=== PATIENT | female | born 1985 | race Caucasian/White ===

== ENCOUNTER 2016-12-11 09:39 | Emergency (ER) | payer OTHER ==
[2016-12-11 10:02] VITALS: RESP 18
--- NOTE | 2016-12-11 11:03 | ED ---
General Adult HPI - General Chief complaint: ENT Stated complaint: ENT Time Seen by Provider: 12/11/16 10:43 Source: patient, RN notes reviewed Mode of arrival: ambulatory Limitations: no limitations - History of Present Illness Initial comments: Patient is a pleasant 31-year-old female presenting to the emergency Department with upper respiratory symptoms. Symptoms have been present close to 2 weeks. Patient states she does have environmental ALLERGIES. Patient has had quite a bit of nasal drainage. Patient also has postnasal drip that has caused her to gag and vomit a couple of times. Patient does have sore throat. She does have earache. No fevers at home however she states a 99 temperature is somewhat high for her. Occasional cough. No dyspnea. - Related Data Home Medications Medication Instructions Recorded Confirmed ALPRAZolam [Xanax] 1 mg PO HS 12/31/15 03/21/16 Multivitamin [Multivitamins Adult 1 tab PO PC-SUPPER 03/19/16 03/21/16 Gummies] Previous Rx's Medication Instructions Recorded medroxyPROGESTERone [Provera] 10 mg PO DAILY #7 tab 03/25/16 Amoxicillin 500 mg PO Q8H #30 capsule 12/11/16 Allergies Allergy/AdvReac Type Severity Reaction Status Date / Time morphine Allergy Rash/Hives Verified 03/24/16 08:27 Review of Systems ROS Statement: Those systems with pertinent positive or pertinent negative responses have been documented in the HPI. ROS Other: All systems not noted in ROS Statement are negative. Constitutional: Denies: fever Eyes: Denies: eye pain ENT: Reports: ear pain, throat pain, congestion. Denies: dental pain, hearing loss, epistaxis Respiratory: Reports: cough. Denies: dyspnea Cardiovascular: Denies: chest pain Endocrine: Denies: fatigue Gastrointestinal: Denies: abdominal pain Genitourinary: Denies: dysuria Musculoskeletal: Denies: back pain Skin: Denies: rash Neurological: Denies: weakness Past Medical History Past Medical History: No Reported History Additional Past Medical History / Comment(s): brain anuerysm, ETOH abuse History of Any Multi-Drug Resistant Organisms: None Reported Past Surgical History: Adenoidectomy, Section, Orthopedic Surgery, Tonsillectomy Additional Past Surgical History / Comment(s): right knee surgery, brain surgery for removal aneurysm, ovarian cystectomy laparoscopically Past Anesthesia/Blood Transfusion Reactions: No Reported Reaction Past Psychological History: Anxiety, Depression, PTSD Additional Psychological History / Comment(s): MANIC/DEPRESSION, INSOMNIA, WAS ON SEROQUEL AND TRAZADONE IN PAST BUT DID NOT LIKE THE FEELING FROM IT AND QUIT THEM Smoking Status: Former smoker Past Alcohol Use History: Daily, Heavy Past Drug Use History: None Reported - Past Family History Father Additional Family Medical History / Comment(s): ETOH Mother Additional Family Medical History / Comment(s): ETOH, history of uterine fibroids General Exam Limitations: no limitations General appearance: alert, in no apparent distress Head exam: Present: atraumatic Eye exam: Present: normal appearance, PERRL ENT exam: Present: TM's normal bilaterally, other (Pharyngeal cobblestoning. Tenderness over the frontal maxillary and ethmoid sinuses.) Neck exam: Present: normal inspection Respiratory exam: Present: normal lung sounds bilaterally Cardiovascular Exam: Present: tachycardia (Patient attributes this to her anxiety) GI/Abdominal exam: Present: soft. Absent: tenderness Extremities exam: Present: normal inspection. Absent: calf tenderness Neurological exam: Present: alert Psychiatric exam: Present: anxious Skin exam: Absent: rash Course Vital Signs 12/11/16 09:59 Temperature 99.0 F Pulse Rate 120 H Respiratory 18 Rate Blood Pressure 126/84 O2 Sat by Pulse 97 Oximetry Disposition Clinical Impression: Sinusitis Disposition: HOME SELF-CARE Condition: Stable Instructions: Sinusitis (ED), Allergies (ED) Additional Instructions: [id number] Claritin. [id number]-[id number] saline nasal spray. Please follow- up with primary care physician in the next couple days for recheck. Return for difficulty in breathing, uncontrolled fevers, worsening symptoms or other concerns. If you are going to discontinue Xanax please slowly your self off of it. Please also follow-up with primary care physician regarding possible other medications for anxiety. Prescriptions: Amoxicillin 500 mg PO Q8H #30 capsule Referrals: None,Stated [Primary Care Provider] - 1-2 days Allan Aleman MD [STAFF PHYSICIAN] - 1-2 days Michelet Larry DO [STAFF PHYSICIAN] - 1-2 days
[2016-12-11 11:16] VITALS: BP 127/85; PULSE 107; TEMP 97.9
== END 2016-12-11 11:15 | disposition home or self-care (01) ==
LOC: EC 09:39
DX: J32.9 Chronic sinusitis, unspecified (principal); F41.9 Anxiety disorder, unspecified; Z87.891 Personal history of nicotine dependence; Z79.899 Other long term (current) drug therapy; Z88.5 Allergy status to narcotic agent
CPT/HCPCS: 99283

== ENCOUNTER 2016-12-25 19:17 | Inpatient (IN) | payer OTHER ==
[2016-12-25] MEDS ORDERED: SODIUM CHLORIDE 0.9% 1,000 ML IV ONE (20:30)
[2016-12-25 21:13] LABS: Basophils % (A) 1 %; CH 30.4; CHCM 32.5; Eosinophils % (A) 0 %; HCT 38.7 % (34.0-46.0); HDW 2.02; HGB 12.5 gm/dL (11.4-16.0); Luc # (Auto) 0.11; Luc % (Auto) 4; Lymphocytes # (A) 0.9 k/uL (1.0-4.8); Lymphocytes % (A) 27 %; MCH 30.4 pg (25.0-35.0); MCHC 32.4 g/dL (31.0-37.0); MCV 93.7 fL (80.0-100.0); Monocytes # (A) 0.2 k/uL (0-1.0); Monocytes % (A) 7 %; Neutrophils % (A) 62 %; RBC 4.13 m/uL (3.80-5.40); RDW 13.7 % (11.5-15.5); WBC 3.2 k/uL (3.8-10.6); WBC (Perox) 3.32
[2016-12-25 21:24] LABS: ALT 62 U/L (9-52); AST 189 U/L (14-36); Alkaline Phosphatase 115 U/L (38-126); Anion Gap 30 mmol/L; Blood Urea Nitrogen <2 mg/dL (7-17); Carbon Dioxide 17 mmol/L (22-30); Chloride 92 mmol/L (98-107); Glucose 82 mg/dL (74-99); Non-African American GFR(MDRD) >60 (>60 ml/min/1.73 sqM); Potassium 3.6 mmol/L (3.5-5.1); Sodium 139 mmol/L (137-145)
[2016-12-25] MEDS ORDERED: LORazepam 2 MG/ML SYRINGE IV PRN (21:43)
[2016-12-25] MEDS ORDERED: THIAMINE 100 MG/ML 2 ML VIAL IM STA (21:43)
[2016-12-25 22:44] LABS: Appearance,Urine Turbid (Clear); Bilirubin,Urine Negative (Negative); Glucose,Urine (UA) Negative (Negative); Ketones,Urine 2+ (Negative); Leukocyte Esterase,Urine Trace (Negative); Mucus,Urine Few /hpf; Nitrite,Urine Negative (Negative); PH, Urine 6.5 (5.0-8.0); Particle Count 59532; Protein,Urine 3+ (Negative); RBC,Urine >182 /hpf (0-5); Specific Gravity,Urine 1.016 (1.001-1.035); UA Billing (MACRO vs. MICRO) MICRO; Urobilinogen,Urine <2.0 mg/dL (<2.0); WBC,Urine 13 /hpf (0-5)
[2016-12-25] MEDS ORDERED: MORPHINE SULFATE 4 MG/ML SYRINGE IV PRN (23:42)
[2016-12-25] MEDS ORDERED: NALOXONE 0.4 MG/ML 1 ML VIAL IV PRN (23:42)
--- NOTE | 2016-12-25 23:42 | ED ---
General Adult HPI - General Chief complaint: Vaginal Bleeding Stated complaint: Vaginal Bleeding Source: patient Mode of arrival: wheelchair Limitations: no limitations - History of Present Illness Initial comments: 31-year-old female with past medical history of alcohol tendons and ovarian polyps presented for evaluation of alcohol withdrawal and vaginal bleeding. She states the vaginal bleeding has been persistent for the last 2 and half weeks she's been using 14-15 pads per day and states that each one is soaked all the way through. This is happened before in the past and required a D&C due to the polyps. She states that she hasn't seen her primary care physician or her [facility] as she hasn't had time and "just didn't bother". It has continued and she states there is associated nausea, lightheadedness, dizziness , and decreased appetite. She states her abdominal pain is crampy and in her lower abdomen. She also feels shaky and her last drink of alcohol was 18 hours ago and she believes she is going into withdrawal. She is monitored withdrawal in the past but denies any alcohol withdrawal induced seizures. - Related Data Home Medications Medication Instructions Recorded Confirmed ALPRAZolam [Xanax] 1 mg PO HS 12/31/15 12/25/16 Allergies Allergy/AdvReac Type Severity Reaction Status Date / Time morphine Allergy Rash/Hives Verified 12/25/16 19:35 Review of Systems ROS Statement: Those systems with pertinent positive or pertinent negative responses have been documented in the HPI. ROS Other: All systems not noted in ROS Statement are negative. Constitutional: Denies: fever, chills Eyes: Denies: eye pain, vision change ENT: Denies: ear pain, throat pain, dental pain Respiratory: Denies: cough, dyspnea, wheezes, hemoptysis Cardiovascular: Denies: chest pain, palpitations Endocrine: Denies: fatigue, polydipsia, polyuria Gastrointestinal: Reports: abdominal pain (cramping), nausea. Denies: vomiting , diarrhea, constipation, hematemesis, melena, hematochezia Genitourinary: Reports: other (vaginal bleeding x14 days; >14 pads/day). Denies : urgency, dysuria, frequency, hematuria Musculoskeletal: Denies: back pain, arthralgia, myalgia Skin: Denies: rash, lesions Neurological: Denies: headache, weakness Psychiatric: Denies: anxiety, depression Hematological/Lymphatic: Denies: easy bleeding, easy bruising Past Medical History Past Medical History: No Reported History Additional Past Medical History / Comment(s): brain anuerysm, ETOH abuse History of Any Multi-Drug Resistant Organisms: None Reported Past Surgical History: Adenoidectomy, Section, Orthopedic Surgery, Tonsillectomy Additional Past Surgical History / Comment(s): right knee surgery, brain surgery for removal aneurysm, ovarian cystectomy laparoscopically Past Anesthesia/Blood Transfusion Reactions: No Reported Reaction Past Psychological History: Anxiety, Depression, PTSD Additional Psychological History / Comment(s): MANIC/DEPRESSION, INSOMNIA, WAS ON SEROQUEL AND TRAZADONE IN PAST BUT DID NOT LIKE THE FEELING FROM IT AND QUIT THEM Smoking Status: Former smoker Past Alcohol Use History: Daily, Heavy Past Drug Use History: None Reported - Past Family History Father Additional Family Medical History / Comment(s): ETOH Mother Additional Family Medical History / Comment(s): ETOH, history of uterine fibroids General Exam Limitations: no limitations General appearance: alert, in no apparent distress Head exam: Present: atraumatic, normocephalic, normal inspection Eye exam: Present: normal appearance, PERRL, EOMI. Absent: scleral icterus, conjunctival injection, periorbital swelling ENT exam: Present: normal exam, mucous membranes moist Neck exam: Present: normal inspection. Absent: tenderness, meningismus, lymphadenopathy Respiratory exam: Present: normal lung sounds bilaterally. Absent: respiratory distress, wheezes, rales, rhonchi, stridor Cardiovascular Exam: Present: normal rhythm, tachycardia, normal heart sounds. Absent: systolic murmur, diastolic murmur, rubs, gallop, clicks GI/Abdominal exam: Present: soft, normal bowel sounds. Absent: distended, tenderness, guarding, rebound, rigid Rectal exam: Present: deferred External exam: Present: normal external exam Speculum exam: Present: vaginal bleeding, other (significant clots noted in the vaginal vault; persistent bloody ooze from cervical os) Extremities exam: Present: normal inspection, full ROM, normal capillary refill. Absent: tenderness, pedal edema, joint swelling, calf tenderness Back exam: Present: normal inspection Neurological exam: Present: alert, oriented X3, CN II-XII intact Psychiatric exam: Present: anxious. Absent: flat affect, homicidal ideation, suicidal ideation Skin exam: Present: warm, dry, intact, normal color. Absent: rash Course Vital Signs 12/25/16 12/25/16 19:32 21:39 Temperature 98.7 F Pulse Rate 118 H 113 H Respiratory 16 16 Rate Blood Pressure 124/82 131/82 O2 Sat by Pulse 98 100 Oximetry EKG Findings - EKG Comments: EKG Findings:: Normal sinus rhythm with a ventricular rate 98, HALIE 134, QRS 68, QT/QTC 372/474. Medical Decision Making - Medical Decision Making 31-year-old female with past medical history of uterine polyps and chronic alcoholism presenting for evaluation of abdominal discomfort/cramping and vaginal bleeding. Vaginal bleeding has been persistent for the last 2-1/2 weeks and she states she uses about 14-15 pads per day. She has had a previous D&C due to vaginal bleeding. The abdominal discomfort with nausea is likely due to her alcoholism and she states that she is currently going into alcohol withdrawals and her last week was 18 hours ago. On physical exam the patient is very anxious appearing and on physical exam she does have tenderness over the abdomen without peritoneal signs of guarding, rigidity, or rebound. The patient states that she would like to be placed into a program that will help her withdrawal and also quit drinking alcohol. We'll initiate CIWA protocol, obtain labs, and provide pain control IV fluids and Zofran. Labs revealed a mild leukopenia, transaminitis, and pancreatitis. Although there is some leukocyte esterase and a PVCs in her urine this is likely contamination as there is also large amounts of blood and RBCs. She is not complaining of any dysuria at this time and will therefore not treat with antibiotics. Patient made nothing by mouth, IV fluids continued, and pelvic exam performed which showed significant clotting in the vaginal vault with a slow persistent ooze of blood from the cervical os. Given the patient going into our call withdrawal, her pancreatitis, and the persistent vaginal bleeding will admit for further treatment and evaluation. Dr. Nichole accepted the admission with request for consult with [facility]. Admission order placed and bed request submitted. Dr. Ward was updated on the status of the pt and she requested a pelvic US be obtained for the morning. The US team was in the department shortly after however and US obtained this morning. Patient was reevaluated and had some improvement in her symptoms however she was starting to feel nauseous again will provide a dose of Zofran and continue IV fluids. - Lab Data Result diagrams: 12/25/16 21:00 12/25/16 21:00 Lab Results 12/25/16 12/25/16 12/25/16 Range/Units 21:00 21:00 22:25 WBC 3.2 L (3.8-10.6) k/uL RBC 4.13 (3.80-5.40) m/uL Hgb 12.5 (11.4-16.0) gm/dL Hct 38.7 (34.0-46.0) % MCV 93.7 (80.0-100.0) fL MCH 30.4 (25.0-35.0) pg MCHC 32.4 (31.0-37.0) g/dL RDW 13.7 (11.5-15.5) % Plt Count 89 L (150-450) k/uL Neutrophils % 62 % Lymphocytes % 27 % Monocytes % 7 % Eosinophils % 0 % Basophils % 1 % Neutrophils # 2.0 (1.3-7.7) k/uL Lymphocytes # 0.9 L (1.0-4.8) k/uL Monocytes # 0.2 (0-1.0) k/uL Eosinophils # 0.0 (0-0.7) k/uL Basophils # 0.0 (0-0.2) k/uL Sodium 139 (137-145) mmol/L Potassium 3.6 (3.5-5.1) mmol/L Chloride 92 L (98-107) mmol/L Carbon Dioxide 17 L (22-30) mmol/L Anion Gap 30 mmol/L BUN <2 L (7-17) mg/dL Creatinine 0.49 L (0.52-1.04) mg/dL Est GFR (MDRD) Af Amer >60 (>60 ml/min/1.73 sqM) Est GFR (MDRD) Non-Af >60 (>60 ml/min/1.73 sqM) Glucose 82 (74-99) mg/dL Calcium 10.0 (8.4-10.2) mg/dL Total Bilirubin 2.0 H (0.2-1.3) mg/dL AST 189 H (14-36) U/L ALT 62 H (9-52) U/L Alkaline Phosphatase 115 (38-126) U/L Total Protein 9.0 H (6.3-8.2) g/dL Albumin 5.3 H (3.5-5.0) g/dL Lipase 3836 H (23-300) U/L Urine Color Urine Appearance (Clear) Urine pH (5.0-8.0) Ur Specific [place] (1.001-1.035) Urine Protein (Negative) Urine Glucose (UA) (Negative) Urine Ketones (Negative) Urine Blood (Negative) Urine Nitrite (Negative) Urine Bilirubin (Negative) Urine Urobilinogen (<2.0) mg/dL Ur Leukocyte Esterase (Negative) Urine RBC (0-5) /hpf Urine WBC (0-5) /hpf Urine Mucus (None) /hpf Urine HCG, Qual Not Detected (Not Detectd) 12/25/16 Range/Units 22:25 WBC (3.8-10.6) k/uL RBC (3.80-5.40) m/uL Hgb (11.4-16.0) gm/dL Hct (34.0-46.0) % MCV (80.0-100.0) fL MCH (25.0-35.0) pg MCHC (31.0-37.0) g/dL RDW (11.5-15.5) % Plt Count (150-450) k/uL Neutrophils % % Lymphocytes % % Monocytes % % Eosinophils % % Basophils % % Neutrophils # (1.3-7.7) k/uL Lymphocytes # (1.0-4.8) k/uL Monocytes # (0-1.0) k/uL Eosinophils # (0-0.7) k/uL Basophils # (0-0.2) k/uL Sodium (137-145) mmol/L Potassium (3.5-5.1) mmol/L Chloride (98-107) mmol/L Carbon Dioxide (22-30) mmol/L Anion Gap mmol/L BUN (7-17) mg/dL Creatinine (0.52-1.04) mg/dL Est GFR (MDRD) Af Amer (>60 ml/min/1.73 sqM) Est GFR (MDRD) Non-Af (>60 ml/min/1.73 sqM) Glucose (74-99) mg/dL Calcium (8.4-10.2) mg/dL Total Bilirubin (0.2-1.3) mg/dL AST (14-36) U/L ALT (9-52) U/L Alkaline Phosphatase (38-126) U/L Total Protein (6.3-8.2) g/dL Albumin (3.5-5.0) g/dL Lipase (23-300) U/L Urine Color Dark Red Urine Appearance Turbid H (Clear) Urine pH 6.5 (5.0-8.0) Ur Specific [place] 1.016 (1.001-1.035) Urine Protein 3+ H (Negative) Urine Glucose (UA) Negative (Negative) Urine Ketones 2+ H (Negative) Urine Blood Large H (Negative) Urine Nitrite Negative (Negative) Urine Bilirubin Negative (Negative) Urine Urobilinogen <2.0 (<2.0) mg/dL Ur Leukocyte Esterase Trace H (Negative) Urine RBC >182 H (0-5) /hpf Urine WBC 13 H (0-5) /hpf Urine Mucus Few H (None) /hpf Urine HCG, Qual (Not Detectd) Disposition Clinical Impression: Pancreatitis, Vaginal bleeding, Transaminitis Disposition: ADMITTED IP TO THIS [facility] Referrals: None,Stated [Primary Care Provider] - 1-2 days Decision to Admit Reason: Admit from EC Decision Date: 12/25/16 Decision Time: 23:42
[2016-12-26] MEDS: ONDANSETRON 4 MG/2 ML VIAL IVP PRN ×3 (00:42→19:19)
[2016-12-26] MEDS: LORazepam 2 MG/ML SYRINGE IV PRN ×3 (00:42→19:20)
[2016-12-26] MEDS ORDERED: SODIUM CHLORIDE 0.9% 1,000 ML IV ONE (00:51)
[2016-12-26] MEDS ORDERED: ONDANSETRON 4 MG/2 ML VIAL IVP STA (00:51)
[2016-12-26] MEDS: SODIUM CHLORIDE 0.9% 1,000 ML IV SCH ×4 (02:20→20:52)
[2016-12-26] MEDS: HYDROmorphone 1 MG/ML 1 ML SYRINGE IVP PRN ×3 (03:13→20:49)
[2016-12-26 08:10] LABS: Aty Lym Flag Slight; CH 30.4; CHCM 31.5; HCT 32.9 % (34.0-46.0); HDW 2.03; HGB 10.6 gm/dL (11.4-16.0); MCH 31.1 pg (25.0-35.0); MCHC 32.1 g/dL (31.0-37.0); Mean Platelet Volume 8.3; WBC 5.8 k/uL (3.8-10.6); WBC (Perox) 6.17
[2016-12-26 08:22] LABS: Blood Urea Nitrogen <2 mg/dL (7-17); Calcium 9.5 mg/dL (8.4-10.2); Chloride 104 mmol/L (98-107); Glucose 128 mg/dL (74-99); Non-African American GFR(MDRD) >60 (>60 ml/min/1.73 sqM); Potassium 4.1 mmol/L (3.5-5.1); Sodium 139 mmol/L (137-145)
[2016-12-26 08:57] LABS: Anion Gap 25 mmol/L
[2016-12-26 08:58] LABS: Carbon Dioxide 10 mmol/L (22-30)
[2016-12-26 09:19] LABS: Add Differential Manual Differential
[2016-12-26 09:21] LABS: Manual Review Performed; Nucleated Red Blood Cells 0 /100 WBC (0-0); Total Cells Counted 100
[2016-12-26 09:22] LABS: RBC Morphology Normal
--- NOTE | 2016-12-26 10:02 | P.OBCN ---
History of Present Illness Consult date: 12/26/16 Reason for consult: menorrhagia Chief complaint: Vaginal bleeding History of present illness: This is a 31-year-old 2 para 2 woman who was admitted from the emergency room with alcohol withdrawal and pancreatitis. She reports a 2 week history of vaginal bleeding. She describes the bleeding as intermittently heavy with passage of large clots. She has had similar bleeding episodes in the past and underwent a D&C for this condition several months ago. She denies possibility of however is not using contraception. Her previous office worker did prescribe medication for her to take for her bleeding however she says she is unable to remember to take this as an outpatient. She is currently complaining of generalized abdominal pain, headache, nausea and feeling shaky. Her bleeding has decreased throughout the night. Ultrasound is currently pending however review of ultrasound documentation from 2016 comments on a bicornuate and retroflexed uterus. She underwent D&C for heavy vaginal bleeding in March 2016. She received transfusion at that time. She was discharged home on Provera. Patient's past medical history is significant for alcohol abuse. Review of Systems Constitutional: Reports anorexia, Reports chills, Reports chronic headaches, Reports weakness, Reports weight loss Cardiovascular: Denies chest pain, Denies lightheadedness Respiratory: Reports cough Gastrointestinal: Reports abdominal pain, Reports nausea, Denies BRBPR, Denies diarrhea Genitourinary: Reports abnormal vaginal bleeding Menstruation: Reports period heavy Integumentary: Denies rash Neurological: Reports headaches Psychiatric: Reports sleep disturbances Past Medical History Past Medical History: No Reported History Additional Past Medical History / Comment(s): brain anuerysm, ETOH abuse, bicornuate uterus, dysfunctional uterine bleeding History of Any Multi-Drug Resistant Organisms: None Reported Past Surgical History: Adenoidectomy, Section, Orthopedic Surgery, Tonsillectomy Additional Past Surgical History / Comment(s): right knee surgery, brain surgery for removal aneurysm, ovarian cystectomy laparoscopically, D&C Past Anesthesia/Blood Transfusion Reactions: No Reported Reaction Past Psychological History: Anxiety, Depression, PTSD Additional Psychological History / Comment(s): MANIC/DEPRESSION, INSOMNIA, WAS ON SEROQUEL AND TRAZADONE IN PAST BUT DID NOT LIKE THE FEELING FROM IT AND QUIT THEM Smoking Status: Former smoker Past Alcohol Use History: Daily, Heavy Past Drug Use History: None Reported - Past Family History Father Additional Family Medical History / Comment(s): ETOH Mother Additional Family Medical History / Comment(s): ETOH, history of uterine fibroids Medications and Allergies Home Medications Medication Instructions Recorded Confirmed Type ALPRAZolam [Xanax] 1 mg PO HS 12/31/15 12/26/16 History Allergies Allergy/AdvReac Type Severity Reaction Status Date / Time morphine Allergy Rash/Hives Verified 12/26/16 08:55 Exam - Vital Signs Vital signs: Vital Signs Temp Pulse Resp BP Pulse Ox 12/26/16 07:00 98.1 F 94 18 117/80 97 12/26/16 00:12 97.6 F 100 16 139/64 100 12/26/16 00:00 100 16 Intake and Output 12/25/16 12/26/16 12/26/16 22:59 06:59 14:59 Other: Voiding Method Toilet # Voids 3 This is a thin and yellow appearing female with multiple tattoos. HEENT exam is unremarkable. The breathing is on labored and heart is of regular rate. Abdomen is slim soft and tender in all 4 quadrants. There is no rebound, no guarding, no flank pain and no distention. She has a scant amount of vaginal bleeding on the melvin-pad. Full pelvic examination is not done in this venue. The extremities are free of any significant rash or lesions. Neurologically there are no focal deficits. She does have small tremor and difficulty with word finding. She has otherwise oriented 3. Results Result Diagrams: 12/26/16 07:50 12/26/16 07:50 Abnormal Lab Results - Last 24 Hours (Table) 12/26/16 12/26/16 Range/Units 07:50 07:50 RBC 3.40 L (3.80-5.40) m/uL Hgb 10.6 L (11.4-16.0) gm/dL Hct 32.9 L (34.0-46.0) % Plt Count 98 L (150-450) k/uL Carbon Dioxide 10 L* (22-30) mmol/L BUN <2 L (7-17) mg/dL Glucose 128 H (74-99) mg/dL Lipase 3102 H (23-300) U/L US - abdomen: pending Assessment and Plan (1) Pancreatitis Status: Acute (2) Vaginal bleeding Status: Acute (3) Alcoholism /alcohol abuse Status: Acute Plan: This is a 31-year-old 2 para 2 woman with history of dysfunctional uterine bleeding who is currently admitted for treatment of pancreatitis. Pelvic ultrasound is pending however review of previous imaging reveals history of bicornuate uterus. She can be started on progesterone 10 mg every day. With history of brain aneurysm she is not a candidate for estrogen therapy. Once she is seen and other medical concerns addressed by the medical team she may be candidate for D&C if her heavy bleeding continues.
--- NOTE | 2016-12-26 12:16 | US ---
EXAMINATION TYPE: US transvaginal DATE OF EXAM: 12/26/2016 10:52 AM COMPARISON: US CLINICAL HISTORY: Pain. DUB TECHNIQUE: Transvaginal (TV) Date of LMP: unknown, patient states she is bleeding now but does not consider it her period EXAM MEASUREMENTS: Uterus: 8.3 x 4.1 x 5.5 cm Endometrial Stripe: 0.6 cm Right Ovary: 2.0 x 1.1 x1.9 cm Left Ovary: 3.3 x 3.1 x 2.9 cm Patient states D & C last year. 1. Uterus: Retroverted wnl 2. Endometrium: measures 0.6 cm, patient does not have regular cycles 3. Right Ovary: wnl 4. Left Ovary: cyst measuring 3.1 x 1.7 x 2.3 cm. This cyst contains layering debris, likely hemorrh agic. 5. Bilateral Adnexa: 6. Posterior cul-de-sac: small amount of free fluid The uterus is retroflexed and retroverted, unchanged from the prior. IMPRESSION: 1. Normal endometrial thickness in a patient with dysfunctional uterine bleeding. 2. Left ovarian cysts, with layering debris relating to a hemorrhagic component. 3. Retroverted uterus, unchanged anatomically from the prior.
[2016-12-26] MEDS ORDERED: DEXTROSE 5% IN WATER 1,000 ML with SODIUM ACETATE 50 MEQ IV SCH (13:00)
[2016-12-26] MEDS ORDERED: SODIUM ACETATE 50 MEQ in WATER FOR INJECTION, STERILE 250 ML IV ONE (14:57)
[2016-12-26] MEDS: THIAMINE 100 MG TAB PO SCH ×2 (18:46→18:47)
--- NOTE | 2016-12-26 20:34 | HP ---
DATE OF ADMISSION: 12/25/2016 CHIEF COMPLAINT: Pancreatitis. HISTORY OF PRESENT ILLNESS: This is the first admission for this 31-year-old white female. Apparently, she has been a usp alcoholic. She came to the emergency room where her lipase was 3102 and she was admitted. She was vomiting. She is very cachectic and admits to anorexia, but not bulimia. REVIEW OF SYSTEMS: She has had no neurologic problems, change in vision or hearing, cough, hemoptysis, chest pain, abdominal pain, vomiting, hematemesis, melena, jaundice, renal disease, etc. Past medical history, family history, and personal and social history, social histories reveal apparently that she has been treated for borderline personality, bipolar depression, PTSD and anorexia nervosa. Medications that she is on include: Only Xanax. She has had 2 D&Cs, and the scope of the knee. She also had a brain aneurysm. She had and ovarian cyst. ALLERGIES: SHE IS ALLERGIC MORPHINE. She drinks 10 to 15 beers a day and does not smoke. She apparently has been in therapy before, but refuses to go now and will not take any medication. PHYSICAL EXAMINATION: VITAL SIGNS: Blood pressure 118/65 with a pulse of 71, respirations 15 and she is afebrile. GENERAL: She appears to be pale, asthenic and chronically ill. Skin was dry. HEENT: Head, ears, eyes, nose, mouth, and throat were normal. NECK: Neck veins not distended. Thyroid is not enlarged. Chest is clear. Cardiac exam is normal. ABDOMEN: Soft, nontender. EXTREMITIES: Normal. NEUROLOGICAL: She is intact. IMPRESSION: 1. Alcoholic pancreatitis. 2. Chronic alcoholism. 3. Bipolar depression. 4. Borderline personality. 5. PTSD. 6. Anorexia nervosa. PLAN: 1. Bed rest. 2. IV fluids. 3. Follow her pancreatic enzymes. 4. Psych consult.
--- NOTE | 2016-12-26 20:38 | PN ---
CHIEF COMPLAINT: Pancreatitis and alcoholism. HISTORY OF PRESENT ILLNESS: This lady is about the same. She is extremely depressed. It turns out she has history of borderline personality, bipolar depression and PTSD, as well as anorexia. PHYSICAL EXAMINATION: She remains pale. Chest is clear. Her abdomen is flat and slightly tender over the epigastrium. IMPRESSION: 1. Alcoholic pancreatitis. 2. Alcoholism. 3. Major depression. 4. Borderline personality. PLAN: 1. Continue with IV fluids. 2. Psych consult.
[2016-12-27] MEDS: ONDANSETRON 4 MG/2 ML VIAL IVP PRN (03:29)
[2016-12-27] MEDS: HYDROmorphone 1 MG/ML 1 ML SYRINGE IVP PRN ×3 (04:47→22:21)
[2016-12-27 07:36] LABS: ALT 39 U/L (9-52); AST 82 U/L (14-36); Alkaline Phosphatase 56 U/L (38-126); Amylase 97 U/L (30-110); Anion Gap 18 mmol/L; Blood Urea Nitrogen <2 mg/dL (7-17); Calcium 7.9 mg/dL (8.4-10.2); Carbon Dioxide 13 mmol/L (22-30); Chloride 113 mmol/L (98-107); Glucose 97 mg/dL (74-99); Non-African American GFR(MDRD) >60 (>60 ml/min/1.73 sqM); Potassium 3.4 mmol/L (3.5-5.1); Sodium 144 mmol/L (137-145); Total Protein 5.5 g/dL (6.3-8.2)
[2016-12-27 07:56] LABS: Basophils % (A) 1 %; CH 30.1; CHCM 31.1; Eosinophils % (A) 1 %; HCT 22.5 % (34.0-46.0); Hypochromasia Slight; Luc # (Auto) 0.11; Luc % (Auto) 4; Lymphocytes # (A) 0.6 k/uL (1.0-4.8); Lymphocytes % (A) 24 %; MCH 31.4 pg (25.0-35.0); MCHC 32.3 g/dL (31.0-37.0); MCV 97.2 fL (80.0-100.0); Mean Platelet Volume 8.5; Monocytes # (A) 0.2 k/uL (0-1.0); Monocytes % (A) 10 %; Neutrophils # (A) 1.5 k/uL (1.3-7.7); Neutrophils % (A) 61 %; RBC 2.32 m/uL (3.80-5.40); RDW 13.7 % (11.5-15.5); WBC 2.5 k/uL (3.8-10.6); WBC (Perox) 2.37
[2016-12-27 08:05] LABS: HGB 7.3 gm/dL (11.4-16.0)
[2016-12-27] MEDS: SODIUM CHLORIDE 0.9% 1,000 ML IV SCH ×5 (08:29→15:30)
--- NOTE | 2016-12-27 08:45 | P.PN ---
Subjective Principal diagnosis: Vaginal bleeding, pancreatitis Patient reports ongoing vaginal bleeding with passage of clots throughout the night. She is weak and dizzy when she is up to the bathroom. She denies abdominal pain. Objective - Vital Signs Vital signs: Vital Signs Temp 97.2 F L 12/26/16 23:00 Pulse 81 12/26/16 23:00 Resp 16 12/27/16 00:00 BP 94/65 12/26/16 23:00 Pulse Ox 98 12/26/16 23:00 Intake & Output 12/26/16 12/27/16 12/27/16 18:59 06:59 18:59 Intake Total 400 2400 Balance 400 2400 Intake: Intake, IV Titration 400 2400 Amount Sodium Chloride 0.9% 1, 400 2400 000 ml @ 200 mls/hr IV . Q5H [facility] Rx#:[id number] Other: Voiding Method Toilet Toilet # Voids 2 4 - Constitutional General appearance: Present: disheveled, mild distress, thin - Gastrointestinal General gastrointestinal: Present: soft. Absent: tenderness - Labs CBC & Chem 7: 12/27/16 06:56 12/27/16 06:56 Labs: Abnormal Lab Results - Last 24 Hours (Table) 12/26/16 12/26/16 12/27/16 Range/Units 07:50 07:50 06:56 WBC 2.5 L (3.8-10.6) k/uL RBC 3.40 L 2.32 L (3.80-5.40) m/uL Hgb 10.6 L 7.3 L D (11.4-16.0) gm/dL Hct 32.9 L 22.5 L (34.0-46.0) % Plt Count 98 L 72 L (150-450) k/uL Lymphocytes # 0.6 L (1.0-4.8) k/uL Potassium (3.5-5.1) mmol/L Chloride (98-107) mmol/L Carbon Dioxide 10 L* (22-30) mmol/L BUN <2 L (7-17) mg/dL Creatinine (0.52-1.04) mg/dL Glucose 128 H (74-99) mg/dL Calcium (8.4-10.2) mg/dL AST (14-36) U/L Total Protein (6.3-8.2) g/dL Albumin (3.5-5.0) g/dL Lipase 3102 H (23-300) U/L 12/27/16 Range/Units 06:56 WBC (3.8-10.6) k/uL RBC (3.80-5.40) m/uL Hgb (11.4-16.0) gm/dL Hct (34.0-46.0) % Plt Count (150-450) k/uL Lymphocytes # (1.0-4.8) k/uL Potassium 3.4 L (3.5-5.1) mmol/L Chloride 113 H (98-107) mmol/L Carbon Dioxide 13 L (22-30) mmol/L BUN <2 L (7-17) mg/dL Creatinine 0.39 L (0.52-1.04) mg/dL Glucose (74-99) mg/dL Calcium 7.9 L (8.4-10.2) mg/dL AST 82 H (14-36) U/L Total Protein 5.5 L (6.3-8.2) g/dL Albumin 3.1 L (3.5-5.0) g/dL Lipase 3506 H (23-300) U/L - Imaging and Cardiology US - abdomen: report reviewed Assessment and Plan (1) Pancreatitis Status: Acute (2) Vaginal bleeding Narrative/Plan: Ongoing vaginal bleeding. Pelvic ultrasound is reviewed and reveals a normal endometrial stripe of 0.6 cm. The uterus is retroverted and retroflexed however there is no mention of bicornuate shape as noted in the past. She has dropped her hemoglobin considerably since admission. I discussed the case with her primary care physician and she will be transfused 2 units. Coag studies have been ordered. She was thrombocytopenic which she has been before in the past. There is thought this may be likely to liver disease secondary to her alcoholism however hematology consult should be considered. I discussed the situation with the patient. We reviewed on her current blood counts and my recommendation for a D&C procedure. The procedure was reviewed with the patient including possible risk of further bleeding, infection, transfusion, uterine perforation with damage to leak or abdominal structures. Patient voices understanding of these risks and agrees to proceed with the D&C. I also discussed with her transfusion and possible risk of transfusion reaction. She is scheduled for diagnostic hysteroscopy and D&C later today. Coag studies are pending. I have recommended preoperative transfusion of 2 units packed red blood cells to her medical team preprocedure. Status: Acute (3) Alcoholism /alcohol abuse Status: Acute (4) Anemia Status: Acute (5) Thrombocytopenia Status: Acute
[2016-12-27 09:30] LABS: INR 1.3 (<1.1); Partial Thromboplastin Time 22.5 sec (22.0-30.0); Prothrombin Time 12.9 sec (9.0-12.0)
[2016-12-27 09:43] LABS: Glucose,Whole Blood 108 mg/dL (75-99)
[2016-12-27] MEDS: THIAMINE 100 MG TAB PO SCH ×2 (13:00→17:31)
[2016-12-27] MEDS: PANTOPRAZOLE 40 MG/10 ML VIAL IVP SCH (13:02)
[2016-12-27] MEDS ORDERED: LIDOCAINE 1%-EPI 1:100,000 20 ML VIAL SQ ONE ×2 (13:16)
[2016-12-27] MEDS ORDERED: IV FLUID CONTINUATION 1,000 ML IV ONE (13:26)
[2016-12-27] MEDS ORDERED: MIDAZOLAM 2 MG/2 ML VIAL ONE (13:26)
[2016-12-27] MEDS ORDERED: fentaNYL (PF) 50 MCG/ML 2 ML AMP ONE (13:26)
[2016-12-27] MEDS ORDERED: PROPOFOL 10 MG/ML 20 ML VIAL IV ONE (13:26)
[2016-12-27] MEDS ORDERED: SODIUM CHLORIDE 0.9% 1,000 ML IV ONE ×2 (13:50)
--- NOTE | 2016-12-27 14:01 | P.OP ---
Date of Procedure: 12/27/16 Preoperative Diagnosis: vaginal bleeding Anemia Thrombocytopenia Pancreatitis Postoperative Diagnosis: Same Anesthesia: MAC Surgeon: Roxie Ward Estimated Blood Loss (ml): 50 IV fluids (ml): 200 Urine output (ml): 300 Pathology: other (Teo curettings) Condition: stable Disposition: PACU Indications for Procedure: Vaginal bleeding, symptomatic anemia, thrombocytopenia Operative Findings: Retroverted uterus with clot in the vaginal canal and lower uterine segment. Fluffy appearing endometrium. No evidence of bicornuate-type uterus as previously described on imaging in 2016. Description of Procedure: The patient was transported from the intensive care unit down to the operating room. She was finishing up her second unit of packed red blood cells. She was stable. She was positioned, prepped and draped in the dorsal lithotomy position after anesthetic was administered without incident. Bimanual examination was undertaken the uterus is severely retroverted and firm, approximate 6 weeks' size. The bladder was drained for approximately 300 mL of clear urine. Speculum was placed in the vagina and the cervix was grasped anteriorly with a single-tooth tenaculum. No cervical lesions were noted. Paracervical block with lidocaine plus epinephrine was placed. The uterus was sounded to 9 cm and was retroverted. The cervix was then sequentially dilated using Hegar dilators. This allowed for passage of the diagnostic hysteroscope. There was a moderate amount of dark clot and debris and the cervical canal and lower uterine segment. This was flushed away and the endometrium was appreciated. It appeared to be fluffy however no gross intracavitary lesions were noted. Of note there was no evidence of uterine septum or second bicornuate cavity upon very careful inspection. The hysteroscope was removed and the cervix was further dilated to allow for passage of the small sharp banjo curet. The uterus was circumferentially curettaged with a moderate amount of dark clot and tissue obtained. Following complete curettage the cervix was observed and minimal active bleeding was noted. Instruments removed from the vagina and the patient was awoken from anesthetic without incident. All counts reported as correct. The patient was transported to the recovery area in stable condition.
[2016-12-27] MEDS ORDERED: IOHEXOL 350 MG/ML 25 ML BOTTLE (ORAL USE) PO PRN (14:41)
[2016-12-27] MEDS ORDERED: RX INFO: IV CONTRAST WAS GIVEN 1 EACH MISC MISCELLANE PRN (14:41)
[2016-12-27] MEDS ORDERED: Potassium Replacement Protocol 1 EACH MISC MISCELLANE PRN (14:44)
--- NOTE | 2016-12-27 14:53 | P.CNPUL ---
History of Present Illness Consult date: 12/27/16 Requesting physician: Kevin Nichole Reason for consult: other (ICU mangement) Chief complaint: Vaginal bleeding History of present illness: This is a 31-year-old female being evaluated and examined today in the intensive care unit. This patient was initially in emergency room for abdominal discomfort, cramping, nausea and vaginal bleeding. Her vaginal bleeding has been persistent over the last 2 and half weeks and she states that she uses about 15 pads per day. She has had a history of having a D&C due to vaginal bleeding. Patient has known history of alcoholism and her abdominal discomfort or nausea is likely due to her alcoholism and withdrawal's. Her last drink before going into the emergency room was about 18 hours prior. The patient was admitted with pancreatitis, vaginal bleeding, anemia, transaminitis and thrombocytopenia. Patient is on the CIWA protocol. Patient is very cachectic and admits to anorexia and denies bulimia. Since initial labs revealed a lipase of 3102. Has an extensive psychiatric history which includes borderline personality, bipolar, depression, PTSD and anorexia. On examination the patient appears anxious, the patient is on room air and denies any cough congestion and shortness of breath. He shouldn't is about to get 2 units of packed red blood cells for hemoglobin of 7.3 12/27/16, initially she was 12.5 on . Review of Systems 14 point review of systems was completed and is negative other than what is noted in the HPI. Past Medical History Past Medical History: No Reported History Additional Past Medical History / Comment(s): brain anuerysm, ETOH abuse, bicornuate uterus, dysfunctional uterine bleeding History of Any Multi-Drug Resistant Organisms: None Reported Past Surgical History: Adenoidectomy, Section, Orthopedic Surgery, Tonsillectomy Additional Past Surgical History / Comment(s): right knee surgery, brain surgery for removal aneurysm, ovarian cystectomy laparoscopically, D&C Past Anesthesia/Blood Transfusion Reactions: No Reported Reaction Past Psychological History: Anxiety, Depression, PTSD Additional Psychological History / Comment(s): MANIC/DEPRESSION, INSOMNIA, WAS ON SEROQUEL AND TRAZADONE IN PAST BUT DID NOT LIKE THE FEELING FROM IT AND QUIT THEM Smoking Status: Former smoker Past Alcohol Use History: Daily, Heavy Past Drug Use History: None Reported - Past Family History Father Additional Family Medical History / Comment(s): ETOH Mother Additional Family Medical History / Comment(s): ETOH, history of uterine fibroids Medications and Allergies Home Medications Medication Instructions Recorded Confirmed Type ALPRAZolam [Xanax] 1 mg PO HS 12/31/15 12/26/16 History Allergies Allergy/AdvReac Type Severity Reaction Status Date / Time morphine Allergy Rash/Hives Verified 12/26/16 08:55 Physical Exam Vitals: Vital Signs Temp Pulse Pulse Resp BP BP Pulse Ox 12/27/16 10:00 98.9 F 97 17 106/75 12/27/16 09:46 106/80 12/27/16 08:00 16 12/27/16 00:00 16 12/26/16 23:00 97.2 F L 81 16 94/65 98 12/26/16 16:00 18 12/26/16 15:00 96.7 F L 87 18 103/74 99 Intake and Output 12/26/16 12/27/16 12/27/16 22:59 06:59 14:59 Intake Total 800 1600 200 Balance 800 1600 200 Intake: Intake, IV Titration 800 1600 200 Amount Sodium Acetate 50 meq In 200 Water For Injection, Sterile 250 ml @ 900 mls/ hr IV ONCE ONE Rx#: [id number] Sodium Chloride 0.9% 1, 800 1600 000 ml @ 200 mls/hr IV . Q5H [facility] Rx#:[id number] Blood Product 0 Rc As-3 Unit 0 [id number] Other: Voiding Method Toilet Toilet Toilet # Voids 4 4 GENERAL EXAM: Alert, cachectic, comfortable in no apparent distress. HEAD: Normocephalic. EYES: Normal reaction of pupils, equal size. NOSE: Clear with pink turbinates. THROAT: No erythema or exudates. NECK: No masses, no JVD. CHEST: No chest wall deformity. LUNGS: Equal air entry with no crackles, wheeze, rhonchi or dullness. CVS: S1 and S2 normal with no audible mumurs, regular rhythm. ABDOMEN: No hepatosplenomegaly, normal bowel sounds, no guarding or rigidity. EXTREMITIES: No edema noted, pedal pulses palpable. SKIN: No rashes CENTRAL NERVOUS SYSTEM: No focal deficits, tone is normal in all 4 extremities. Results - Laboratory Findings CBC and BMP: 12/27/16 06:56 12/27/16 06:56 PT/INR, D-dimer PT 12.9 sec (9.0-12.0) H 12/27/16 08:57 INR 1.3 (<1.1) 12/27/16 08:57 Abnormal lab findings: Abnormal Labs 12/26/16 12/26/16 12/27/16 07:50 07:50 06:56 WBC 2.5 L RBC 3.40 L 2.32 L Hgb 10.6 L 7.3 L D Hct 32.9 L 22.5 L Plt Count 98 L 72 L Lymphocytes # 0.6 L PT Potassium Chloride Carbon Dioxide 10 L* BUN <2 L Creatinine Glucose 128 H POC Glucose (mg/dL) Calcium AST Total Protein Albumin Lipase 3102 H Crossmatch 12/27/16 12/27/16 12/27/16 06:56 08:57 08:57 WBC RBC Hgb Hct Plt Count Lymphocytes # PT 12.9 H Potassium 3.4 L Chloride 113 H Carbon Dioxide 13 L BUN <2 L Creatinine 0.39 L Glucose POC Glucose (mg/dL) Calcium 7.9 L AST 82 H Total Protein 5.5 L Albumin 3.1 L Lipase 3506 H Crossmatch See Detail 12/27/16 09:40 WBC RBC Hgb Hct Plt Count Lymphocytes # PT Potassium Chloride Carbon Dioxide BUN Creatinine Glucose POC Glucose (mg/dL) 108 H Calcium AST Total Protein Albumin Lipase Crossmatch Assessment and Plan Plan: Assessment Vaginal bleeding Anemia, acute blood loss secondary to above Acute Pancreatitis Alcoholism Thrombocytopenia Hypokalemia Plan Medications have been reviewed and will be continued as ordered. We will continue to monitor the vaginal bleeding and hemoglobin. The patient is currently hemodynamically stable, however warrants close watching. She is receiving 2 units of packed red blood cells. She is to undergo a procedure of D &C with CERTIFIED SURGICAL ASSISTANT. Continue with [facility] protocol for impending DTs. We will obtain a CT of the abdomen and pelvis this afternoon in regards to her acute pancreatitis. Lipase level was noted to increase today from yesterday. We will replace electrolytes per protocol. We will obtain blood cultures and urine cultures. Empiric antibiotics started in the form of Levaquin. Hematology also on consult. GI/DVT prophylaxis. We'll continue to monitor labs/ results and adjust treatment as necessary. I performed an examination of the patient and discussed their management with the nurse practitioner. I have reviewed the nurse practitioner's note and agree with the documented findings and plan of care.
[2016-12-27] MEDS: POTASSIUM CHLORIDE 10 MEQ, LIDOCAINE 2% INJ 10 MG in SODIUM CHLORIDE 0.9% 100 ML IV SCH ×2 (15:28→17:53)
[2016-12-27] MEDS: LEVOFLOXACIN 500MG-D5W PMX 500 MG in DEXTROSE/WATER 1 100ML.BAG IVPB SCH (16:29)
--- NOTE | 2016-12-27 17:21 | P.CONS ---
History of Present Illness - Reason for Consult Consult date: 12/27/16 thrombocytopenia, recommendatations prior to D&C Requesting physician: Yarelis Soto - Chief Complaint vaginal bleeding - History of Present Illness Ms. Simpson is a very pleasant female with a history of bleeding uterine fibroids requiring D&C in the past, last D&C was in Mar 2016. She also has a history of pancytopenia-from chart review dating as far back as 2014, she has never been evaluated by Hematology, she is aware that her platelets are low and have been low for a long time, she denies bleeding other then vaginal bleeding. We have been asked for recommendations re: procedure and platelet counts. Pt states some dizziness, easy fatigue, but denies any other physical c/o on a 10 point ROS. Review of Systems All systems: negative Constitutional: Reports as per HPI Past Medical History Past Medical History: No Reported History Additional Past Medical History / Comment(s): brain anuerysm, ETOH abuse, bicornuate uterus, dysfunctional uterine bleeding History of Any Multi-Drug Resistant Organisms: None Reported Past Surgical History: Adenoidectomy, Section, Orthopedic Surgery, Tonsillectomy Additional Past Surgical History / Comment(s): right knee surgery, brain surgery for removal aneurysm, ovarian cystectomy laparoscopically, D&C Past Anesthesia/Blood Transfusion Reactions: No Reported Reaction Past Psychological History: Anxiety, Depression, PTSD Additional Psychological History / Comment(s): MANIC/DEPRESSION, INSOMNIA, WAS ON SEROQUEL AND TRAZADONE IN PAST BUT DID NOT LIKE THE FEELING FROM IT AND QUIT THEM Smoking Status: Former smoker Past Alcohol Use History: Daily, Heavy Past Drug Use History: None Reported - Past Family History Father Additional Family Medical History / Comment(s): ETOH Mother Additional Family Medical History / Comment(s): ETOH, history of uterine fibroids Medications and Allergies Home Medications Medication Instructions Recorded Confirmed Type ALPRAZolam [Xanax] 1 mg PO HS 12/31/15 12/26/16 History Allergies Allergy/AdvReac Type Severity Reaction Status Date / Time morphine Allergy Rash/Hives Verified 12/26/16 08:55 Physical Exam Vitals: Vital Signs Temp Pulse Pulse Resp BP BP Pulse Ox 12/27/16 16:00 81 16 12/27/16 14:42 81 16 122/79 100 12/27/16 14:35 84 16 118/73 100 12/27/16 14:23 78 16 122/86 100 12/27/16 14:17 123/72 12/27/16 14:10 98 F 96 16 123/86 100 12/27/16 13:00 92 26 H 115/80 97 12/27/16 12:57 98.6 F 86 22 115/80 12/27/16 12:30 98.3 F 95 19 113/79 12/27/16 12:27 98.6 F 90 23 111/76 97 12/27/16 12:17 98.4 F 119 H 20 150/89 96 12/27/16 12:15 98.4 F 119 H 20 150/89 96 12/27/16 12:00 98.4 F 79 16 100/72 12/27/16 11:30 90 17 101/70 12/27/16 11:12 81 19 12/27/16 11:00 105 H 19 116/77 12/27/16 10:30 98.2 F 114 H 24 141/95 12/27/16 10:00 98.9 F 97 17 106/75 12/27/16 09:46 106/80 12/27/16 08:00 16 12/27/16 00:00 16 12/26/16 23:00 97.2 F L 81 16 94/65 98 Intake and Output 12/27/16 12/27/16 12/27/16 06:59 14:59 22:59 Intake Total 1600 1370 400 Output Total 900 Balance 1600 470 400 Intake: IV 350 Intake, IV Titration 1600 200 400 Amount Levofloxacin 500Mg-D5w 100 Pmx 500 mg In Dextrose/ Water 1 100ml.bag @ 100 mls/hr IVPB Q24H [facility] Rx#: [id number] Potassium Chloride 10 meq 100 Lidocaine 2% Inj 10 mg In Sodium Chloride 0.9% 100 ml @ 100 mls/hr IV Q1HR [facility] Rx#:[id number] Sodium Acetate 50 meq In 200 Water For Injection, Sterile 250 ml @ 900 mls/ hr IV ONCE ONE Rx#: [id number] Sodium Chloride 0.9% 1, 1600 0 200 000 ml @ 200 mls/hr IV . Q5H [facility] Rx#:[id number] Blood Product 820 Rc As-3 Unit 310 [id number] Rc As-3 Unit 310 [id number] Output: Urine 850 Estimated Blood Loss 50 Other: Voiding Method Toilet Toilet Toilet # Voids 4 1 Weight 48.8 kg 48.8 kg Patient Weight 12/28/16 06:59 Weight 48.8 kg - Constitutional General appearance: cooperative, no acute distress, thin - EENT Eyes: anicteric sclerae, EOMI, normal appearance ENT: hearing grossly normal, normal oropharynx - Neck Neck: no lymphadenopathy - Respiratory Respiratory: bilateral: CTA - Cardiovascular Rhythm: regular Heart sounds: normal: S1, S2 Abnormal Heart Sounds: no systolic murmur, no diastolic murmur, no rub, no S3 Gallop, no S4 Gallop, no click, no other leg Peripheral Edema: bilateral: None - Gastrointestinal General gastrointestinal: no absent bowel sounds, no decreased bowel sounds, no distended, no hepatomegaly, no hyperactive bowel sounds, normal bowel sounds, no organomegaly, no rigid, no scaphoid, soft, no splenomegaly, no tenderness, no umbilical hernia, no ventral hernia - Integumentary Integumentary: pale - Neurologic Neurologic: CNII-XII intact - Musculoskeletal Musculoskeletal: strength equal bilaterally - Psychiatric flat affect Psychiatric: A&O x's 3, intact judgment & insight Results CBC & Chem 7: 12/27/16 06:56 12/27/16 15:02 Labs: Abnormal Lab Results - Last 24 Hours (Table) 12/27/16 12/27/16 12/27/16 Range/Units 06:56 06:56 08:57 WBC 2.5 L (3.8-10.6) k/uL RBC 2.32 L (3.80-5.40) m/uL Hgb 7.3 L D (11.4-16.0) gm/dL Hct 22.5 L (34.0-46.0) % Plt Count 72 L (150-450) k/uL Lymphocytes # 0.6 L (1.0-4.8) k/uL PT 12.9 H (9.0-12.0) sec Potassium 3.4 L (3.5-5.1) mmol/L Chloride 113 H (98-107) mmol/L Carbon Dioxide 13 L (22-30) mmol/L BUN <2 L (7-17) mg/dL Creatinine 0.39 L (0.52-1.04) mg/dL POC Glucose (mg/dL) (75-99) mg/dL Calcium 7.9 L (8.4-10.2) mg/dL AST 82 H (14-36) U/L Total Protein 5.5 L (6.3-8.2) g/dL Albumin 3.1 L (3.5-5.0) g/dL Lipase 3506 H (23-300) U/L Crossmatch 12/27/16 12/27/16 12/27/16 Range/Units 08:57 09:40 15:02 WBC (3.8-10.6) k/uL RBC (3.80-5.40) m/uL Hgb (11.4-16.0) gm/dL Hct (34.0-46.0) % Plt Count (150-450) k/uL Lymphocytes # (1.0-4.8) k/uL PT (9.0-12.0) sec Potassium 3.1 L (3.5-5.1) mmol/L Chloride (98-107) mmol/L Carbon Dioxide (22-30) mmol/L BUN (7-17) mg/dL Creatinine (0.52-1.04) mg/dL POC Glucose (mg/dL) 108 H (75-99) mg/dL Calcium (8.4-10.2) mg/dL AST (14-36) U/L Total Protein (6.3-8.2) g/dL Albumin (3.5-5.0) g/dL Lipase (23-300) U/L Crossmatch See Detail Assessment and Plan (1) Pancytopenia Narrative/Plan: Pt has been pancytopenic since at least 2014. Likely to be r/t marrow damage from ETOH abuse. For this visit CBC is adequate for planned [employer] procedures. Coagulation labs have been ordered and if not adequate would recommend FFP administration prior to procedure (labs reviewed at time of dictation and are adequate). Recommend that pt have f/u CBC monitoring and be closely monitored by PCP with referral to Hematology as appropriate. Status: Chronic
[2016-12-27] MEDS: LORazepam 2 MG/ML SYRINGE IV PRN ×2 (17:27→21:49)
[2016-12-27] MEDS ORDERED: medroxyPROGESTERone 150 MG/ML 1ML VIAL IM ONE (17:47)
[2016-12-27] MEDS ORDERED: Magnesium Replacement Protocol 1 EACH MISC MISCELLANE PRN (17:49)
[2016-12-27] MEDS: MAGNESIUM SULFATE-D5W PMX 1 GM in DEXTROSE/WATER 1 100ML.BAG IVPB SCH ×2 (18:46→19:58)
[2016-12-27 18:53] LABS: CH 31.4; CHCM 34.1; HCT 30.4 % (34.0-46.0); HDW 3.78; HGB 10.1 gm/dL (11.4-16.0); MCH 30.9 pg (25.0-35.0); MCHC 33.3 g/dL (31.0-37.0); MCV 92.8 fL (80.0-100.0); Mean Platelet Volume 8.7; Poikilocytosis Slight; RBC 3.28 m/uL (3.80-5.40); RDW 14.8 % (11.5-15.5); WBC 3.3 k/uL (3.8-10.6)
[2016-12-27] MEDS: 1: MVI, ADULT NO.4 WITH VIT K 10 ML, THIAMINE 100 MG, FOLIC ACID 1 MG in SODIUM CHLORIDE IV SCH ×4 (19:40)
[2016-12-27] MEDS ORDERED: SODIUM CHLORIDE 0.9% 1,000 ML BAG ONE (19:40)
[2016-12-28] MEDS ORDERED: Potassium Replacement Protocol 1 EACH MISC MISCELLANE PRN ×3 (00:37→07:42)
[2016-12-28] MEDS ORDERED: POTASSIUM CHLORIDE 10 MEQ in WATER FOR INJECTION 1 100ML.BAG IVPB SCH (00:45)
[2016-12-28] MEDS: POTASSIUM CHLORIDE 10 MEQ, LIDOCAINE 2% INJ 10 MG in SODIUM CHLORIDE 0.9% 100 ML IV SCH ×3 (01:09→03:45)
[2016-12-28] MEDS: 1: MVI, ADULT NO.4 WITH VIT K 10 ML, THIAMINE 100 MG, FOLIC ACID 1 MG in SODIUM CHLORIDE IV SCH ×12 (01:10→16:42)
[2016-12-28] MEDS: LORazepam 2 MG/ML SYRINGE IV PRN ×5 (03:16→22:50)
[2016-12-28] MEDS: ONDANSETRON 4 MG/2 ML VIAL IVP PRN ×2 (03:31→13:33)
[2016-12-28 06:00] LABS: Aty Lym Flag Slight; CH 31.7; CHCM 35.1; HCT 30.1 % (34.0-46.0); HDW 3.92; HGB 10.1 gm/dL (11.4-16.0); MCH 30.5 pg (25.0-35.0); MCHC 33.5 g/dL (31.0-37.0); MCV 91.1 fL (80.0-100.0); Mean Platelet Volume 8.5; Poikilocytosis Slight; RBC 3.31 m/uL (3.80-5.40); RDW 14.8 % (11.5-15.5); WBC (Perox) 2.96
[2016-12-28 06:13] LABS: ALT 39 U/L (9-52); AST 79 U/L (14-36); Alkaline Phosphatase 55 U/L (38-126); Amylase 54 U/L (30-110); Anion Gap 13 mmol/L; Blood Urea Nitrogen <2 mg/dL (7-17); Calcium 7.7 mg/dL (8.4-10.2); Carbon Dioxide 19 mmol/L (22-30); Chloride 107 mmol/L (98-107); Glucose 93 mg/dL (74-99); Magnesium 1.9 mg/dL (1.6-2.3); Non-African American GFR(MDRD) >60 (>60 ml/min/1.73 sqM); Sodium 139 mmol/L (137-145); Total Bilirubin 1.6 mg/dL (0.2-1.3); Total Protein 5.3 g/dL (6.3-8.2)
[2016-12-28 06:20] LABS: Potassium 2.9 mmol/L (3.5-5.1)
[2016-12-28] MEDS ORDERED: Magnesium Replacement Protocol 1 EACH MISC MISCELLANE PRN (06:28)
[2016-12-28] MEDS: HYDROmorphone 1 MG/ML 1 ML SYRINGE IVP PRN ×2 (06:30→19:14)
[2016-12-28] MEDS: MAGNESIUM SULFATE-D5W PMX 1 GM in DEXTROSE/WATER 1 100ML.BAG IVPB SCH ×2 (07:02→09:09)
--- NOTE | 2016-12-28 08:00 | XR ---
EXAMINATION TYPE: XR chest 1V portable DATE OF EXAM: 12/28/2016 7:06 AM COMPARISON: March 22, 2016 HISTORY: Chest pain TECHNIQUE: Single frontal view of the chest is obtained. FINDINGS: There is no focal air space opacity, pleural effusion, or pneumothorax seen. The cardiac silhouette size is within normal limits. The osseous structures are intact. IMPRESSION: 1. No acute process.
[2016-12-28 09:07] LABS: Add Differential Manual Differential
[2016-12-28] MEDS: POTASSIUM CHLORIDE 20 MEQ, LIDOCAINE 2% INJ 20 MG in SODIUM CHLORIDE 0.9% 100 ML IV SCH ×2 (09:08→11:06)
[2016-12-28] MEDS: PANTOPRAZOLE 40 MG/10 ML VIAL IVP SCH (09:10)
[2016-12-28 09:11] LABS: Nucleated Red Blood Cells 0 /100 WBC (0-0); Total Cells Counted 100
--- NOTE | 2016-12-28 09:31 | P.PN ---
Subjective Principal diagnosis: Alcohol pancreatitis and vaginal bleeding Patient is currently in the ICU, nothing by mouth. She reports very minimal vaginal bleeding. She is complaining of generalized abdominal tenderness and anxiety. Objective - Vital Signs Vital signs: Vital Signs Temp 98.4 F 12/28/16 09:00 Pulse 91 12/28/16 09:00 Resp 21 12/28/16 09:00 BP 96/62 12/28/16 09:00 Pulse Ox 98 12/28/16 09:00 Intake & Output 12/27/16 12/28/16 12/28/16 18:59 06:59 18:59 Intake Total 1970 2220 400 Output Total 900 2150 Balance 1070 70 400 Weight 48.8 kg Intake: IV 350 2120 300 Magnesium Sulfate-D5w Pmx 200 1 gm In Dextrose/Water 1 100ml.bag @ 100 mls/hr IVPB Q1H [facility] Rx#: [id number] Mvi, Adult No.4 with Vit 1020 K 10 ml Thiamine 100 mg Folic Acid 1 mg In Sodium Chloride 0.9% 1,000 ml @ 200 mls/hr IV .BY DURATION [facility] Rx#: [id number] Potassium Chloride 10 meq 400 Lidocaine 2% Inj 10 mg In Sodium Chloride 0.9% 100 ml @ 100 mls/hr IV Q1HR [facility] Rx#:[id number] Sodium Chloride 0.9% 1, 500 300 000 ml @ 100 mls/hr IV . BY DURATION [facility] Rx#: [id number] Intake, IV Titration 800 100 100 Amount Levofloxacin 500Mg-D5w 100 Pmx 500 mg In Dextrose/ Water 1 100ml.bag @ 100 mls/hr IVPB Q24H [facility] Rx#: [id number] Magnesium Sulfate-D5w Pmx 100 1 gm In Dextrose/Water 1 100ml.bag @ 100 mls/hr IVPB Q1H [facility] Rx#: [id number] Potassium Chloride 10 meq 300 Lidocaine 2% Inj 10 mg In Sodium Chloride 0.9% 100 ml @ 100 mls/hr IV Q1HR [facility] Rx#:[id number] Potassium Chloride 20 meq 100 Lidocaine 2% Inj 20 mg In Sodium Chloride 0.9% 100 ml @ 55.5 mls/hr IV Q2H [facility] Rx#:[id number] Sodium Acetate 50 meq In 200 Water For Injection, Sterile 250 ml @ 900 mls/ hr IV ONCE ONE Rx#: [id number] Sodium Chloride 0.9% 1, 200 000 ml @ 200 mls/hr IV . Q5H [facility] Rx#:[id number] Blood Product 820 Rc As-3 Unit 310 [id number] Rc As-3 Unit 310 [id number] Output: Urine 850 2150 Estimated Blood Loss 50 Other: Voiding Method Toilet Toilet # Voids 1 - Constitutional General appearance: Present: disheveled, thin - Gastrointestinal General gastrointestinal: Present: soft. Absent: tenderness - Genitourinary Genitourinary Comment(s): No vaginal bleeding on pad. - Labs CBC & Chem 7: 12/28/16 05:48 12/28/16 05:48 Labs: Abnormal Lab Results - Last 24 Hours (Table) 12/27/16 12/27/16 12/27/16 Range/Units 08:57 08:57 09:40 WBC (3.8-10.6) k/uL RBC (3.80-5.40) m/uL Hgb (11.4-16.0) gm/dL Hct (34.0-46.0) % Plt Count (150-450) k/uL Lymphocytes # (Manual) (1.0-4.8) k/uL PT 12.9 H (9.0-12.0) sec Potassium (3.5-5.1) mmol/L Carbon Dioxide (22-30) mmol/L BUN (7-17) mg/dL Creatinine (0.52-1.04) mg/dL POC Glucose (mg/dL) 108 H (75-99) mg/dL Calcium (8.4-10.2) mg/dL Total Bilirubin (0.2-1.3) mg/dL AST (14-36) U/L Total Protein (6.3-8.2) g/dL Albumin (3.5-5.0) g/dL Lipase (23-300) U/L Crossmatch See Detail 12/27/16 12/27/16 12/27/16 Range/Units 15:02 17:53 23:24 WBC 3.3 L (3.8-10.6) k/uL RBC 3.28 L (3.80-5.40) m/uL Hgb 10.1 L (11.4-16.0) gm/dL Hct 30.4 L (34.0-46.0) % Plt Count 60 L (150-450) k/uL Lymphocytes # (Manual) (1.0-4.8) k/uL PT (9.0-12.0) sec Potassium 3.1 L 2.8 L* (3.5-5.1) mmol/L Carbon Dioxide (22-30) mmol/L BUN (7-17) mg/dL Creatinine (0.52-1.04) mg/dL POC Glucose (mg/dL) (75-99) mg/dL Calcium (8.4-10.2) mg/dL Total Bilirubin (0.2-1.3) mg/dL AST (14-36) U/L Total Protein (6.3-8.2) g/dL Albumin (3.5-5.0) g/dL Lipase (23-300) U/L Crossmatch 12/28/16 12/28/16 Range/Units 05:48 05:48 WBC 3.0 L (3.8-10.6) k/uL RBC 3.31 L (3.80-5.40) m/uL Hgb 10.1 L (11.4-16.0) gm/dL Hct 30.1 L (34.0-46.0) % Plt Count 61 L (150-450) k/uL Lymphocytes # (Manual) 0.9 L (1.0-4.8) k/uL PT (9.0-12.0) sec Potassium 2.9 L* (3.5-5.1) mmol/L Carbon Dioxide 19 L (22-30) mmol/L BUN <2 L (7-17) mg/dL Creatinine 0.40 L (0.52-1.04) mg/dL POC Glucose (mg/dL) (75-99) mg/dL Calcium 7.7 L (8.4-10.2) mg/dL Total Bilirubin 1.6 H (0.2-1.3) mg/dL AST 79 H (14-36) U/L Total Protein 5.3 L (6.3-8.2) g/dL Albumin 3.0 L (3.5-5.0) g/dL Lipase 2113 H (23-300) U/L Crossmatch Assessment and Plan (1) Pancreatitis Status: Acute (2) Vaginal bleeding Narrative/Plan: Resolved status post D&C yesterday. Source of bleeding is likely anovulatory secondary to very poor nutritional status, Exacerbated by thrombocytopenia. Her hemoglobin is stable status post 2 units of packed red blood cells. Clinically no active vaginal bleeding this morning. As she is unable to comply with daily oral hormone therapy as an outpatient, she was given Depo-Provera 150 mg. that should be continued every 12 weeks as an outpatient. I counseled her regarding the possibility of ongoing irregular bleeding on depo however with long-term use she will likely become amenorrheic. Status: Acute (3) Alcoholism /alcohol abuse Status: Acute (4) Anemia Status: Acute (5) Thrombocytopenia Status: Acute Time with Patient: Less than 30
--- NOTE | 2016-12-28 10:45 | P.PN ---
Subjective This is a 31-year-old female being evaluated and examined today in the intensive care unit. This patient was initially in emergency room for abdominal discomfort, cramping, nausea and vaginal bleeding. Her vaginal bleeding has been persistent over the last 2 and half weeks and she states that she uses about 15 pads per day. She has had a history of having a D&C due to vaginal bleeding. Patient has known history of alcoholism and her abdominal discomfort or nausea is likely due to her alcoholism and withdrawal's. Her last drink before going into the emergency room was about 18 hours prior. The patient was admitted with pancreatitis, vaginal bleeding, anemia, transaminitis and thrombocytopenia. Patient is on the CIWA protocol. Patient is very cachectic and admits to anorexia and denies bulimia. Since initial labs revealed a lipase of 3102. Has an extensive psychiatric history which includes borderline personality, bipolar, depression, PTSD and anorexia. On examination the patient appears anxious, the patient is on room air and denies any cough congestion and shortness of breath. She did get 2 units of packed red blood cells for hemoglobin of 7.3 on 12/27/16, initially she was 12.5 on 12/25/16. Today the patient is post D&C her hemoglobin is stable at 10.1. Patient has had scant to no vaginal bleeding since procedure with RECHECKER. Today the patient is hypokalemic again Orders were given for potassium supplementation. Patient states that she continues to be intermittently nauseous however she states she is going to try to drink contrast for her CT today. Objective - Vital Signs Vital signs: Vital Signs Temp 98.4 F 12/28/16 09:00 Pulse 91 12/28/16 09:00 Resp 21 12/28/16 09:00 BP 96/62 12/28/16 09:00 Pulse Ox 98 12/28/16 09:00 Intake & Output 12/27/16 12/28/16 12/28/16 18:59 06:59 18:59 Intake Total 1970 2220 400 Output Total 900 2150 Balance 1070 70 400 Weight 48.8 kg Intake: IV 350 2120 300 Magnesium Sulfate-D5w Pmx 200 1 gm In Dextrose/Water 1 100ml.bag @ 100 mls/hr IVPB Q1H [facility] Rx#: [id number] Mvi, Adult No.4 with Vit 1020 K 10 ml Thiamine 100 mg Folic Acid 1 mg In Sodium Chloride 0.9% 1,000 ml @ 200 mls/hr IV .BY DURATION [facility] Rx#: [id number] Potassium Chloride 10 meq 400 Lidocaine 2% Inj 10 mg In Sodium Chloride 0.9% 100 ml @ 100 mls/hr IV Q1HR [facility] Rx#:[id number] Sodium Chloride 0.9% 1, 500 300 000 ml @ 100 mls/hr IV . BY DURATION [facility] Rx#: [id number] Intake, IV Titration 800 100 100 Amount Levofloxacin 500Mg-D5w 100 Pmx 500 mg In Dextrose/ Water 1 100ml.bag @ 100 mls/hr IVPB Q24H [facility] Rx#: [id number] Magnesium Sulfate-D5w Pmx 100 1 gm In Dextrose/Water 1 100ml.bag @ 100 mls/hr IVPB Q1H [facility] Rx#: [id number] Potassium Chloride 10 meq 300 Lidocaine 2% Inj 10 mg In Sodium Chloride 0.9% 100 ml @ 100 mls/hr IV Q1HR [facility] Rx#:[id number] Potassium Chloride 20 meq 100 Lidocaine 2% Inj 20 mg In Sodium Chloride 0.9% 100 ml @ 55.5 mls/hr IV Q2H [facility] Rx#:[id number] Sodium Acetate 50 meq In 200 Water For Injection, Sterile 250 ml @ 900 mls/ hr IV ONCE ONE Rx#: [id number] Sodium Chloride 0.9% 1, 200 000 ml @ 200 mls/hr IV . Q5H [facility] Rx#:[id number] Blood Product 820 Rc As-3 Unit 310 [id number] Rc As-3 Unit 310 [id number] Output: Urine 850 2150 Estimated Blood Loss 50 Other: Voiding Method Toilet Toilet # Voids 1 - Exam GENERAL EXAM: Alert, cachectic, comfortable in no apparent distress. HEAD: Normocephalic. EYES: Normal reaction of pupils, equal size. NOSE: Clear with pink turbinates. THROAT: No erythema or exudates. NECK: No masses, no JVD. CHEST: No chest wall deformity. LUNGS: Equal air entry with no crackles, wheeze, rhonchi or dullness. CVS: S1 and S2 normal with no audible mumurs, regular rhythm. ABDOMEN: No hepatosplenomegaly, normal bowel sounds, no guarding or rigidity. EXTREMITIES: No edema noted, pedal pulses palpable. SKIN: No rashes CENTRAL NERVOUS SYSTEM: No focal deficits, tone is normal in all 4 extremities. - Labs CBC & Chem 7: 12/28/16 05:48 12/28/16 05:48 Labs: Abnormal Lab Results - Last 24 Hours (Table) 12/27/16 12/27/16 12/27/16 Range/Units 08:57 15:02 17:53 WBC 3.3 L (3.8-10.6) k/uL RBC 3.28 L (3.80-5.40) m/uL Hgb 10.1 L (11.4-16.0) gm/dL Hct 30.4 L (34.0-46.0) % Plt Count 60 L (150-450) k/uL Lymphocytes # (Manual) (1.0-4.8) k/uL Potassium 3.1 L (3.5-5.1) mmol/L Carbon Dioxide (22-30) mmol/L BUN (7-17) mg/dL Creatinine (0.52-1.04) mg/dL Calcium (8.4-10.2) mg/dL Total Bilirubin (0.2-1.3) mg/dL AST (14-36) U/L Total Protein (6.3-8.2) g/dL Albumin (3.5-5.0) g/dL Lipase (23-300) U/L Crossmatch See Detail 12/27/16 12/28/16 12/28/16 Range/Units 23:24 05:48 05:48 WBC 3.0 L (3.8-10.6) k/uL RBC 3.31 L (3.80-5.40) m/uL Hgb 10.1 L (11.4-16.0) gm/dL Hct 30.1 L (34.0-46.0) % Plt Count 61 L (150-450) k/uL Lymphocytes # (Manual) 0.9 L (1.0-4.8) k/uL Potassium 2.8 L* 2.9 L* (3.5-5.1) mmol/L Carbon Dioxide 19 L (22-30) mmol/L BUN <2 L (7-17) mg/dL Creatinine 0.40 L (0.52-1.04) mg/dL Calcium 7.7 L (8.4-10.2) mg/dL Total Bilirubin 1.6 H (0.2-1.3) mg/dL AST 79 H (14-36) U/L Total Protein 5.3 L (6.3-8.2) g/dL Albumin 3.0 L (3.5-5.0) g/dL Lipase 2113 H (23-300) U/L Crossmatch Assessment and Plan Plan: Assessment Vaginal bleeding Anemia, acute blood loss secondary to above Acute Pancreatitis Alcoholism Thrombocytopenia Hypokalemia Plan Patient should remain in the ICU today. Medications have been reviewed and will be continued as ordered. We will continue to monitor the vaginal bleeding and hemoglobin. The patient is currently hemodynamically stable, however still still warrants close watching. She did receive 2 units of packed red blood cells. She did undergo a procedure of D&C with RECHECKER, no complications. Continue with CIID protocol for impending DTs. We will obtain a CT of the abdomen and pelvis this afternoon in regards to her acute pancreatitis. Lipase level was noted to decrease today from yesterday. We will replace electrolytes per protocol, she continues with critical hypokalemia. Blood cultures and urine cultures are pending. Empiric antibiotics started in the form of Levaquin. Hematology also on consult. GI/DVT prophylaxis. We'll continue to monitor labs/results and adjust treatment as necessary. I performed an examination of the patient and discussed their management with the nurse practitioner. I have reviewed the nurse practitioner's note and agree with the documented findings and plan of care.
[2016-12-28] MEDS ORDERED: SODIUM CHLORIDE 0.9% 1,000 ML BAG ONE (11:05)
--- NOTE | 2016-12-28 16:12 | CT ---
EXAMINATION TYPE: CT abdomen pelvis w con DATE OF EXAM: 12/28/2016 3:59 PM COMPARISON: NONE HISTORY: Patient poor historian. Leatha has generalized abdominal pain and abnormal vaginal bleedin g post D&C. CT DLP: 757 mGycm CONTRAST: CT scan of the abdomen and pelvis is performed without Oral Contrast and with IV Contrast, patient in jected with 100 mL of Omnipaque 300. FINDINGS: LUNG BASES-: No visible nodule. No infiltrate. Left basilar atelectasis and to a lesser extent on th e right. LIVER/GB: Small gallstones are seen within the region of the gallbladder neck. No space occupying hepatic lesion. Biliary tree is of normal caliber. There is evidence of fatty hepatic infiltration. PANCREAS: No inflammation. No distinct mass. SPLEEN: No splenic enlargement. No lesion seen. ADRENALS: No nodule. No thickening. KIDNEYS/BLADDER: No hydronephrosis. No nephrolithiasis. No disctinct renal mass. Urinary bladder g rossly unremarkable. BOWEL: There is long segment wall thickening of the cecum and ascending colon likely on the basis of inflammatory or infectious colitis. Ischemic causes less likely. Correlate clinically. Nonvisualizati on of the appendix. Small bowel is of normal caliber. No evidence for pneumoperitoneum. GENITAL ORGANS: Cystic lesions left ovary measuring 3.7 cm. Cervical nabothian cysts. Possible bicor nuate uterus. LYMPH NODES: No greater than 1cm abdominal or pelvic lymph nodes are appreciated. AORTA: No significant abnormality. OSSEOUS STRUCTURES: No significant abnormality is seen. OTHER: Solid left breast lesion identified measuring 1.8 cm. Further evaluation with physical exam, m ammography and/or ultrasound is recommended. IMPRESSION: 1. Inflammatory versus infectious colitis. See above. 2. Cholelithiasis. 3. No CT evidence to suggest pancreatitis. 4. Fatty liver. 5 left breast lesion. See above. 6. Left ovarian cystic lesion.
[2016-12-28] MEDS: LEVOFLOXACIN 500MG-D5W PMX 500 MG in DEXTROSE/WATER 1 100ML.BAG IVPB SCH (16:37)
[2016-12-28] MEDS: POTASSIUM CHLORIDE 20 MEQ, LIDOCAINE 2% INJ 20 MG in SODIUM CHLORIDE 0.9% 100 ML IVPB SCH ×3 (16:57→22:08)
[2016-12-28] MEDS: 1: MVI, ADULT NO.4 WITH VIT K 10 ML, THIAMINE 100 MG, FOLIC ACID 1 MG, POTASSIUM CHLORID IV SCH ×6 (16:58)
--- NOTE | 2016-12-28 18:22 | PN ---
DATE OF SERVICE: 12/27/2016 CHIEF COMPLAINT: Vaginal bleeding, dropping hemoglobin, thrombocytopenia and depression. HISTORY OF PRESENT ILLNESS: This lady is bleeding quite rapidly and hemoglobin has dropped significantly. She is being seen by Gynecology, who is planning to take her to the operating room. PHYSICAL EXAMINATION: She remains pale. Chest is clear. Cardiac exam demonstrates sinus tachycardia. The abdomen is soft, nontender. IMPRESSION: 1. Dysfunctional uterine bleeding. 2. Blood loss anemia. 3. Alcoholism. 4. Pancreatitis. 5. Depression. 6. Anorexia. PLAN: Prepare for operating room with hematology consult, PT, PTT and transfusion.
--- NOTE | 2016-12-28 22:44 | PN ---
DATE OF SERVICE: 12/28/2016 CHIEF COMPLAINT: Vaginal bleeding, alcoholism, thrombocytopenia, depression and probable anorexia. HISTORY OF PRESENT ILLNESS: This lady has had her D&C and doing well. There is no further bleeding. Hemoglobin is stable and holding. PHYSICAL EXAMINATION: Chest is clear. Cardiac exam is normal. ABDOMEN: Soft, nontender. She remains pale. IMPRESSION: 1. Dysfunctional uterine bleeding. 2. Alcoholism. 3. Thrombocytopenia. 4. Depression. 5. Anorexia. PLAN: 1. Stabilize and then move to a regular floor. 2. Psychiatric consult.
[2016-12-29] MEDS: ONDANSETRON 4 MG/2 ML VIAL IVP PRN (00:20)
[2016-12-29] MEDS: POTASSIUM CHLORIDE 20 MEQ, LIDOCAINE 2% INJ 20 MG in SODIUM CHLORIDE 0.9% 100 ML IVPB SCH (00:21)
[2016-12-29] MEDS ORDERED: SODIUM CHLORIDE 0.9% 1,000 ML BAG ONE (04:08)
[2016-12-29] MEDS: 1: MVI, ADULT NO.4 WITH VIT K 10 ML, THIAMINE 100 MG, FOLIC ACID 1 MG, POTASSIUM CHLORID IV SCH ×12 (04:08→15:00)
[2016-12-29] MEDS: LORazepam 2 MG/ML SYRINGE IV PRN ×5 (04:11→22:16)
[2016-12-29 05:12] LABS: ALT 33 U/L (9-52); AST 65 U/L (14-36); Alkaline Phosphatase 61 U/L (38-126); Anion Gap 12 mmol/L; Aty Lym Flag Slight; Blood Urea Nitrogen <2 mg/dL (7-17); CH 31.8; CHCM 34.9; Calcium 8.3 mg/dL (8.4-10.2); Carbon Dioxide 20 mmol/L (22-30); Chloride 108 mmol/L (98-107); Glucose 100 mg/dL (74-99); HCT 33.1 % (34.0-46.0); HDW 3.72; MCH 30.5 pg (25.0-35.0); MCHC 33.2 g/dL (31.0-37.0); MCV 91.8 fL (80.0-100.0); Magnesium 1.8 mg/dL (1.6-2.3); Mean Platelet Volume 8.4; Non-African American GFR(MDRD) >60 (>60 ml/min/1.73 sqM); Poikilocytosis Slight; RBC 3.61 m/uL (3.80-5.40); RDW 14.5 % (11.5-15.5); Sodium 140 mmol/L (137-145); Total Bilirubin 1.7 mg/dL (0.2-1.3); Total Protein 5.8 g/dL (6.3-8.2); WBC 3.5 k/uL (3.8-10.6); WBC (Perox) 3.49
[2016-12-29 05:46] LABS: Add Differential Manual Differential
[2016-12-29 05:49] LABS: Nucleated Red Blood Cells 0 /100 WBC (0-0); Total Cells Counted 100
[2016-12-29 05:50] LABS: Manual Review Performed
[2016-12-29] MEDS ORDERED: Magnesium Replacement Protocol 1 EACH MISC MISCELLANE PRN (06:25)
[2016-12-29] MEDS: MAGNESIUM SULFATE-D5W PMX 1 GM in DEXTROSE/WATER 1 100ML.BAG IVPB SCH ×2 (07:55→09:25)
[2016-12-29] MEDS: HYDROmorphone 1 MG/ML 1 ML SYRINGE IVP PRN (07:59)
[2016-12-29] MEDS: PANTOPRAZOLE 40 MG/10 ML VIAL IVP SCH (08:00)
[2016-12-29 10:06] LABS: Amylase 75 U/L (30-110)
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
[2016-12-29] MEDS ORDERED: traMADol 50 MG TAB PO PRN (10:51)
--- NOTE | 2016-12-29 13:12 | USB ---
Reason for exam: clinical finding. US Breast LT Left breast ultrasound demonstrates a 1.8 x 1.9 x 1.1cm irregular, lobular, hypoechoic, vascular lesion at 7 o'clock subareolar position and a 0.7 x 0.8 x 0.5cm oval, hypoechoic lesion at 7 o'clock subarolar position. ASSESSMENT: Suspicious, BI-RAD 4 RECOMMENDATION: Surgical consultation and ultrasound core biopsy of the left breast. (Left breast lesion seen on CT. ICU patient and unable to speak of health history. Has left breast pain.) PRELIMINARY REPORT FAXED TO DR. KHAN ON 12/29/16 AT 300/TMP.
--- NOTE | 2016-12-29 15:32 | P.PN ---
Subjective This is a 31-year-old female being evaluated and examined today in the intensive care unit. This patient was initially in emergency room for abdominal discomfort, cramping, nausea and vaginal bleeding. Her vaginal bleeding has been persistent over the last 2 and half weeks and she states that she uses about 15 pads per day. She has had a history of having a D&C due to vaginal bleeding. Patient has known history of alcoholism and her abdominal discomfort or nausea is likely due to her alcoholism and withdrawal's. Her last drink before going into the emergency room was about 18 hours prior. The patient was admitted with pancreatitis, vaginal bleeding, anemia, transaminitis and thrombocytopenia. Patient is on the CIWA protocol. Patient is very cachectic and admits to anorexia and denies bulimia. Since initial labs revealed a lipase of 3102. Has an extensive psychiatric history which includes borderline personality, bipolar, depression, PTSD and anorexia. On examination the patient appears anxious, the patient is on room air and denies any cough congestion and shortness of breath. She did get 2 units of packed red blood cells for hemoglobin of 7.3 on 12/27/16, initially she was 12.5 on 12/25/16. The patient is post D&C her hemoglobin is stable at 11. Patient has had no vaginal bleeding since procedure with [employer]. The patient's potassium level has stabilized. Patient states she has no desire to eat or drink, which is patient's baseline due to her anorexia. We will encourage her to try to consume food and fluids. Abnormal CT results reviewed and appropriate consultations made for left breast mass, and for inflammatory vs infections colitis with cholelithiasis. Objective - Vital Signs Vital signs: Vital Signs Temp 97.8 F 12/29/16 08:00 Pulse 94 12/29/16 10:00 Resp 23 12/29/16 10:00 BP 87/60 12/29/16 10:00 Pulse Ox 97 12/29/16 10:00 Intake & Output 12/28/16 12/29/16 12/29/16 18:59 06:59 18:59 Intake Total 1999 1500 100 Balance 1999 1500 100 Weight 44.7 kg Intake: IV 1500 500 100 0.9% NaCl with KCl 40 Meq 500 100 /l 1,000 ml @ 100 mls/hr IV .BY DURATION [facility] Rx#: [id number] Mvi, Adult No.4 with Vit 1000 K 10 ml Thiamine 100 mg Folic Acid 1 mg In Sodium Chloride 0.9% 1,000 ml @ 200 mls/hr IV .BY DURATION [facility] Rx#: [id number] Sodium Chloride 0.9% 1, 500 000 ml @ 100 mls/hr IV . BY DURATION [facility] Rx#: [id number] Intake, IV Titration 500 1000 Amount 0.9% NaCl with KCl 40 Meq 200 700 /l 1,000 ml @ 100 mls/hr IV .BY DURATION [facility] Rx#: [id number] Potassium Chloride 20 meq 100 300 Lidocaine 2% Inj 20 mg In Sodium Chloride 0.9% 100 ml @ 100 mls/hr IVPB Q2HR [facility] Rx#:[id number] Potassium Chloride 20 meq 200 Lidocaine 2% Inj 20 mg In Sodium Chloride 0.9% 100 ml @ 55.5 mls/hr IV Q2H [facility] Rx#:[id number] Other: Voiding Method Toilet Toilet Toilet # Voids 1 1 # Bowel Movements 1 - Exam GENERAL EXAM: Alert, cachectic, comfortable in no apparent distress. HEAD: Normocephalic. EYES: Normal reaction of pupils, equal size. NOSE: Clear with pink turbinates. THROAT: No erythema or exudates. NECK: No masses, no JVD. CHEST: No chest wall deformity. LUNGS: Equal air entry with no crackles, wheeze, rhonchi or dullness. CVS: S1 and S2 normal with no audible mumurs, regular rhythm. ABDOMEN: No hepatosplenomegaly, normal bowel sounds, no guarding or rigidity. EXTREMITIES: No edema noted, pedal pulses palpable. SKIN: No rashes CENTRAL NERVOUS SYSTEM: No focal deficits, tone is normal in all 4 extremities. - Labs CBC & Chem 7: 12/29/16 04:40 12/29/16 04:40 Labs: Abnormal Lab Results - Last 24 Hours (Table) 12/28/16 12/29/16 12/29/16 Range/Units 15:16 04:40 04:40 WBC 3.5 L (3.8-10.6) k/uL RBC 3.61 L (3.80-5.40) m/uL Hgb 11.0 L (11.4-16.0) gm/dL Hct 33.1 L (34.0-46.0) % Plt Count 74 L (150-450) k/uL Potassium 2.9 L* (3.5-5.1) mmol/L Chloride 108 H (98-107) mmol/L Carbon Dioxide 20 L (22-30) mmol/L BUN <2 L (7-17) mg/dL Creatinine 0.35 L (0.52-1.04) mg/dL Glucose 100 H (74-99) mg/dL Calcium 8.3 L (8.4-10.2) mg/dL Total Bilirubin 1.7 H (0.2-1.3) mg/dL AST 65 H (14-36) U/L Total Protein 5.8 L (6.3-8.2) g/dL Albumin 3.3 L (3.5-5.0) g/dL Lipase (23-300) U/L 12/29/16 Range/Units 04:40 WBC (3.8-10.6) k/uL RBC (3.80-5.40) m/uL Hgb (11.4-16.0) gm/dL Hct (34.0-46.0) % Plt Count (150-450) k/uL Potassium (3.5-5.1) mmol/L Chloride (98-107) mmol/L Carbon Dioxide (22-30) mmol/L BUN (7-17) mg/dL Creatinine (0.52-1.04) mg/dL Glucose (74-99) mg/dL Calcium (8.4-10.2) mg/dL Total Bilirubin (0.2-1.3) mg/dL AST (14-36) U/L Total Protein (6.3-8.2) g/dL Albumin (3.5-5.0) g/dL Lipase 2322 H (23-300) U/L Microbiology - Last 24 Hours (Table) 12/27/16 15:02 Blood Culture - Preliminary Blood No Growth after 24 hours 12/27/16 19:55 Urine Culture - Preliminary Urine,Voided Assessment and Plan Plan: Assessment Vaginal bleeding Anemia, acute blood loss secondary to above Acute Pancreatitis Alcoholism Thrombocytopenia Hypokalemia Plan Patient is medically stable to go to a [facility] floor with telemetry. Medications have been reviewed and will be continued as ordered. We will continue to monitor the vaginal bleeding and hemoglobin. The patient is currently hemodynamically stable. She did receive 2 units of packed red blood cells. She did undergo a procedure of D&C with [employer], no complications. Continue with [facility] protocol for impending DTs. CT of the abdomen reviewed and has no evidence to suggest pancreatitis. Patient does have inflammatory versus infectious colitis, cholelithiasis, fatty liver, and a left breast lesion as well as a left ovarian cystic lesion. GI and surgical consulted. Blood cultures and urine cultures are pending. Empiric antibiotics started in the form of Levaquin. Hematology also on consult. GI/DVT prophylaxis. We'll continue to monitor labs/results and adjust treatment as necessary. I performed an examination of the patient and discussed their management with the nurse practitioner. I have reviewed the nurse practitioner's note and agree with the documented findings and plan of care.
[2016-12-29] MEDS: HYDROcodone/APAP 15 ML SOLUTION PO PRN ×2 (15:38→19:51)
[2016-12-29] MEDS: LEVOFLOXACIN 500MG-D5W PMX 500 MG in DEXTROSE/WATER 1 100ML.BAG IVPB SCH (15:42)
[2016-12-30] MEDS: LORazepam 2 MG/ML SYRINGE IV PRN ×4 (02:44→21:08)
[2016-12-30] MEDS ORDERED: SODIUM CHLORIDE 0.9% 1,000 ML BAG ONE (04:21)
[2016-12-30] MEDS: 1: MVI, ADULT NO.4 WITH VIT K 10 ML, THIAMINE 100 MG, FOLIC ACID 1 MG, POTASSIUM CHLORID IV SCH ×12 (04:21→14:35)
[2016-12-30 09:01] LABS: Aty Lym Flag Slight; CH 31.7; CHCM 35.1; HDW 3.39; HGB 10.8 gm/dL (11.4-16.0); MCH 31.5 pg (25.0-35.0); MCHC 34.7 g/dL (31.0-37.0); MCV 90.9 fL (80.0-100.0); Mean Platelet Volume 8.9; RBC 3.42 m/uL (3.80-5.40); RDW 14.7 % (11.5-15.5); WBC 2.9 k/uL (3.8-10.6); WBC (Perox) 2.83
[2016-12-30] MEDS: PANTOPRAZOLE 40 MG/10 ML VIAL IVP SCH (09:02)
[2016-12-30 09:06] LABS: ALT 32 U/L (9-52); AST 59 U/L (14-36); Alkaline Phosphatase 51 U/L (38-126); Amylase 73 U/L (30-110); Anion Gap 8 mmol/L; Blood Urea Nitrogen <2 mg/dL (7-17); Calcium 8.4 mg/dL (8.4-10.2); Carbon Dioxide 19 mmol/L (22-30); Chloride 109 mmol/L (98-107); Glucose 90 mg/dL (74-99); Magnesium 1.9 mg/dL (1.6-2.3); Non-African American GFR(MDRD) >60 (>60 ml/min/1.73 sqM); Potassium 4.3 mmol/L (3.5-5.1); Sodium 136 mmol/L (137-145); Total Bilirubin 1.4 mg/dL (0.2-1.3); Total Protein 5.7 g/dL (6.3-8.2)
--- NOTE | 2016-12-30 10:24 | P.CONS ---
History of Present Illness - Reason for Consult Consult date: 12/30/16 Colitis Requesting physician: Kevin Nichole - History of Present Illness 31-year-old female with a long-standing history of EtOH abuse and chronic pancytopenia, uterine fibroids, dysfunctional uterine bleeding and bicornate uterus. Admitted with vaginal bleeding underwent D&C on Tuesday with resolution of bleeding. Received 2 units of blood since admission. Admission hemoglobin 12.5 but decreased to 7.3. Consultation requested for possible colitis. Patient underwent CT abdomen and pelvis without oral contrast 2 days ago for generalized abdominal discomfort. Long segment wall thickening of the cecum and ascending colon likely on the basis of inflammatory infectious colitis. Nonvisualization of the appendix. No pneumoperitoneum. Solid left breast lesion measuring 1.8 cm. Cholelithiasis. Fatty liver. Left ovarian cystic lesion. Scheduled for breast biopsy with general surgery. Denies hematemesis hematochezia or melena. Few loose nonbloody bowel movements. Abdominal pain is very vague and generalized across the lower abdomen and midepigastrium. Incidentally she was admitted with elevated amylase lipase consistent with acute alcohol pancreatitis/alcohol hepatitis most likely from her history of long-standing EtOH abuse. Patient still actively drinks alcohol. Denies history of intravenous drug abuse. Endometrium biopsy reported cervix with squamous metaplasia focally with atypia cannot exclude low-grade squamous intraepithelial lesion HPV associated change. No history of inflammatory bowel disease such as Crohn's or ulcerative colitis. No history of colitis. No history of colonoscopy. White count 2.9. Hemoglobin 10.8. MCV 90. Platelet 85. Total bilirubin 1.4. AST 59. ALT 32. Alkaline phosphatase 51. Lipase 2239. Amylase 73. INR 1.3. Hepatitis screening March 2016 was negative. HCG not detected. Review of Systems Constitutional: Denies fever, chills, sweats, weight gain, or loss. HEENT: Negative for migraines, blurred vision or loss, earaches, drainage, tinnitus, oral mucosal lesions, dysphagia, or odynophagia. CARDIAC: Negative for chest pain, arrhythmias, or palpitation. RESPIRATORY: Negative for shortness of breath, hemoptysis, cough, or sputum production. GI: See HPI for pertinent findings. : Negative for hematuria, urgency, frequency, polyuria, or dysuria. GYNc: Denies possibility of . See HPI. Admitted with vaginal bleeding. MUSCULOSKELETAL: Negative for muscle aches, swelling, arthritis, and arthralgias. NEUROLOGIC: Negative for stroke or TIA. ENDOCRINE: Negative for thyroid problems. SKIN: Negative for rash or itching. PSYCHIATRIC: History of depression. Past Medical History Past Medical History: No Reported History Additional Past Medical History / Comment(s): brain anuerysm, ETOH abuse, bicornuate uterus, dysfunctional uterine bleeding History of Any Multi-Drug Resistant Organisms: None Reported Past Surgical History: Adenoidectomy, Section, Orthopedic Surgery, Tonsillectomy Additional Past Surgical History / Comment(s): right knee surgery, brain surgery for removal aneurysm, ovarian cystectomy laparoscopically, D&C Past Anesthesia/Blood Transfusion Reactions: No Reported Reaction Past Psychological History: Anxiety, Depression, PTSD Additional Psychological History / Comment(s): MANIC/DEPRESSION, INSOMNIA, WAS ON SEROQUEL AND TRAZADONE IN PAST BUT DID NOT LIKE THE FEELING FROM IT AND QUIT THEM Smoking Status: Former smoker Past Alcohol Use History: Daily, Heavy Past Drug Use History: None Reported - Past Family History Father Additional Family Medical History / Comment(s): ETOH Mother Additional Family Medical History / Comment(s): ETOH, history of uterine fibroids Medications and Allergies Home Medications Medication Instructions Recorded Confirmed Type ALPRAZolam [Xanax] 1 mg PO HS 12/31/15 12/26/16 History Allergies Allergy/AdvReac Type Severity Reaction Status Date / Time morphine Allergy Rash/Hives Verified 12/26/16 08:55 Physical Exam Vitals: Vital Signs Temp Pulse Pulse Pulse Resp BP BP 12/30/16 07:00 97.3 F L 86 16 95/69 12/29/16 21:56 97.2 F L 86 17 106/72 12/29/16 20:10 98.2 F 80 16 119/87 12/29/16 19:00 98.4 F 71 22 93/67 12/29/16 18:00 85 23 12/29/16 17:00 77 14 101/81 12/29/16 16:00 83 89 15 101/81 12/29/16 15:00 79 89 15 84/61 84/61 12/29/16 14:00 70 19 84/61 12/29/16 13:00 74 17 103/76 12/29/16 12:00 75 12 103/76 12/29/16 11:00 75 17 81/60 Pulse Ox 12/30/16 07:00 94 L 12/29/16 21:56 100 12/29/16 20:10 100 12/29/16 19:00 98 12/29/16 18:00 99 12/29/16 17:00 98 12/29/16 16:00 97 12/29/16 15:00 97 12/29/16 14:00 97 12/29/16 13:00 12/29/16 12:00 12/29/16 11:00 97 Intake and Output 12/29/16 12/30/16 12/30/16 22:59 06:59 14:59 Other: Voiding Method Toilet Toilet Toilet # Voids 0 1 # Bowel Movements 0 General appearance: The patient is alert, oriented, in no acute distress. HET: Head is normocephalic and atraumatic. Pupils are equal and reactive. Oropharynx is clear without lesions. Neck: Supple without lymphadenopathy. Trachea midline. Heart: S1 S2. Regular rate and rhythm. Lungs: No crackles or wheezes are heard. Abdomen: Soft, very mild tenderness midepigastrium as well as across the lower abdomen bilaterally, nondistended with bowel sounds. No peritoneal signs. No palpable organomegaly or masses. Extremities: Normal skin color and turgor. No cyanosis, rash, ulceration, clubbing, or edema. Radial and pedal pulses are 2/4 bilaterally. Neurological: No focal deficits. Strength and sensation are grossly intact. Results CBC & Chem 7: 12/30/16 08:29 12/30/16 08:29 Labs: Abnormal Lab Results - Last 24 Hours (Table) 12/29/16 12/30/16 12/30/16 Range/Units 04:40 08:29 08:29 WBC 2.9 L (3.8-10.6) k/uL RBC 3.42 L (3.80-5.40) m/uL Hgb 10.8 L (11.4-16.0) gm/dL Hct 31.0 L (34.0-46.0) % Plt Count 85 L (150-450) k/uL Sodium 136 L (137-145) mmol/L Chloride 109 H (98-107) mmol/L Carbon Dioxide 19 L (22-30) mmol/L BUN <2 L (7-17) mg/dL Creatinine 0.28 L (0.52-1.04) mg/dL Total Bilirubin 1.4 H (0.2-1.3) mg/dL AST 59 H (14-36) U/L Total Protein 5.7 L (6.3-8.2) g/dL Albumin 3.1 L (3.5-5.0) g/dL Lipase 2322 H 2239 H (23-300) U/L Microbiology - Last 24 Hours (Table) 12/27/16 15:02 Blood Culture - Preliminary Blood No Growth after 48 hours 12/27/16 19:55 Urine Culture - Final Urine,Voided CT scan - abdomen: report reviewed (Reviewed by Dr. Heredia) Assessment and Plan (1) Right sided colitis Narrative/Plan: Possible inflammatory possible infectious with few episodes of nonbloody diarrhea. Status: Acute (2) Alcoholic pancreatitis Status: Acute (3) Alcoholic hepatitis Status: Acute (4) Left breast mass Status: Acute (5) Pancytopenia Status: Acute (6) ETOH abuse Status: Acute (7) EtOH dependence Status: Acute (8) Vaginal bleeding Narrative/Plan: Status post D&C endometrium biopsy cannot exclude low-grade squamous intraepithelial lesion. WORK CHECKER following. Status: Acute (9) Cholelithiasis Status: Chronic (10) Fatty liver, alcoholic Status: Chronic Plan: 1. Stool studies. Continue antibiotics. 2. Nothing by mouth patient is scheduled for breast biopsy with general surgery. May have liquid diet as tolerated postoperatively. Monitor stool output and record. 3. Will obtain AFP CEA and repeat hepatitis screening. 4. Alcohol abstinence strongly advised. Patient has been evaluated by psychiatry. 5. Colonoscopy is contingent on clinical course will continue to follow closely with you. Thank you for this kind referral and the opportunity to participate in the care of your patient. This consultation was discussed with Dr. Heredia. The impression and plan of care have been directed as dictated.
[2016-12-30 10:49] LABS: Add Differential Manual Differential
[2016-12-30 10:52] LABS: Manual Review Performed; Nucleated Red Blood Cells 0 /100 WBC (0-0); Total Cells Counted 100
--- NOTE | 2016-12-30 11:18 | P.PN ---
Subjective This is a 31-year-old female being evaluated and examined today in the intensive care unit. This patient was initially in emergency room for abdominal discomfort, cramping, nausea and vaginal bleeding. Her vaginal bleeding has been persistent over the last 2 and half weeks and she states that she uses about 15 pads per day. She has had a history of having a D&C due to vaginal bleeding. Patient has known history of alcoholism and her abdominal discomfort or nausea is likely due to her alcoholism and withdrawal's. Her last drink before going into the emergency room was about 18 hours prior. The patient was admitted with pancreatitis, vaginal bleeding, anemia, transaminitis and thrombocytopenia. Patient is on the CIWA protocol. Patient is very cachectic and admits to anorexia and denies bulimia. Since initial labs revealed a lipase of 3102. Has an extensive psychiatric history which includes borderline personality, bipolar, depression, PTSD and anorexia. On examination the patient appears anxious, the patient is on room air and denies any cough congestion and shortness of breath. She did get 2 units of packed red blood cells for hemoglobin of 7.3 on 12/27/16, initially she was 12.5 on 12/25/16. The patient is post D&C her hemoglobin is stable at 11. Patient has had no vaginal bleeding since procedure with CHUCK[employer]. The patient's potassium level has stabilized. Abnormal CT results reviewed and appropriate consultations made for left breast mass, and for inflammatory vs infections colitis with cholelithiasis. Patient has GI and general surgery on consult. Patient is scheduled for a breast biopsy today. On examination today the patient is resting in bed appears tired and weak she is on room air and denies any cough or shortness of breath this time. Objective - Vital Signs Vital signs: Vital Signs Temp 97.3 F L 12/30/16 07:00 Pulse 86 12/30/16 07:00 Resp 16 12/30/16 07:00 BP 95/69 12/30/16 07:00 Pulse Ox 94 L 12/30/16 07:00 Intake & Output 12/29/16 12/30/16 12/30/16 18:59 06:59 18:59 Intake Total 1931.2 Balance 1931.2 Intake: IV 900 0.9% NaCl with KCl 40 Meq 900 /l 1,000 ml @ 100 mls/hr IV .BY DURATION [facility] Rx#: [id number] Intake, IV Titration 1031.2 Amount Mvi, Adult No.4 with Vit 1031.2 K 10 ml Thiamine 100 mg Folic Acid 1 mg Potassium Chloride 40 meq In Sodium Chloride 0.9% 1, 000 ml @ 100 mls/hr IV . BY DURATION [facility] Rx#: [id number] Other: Voiding Method Toilet Toilet Toilet # Voids 2 1 # Bowel Movements 0 - Exam GENERAL EXAM: Alert, cachectic, comfortable in no apparent distress. HEAD: Normocephalic. EYES: Normal reaction of pupils, equal size. NOSE: Clear with pink turbinates. THROAT: No erythema or exudates. NECK: No masses, no JVD. CHEST: No chest wall deformity. LUNGS: Equal air entry with no crackles, wheeze, rhonchi or dullness. CVS: S1 and S2 normal with no audible mumurs, regular rhythm. ABDOMEN: No hepatosplenomegaly, normal bowel sounds, no guarding or rigidity. EXTREMITIES: No edema noted, pedal pulses palpable. SKIN: No rashes CENTRAL NERVOUS SYSTEM: No focal deficits, tone is normal in all 4 extremities. - Labs CBC & Chem 7: 12/30/16 08:29 12/30/16 08:29 Labs: Abnormal Lab Results - Last 24 Hours (Table) 12/30/16 12/30/16 Range/Units 08:29 08:29 WBC 2.9 L (3.8-10.6) k/uL RBC 3.42 L (3.80-5.40) m/uL Hgb 10.8 L (11.4-16.0) gm/dL Hct 31.0 L (34.0-46.0) % Plt Count 85 L (150-450) k/uL Sodium 136 L (137-145) mmol/L Chloride 109 H (98-107) mmol/L Carbon Dioxide 19 L (22-30) mmol/L BUN <2 L (7-17) mg/dL Creatinine 0.28 L (0.52-1.04) mg/dL Total Bilirubin 1.4 H (0.2-1.3) mg/dL AST 59 H (14-36) U/L Total Protein 5.7 L (6.3-8.2) g/dL Albumin 3.1 L (3.5-5.0) g/dL Lipase 2239 H (23-300) U/L Microbiology - Last 24 Hours (Table) 12/27/16 15:02 Blood Culture - Preliminary Blood No Growth after 48 hours 12/27/16 19:55 Urine Culture - Final Urine,Voided Assessment and Plan Plan: Assessment Vaginal bleeding Anemia, acute blood loss secondary to above Acute Pancreatitis Alcoholism Thrombocytopenia Hypokalemia Colitis, inflammatory versus infectious Alcoholic hepatitis, fatty liver Left breast mass Pancytopenia Plan Continue with breast biopsy today as planned. Medications have been reviewed and will be continued as ordered. We will continue to monitor the vaginal bleeding and hemoglobin. The patient is currently hemodynamically stable. She did receive 2 units of packed red blood cells. She did undergo a procedure of D &C with CHUCKER, no complications. Continue with CIWA protocol for impending DTs. Alcohol cessation strongly advised. GI and surgical consulted. Blood cultures and urine cultures are pending. Stool cultures will be obtained. Antibiotics started in the form of Levaquin. Hematology also on consult. GI/ DVT prophylaxis. Psychiatry on consult. We'll continue to monitor labs/ results and adjust treatment as necessary. I performed an examination of the patient and discussed their management with the nurse practitioner. I have reviewed the nurse practitioner's note and agree with the documented findings and plan of care.
[2016-12-30] MEDS: HYDROcodone/APAP 15 ML SOLUTION PO PRN ×3 (12:23→21:08)
[2016-12-30 14:35] VITALS: BMI 18.0
--- NOTE | 2016-12-30 15:02 | PN ---
DATE OF SERVICE: 12/29/2016 CHIEF COMPLAINT: Blood loss anemia. HISTORY OF PRESENT ILLNESS: This lady is doing well. She is stabilizing. PHYSICAL EXAM: She remains pale, she remains very depressed. Chest is clear and cardiac exam is normal. The abdomen is soft and nontender. IMPRESSION: 1. Dysfunctional uterine bleeding. 2. Blood loss anemia. 3. Pancreatitis. 4. Depression. 5. Alcoholism. 6. Anorexia. PLAN: She will probably be moved to regular floor today and her activity and diet increased.
--- NOTE | 2016-12-30 15:15 | PN ---
DATE OF SERVICE: 12/30/2016 CHIEF COMPLAINT: 1. Status post vaginal hemorrhage, resolved. 2. Possible mass in the left breast. 3. Possible colitis. 4. Depression. HISTORY OF PRESENT ILLNESS: This lady is being further evaluated because one of her studies suggests that she may have colitis. There is also a mass in the left breast. PHYSICAL EXAMINATION: CHEST: Clear. CARDIAC: Normal. ABDOMEN: Soft, nontender. She remains pale and very depressed. IMPRESSION: 1. Vaginal bleeding. 2. Alcoholism. 3. Pancreatitis. 4. Depression. 5. Anemia. 6. Thrombocytopenia. 7. Left breast mass. 8. Possible colitis. PLAN: Work-up for colitis as well as to further addressing the left breast mass.
--- NOTE | 2016-12-30 15:38 | P.PN ---
Subjective 31-year-old female scheduled today for ultrasound core biopsy of a mass in the left breast by surgical services recommendations to be done by interventional radiology is been no new events. Patients being followed by multiple consulting physicians recommendations noted appreciated and reviewed Objective - Vital Signs Vital signs: Vital Signs Temp 97.6 F 12/30/16 15:01 Pulse 80 12/30/16 15:01 Resp 16 12/30/16 15:01 BP 93/67 12/30/16 15:01 Pulse Ox 99 12/30/16 15:01 Intake & Output 12/29/16 12/30/16 12/30/16 18:59 06:59 18:59 Intake Total 1931.2 1000 Balance 1931.2 1000 Weight 44.7 kg Intake: IV 900 0.9% NaCl with KCl 40 Meq 900 /l 1,000 ml @ 100 mls/hr IV .BY DURATION [facility] Rx#: [id number] Intake, IV Titration 1031.2 1000 Amount 0.9% NaCl with KCl 40 Meq 1000 /l 1,000 ml @ 100 mls/hr IV .BY DURATION [facility] Rx#: [id number] Mvi, Adult No.4 with Vit 1031.2 K 10 ml Thiamine 100 mg Folic Acid 1 mg Potassium Chloride 40 meq In Sodium Chloride 0.9% 1, 000 ml @ 100 mls/hr IV . BY DURATION [facility] Rx#: [id number] Other: Voiding Method Toilet Toilet Toilet # Voids 2 1 1 # Bowel Movements 0 - Exam Physical exam 31-year-old resting in bed aware of the plan of care today scheduled for biopsy left breast by interventional radiology Lungs essentially clear adequate air movement Heart S1-S2 audible regular Abdomen flat nontender no stooling no nausea no vomiting Extremities no edema noted - Labs CBC & Chem 7: 12/30/16 08:29 12/30/16 08:29 Labs: Abnormal Lab Results - Last 24 Hours (Table) 12/30/16 12/30/16 Range/Units 08:29 08:29 WBC 2.9 L (3.8-10.6) k/uL RBC 3.42 L (3.80-5.40) m/uL Hgb 10.8 L (11.4-16.0) gm/dL Hct 31.0 L (34.0-46.0) % Plt Count 85 L (150-450) k/uL Sodium 136 L (137-145) mmol/L Chloride 109 H (98-107) mmol/L Carbon Dioxide 19 L (22-30) mmol/L BUN <2 L (7-17) mg/dL Creatinine 0.28 L (0.52-1.04) mg/dL Total Bilirubin 1.4 H (0.2-1.3) mg/dL AST 59 H (14-36) U/L Total Protein 5.7 L (6.3-8.2) g/dL Albumin 3.1 L (3.5-5.0) g/dL Lipase 2239 H (23-300) U/L Microbiology - Last 24 Hours (Table) 12/27/16 15:02 Blood Culture - Preliminary Blood No Growth after 48 hours 12/27/16 19:55 Urine Culture - Final Urine,Voided Assessment and Plan Plan: Impression Incidental finding mass left breast 7 o'clock position confirmed with an ultrasound of the left breast done on the Status post ultrasound core biopsy of the left breast mass done on the 30 of December Chronic alcoholism daily consumption Present on admission impending DTs from alcohol consumption CIWA protocol initiated using Ativan Present on admission epigastric pain likely due to pancreatitis elevated lipase Present on admission hypokalemia resolved Present on admission thrombocytopenia suspect due to chronic alcoholism Symptomatic anemia sat back due to a vaginal bleed necessitating transfusion of 2 units of packed red blood cells mild protein calorie malnutrition underweight suspect due to chronic alcoholism poor caloric intake Abnormal CAT scan abdomen and pelvis showing left breast mass CAT scan abdomen and pelvis suggests colitis inflammatory or infectious Pancytopenia suspect alcohol-induced Alcoholic hepatitis fatty liver disease Alcohol induced pancreatitis Alcohol use disorder Status post D&C for vaginal bleeding symptomatic with a retroverted uterus with a clot in the vaginal canal Right-sided colitis acute Plan Will follow up on the path report from the needle biopsy done in the left breast Once the path report has been obtained from the needle biopsy in the left breast patient can be seen in the outpatient setting at the surgical services office to discuss the findings. This was discussed with the patient questions answered We'll continue to follow no surgical intervention at this time Continue medical configuration management administrator recommendations noted appreciated and reviewed Thank you for this opportunity to participate in the surgical care of your patient. We'll follow closely with further recommendations The above dictated assessment and findings were discussed with dr Dayanara Khan and the plan of care have been dictated as directed. Yarelis Soto nurse practitioner acting as a scribe for dr Nichole
--- NOTE | 2016-12-30 15:44 | USB ---
EXAMINATION TYPE: US breast needle core LT DATE OF EXAM: 12/30/2016 11:49 AM COMPARISON: NONE HISTORY: CT DLP: mGycm The procedure is discussed with the patient, the risks, complications, benefits and alternatives, were discussed and any questions were answered. Informed consent was obtained. The patient is placed supine on the ultrasound table, prepped and draped in the usual sterile fashion. Preliminary imaging demonstrated a single lobulated mass. Previous scan suggested 2 separate with one dominant lesion and a tiny satellite lesion which was not seen on imaging today. They appear to be contiguous. Utilizing a 14-gauge needle access into the mass was achieved with 4 passes performed. Pathology pending. All elements of maximal barrier technique were utilized. The patient remained stable throughout the procedure with no immediate postprocedural complication. Postprocedural clip was placed. IMPRESSION: 1. Successful ultrasound guided core biopsy of a left breast mass Pathology Results: Benign BREAST, LEFT, CORE BIOPSY: FIBROADENOMA AND BACKGROUND FIBROCYSTIC CHANGES. Recommendation Clinical management. MTDD
[2016-12-30 16:45] LABS: Hepatitis B Surface Ag Index 0.07
[2016-12-30] MEDS: LEVOFLOXACIN 500MG-D5W PMX 500 MG in DEXTROSE/WATER 1 100ML.BAG IVPB SCH (16:48)
[2016-12-30 16:51] LABS: Hepatitis B Core IgM Index 0.02
[2016-12-30 17:02] LABS: Hepatitis C Virus IgG Index 0.01
[2016-12-30 17:12] LABS: Hepatitis C Virus IgG Ab Negative (Negative)
[2016-12-31] MEDS ORDERED: SODIUM CHLORIDE 0.9% 1,000 ML BAG ONE (00:56)
[2016-12-31] MEDS: 1: MVI, ADULT NO.4 WITH VIT K 10 ML, THIAMINE 100 MG, FOLIC ACID 1 MG, POTASSIUM CHLORID IV SCH ×18 (00:56→17:21)
[2016-12-31] MEDS: LORazepam 2 MG/ML SYRINGE IV PRN ×5 (01:18→17:53)
[2016-12-31] MEDS: HYDROcodone/APAP 15 ML SOLUTION PO PRN (05:42)
[2016-12-31 10:06] LABS: ALT 34 U/L (9-52); AST 65 U/L (14-36); Alkaline Phosphatase 59 U/L (38-126); Amylase 81 U/L (30-110); Anion Gap 9 mmol/L; Blood Urea Nitrogen <2 mg/dL (7-17); Calcium 8.5 mg/dL (8.4-10.2); Carbon Dioxide 17 mmol/L (22-30); Chloride 109 mmol/L (98-107); Glucose 91 mg/dL (74-99); Non-African American GFR(MDRD) >60 (>60 ml/min/1.73 sqM); Potassium 4.2 mmol/L (3.5-5.1); Sodium 135 mmol/L (137-145); Total Bilirubin 1.4 mg/dL (0.2-1.3); Total Protein 5.9 g/dL (6.3-8.2)
[2016-12-31 10:36] LABS: Aty Lym Flag Marked; CH 31.1; CHCM 32.9; HCT 33.9 % (34.0-46.0); HDW 3.11; HGB 11.1 gm/dL (11.4-16.0); MCH 31.1 pg (25.0-35.0); MCHC 32.6 g/dL (31.0-37.0); MCV 95.3 fL (80.0-100.0); RBC 3.56 m/uL (3.80-5.40); RDW 14.9 % (11.5-15.5); WBC 2.9 k/uL (3.8-10.6); WBC (Perox) 2.68
[2016-12-31] MEDS: SODIUM CHLORIDE 0.9% 1,000 ML IV SCH ×3 (11:07→22:16)
[2016-12-31] MEDS: METOPROLOL TARTRATE 25 MG TAB PO SCH ×2 (11:07→20:30)
[2016-12-31] MEDS: PANTOPRAZOLE 40 MG/10 ML VIAL IVP SCH (11:07)
[2016-12-31 11:22] LABS: Add Differential Manual Differential
[2016-12-31 11:25] LABS: Manual Review Performed; Nucleated Red Blood Cells 0 /100 WBC (0-0); Total Cells Counted 100
--- NOTE | 2016-12-31 11:50 | P.PN ---
Subjective Principal diagnosis: Alcohol hepatitis pancreatitis left breast mass vaginal bleeding status post D&C 31-year-old female with a history of long-standing EtOH abuse and pancytopenia admitted with vaginal bleeding status post D&C. Additionally admitted with alcohol-induced hepatitis pancreatitis with CT reporting descending inflammatory changes/colitis. Patient is not having diarrhea. She passed a small soft bowel movement nonbloody C. diff negative. Mild lower abdominal discomfort nothing severe. No appetite. Breast biopsy yesterday. White count 2.9. Hemoglobin 11.1. Platelet 99. Lipase 1711. Hepatitis panel negative. AFP 6.2. CEA 2.8. Objective - Vital Signs Vital signs: Vital Signs Temp 97.8 F 12/31/16 07:13 Pulse 96 12/31/16 07:13 Resp 22 12/31/16 07:13 BP 121/74 12/31/16 07:13 Pulse Ox 98 12/31/16 07:13 Intake & Output 12/30/16 12/31/16 12/31/16 18:59 06:59 18:59 Intake Total 1031.2 Balance 1031.2 Weight 44.7 kg 44.7 kg Intake: Intake, IV Titration 1031.2 Amount Mvi, Adult No.4 with Vit 1031.2 K 10 ml Thiamine 100 mg Folic Acid 1 mg Potassium Chloride 40 meq In Sodium Chloride 0.9% 1, 000 ml @ 100 mls/hr IV . BY DURATION [facility] Rx#: [id number] Other: Voiding Method Toilet Toilet # Voids 1 1 - Exam General appearance: The patient is alert, oriented, in no acute distress. HET: Head is normocephalic and atraumatic. Pupils are equal and reactive. Oropharynx is clear without lesions. Neck: Supple without lymphadenopathy. Trachea midline. Heart: S1 S2. Regular rate and rhythm. Lungs: No crackles or wheezes are heard. Abdomen: Soft, nontender, nondistended with bowel sounds. No peritoneal signs. No palpable organomegaly or masses. Extremities: Normal skin color and turgor. No cyanosis, rash, ulceration, clubbing, or edema. Radial and pedal pulses are 2/4 bilaterally. Neurological: No focal deficits. Strength and sensation are grossly intact. - Labs CBC & Chem 7: 12/31/16 09:15 12/31/16 09:15 Labs: Abnormal Lab Results - Last 24 Hours (Table) 12/31/16 12/31/16 Range/Units 09:15 09:15 WBC 2.9 L (3.8-10.6) k/uL RBC 3.56 L (3.80-5.40) m/uL Hgb 11.1 L (11.4-16.0) gm/dL Hct 33.9 L (34.0-46.0) % Plt Count 99 L (150-450) k/uL Sodium 135 L (137-145) mmol/L Chloride 109 H (98-107) mmol/L Carbon Dioxide 17 L (22-30) mmol/L BUN <2 L (7-17) mg/dL Creatinine 0.31 L (0.52-1.04) mg/dL Total Bilirubin 1.4 H (0.2-1.3) mg/dL AST 65 H (14-36) U/L Total Protein 5.9 L (6.3-8.2) g/dL Albumin 3.2 L (3.5-5.0) g/dL Lipase 1711 H (23-300) U/L Microbiology - Last 24 Hours (Table) 12/30/16 20:25 Stool for WBCs - Final Stool 12/30/16 20:25 Stool Culture - Preliminary Stool 12/27/16 15:02 Blood Culture - Preliminary Blood No Growth after 72 hours Assessment and Plan (1) Right sided colitis Narrative/Plan: Possible inflammatory possible infectious with few episodes of nonbloody diarrhea. Status: Acute (2) Alcoholic pancreatitis Status: Acute (3) Alcoholic hepatitis Status: Acute (4) Left breast mass Narrative/Plan: Status post biopsy Status: Acute (5) Pancytopenia Status: Acute (6) ETOH abuse Status: Acute (7) EtOH dependence Status: Acute (8) Vaginal bleeding Narrative/Plan: Status post D&C endometrium biopsy cannot exclude low-grade squamous intraepithelial lesion. NAPPER TENDER following. Status: Acute (9) Cholelithiasis Status: Chronic (10) Fatty liver, alcoholic Status: Chronic Plan: 1. Patient is not having active diarrhea. Abdominal pain is minimal. Colonoscopy not planned at this time. Would advise patient to follow up in GI office after discharge if symptoms of abdominal pain and/or diarrhea occur. Alcohol abstinence strongly advised. Discharge per medicine. Follow up with NAPPER TENDER and surgery as indicated. Assessment and plan of care discussed with Dr. Heredia.
--- NOTE | 2016-12-31 12:07 | ECHOF ---
Referral Reason:Tachycardia MEASUREMENTS -------- HEIGHT: 157.5 cm WEIGHT: 44.5 kg BP: 121/79 IVSd: 1.1 cm (0.6 - 1.1) LVIDd: 4.2 cm (3.9 - 5.3) LVPWd: 1.1 cm (0.6 - 1.1) IVSs: 1.2 cm LVIDs: 3.1 cm LVPWs: 1.5 cm LAESV Index (A-L): 8.18 ml/m Ao Diam: 2.8 cm (2.0 - 3.7) AV Cusp: 1.4 cm (1.5 - 2.6) LA Diam: 2.0 cm (2.7 - 3.8) MV EXCURSION: 11.453 mm (> 18.000) MV EF SLOPE: 100 mm/s (70 - 150) EPSS: 0.8 cm MV E Jamal: 0.66 m/s MV DecT: 192 ms MV A Jamal: 0.56 m/s MV E/A Ratio: 1.18 RAP: 5.00 mmHg RVSP: 18.23 mmHg FINDINGS -------- Sinus rhythm. This was a technically adequate study. Pt. not able to turn due to pain. TDS due to recent left breast biopsy and bandages. Left ventricular wall thickness is normal. Overall left ventricular systolic function is low-normal with, an EF between 50 - 55 %. The right ventricle is normal in size and function. Normal LA size by volume 22+/-6 ml/m2. The right atrium is normal in size. The aortic valve is trileaflet and appears structurally normal. There is no evidence of aortic regurgitation. There is no evidence of aortic stenosis. The mitral valve is normal. There is trace mitral regurgitation. Trace tricuspid regurgitation present. There is no evidence of pulmonary hypertension. The right ventricular systolic pressure, as measured by Doppler, is 18.23mmHg. The pulmonic valve is normal. The aortic root size is normal. There is no pericardial effusion. CONCLUSIONS -------- 1. Sinus rhythm. 2. The aortic root size is normal. 3. There is no pericardial effusion. 4. Pt. not able to turn due to pain. 5. TDS due to recent left breast biopsy and bandages. 6. Normal LA size by volume 22+/-6 ml/m2. 7. The aortic valve is trileaflet and appears structurally normal. 8. There is trace mitral regurgitation. 9. Trace tricuspid regurgitation present. 10. There is no evidence of pulmonary hypertension. 11. The right ventricular systolic pressure, as measured by Doppler, is 18.23mmHg. LINUX SUPPORT ENGINEER: Jluis Cason RDCS
--- NOTE | 2016-12-31 13:08 | P.PN ---
Subjective This is a 31-year-old female being evaluated and examined today in the intensive care unit. This patient was initially in emergency room for abdominal discomfort, cramping, nausea and vaginal bleeding. Her vaginal bleeding has been persistent over the last 2 and half weeks and she states that she uses about 15 pads per day. She has had a history of having a D&C due to vaginal bleeding. Patient has known history of alcoholism and her abdominal discomfort or nausea is likely due to her alcoholism and withdrawal's. Her last drink before going into the emergency room was about 18 hours prior. The patient was admitted with pancreatitis, vaginal bleeding, anemia, transaminitis and thrombocytopenia. Patient is on the CIWA protocol. Patient is very cachectic and admits to anorexia and denies bulimia. initial labs revealed a lipase of 3102. Has an extensive psychiatric history which includes borderline personality, bipolar, depression, PTSD and anorexia. On examination the patient appears anxious, the patient is on room air and denies any cough congestion and shortness of breath. She did get 2 units of packed red blood cells for hemoglobin of 7.3 on 12/27/16, initially she was 12.5 on 12/25/16. The patient is post D&C her hemoglobin is stable at 11. Patient has had no vaginal bleeding since procedure with GRAPHICS COORDINATOR. The patient's potassium level has stabilized. Abnormal CT results reviewed and appropriate consultations made for left breast mass, and for inflammatory vs infections colitis with cholelithiasis. Patient has GI and general surgery on consult. Patient underwent a breast biopsy, results pending . Today's lipase is 1711. GI will decide when the patient can advance her diet. On examination today the patient is resting in bed appears tired and weak she is on room air and denies any cough or shortness of breath this time. Patient states she continues to have no appetite. Objective - Vital Signs Vital signs: Vital Signs Temp 97.8 F 12/31/16 07:13 Pulse 96 12/31/16 07:13 Resp 22 12/31/16 07:13 BP 121/74 12/31/16 07:13 Pulse Ox 98 12/31/16 07:13 Intake & Output 12/30/16 12/31/16 12/31/16 18:59 06:59 18:59 Intake Total 1031.2 Balance 1031.2 Weight 44.7 kg 44.7 kg Intake: Intake, IV Titration 1031.2 Amount Mvi, Adult No.4 with Vit 1031.2 K 10 ml Thiamine 100 mg Folic Acid 1 mg Potassium Chloride 40 meq In Sodium Chloride 0.9% 1, 000 ml @ 100 mls/hr IV . BY DURATION [facility] Rx#: [id number] Other: Voiding Method Toilet Toilet # Voids 1 1 - Exam GENERAL EXAM: Alert, cachectic, comfortable in no apparent distress. HEAD: Normocephalic. EYES: Normal reaction of pupils, equal size. NOSE: Clear with pink turbinates. THROAT: No erythema or exudates. NECK: No masses, no JVD. CHEST: No chest wall deformity. Left breast dressing dry and intact from biopsy. LUNGS: Equal air entry with no crackles, wheeze, rhonchi or dullness. CVS: S1 and S2 normal with no audible mumurs, regular rhythm. ABDOMEN: No hepatosplenomegaly, normal bowel sounds, no guarding or rigidity. EXTREMITIES: No edema noted, pedal pulses palpable. SKIN: No rashes CENTRAL NERVOUS SYSTEM: No focal deficits, tone is normal in all 4 extremities. - Labs CBC & Chem 7: 12/31/16 09:15 12/31/16 09:15 Labs: Abnormal Lab Results - Last 24 Hours (Table) 12/31/16 12/31/16 Range/Units 09:15 09:15 WBC 2.9 L (3.8-10.6) k/uL RBC 3.56 L (3.80-5.40) m/uL Hgb 11.1 L (11.4-16.0) gm/dL Hct 33.9 L (34.0-46.0) % Plt Count 99 L (150-450) k/uL Sodium 135 L (137-145) mmol/L Chloride 109 H (98-107) mmol/L Carbon Dioxide 17 L (22-30) mmol/L BUN <2 L (7-17) mg/dL Creatinine 0.31 L (0.52-1.04) mg/dL Total Bilirubin 1.4 H (0.2-1.3) mg/dL AST 65 H (14-36) U/L Total Protein 5.9 L (6.3-8.2) g/dL Albumin 3.2 L (3.5-5.0) g/dL Lipase 1711 H (23-300) U/L Microbiology - Last 24 Hours (Table) 12/30/16 20:25 Stool for WBCs - Final Stool 12/30/16 20:25 Stool Culture - Preliminary Stool 12/27/16 15:02 Blood Culture - Preliminary Blood No Growth after 72 hours Assessment and Plan Plan: Assessment Vaginal bleeding Anemia, acute blood loss secondary to above Acute Pancreatitis Alcoholism Thrombocytopenia Hypokalemia Colitis, inflammatory versus infectious Alcoholic hepatitis, fatty liver Left breast mass Pancytopenia Plan Medications have been reviewed and will be continued as ordered. We will continue to monitor the vaginal bleeding and hemoglobin. The patient is currently hemodynamically stable. She did receive 2 units of packed red blood cells. She did undergo a procedure of D&C with GRAPHICS COORDINATOR, no complications. Continue with CIWA protocol for impending DTs. Alcohol cessation strongly advised. GI and surgical consulted. GI to decide on when patient can advance her diet. Blood cultures and urine cultures are negative thus far. Stool cultures will be obtained. Antibiotics started in the form of Levaquin. Hematology also on consult. GI/DVT prophylaxis. Psychiatry on consult. We'll continue to monitor labs/results and adjust treatment as necessary. I performed an examination of the patient and discussed their management with the nurse practitioner. I have reviewed the nurse practitioner's note and agree with the documented findings and plan of care.
--- NOTE | 2016-12-31 13:32 | P.PN ---
Progress Note - Text 31-year-old female being seen at the request of the attending for a surgical eval after patient was noted to have a mass on the left breast. Patient did undergo a ultrasound core biopsy by interventional radiologist to the left breast mass on December 30 the pathology report is pending from a surgical perspective will follow patient in the outpatient setting to discuss the path report finding. No further surgical intervention warranted will sign off and reevaluate on an as-needed basis this was discussed with the patient at the bedside that the path report needed to be followed in the outpatient setting The above dictated assessment and findings were discussed with dr irene Khan and the plan of care have been dictated as directed. Yarelis Soto nurse practitioner acting as a scribe for dr kenney
--- NOTE | 2016-12-31 15:09 | CONS ---
DATE OF CONSULTATION: This is a 31-year-old lady with a history of alcoholism, anorexia, who came into the hospital mainly with complaints of having abdominal pain, was found to have a lipase of over 3000. She has been admitted to the hospital. She had a diagnosis of pancreatitis, and also while she was here there was a question of a breast mass, and she had a biopsy for that. While she was here ambulating in her room she was having tachycardia, and therefore I was asked to see her. Please refer to the detailed H&P by Dr. Nichole and other information. Her multiple medical problems include: 1. Post-traumatic stress syndrome. 2. Anorexia nervosa. 3. Borderline personality disorder. 4. Bipolar disorder. She does not have any chest pain, has no history of hypertension, diabetes, myocardial infarction or CVA. She is known to have tachycardia from time to time but has not had any known cardiac diagnosis. Medications at home include Xanax. ALLERGIES: MORPHINE. REVIEW OF SYSTEMS: Please refer to Dr. Nichole's note. On examination, blood pressure is 121/70. Pulse rate is about 78 per minute. HEENT: Unremarkable. Fundus was not examined by me. Neck is supple. No JVD. I do not hear a carotid bruit. Heart exam reveals S1, S2 heard normally. Lungs are clear. Abdomen is soft, nontender. Lower extremities reveal diminished pulses. Central nervous system is normal. Rhythm strip reviewed suggested runs of sinus tachycardia. EKG today revealed sinus mechanism without significant ST-T changes. Echocardiogram revealed preserved systolic function. IMPRESSION: 1. Sinus tachycardia, probably related to some dehydration and underlying pancreatitis and other inflammatory conditions. 2. Thyroid functions are normal. 3. History of alcohol withdrawal. 4. Acute pancreatitis, resolving. RECOMMENDATIONS: I am recommending that we hydrate the patient, use a small dose of beta bri. Her thyroid functions were already checked and appear to be normal. No other aggressive intervention is necessary from a cardiac standpoint. I will see the patient as needed. Thank you very much for the consult.
--- NOTE | 2016-12-31 15:24 | PN ---
CHIEF COMPLAINT: 1. Blood loss anemia secondary to vaginal bleeding, controlled. 2. Alcoholism. 3. Pancreatitis. 4. Thrombocytopenia. 5. Left breast mass (biopsied). 6. Tachycardia. PLAN: Continue to follow and reassess for tachycardia if this continues.
[2016-12-31] MEDS: ONDANSETRON 4 MG/2 ML VIAL IVP PRN (15:42)
[2016-12-31] MEDS: LEVOFLOXACIN 500MG-D5W PMX 500 MG in DEXTROSE/WATER 1 100ML.BAG IVPB SCH (17:29)
[2016-12-31] MEDS ORDERED: METOPROLOL TARTRATE 25 MG TAB PO SCH (21:00)
[2017-01-01] MEDS: METOPROLOL TARTRATE 25 MG TAB PO SCH (08:33)
[2017-01-01] MEDS: PANTOPRAZOLE 40 MG/10 ML VIAL IVP SCH (08:33)
[2017-01-01] MEDS: LORazepam 2 MG/ML SYRINGE IV PRN ×2 (08:40→17:31)
[2017-01-01 09:44] LABS: Aty Lym Flag Moderate; CH 31.1; CHCM 33.2; HCT 33.6 % (34.0-46.0); HDW 2.95; HGB 10.9 gm/dL (11.4-16.0); MCH 30.6 pg (25.0-35.0); MCHC 32.4 g/dL (31.0-37.0); MCV 94.4 fL (80.0-100.0); Mean Platelet Volume 8.1; RBC 3.56 m/uL (3.80-5.40); RDW 15.3 % (11.5-15.5); WBC 2.7 k/uL (3.8-10.6); WBC (Perox) 2.71
[2017-01-01 10:01] LABS: ALT 35 U/L (9-52); AST 50 U/L (14-36); Alkaline Phosphatase 61 U/L (38-126); Amylase 72 U/L (30-110); Anion Gap 11 mmol/L; Blood Urea Nitrogen <2 mg/dL (7-17); Calcium 8.5 mg/dL (8.4-10.2); Carbon Dioxide 18 mmol/L (22-30); Chloride 108 mmol/L (98-107); Glucose 83 mg/dL (74-99); Non-African American GFR(MDRD) >60 (>60 ml/min/1.73 sqM); Potassium 3.3 mmol/L (3.5-5.1); Sodium 137 mmol/L (137-145); Total Bilirubin 1.1 mg/dL (0.2-1.3); Total Protein 5.5 g/dL (6.3-8.2)
[2017-01-01 10:31] LABS: Add Differential Manual Differential
[2017-01-01 10:39] LABS: Manual Review Performed; Nucleated Red Blood Cells 0 /100 WBC (0-0); Total Cells Counted 100
[2017-01-01] MEDS: 1: MVI, ADULT NO.4 WITH VIT K 10 ML, THIAMINE 100 MG, FOLIC ACID 1 MG, POTASSIUM CHLORID IV SCH ×12 (14:14→14:56)
[2017-01-01] MEDS ORDERED: SODIUM CHLORIDE 0.9% 1,000 ML BAG ONE (14:56)
[2017-01-01] MEDS: SODIUM CHLORIDE 0.9% 1,000 ML IV SCH (14:57)
[2017-01-01] MEDS ORDERED: POTASSIUM CHLORIDE ER 20 MEQ TAB.ER PO SCH (15:00)
[2017-01-01] MEDS: LEVOFLOXACIN 500MG-D5W PMX 500 MG in DEXTROSE/WATER 1 100ML.BAG IVPB SCH (15:03)
--- NOTE | 2017-01-01 17:23 | PN ---
Patient is a 31-year-old white female admitted to the hospital a week ago for vaginal bleeding followed by D&C. While in the hospital she was complaining of abdominal pain and was diagnosed with acute pancreatitis with elevated amylase and lipase. Also, she was noted to have a mild elevation of serum transaminases consistent with acute alcoholic hepatitis. Patient has a history of heavy alcohol abuse for the last 15 years' duration and drinks about 10 to 12 beers on a daily basis. She recently had a breast biopsy for a mass in the breast and results are still pending and surgery is following the patient closely. This morning she states she still has some epigastric discomfort. She reports no nausea or vomiting. Reports no fever, chills or night sweats. On physical examination, she appears comfortable, in no apparent distress. Vital signs are stable. Blood pressure 105/73, pulse rate 80, temperature 99. HEENT: Unremarkable. Conjunctivae pink. Sclerae anicteric. Oral cavity, no lesions. NECK: No JVD or lymph node enlargement. Chest was clear to auscultation. HEART: Regular rate and rhythm. ABDOMEN: Soft. Mild tenderness in the epigastric area. Bowel sounds are positive. No organomegaly. EXTREMITIES: No pedal edema. SKIN: No rashes. NEURO: She is alert and oriented x3. No focal deficits. LABS: WBC 2.7, hemoglobin 10, platelets 134. BUN is 2, creatinine 2.3, AST is 50, ALT 35. T-bili 1.1, lipase is 1951. Hepatitis serologies for A, B, and C were negative. IMPRESSION: 1. Elevated amylase and lipase consistent with acute pancreatitis most likely related to alcohol abuse, doubt biliary pancreatitis. 2. Chronic alcoholic liver disease with portal hypertension. 3. Pancytopenia, probably related to chronic underlying liver disease. 4. Breast mass status post biopsy, pathology is still pending. RECOMMENDATIONS: 1. Start on a clear liquid diet. 2. Continue with pain medications and antiemetics as needed. 3. Repeat labs in the morning and will follow the patient hospital stay. Thank you for this consultation.
[2017-01-01] MEDS ORDERED: METOPROLOL TARTRATE 25 MG TAB ONE (23:00)
[2017-01-01] MEDS ORDERED: ONDANSETRON 4 MG/2 ML VIAL ONE (23:00)
[2017-01-02] MEDS: SODIUM CHLORIDE 0.9% 1,000 ML IV SCH ×2 (04:25→14:33)
[2017-01-02] MEDS: 1: MVI, ADULT NO.4 WITH VIT K 10 ML, THIAMINE 100 MG, FOLIC ACID 1 MG, POTASSIUM CHLORID IV SCH ×18 (08:00→19:54)
[2017-01-02] MEDS: METOPROLOL TARTRATE 25 MG TAB PO SCH ×3 (08:00→19:57)
--- NOTE | 2017-01-02 08:57 | PN ---
DATE OF SERVICE: 01/01/2017 Jess Penn is seen, evaluated, examined. She is a 31-year-old female, who has multiple complex problems and issues. She has been followed up for abdominal discomfort, cramping and nausea and vaginal bleeding. She is status post D&C. History of alcohol consumption as well. She has been found to have severe pancreatitis as well as left-sided breast mass. Patient has alcoholic hepatitis as well along with pancytopenia. General surgery has been following this patient. She is status post core biopsy and path report is pending. Today on examination, her blood pressure 100/70 with, respiratory rate 16, pulse 77, temperature 98, saturation 97%. HEENT: Unremarkable. NECK: Supple without any lymphadenopathy, jugular venous distention or carotid bruit. LUNGS: Bilateral good air entry without significant rales, rhonchi, or rub. HEART: Regular rate and rhythm. S1 and S2 audible. ABDOMEN: Soft. NEUROLOGICAL EXAMINATION: Otherwise, awake and alert. Labs reviewed. White cell count 7, hemoglobin 10, hematocrit 33, platelet count 134,000. Sodium 130, potassium 3.3. BUN and creatinine 2 and 0.3. The AST and ALT are 50 and 35, which are slowly improving. Total bilirubin is down to 1.1. Amylase and lipase are 72 and 1951. Stool for C. difficile is negative. IMPRESSION: 1. Pancytopenia. 2. Pancreatitis, alcoholism, alcoholic related liver disease and hepatitis. 3. Breast mass on the left side. 4. History of chronic colitis. Prognosis overall is poor. Continue supportive care. Continue to monitor hemoglobin. If hemoglobin less than 7 would recommend to transfuse ( ) protocol. Will follow.
[2017-01-02] MEDS: PANTOPRAZOLE 40 MG/10 ML VIAL IVP SCH (09:15)
[2017-01-02] MEDS ORDERED: SODIUM CHLORIDE 0.9% 1,000 ML BAG ONE (10:31)
[2017-01-02 11:55] LABS: Magnesium 1.6 mg/dL (1.6-2.3); Potassium 4.8 mmol/L (3.5-5.1)
--- NOTE | 2017-01-02 12:49 | PN ---
DATE OF SERVICE: 01/01/2017 CHIEF COMPLAINT: Blood loss anemia, pancreatitis, alcoholism, anorexia, left breast mass, tachycardia. HISTORY OF PRESENT ILLNESS: This lady is resting comfortably and doing fairly well. She has been seen by Cardiology and no further tests are planned. PHYSICAL EXAMINATION: CHEST: Clear. CARDIAC: Sinus rhythm with a rate of around 90. ABDOMEN: Soft, nontender. IMPRESSION: 1. Blood loss anemia. 2. Dysfunctional uterine bleeding. 3. Anorexia. 4. Alcoholism. 5. Pancreatitis. 6. Left breast mass. 7. Tachycardia. PLAN: No change in program and she continues to recover and we await the results of her breast biopsy.
[2017-01-02] MEDS: LEVOFLOXACIN 500 MG TAB PO SCH (17:39)
--- NOTE | 2017-01-02 21:48 | PN ---
DATE OF SERVICE: 01/02/2017 Patient is a 31-year-old white female admitted to the hospital with acute pancreatitis and acute hepatitis and elevated LFTs secondary to alcoholism. She also has uterine bleeding following a D&C which has since stopped. Since being in the hospital, she has been complaining of some epigastric pain, which is gradually improving. This morning she still says she has some discomfort, but no nausea or vomiting on a clear liquid diet, tolerating well. On physical examination, she appears comfortable in no apparent distress. Vitals as are stable. Blood pressure 118/75, pulse 90, temperature 99.1. HEENT EXAMINATION: Unremarkable. Conjunctivae pink. Sclerae anicteric. Oral cavity, no lesions. NECK: No JVD or lymph node enlargement. Chest was clear to auscultation. HEART: Regular rate and rhythm. ABDOMEN: Soft. Bowel sounds are positive. No organomegaly. Mild tenderness in the epigastric area. EXTREMITIES: No pedal edema. SKIN: No rashes. NEURO: Alert and oriented x3. No focal deficits. Labs from two days ago WBC 2.7, hemoglobin 10.9, platelets 134 and amylase is 72 and lipase is 1951. IMPRESSION: 1. Acute pancreatitis gradually improving. No labs available from today and requested tomorrow. 2. Mild elevation of serum transaminases most likely related to chronic alcoholic liver disease, which is gradually improving. 3. Breast mass status post biopsy results stills pending. 4. Uterine bleeding subsided. RECOMMENDATIONS: 1. Will repeat amylase and lipase in the morning. 2. Advanced to a full liquid diet today. 3. We will follow the patient closely during her hospital stay.
[2017-01-02] MEDS: LORazepam 2 MG/ML SYRINGE IV PRN (22:10)
[2017-01-03] MEDS: SODIUM CHLORIDE 0.9% 1,000 ML IV SCH ×2 (04:41→17:14)
[2017-01-03] MEDS ORDERED: SODIUM CHLORIDE 0.9% 1,000 ML BAG ONE (05:28)
[2017-01-03] MEDS: 1: MVI, ADULT NO.4 WITH VIT K 10 ML, THIAMINE 100 MG, FOLIC ACID 1 MG, POTASSIUM CHLORID IV SCH ×12 (05:28→17:13)
[2017-01-03] MEDS: PANTOPRAZOLE 40 MG TABLET PO SCH (08:28)
[2017-01-03] MEDS: METOPROLOL TARTRATE 25 MG TAB PO SCH (08:28)
[2017-01-03] MEDS: HYDROcodone/APAP 15 ML SOLUTION PO PRN (09:57)
[2017-01-03 10:00] LABS: ALT 34 U/L (9-52); AST 77 U/L (14-36); Alkaline Phosphatase 67 U/L (38-126); Amylase 102 U/L (30-110); Anion Gap 14 mmol/L; Blood Urea Nitrogen <2 mg/dL (7-17); Calcium 9.6 mg/dL (8.4-10.2); Carbon Dioxide 17 mmol/L (22-30); Chloride 106 mmol/L (98-107); Glucose 89 mg/dL (74-99); Non-African American GFR(MDRD) >60 (>60 ml/min/1.73 sqM); Potassium 4.3 mmol/L (3.5-5.1); Sodium 137 mmol/L (137-145); Total Bilirubin 1.3 mg/dL (0.2-1.3); Total Protein 6.7 g/dL (6.3-8.2)
[2017-01-03 10:16] LABS: Aty Lym Flag Moderate; CH 31.4; CHCM 32.7; HCT 38.7 % (34.0-46.0); HDW 2.84; HGB 12.6 gm/dL (11.4-16.0); MCH 31.5 pg (25.0-35.0); MCHC 32.6 g/dL (31.0-37.0); MCV 96.6 fL (80.0-100.0); Mean Platelet Volume 7.9; RDW 15.4 % (11.5-15.5); WBC 3.6 k/uL (3.8-10.6)
[2017-01-03] MEDS ORDERED: METOPROLOL TARTRATE 12.5 MG TAB PO SCH (10:30)
[2017-01-03 11:37] LABS: Add Differential Manual Differential
[2017-01-03 11:40] LABS: Nucleated Red Blood Cells 0 /100 WBC (0-0); Total Cells Counted 100
--- NOTE | 2017-01-03 13:26 | P.PN ---
Subjective This is a 31-year-old female being evaluated and examined today in the intensive care unit. This patient was initially in emergency room for abdominal discomfort, cramping, nausea and vaginal bleeding. Her vaginal bleeding has been persistent over the last 2 and half weeks and she states that she uses about 15 pads per day. She has had a history of having a D&C due to vaginal bleeding. Patient has known history of alcoholism and her abdominal discomfort or nausea is likely due to her alcoholism and withdrawal's. Her last drink before going into the emergency room was about 18 hours prior. The patient was admitted with pancreatitis, vaginal bleeding, anemia, transaminitis and thrombocytopenia. Patient is on the CIWA protocol. Patient is very cachectic and admits to anorexia and denies bulimia. initial labs revealed a lipase of 3102. Has an extensive psychiatric history which includes borderline personality, bipolar, depression, PTSD and anorexia. On examination the patient appears anxious, the patient is on room air and denies any cough congestion and shortness of breath. She did get 2 units of packed red blood cells for hemoglobin of 7.3 on 12/27/16, initially she was 12.5 on 12/25/16. The patient is post D&C her hemoglobin is stable at 11. Patient has had no vaginal bleeding since procedure with PHYSICIAN CHIEF OF PATHOLOGY. The patient's potassium level has stabilized. Abnormal CT results reviewed and appropriate consultations made for left breast mass, and for inflammatory vs infections colitis with cholelithiasis. Patient has GI and general surgery on consult. Patient underwent a breast biopsy, results pending. On examination today the patient is resting in bed appears tired and weak she is on room air and denies any cough or shortness of breath this time. Patient states she has been eating small amounts. Objective - Vital Signs Vital signs: Vital Signs Temp 97.3 F L 01/03/17 07:00 Pulse 78 01/03/17 07:00 Resp 16 01/03/17 07:00 BP 91/53 01/03/17 07:00 Pulse Ox 99 01/03/17 07:00 Intake & Output 01/02/17 01/03/17 01/03/17 18:59 06:59 18:59 Intake Total 100 1901.2 Balance 100 1901.2 Weight 44.7 kg Intake: Intake, IV Titration 1031.2 Amount Mvi, Adult No.4 with Vit 1031.2 K 10 ml Thiamine 100 mg Folic Acid 1 mg Potassium Chloride 40 meq In Sodium Chloride 0.9% 1, 000 ml @ 100 mls/hr IV . BY DURATION [facility] Rx#: [id number] Oral 100 870 Other: Voiding Method Toilet Toilet Toilet # Voids 2 2 - Exam GENERAL EXAM: Alert, cachectic, comfortable in no apparent distress. HEAD: Normocephalic. EYES: Normal reaction of pupils, equal size. NOSE: Clear with pink turbinates. THROAT: No erythema or exudates. NECK: No masses, no JVD. CHEST: No chest wall deformity. Left breast dressing dry and intact from biopsy. LUNGS: Equal air entry with no crackles, wheeze, rhonchi or dullness. CVS: S1 and S2 normal with no audible mumurs, regular rhythm. ABDOMEN: No hepatosplenomegaly, normal bowel sounds, no guarding or rigidity. EXTREMITIES: No edema noted, pedal pulses palpable. SKIN: No rashes CENTRAL NERVOUS SYSTEM: No focal deficits, tone is normal in all 4 extremities. - Labs CBC & Chem 7: 01/03/17 09:05 01/03/17 09:05 Labs: Abnormal Lab Results - Last 24 Hours (Table) 01/03/17 01/03/17 Range/Units 09:05 09:05 WBC 3.6 L (3.8-10.6) k/uL Carbon Dioxide 17 L (22-30) mmol/L BUN <2 L (7-17) mg/dL Creatinine 0.35 L (0.52-1.04) mg/dL AST 77 H (14-36) U/L Lipase 2687 H (23-300) U/L Microbiology - Last 24 Hours (Table) 12/30/16 20:25 Stool Culture - Final Stool 12/27/16 15:02 Blood Culture - Final Blood No Growth after 144 hours Assessment and Plan Plan: Assessment Vaginal bleeding Anemia, acute blood loss secondary to above Acute Pancreatitis Alcoholism Thrombocytopenia Hypokalemia Colitis, inflammatory versus infectious Alcoholic hepatitis, fatty liver Left breast mass Pancytopenia Plan Patient can be discharged from a pulmonary/critical care standpoint. Medications have been reviewed and will be continued as ordered. The patient is currently hemodynamically stable. She did receive 2 units of packed red blood cells this admission. She did undergo a procedure of D&C with PHYSICIAN CHIEF OF PATHOLOGY, no complications. She also underwent a breast biopsy. Alcohol cessation strongly advised. GI and surgical consulted. Blood cultures and urine cultures are negative thus far. Hematology also on consult. GI/DVT prophylaxis. Psychiatry on consult. She will follow up in the outpatient setting. We'll continue to monitor labs/results and adjust treatment as necessary. I performed an examination of the patient and discussed their management with the nurse practitioner. I have reviewed the nurse practitioner's note and agree with the documented findings and plan of care.
--- NOTE | 2017-01-03 15:09 | PN ---
Jess Simpson who is seen, evaluated, and examined today. The patient is being monitored and observed for multifactorial process including chronic pancreatitis and hepatitis and elevated liver enzymes felt to be related to alcoholism. The patient has severe vaginal bleed related to uterine bleed status post D&C, also has been found to have left breast mass. Patient continues to have intermittent pain. GI service, general surgery and FIELD SERVICE ANALYST following. Blood pressure is 120/70, respiratory rate 16 to 18, heart rate is 90, temperature 99, saturation 98% on room air. Physical examination otherwise, not much. HEENT: Unremarkable. NECK: Supple. LUNGS: Good air entry. Slight crackles at bases. HEART: Regular rate and rhythm. ABDOMEN: Soft. Hypoactive bowel sounds. No rebound or rigidity. Mild tenderness is present. NEUROLOGICAL EXAMINATION: Otherwise, awake and alert. Labs reviewed. Medications reviewed. IMPRESSION: 1. Acute on chronic pancreatitis slowly improving. 2. Include blood loss anemia related to a vaginal bleed and uterine bleed. 3. Protein calorie malnourishment. 4. Left-sided breast mass. PLAN: As above. Continue supportive care. Will follow. Increase activity as tolerated.
[2017-01-03] MEDS: LEVOFLOXACIN 500 MG TAB PO SCH (17:13)
[2017-01-03] MEDS ORDERED: LORazepam 2 MG/ML SYRINGE ONE (19:12)
[2017-01-03] MEDS ORDERED: LORazepam 2 MG/ML SYRINGE IV STA (19:29)
[2017-01-03 20:53] LABS: Aty Lym Flag Slight; CH 31.5; CHCM 33.1; HCT 36.5 % (34.0-46.0); HDW 2.86; HGB 11.9 gm/dL (11.4-16.0); MCH 31.3 pg (25.0-35.0); MCHC 32.6 g/dL (31.0-37.0); MCV 95.8 fL (80.0-100.0); Mean Platelet Volume 7.9; RBC 3.82 m/uL (3.80-5.40); RDW 15.4 % (11.5-15.5); WBC 3.5 k/uL (3.8-10.6)
[2017-01-03 21:00] LABS: ALT 29 U/L (9-52); AST 83 U/L (14-36); Alkaline Phosphatase 65 U/L (38-126); Anion Gap 14 mmol/L; Blood Urea Nitrogen 2 mg/dL (7-17); Calcium 9.8 mg/dL (8.4-10.2); Carbon Dioxide 20 mmol/L (22-30); Chloride 103 mmol/L (98-107); Glucose 131 mg/dL (74-99); Magnesium 1.5 mg/dL (1.6-2.3); Non-African American GFR(MDRD) >60 (>60 ml/min/1.73 sqM); Potassium 4.1 mmol/L (3.5-5.1); Sodium 137 mmol/L (137-145); Total Protein 6.7 g/dL (6.3-8.2)
[2017-01-03 21:08] LABS: Add Differential Manual Differential
[2017-01-03 21:10] LABS: Nucleated Red Blood Cells 0 /100 WBC (0-0); Polychromasia Present; Total Cells Counted 100
[2017-01-03] MEDS: VALPROATE SODIUM 1,000 MG in SODIUM CHLORIDE 0.9% 50 ML IVPB SCH (21:24)
[2017-01-03] MEDS ORDERED: RX INFO: IV CONTRAST WAS GIVEN 1 EACH MISC MISCELLANE PRN (21:33)
[2017-01-03] MEDS ORDERED: LORazepam 2 MG/ML SYRINGE IV PRN (21:45)
--- NOTE | 2017-01-03 22:36 | PN ---
DATE OF SERVICE: 01/02/2017 CHIEF COMPLAINT: Blood loss anemia, left breast mass, variceal hemorrhage, alcoholism, pancreatitis, anorexia, depression. HISTORY OF PRESENT ILLNESS: This lady is stable and ( ) is improving. She has had no further vaginal bleeding. Hemoglobin has been stable. PHYSICAL EXAMINATION: She remains pale. Cardiac exam is normal. CHEST: Clear. ABDOMEN: Soft, nontender. IMPRESSION: 1. Blood loss anemia. 2. Dysfunctional uterine bleeding. 3. Major depression. 4. Anorexia. 5. Left breast mass. 6. Alcoholism. 7. Pancreatitis. PLAN: Await results of breast biopsy and she can probably go home in the next day or 2.
--- NOTE | 2017-01-03 23:50 | CT ---
EXAM: CT Head Without and With Intravenous Contrast CLINICAL HISTORY: Reason: seizure TECHNIQUE: Axial computed tomography images of the head/brain without and with intravenous contrast. CTDI is 120.60 mGy and DLP is 1919.20 mGy-cm. This CT exam was performed using one or more of the following dose reduction techniques: automated exposure control, adjustment of the mA and/or kV according to patient size, and/or use of iterative reconstruction technique. COMPARISON: 03/21/16 FINDINGS: Noncontrast images demonstrate no intracranial hemorrhage, mass effect or other significant change compared to the previous study. Postoperative changes again noted with right craniotomy. No mass lesion/abnormal intracranial enhancement seen on postcontrast images. left RECLAMATION KETTLE TENDER is incidentally noted. IMPRESSION: No acute intracranial findings. No mass effect. MRI is more sensitive and could be obtained, as clinically indicated. Postoperative changes.
[2017-01-04] MEDS: SODIUM CHLORIDE 0.9% 1,000 ML IV SCH ×8 (05:53→22:25)
--- NOTE | 2017-01-04 08:17 | PN ---
DATE OF SERVICE: 01/03/2017 CHIEF COMPLAINT: Alcoholism, pancreatitis, blood loss anemia, dysfunctional uterine bleeding, left breast mass. HISTORY OF PRESENT ILLNESS: This lady is comfortable and doing well and could probably go home soon. She is anxious to hear about the breast biopsy report which is not back. PHYSICAL EXAMINATION: She remains pale. Chest is clear. The cardiac exam is normal. Abdomen is soft, nontender. IMPRESSION: 1. Alcoholism. 2. Pancreatitis. 3. Blood loss anemia. 4. Dysfunction uterine bleeding. 5. Left breast mass. 6. Depression. 7. Anorexia. PLAN: Probably home in the next day or 2.
[2017-01-04] MEDS: PANTOPRAZOLE 40 MG TABLET PO SCH (10:07)
[2017-01-04] MEDS: VALPROATE SODIUM 1,000 MG in SODIUM CHLORIDE 0.9% 50 ML IVPB SCH (10:07)
--- NOTE | 2017-01-04 11:32 | P.PN ---
Subjective 31-year-old female resting in bed. Patient's denying dizziness lightheadedness. Patient continues to have episodes of the heart rate going up to 09/11/1930 with exertion with a systolic blood pressure in the 80s to 90s patient states she distance did not feel well today denying abdominal pain or chest pain when questioning is been no new events. Objective - Vital Signs Vital signs: Vital Signs Temp 97.3 F L 01/03/17 07:00 Pulse 78 01/03/17 07:00 Resp 16 01/03/17 07:00 BP 91/53 01/03/17 07:00 Pulse Ox 99 01/03/17 07:00 Intake & Output 01/02/17 01/03/17 01/03/17 18:59 06:59 18:59 Intake Total 100 1901.2 Balance 100 1901.2 Weight 44.7 kg Intake: Intake, IV Titration 1031.2 Amount Mvi, Adult No.4 with Vit 1031.2 K 10 ml Thiamine 100 mg Folic Acid 1 mg Potassium Chloride 40 meq In Sodium Chloride 0.9% 1, 000 ml @ 100 mls/hr IV . BY DURATION [facility] Rx#: [id number] Oral 100 870 Other: Voiding Method Toilet Toilet Toilet # Voids 2 2 - Exam Physical exam 31-year-old resting in bed denying dizziness lightheadedness Lungs essentially clear adequate air movement Heart S1-S2 audible regular. Heart rate at rest in the 70s to ambulate to the bathroom heart rate goes up to 110 Abdomen flat nontender no stooling no nausea no vomiting Extremities no edema noted - Labs CBC & Chem 7: 01/03/17 20:25 01/03/17 20:25 Labs: Abnormal Lab Results - Last 24 Hours (Table) 01/03/17 01/03/17 Range/Units 09:05 09:05 WBC 3.6 L (3.8-10.6) k/uL Carbon Dioxide 17 L (22-30) mmol/L BUN <2 L (7-17) mg/dL Creatinine 0.35 L (0.52-1.04) mg/dL AST 77 H (14-36) U/L Lipase 2687 H (23-300) U/L Microbiology - Last 24 Hours (Table) 12/30/16 20:25 Stool Culture - Final Stool 12/27/16 15:02 Blood Culture - Final Blood No Growth after 144 hours Assessment and Plan Plan: Impression Incidental finding mass left breast 7 o'clock position confirmed with an ultrasound of the left breast done on the Status post ultrasound core biopsy of the left breast mass done on the 30 of December Chronic alcoholism daily consumption Present on admission impending DTs from alcohol consumption CIWA protocol initiated using Ativan Present on admission epigastric pain likely due to pancreatitis elevated lipase Present on admission hypokalemia resolved Present on admission thrombocytopenia suspect due to chronic alcoholism Symptomatic anemia sat back due to a vaginal bleed necessitating transfusion of 2 units of packed red blood cells mild protein calorie malnutrition underweight suspect due to chronic alcoholism poor caloric intake Abnormal CAT scan abdomen and pelvis showing left breast mass CAT scan abdomen and pelvis suggests colitis inflammatory or infectious Pancytopenia suspect alcohol-induced Alcoholic hepatitis fatty liver disease Alcohol induced pancreatitis Alcohol use disorder Status post D&C for vaginal bleeding symptomatic with a retroverted uterus with a clot in the vaginal canal Right-sided colitis acute Plan Will follow up on the path report from the needle biopsy done in the left breast Once the path report has been obtained from the needle biopsy in the left breast patient can be seen in the outpatient setting at the surgical services office to discuss the findings. This was discussed with the patient questions answered We'll continue to follow no surgical intervention at this time Continue medical entry level management recommendations noted appreciated and reviewed Thank you for this opportunity to participate in the surgical care of your patient. We'll follow closely with further recommendations The above dictated assessment and findings were discussed with dr Nichole Impression and the plan of care have been dictated as directed. Yarelis Soto nurse practitioner acting as a scribe for dr Nichole
[2017-01-04] MEDS: MAGNESIUM SULFATE-D5W PMX 1 GM in DEXTROSE/WATER 1 100ML.BAG IVPB SCH ×4 (11:39→17:49)
--- NOTE | 2017-01-04 11:39 | P.PN ---
Subjective 31-year-old female resting in bed. Events noted last evening around 7:00 patient had a grand mal seizure witnessed by the nursing staff. Questioning patient patient states in 2010 she did have a "a brain aneurysm had surgery on her brain cannot remember where was done who was a physician. Patient states that just don't remember any 11. When questioning patient if she's had prior seizures patient states she can't remember. Did note when the patient was admitted to the hospital only home meds she indicated she was taking was Xanax. Patient is a poor historian. Did note the patient did have a CAT scan of the brain last evening with and without contrast. It showed no acute intracranial finding no mass effect MRI is more sensitive and could be obtained. Patient is denying any dizziness lightheadedness the mag was 1.5 it was replaced. The lipase is 2687 Objective - Vital Signs Vital signs: Vital Signs Temp 98.3 F 01/04/17 07:00 Pulse 89 01/04/17 07:00 Resp 16 01/04/17 07:00 BP 85/56 01/04/17 07:00 Pulse Ox 97 01/04/17 07:00 Intake & Output 01/03/17 01/04/17 01/04/17 18:59 06:59 18:59 Intake Total 500 Balance 500 Weight 44.7 kg Intake: Oral 500 Other: Voiding Method Toilet Toilet # Voids 5 2 # Bowel Movements 2 - Exam Physical exam 31-year-old thin cachectic in appearance female resting in bed patient states does not remember the activity last night with a seizure Denying dizziness lightheadedness blurred vision Lungs essentially clear adequate air movement on room air no shortness of breath Heart S1-S2 audible and regular Abdomen soft flat nontender states no frequent stooling states is able to eat without any nausea sensation Extremities no pedal edema - Labs CBC & Chem 7: 01/03/17 20:25 01/03/17 20:25 Labs: Abnormal Lab Results - Last 24 Hours (Table) 01/03/17 01/03/17 01/03/17 Range/Units 09:05 20:25 20:25 WBC 3.6 L 3.5 L (3.8-10.6) k/uL Carbon Dioxide 20 L (22-30) mmol/L BUN 2 L (7-17) mg/dL Creatinine 0.37 L (0.52-1.04) mg/dL Glucose 131 H (74-99) mg/dL Magnesium 1.5 L (1.6-2.3) mg/dL AST 83 H (14-36) U/L Assessment and Plan Plan: Impression Incidental finding mass left breast 7 o'clock position confirmed with an ultrasound of the left breast done on the Status post ultrasound core biopsy of the left breast mass done on the 30 of December Chronic alcoholism daily consumption Present on admission impending DTs from alcohol consumption CIWA protocol initiated using Ativan Present on admission epigastric pain likely due to pancreatitis elevated lipase Present on admission hypokalemia resolved Present on admission thrombocytopenia suspect due to chronic alcoholism Symptomatic anemia sat back due to a vaginal bleed necessitating transfusion of 2 units of packed red blood cells mild protein calorie malnutrition underweight suspect due to chronic alcoholism poor caloric intake Abnormal CAT scan abdomen and pelvis showing left breast mass CAT scan abdomen and pelvis suggests colitis inflammatory or infectious Pancytopenia suspect alcohol-induced Alcoholic hepatitis fatty liver disease Alcohol induced pancreatitis Alcohol use disorder Status post D&C for vaginal bleeding symptomatic with a retroverted uterus with a clot in the vaginal canal Right-sided colitis acute New onset 03 of January witnessed grand mal seizure History of 2011 brain aneurysm per patient report 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 and background fibrocystic changes Plan magnesium to be replaced check labs in the morning Consult neurology for the new onset seizure disorder transit manager to pursue information regarding the brain aneurysm patient reported in 2010 Continue medical research management associate recommendations noted appreciated and reviewed The above dictated assessment and findings were discussed with dr Nichole Impression and the plan of care have been dictated as directed. Yarelis Soto nurse practitioner acting as a scribe for dr Nichole
--- NOTE | 2017-01-04 11:41 | P.PN ---
Subjective This is a 31-year-old female being evaluated and examined today in the intensive care unit. This patient was initially in emergency room for abdominal discomfort, cramping, nausea and vaginal bleeding. Her vaginal bleeding has been persistent over the last 2 and half weeks and she states that she uses about 15 pads per day. She has had a history of having a D&C due to vaginal bleeding. Patient has known history of alcoholism and her abdominal discomfort or nausea is likely due to her alcoholism and withdrawal's. Her last drink before going into the emergency room was about 18 hours prior. The patient was admitted with pancreatitis, vaginal bleeding, anemia, transaminitis and thrombocytopenia. Patient is on the CIWA protocol. Patient is very cachectic and admits to anorexia and denies bulimia. initial labs revealed a lipase of 3102. Has an extensive psychiatric history which includes borderline personality, bipolar, depression, PTSD and anorexia. On examination the patient appears anxious, the patient is on room air and denies any cough congestion and shortness of breath. She did get 2 units of packed red blood cells for hemoglobin of 7.3 on 12/27/16, initially she was 12.5 on 12/25/16. The patient is post D&C her hemoglobin is stable at 11. Patient has had no vaginal bleeding since procedure with BOY'S ADVISER. The patient's potassium level has stabilized. Abnormal CT results reviewed and appropriate consultations made for left breast mass, and for inflammatory vs infections colitis with cholelithiasis. Patient has GI and general surgery on consult. Patient underwent a breast biopsy, results pending. Apparently last night 01/03/2017 the patient had been acute seizure. Seizure started approximately 7:10 PM and lasted about 1 minute stat Ativan was given which resolved the seizure. Neurology was put on consult. Patient did have a CT which was negative for any acute processes. Patient just came back from an EEG those results are pending. On examination today the patient is resting in bed appears tired and weak she is on room air and denies any cough or shortness of breath this time. Patient states she has been eating small amounts. Patient states that she had a seizure before back in 2010 with a brain aneurysm although she is unsure where she had this done currently we are trying to obtain medical records from different facilities, however have not been successful at this point. Objective - Vital Signs Vital signs: Vital Signs Temp 98.3 F 01/04/17 07:00 Pulse 89 01/04/17 07:00 Resp 16 01/04/17 07:00 BP 85/56 01/04/17 07:00 Pulse Ox 97 01/04/17 07:00 Intake & Output 01/03/17 01/04/17 01/04/17 18:59 06:59 18:59 Intake Total 500 Balance 500 Weight 44.7 kg Intake: Oral 500 Other: Voiding Method Toilet Toilet Toilet # Voids 5 2 # Bowel Movements 2 - Exam GENERAL EXAM: Alert, cachectic, comfortable in no apparent distress. HEAD: Normocephalic. EYES: Normal reaction of pupils, equal size. NOSE: Clear with pink turbinates. THROAT: No erythema or exudates. NECK: No masses, no JVD. CHEST: No chest wall deformity. Left breast dressing dry and intact from biopsy. LUNGS: Equal air entry with no crackles, wheeze, rhonchi or dullness. CVS: S1 and S2 normal with no audible mumurs, regular rhythm. ABDOMEN: No hepatosplenomegaly, normal bowel sounds, no guarding or rigidity. EXTREMITIES: No edema noted, pedal pulses palpable. SKIN: No rashes CENTRAL NERVOUS SYSTEM: No focal deficits, tone is normal in all 4 extremities. - Labs CBC & Chem 7: 01/03/17 20:25 01/03/17 20:25 Labs: Abnormal Lab Results - Last 24 Hours (Table) 01/03/17 01/03/17 01/03/17 Range/Units 09:05 20:25 20:25 WBC 3.6 L 3.5 L (3.8-10.6) k/uL Carbon Dioxide 20 L (22-30) mmol/L BUN 2 L (7-17) mg/dL Creatinine 0.37 L (0.52-1.04) mg/dL Glucose 131 H (74-99) mg/dL Magnesium 1.5 L (1.6-2.3) mg/dL AST 83 H (14-36) U/L Assessment and Plan Plan: Assessment Vaginal bleeding Anemia, acute blood loss secondary to above Acute Pancreatitis Alcoholism Thrombocytopenia Hypokalemia Colitis, inflammatory versus infectious Alcoholic hepatitis, fatty liver Left breast mass Pancytopenia Acute seizure, neurology and consult. Plan Seizure or a precaution protocols have been initiated. Neurology has been put on consult. Medications have been reviewed and will be continued as ordered. The patient is currently hemodynamically stable. She did receive 2 units of packed red blood cells this admission. She did undergo a procedure of D&C with BOY'S ADVISER, no complications. She also underwent a breast biopsy. Alcohol cessation strongly advised. GI and surgical consulted. Blood cultures and urine cultures are negative thus far. Hematology also on consult. GI/DVT prophylaxis. Psychiatry on consult. She will follow up in the outpatient setting. We'll continue to monitor labs/results and adjust treatment as necessary. I performed an examination of the patient and discussed their management with the nurse practitioner. I have reviewed the nurse practitioner's note and agree with the documented findings and plan of care.
[2017-01-04] MEDS: HYDROcodone/APAP 15 ML SOLUTION PO PRN (15:09)
[2017-01-04] MEDS: LEVOFLOXACIN 500 MG TAB PO SCH (15:10)
[2017-01-04] MEDS: DIVALPROEX 500 MG TABLET.DR PO SCH (22:25)
--- NOTE | 2017-01-05 05:22 | PN ---
CHIEF COMPLAINT: Alcoholic pancreatitis. HISTORY OF PRESENT ILLNESS: This lady was progressing nicely and then last night she suddenly had a grand mal seizure. There is no prior history of seizures. She is being worked up today. PHYSICAL EXAM: Chest is clear. Cardiac exam is normal. ABDOMEN: Soft, nontender. IMPRESSION: Grand mal seizure disorder, possibly related to alcohol withdrawal. PLAN: 1. CT of the brain. 2. EEG. 3. Laboratory studies. 4. Start Depakote 1 gram IV piggyback q.12 hours.
[2017-01-05] MEDS: SODIUM CHLORIDE 0.9% 1,000 ML IV SCH (06:12)
[2017-01-05 08:14] VITALS: BP 99/64; PULSE 96; RESP 14; TEMP 97.7
--- NOTE | 2017-01-05 09:36 | CONS ---
DATE OF CONSULTATION: 01/04/2017 CHIEF COMPLAINT: Seizure. HISTORY OF PRESENT ILLNESS: The patient is a pleasant 31-year-old female who is being evaluated by the neurology service per the request of Dr. Nichole for a seizure. The patient was admitted to [facility] back on 12/25/2016. She had initially arrived to the emergency room with complaints of significant vaginal bleeding. Through further work-up, she was also found to have breast mass, which is being worked up. Yesterday evening, the patient was witnessed to have a generalized tonic-clonic seizure by the nursing staff. The seizure lasted less than one minute and was followed by postictal confusion. The patient reports having a seizure several years ago which occurred around the time she had an intracranial aneurysm operated on. The patient did have a craniotomy at that time. She states that she was treated with Keppra for one year after the surgery and it was discontinued after that. She has not had any seizures since then until now. The patient does admit that she has been sleep deprived while she is here in the hospital. She was started on Depakote 1000 mg IV every 12 hours. At the time of my evaluation, she is sitting up in her bed and appears to be in no acute distress. She did have a CT scan of the brain today, which showed no acute findings. Postoperative changes with right-sided craniotomy was seen. Her CBC today was normal except for mild leukopenia at 3.5. Her comprehensive metabolic profile was normal, but her serum magnesium level was low at 1.5. Her lipase was significantly elevated at 2687. The patient was diagnosed with acute pancreatitis. She does have an extensive history of alcohol abuse. She states that she drinks 40 beers per day and has done so for several years. I did review her EEG, which was normal today. PAST MEDICAL HISTORY: Alcohol abuse, history of brain aneurysm, status post surgical clipping. She also has history of depression, posttraumatic stress disorder, and anxiety disorder. She does have history of adenoidectomy, , tonsillectomy, orthopedic surgeries. SOCIAL HISTORY: Alcohol abuse as mentioned above. The patient is also a former smoker. She denies any IV drug use. FAMILY HISTORY: Positive for alcohol abuse. HOME MEDICATIONS: Reviewed in the chart. ALLERGIES: MORPHINE. REVIEW OF SYSTEMS: CONSTITUTIONAL: Negative. EYES: Negative. ENT: Negative. CARDIOVASCULAR: Negative. RESPIRATORY: Negative. NEUROLOGICAL: As mentioned above. GASTROINTESTINAL: Negative. GENITOURINARY: As mentioned above. PSYCHIATRIC: As mentioned above. DERMATOLOGICAL: Negative. MUSCULOSKELETAL: Positive for occasional joint pain. PHYSICAL EXAM: Vital signs show a temperature of 98.4, pulse 84, respirations 16, blood pressure 84/50. GENERAL APPEARANCE: The patient is a thin female who appears to be in no acute distress. HEENT: Normocephalic, atraumatic, no facial asymmetry is seen. Neck is supple with no masses felt. CARDIOVASCULAR: Regular rate and rhythm. ABDOMEN: Nontender, nondistended. EXTREMITIES: No edema or clubbing. NEUROLOGICAL EXAM: The patient is alert, aware, and oriented x3. Speech and language are normal. Strength is full in all 4 extremities. Sensory exam was normal to light touch in all 4 extremities. No tremors or seizure-like activity is seen. No facial asymmetry is noticed on cranial nerve testing. IMPRESSION: 1. Seizure, generalized tonic-clonic type. 2. History of brain aneurysm with surgical resection. 3. Acute pancreatitis. 4. Alcohol abuse. 5. Recent sleep deprivation. 6. Breast mass, newly diagnosed. 7. Fatigue. RECOMMENDATIONS: The patient did have a witnessed generalized tonic-clonic seizure and she does have history of craniotomy with aneurysm resection. Although I believe her seizure was due to the significant sleep deprivation, she does have a reduced seizure threshold given her craniotomy history. I do recommend continuing Depakote which should also play a role as a mood stabilization given her psychiatric history. I do recommend close monitoring of her liver enzymes given her history of alcohol abuse while on Depakote. The patient does state that she will quit drinking at this time. I will switch her Depakote to an oral dose of 500 mg every 8 hours. I will order a serum Depakote level in the morning. The patient was told that she is not to drive or operate any heavy machinery for a period of 6 months of being seizure-free. Continue the rest of your current work-up and management. Continue neuro checks and seizure precautions. I will continue to follow with you. Further recommendations to follow. Thank you for allowing me to participate in the care of your patient. If you have any questions, please feel free to contact me.
[2017-01-05 10:02] LABS: ALT 23 U/L (9-52); AST 51 U/L (14-36); Alkaline Phosphatase 55 U/L (38-126); Anion Gap 9 mmol/L; Blood Urea Nitrogen <2 mg/dL (7-17); Carbon Dioxide 22 mmol/L (22-30); Chloride 110 mmol/L (98-107); Glucose 94 mg/dL (74-99); Magnesium 2.1 mg/dL (1.6-2.3); Non-African American GFR(MDRD) >60 (>60 ml/min/1.73 sqM); Potassium 3.5 mmol/L (3.5-5.1); Sodium 141 mmol/L (137-145); Total Bilirubin 0.9 mg/dL (0.2-1.3); Total Protein 5.7 g/dL (6.3-8.2)
[2017-01-05] MEDS: DIVALPROEX 500 MG TABLET.DR PO SCH (10:53)
[2017-01-05] MEDS: PANTOPRAZOLE 40 MG TABLET PO SCH (10:54)
--- NOTE | 2017-01-05 11:30 | EEG ---
DATE OF SERVICE: 01/04/2017 REASON FOR TESTING: Seizure. AGE: 31Y CURRENT ANTIEPILEPTIC MEDICATIONS: Depakote. DESCRIPTION OF THE PROCEDURE: This EEG was performed using a 21-channel digital electroencephalograph, following the international 10 to 20 system. DESCRIPTION OF THE RECORDING: From the beginning of the tracing, and with the patient's eyes closed, the background rhythm was mostly consisting of 9 to 10 Hz alpha frequency in the posterior occipital leads. No obvious asymmetry is seen. Photic stimulation was performed with a minimal driving response seen. No pathological waves were elicited. Frequent muscle artifacts and occasional movement artifacts are seen. Hyperventilation was not performed. The patient remains awake throughout the tracing. No epileptiform discharges were seen. Her EKG lead showed a regular rate and rhythm. INTERPRETATION: This awake EEG can be considered within normal limits. There was no asymmetry seen. No epileptiform discharges were noticed. The absence of epileptiform discharges does not rule out the diagnosis of epilepsy; therefore, clinical correlation is recommended.
--- NOTE | 2017-01-05 11:51 | P.PN ---
Subjective This is a 31-year-old female being evaluated and examined today in the intensive care unit. This patient was initially in emergency room for abdominal discomfort, cramping, nausea and vaginal bleeding. Her vaginal bleeding has been persistent over the last 2 and half weeks and she states that she uses about 15 pads per day. She has had a history of having a D&C due to vaginal bleeding. Patient has known history of alcoholism and her abdominal discomfort or nausea is likely due to her alcoholism and withdrawal's. Her last drink before going into the emergency room was about 18 hours prior. The patient was admitted with pancreatitis, vaginal bleeding, anemia, transaminitis and thrombocytopenia. Patient is on the CIWA protocol. Patient is very cachectic and admits to anorexia and denies bulimia. initial labs revealed a lipase of 3102. Has an extensive psychiatric history which includes borderline personality, bipolar, depression, PTSD and anorexia. On examination the patient appears anxious, the patient is on room air and denies any cough congestion and shortness of breath. She did get 2 units of packed red blood cells for hemoglobin of 7.3 on 12/27/16, initially she was 12.5 on 12/25/16. The patient is post D&C her hemoglobin is stable at 11. Patient has had no vaginal bleeding since procedure with [employer]. The patient's potassium level has stabilized. Abnormal CT results reviewed and appropriate consultations made for left breast mass, and for inflammatory vs infections colitis with cholelithiasis. Patient has GI and general surgery on consult. Patient underwent a breast biopsy, results pending. Apparently, 01/03/2017 the patient had been acute seizure. Seizure started approximately 7:10 PM and lasted about 1 minute stat Ativan was given which resolved the seizure. Neurology was put on consult. Patient did have a CT which was negative for any acute processes. Patient just came back from an EEG was negative. On examination today the patient is resting in bed on room air and denies any cough or shortness of breath this time. Patient states she has been eating well , however feels slightly constipated. Objective - Vital Signs Vital signs: Vital Signs Temp 97.7 F 01/05/17 07:00 Pulse 96 01/05/17 07:00 Resp 14 01/05/17 07:00 BP 99/64 01/05/17 07:00 Pulse Ox 100 01/05/17 07:00 Intake & Output 01/04/17 01/05/17 01/05/17 18:59 06:59 18:59 Intake Total 1100 Balance 1100 Intake: Oral 1100 Other: Voiding Method Toilet # Voids 3 4 - Exam GENERAL EXAM: Alert, cachectic, comfortable in no apparent distress. HEAD: Normocephalic. EYES: Normal reaction of pupils, equal size. NOSE: Clear with pink turbinates. THROAT: No erythema or exudates. NECK: No masses, no JVD. CHEST: No chest wall deformity. Left breast dressing dry and intact from biopsy. LUNGS: Equal air entry with no crackles, wheeze, rhonchi or dullness. CVS: S1 and S2 normal with no audible mumurs, regular rhythm. ABDOMEN: No hepatosplenomegaly, normal bowel sounds, no guarding or rigidity. EXTREMITIES: No edema noted, pedal pulses palpable. SKIN: No rashes CENTRAL NERVOUS SYSTEM: No focal deficits, tone is normal in all 4 extremities. - Labs CBC & Chem 7: 01/03/17 20:25 01/05/17 09:10 Labs: Abnormal Lab Results - Last 24 Hours (Table) 01/04/17 01/05/17 01/05/17 Range/Units 14:36 09:10 09:10 Chloride 110 H (98-107) mmol/L BUN <2 L (7-17) mg/dL Creatinine 0.38 L (0.52-1.04) mg/dL Magnesium 2.7 H (1.6-2.3) mg/dL AST 51 H (14-36) U/L Total Protein 5.7 L (6.3-8.2) g/dL Albumin 3.1 L (3.5-5.0) g/dL Lipase 2693 H (23-300) U/L Assessment and Plan Plan: Assessment Vaginal bleeding Anemia, acute blood loss secondary to above Acute Pancreatitis Alcoholism Thrombocytopenia Hypokalemia Colitis, inflammatory versus infectious Alcoholic hepatitis, fatty liver Left breast mass Pancytopenia Acute seizure, neurology and consult. Plan Seizure precaution protocols have been initiated. Neurology has been put on consult. Medications have been reviewed and will be continued as ordered. We will add Senokot for her constipation. The patient is currently hemodynamically stable. She did receive 2 units of packed red blood cells this admission. She did undergo a procedure of D&C with [employer] [facility], no complications. She also underwent a breast biopsy. Alcohol cessation strongly advised. GI and surgical consulted. Blood cultures and urine cultures are negative thus far. Hematology also on consult. GI/DVT prophylaxis. Psychiatry on consult. She will follow up in the outpatient setting, we will sign off and see her as needed. I performed an examination of the patient and discussed their management with the nurse practitioner. I have reviewed the nurse practitioner's note and agree with the documented findings and plan of care.
[2017-01-05] MEDS ORDERED: SENNOSIDES-DOCUSATE SODIUM 1 EACH TAB PO SCH (12:00)
--- NOTE | 2017-01-05 12:30 | P.DS ---
Providers Date of admission: 12/25/16 23:42 Expected date of discharge: 01/05/17 Attending physician: Kevin Nichole Consults: 12/25/16 23:45 Consult Physician Routine Consulting Provider: Roxie Ward Consult Reason/Comments: Vaginal bleed Do you want consulting provider notified?: Yes 12/27/16 08:36 Consult Physician Stat Consulting Provider: Cedric Hernandez Consult Reason/Comments: vaginal bleed Do you want consulting provider notified?: Yes 12/27/16 08:57 Consult Physician Stat Consulting Provider: Daniel Salazar Consult Reason/Comments: transfer to ICU Do you want consulting provider notified?: Yes 12/28/16 09:41 Consult Physician Routine Consulting Provider: Duncan Yuen Consult Reason/Comments: psych history Do you want consulting provider notified?: Already Contacted 12/29/16 15:22 Consult Physician Urgent Consulting Provider: Gely Mariscal Consult Reason/Comments: left breast mass Do you want consulting provider notified?: Already Contacted 12/31/16 09:00 Consult Physician Stat Consulting Provider: Troy Sumner Consult Reason/Comments: tachycardia Do you want consulting provider notified?: Yes 01/04/17 10:06 Consult Physician Stat Consulting Provider: Lionel Baca Consult Reason/Comments: seizure Do you want consulting provider notified?: Yes Primary care physician: Kevin Nichole [facility] Course: Patient's initial presentation to the emergency room on December 25 with a chief complaint of vaginal bleeding which had been ongoing for the last 2-1/2 weeks. At that time the patient stated that she been using between 14 and 15 pads a day. Patient reportedly stated that this is happened in the past and it did require D&C due to polyps. Patient states she has not seen a primary care provider or [facility] and some time. Patient does have a history of alcoholism. Patient in the emergency room admitted feeling shaky stated her last drink of alcohol was 18 hours prior to coming into the emergency room. Patient in the emergency room was verbalizing concerns of going through withdrawals. Patient stated that she been monitored in the past for alcohol withdrawal which caused seizures. Subsequently the patient was admitted to the services of the attending. The patient was seen by [facility] for the vaginal bleeding and on December 27 patient did undergo a D&C by [facility] for vaginal bleeding and symptomatic anemia and thrombocytopenia patient is being followed by multiple consulting physicians. Did note that the patient has been seen by hematology oncology Dr. Hernandez. recommended monitoring the CBC closely Patient additionally on admission was started on CIWA protocol for impending DTs using Ativan. She has an extensive alcohol abuse issue patient states she drinks 40 beers a day. Is cachectic underweight and thin suspect due to chronic alcoholism On December 27 the hemoglobin had dropped to 7.3 necessitating 2 units of packed red blood cells to be infused and the patient was transferred to the intensive care unit for closer monitoring. Patient was stabilized and was able to transfer out of the intensive care unit on December 29. Additionally the patient was seen by gastroenterology service. The request for consultation was for possible colitis. Workup is in progress. Patient did undergo left breast core needle biopsy by interventional radiology involving the left breast mass today on December 30 Patient did have a seizure disorder admission on January 03. Neurology consultation was requested. Patient did have a CAT scan of the brain and it showed no acute process. It did show right side craniotomy. patient does report that several years ago she had a seizure occurred around the time she had her intercranial aneurysm operated on. Patient states she had craniotomy at that time was treated with Keppra for 1 year and stopped taking it. Neurology recommended the patient start back on Keppra 500 every 8 and follow-up in the office. Throughout the hospitalization patient's been advised to stop drinking alcohol. 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 and background fibrocystic changes Patient was stabilized and felt to be appropriate to be discharged home Impression discharge diagnose Incidental finding mass left breast 7 o'clock position confirmed with an ultrasound of the left breast done on the Status post ultrasound core biopsy of the left breast mass done on the 30 of December Chronic alcoholism daily consumption Present on admission impending DTs from alcohol consumption CIWA protocol initiated using Ativan Present on admission epigastric pain likely due to pancreatitis elevated lipase Present on admission hypokalemia resolved Present on admission thrombocytopenia suspect due to chronic alcoholism Symptomatic anemia sat back due to a vaginal bleed necessitating transfusion of 2 units of packed red blood cells Moderate protein calorie malnutrition underweight suspect due to chronic alcoholism poor caloric intake cachectic thin Abnormal CAT scan abdomen and pelvis showing left breast mass CAT scan abdomen and pelvis suggests colitis inflammatory or infectious Pancytopenia suspect alcohol-induced Alcoholic hepatitis fatty liver disease Alcohol induced pancreatitis Alcohol use disorder Status post D&C for vaginal bleeding symptomatic with a retroverted uterus with a clot in the vaginal canal Right-sided colitis acute New onset 03 of January witnessed grand mal seizure History of 2010 brain aneurysm per patient report 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 and background fibrocystic The above dictated assessment and findings were discussed with dr ozzy Khan and the plan of care have been dictated as directed. Yarelis Soto nurse practitioner acting as a scribe for dr nichole Plan - Discharge Summary New Discharge Prescriptions: Divalproex [Depakote] 500 mg PO TID #90 tab Discharge Medication List ALPRAZolam [Xanax] 1 mg PO HS 12/31/15 [History] Divalproex [Depakote] 500 mg PO TID #90 tab 01/05/17 [Rx] Follow up Appointment(s)/Referral(s): [facility] [Outside] - 1 Week Kevin Nichole MD [Primary Care Provider] - 1 Week Donya Heredia MD [STAFF PHYSICIAN] - 2 Weeks Lionel Baca MD [STAFF PHYSICIAN] - 1 Week Daniel Salazar MD [STAFF PHYSICIAN] - 1 Week Patient Instructions/Handouts: Pancreatitis (DC), Dilation and Curettage (DC) Activity/Diet/Wound Care/Special Instructions: Personal belongings in security NO alcohol use Regular diet. NO DRIVING FOR 6 MONTHS Discharge Disposition: HOME SELF-CARE
--- NOTE | 2017-01-05 16:35 | PN ---
CHIEF COMPLAINT: Blood loss anemia and pancreatitis. HISTORY OF PRESENT ILLNESS: This lady is doing well and she is eating and she has no pain. She is concerned about the results of the breast biopsy. PHYSICAL EXAMINATION: CHEST: Clear. CARDIAC: Normal. ABDOMEN: Soft, nontender. IMPRESSION: 1. Blood loss anemia. 2. Dysfunctional uterine bleeding. 3. Alcoholism. 4. Pancreatitis. 5. Bipolar depression. 6. Anorexia. 7. Lesion in the left breast. PLAN: 1. Obtain results of breast biopsy. 2. She can probably go home later today and this will be arranged by the nurse practitioner.
== END 2017-01-05 13:57 | disposition home or self-care (01) | DRG 988 ==
LOC: EC 19:17 → 5MS5E 23:42 → 6ICU 12-27 09:32 → 4MS4W 12-29 21:53
PROVIDERS: ADMIT Family Medicine; ATTEND Family Medicine
PROC: 30233N1 Transfusion of Nonautologous Red Blood Cells into Peripheral Vein, Percutaneous Approach (ICD-10-PCS; 2016-12-27)
PROC: 0UDB7ZX Extraction of Endometrium, Via Natural or Artificial Opening, Diagnostic (ICD-10-PCS; principal; 2016-12-27 11:15)
PROC: 0HBU3ZX Excision of Left Breast, Percutaneous Approach, Diagnostic (ICD-10-PCS; 2016-12-30)
DX: K85.90 Acute pancreatitis without necrosis or infection, unspecified (principal); A09 Infectious gastroenteritis and colitis, unspecified; D61.818 Other pancytopenia; F10.231 Alcohol dependence with withdrawal delirium; E44.0 Moderate protein-calorie malnutrition; F50.00 Anorexia nervosa, unspecified; D62 Acute posthemorrhagic anemia; K76.6 Portal hypertension; K70.0 Alcoholic fatty liver; G40.409 Other generalized epilepsy and epileptic syndromes, not intractable, without status epilepticus; K70.10 Alcoholic hepatitis without ascites; E86.0 Dehydration; K52.89 Other specified noninfective gastroenteritis and colitis; E87.6 Hypokalemia; F31.9 Bipolar disorder, unspecified; F43.10 Post-traumatic stress disorder, unspecified; F60.3 Borderline personality disorder; N83.202 Unspecified ovarian cyst, left side; K59.00 Constipation, unspecified; K80.20 Calculus of gallbladder without cholecystitis without obstruction; K86.0 Alcohol-induced chronic pancreatitis; N85.4 Malposition of uterus; N92.0 Excessive and frequent menstruation with regular cycle; D25.9 Leiomyoma of uterus, unspecified; Q51.3 Bicornate uterus; R00.0 Tachycardia, unspecified; D69.6 Thrombocytopenia, unspecified; D24.2 Benign neoplasm of left breast; G47.00 Insomnia, unspecified; Z87.891 Personal history of nicotine dependence; Z88.5 Allergy status to narcotic agent
CPT/HCPCS: 36415; 70470; 71010; 74177; 76830; 80048; 80053; 80074; 80164; 81001; 81025; 82105; 82140; 82150; 82378; 83690; 83735; 84132; 84443; 85025; 85027; 85610; 85730; 86850; 86900; 86901; 86920; 87040; 87045; 87046; 87086; 87324; 88305; 89055; 93005; 93306; 95816

== ENCOUNTER 2017-04-05 10:08 | Emergency (ER) | payer OTHER ==
[2017-04-05] MEDS ORDERED: SODIUM CHLORIDE 0.9% 500 ML IV STA (10:37)
[2017-04-05] MEDS ORDERED: SODIUM CHLORIDE 0.9% 1,000 ML IV STA ×3 (10:37→12:03)
[2017-04-05] MEDS ORDERED: ONDANSETRON 4 MG/2 ML VIAL IVP STA (10:37)
[2017-04-05] MEDS ORDERED: PANTOPRAZOLE 40 MG/10 ML VIAL IVP STA (10:37)
[2017-04-05] MEDS ORDERED: HYDROmorphone 1 MG/ML 1 ML SYRINGE IVP STA (10:38)
[2017-04-05 11:51] LABS: Basophils % (A) 1 %; CH 29.4; CHCM 31.2; Eosinophils % (A) 1 %; HCT 35.4 % (34.0-46.0); HDW 3.14; HGB 10.8 gm/dL (11.4-16.0); Hypochromasia Moderate; Luc % (Auto) 4; Lymphocytes # (A) 0.7 k/uL (1.0-4.8); Lymphocytes % (A) 13 %; MCH 28.7 pg (25.0-35.0); MCHC 30.4 g/dL (31.0-37.0); MCV 94.5 fL (80.0-100.0); Mean Platelet Volume 7.3; Monocytes # (A) 0.4 k/uL (0-1.0); Monocytes % (A) 7 %; Neutrophils # (A) 4.2 k/uL (1.3-7.7); Neutrophils % (A) 75 %; RBC 3.75 m/uL (3.80-5.40); RDW 13.9 % (11.5-15.5); WBC 5.6 k/uL (3.8-10.6); WBC (Perox) 6.31
--- NOTE | 2017-04-05 11:55 | ED ---
General Adult HPI - General Chief complaint: Abdominal Pain Stated complaint: abdominal pain Time Seen by Provider: 04/05/17 10:33 Source: patient, RN notes reviewed, old records reviewed Mode of arrival: ambulatory Limitations: no limitations - History of Present Illness Initial comments: This is a 32-year-old female here for evaluation. Patient presents today for evaluation regarding dull pain, severe epigastric right upper quadrant abdominal pain. History of similar. History of panotitis. Denies: She denies . Positive nausea and positive vomiting no fevers. No travel history no sick contacts - Related Data Home Medications Medication Instructions Recorded Confirmed ALPRAZolam [Xanax] 1 mg PO HS 12/31/15 04/05/17 Multivitamins, Thera [Multivitamin 1 tab PO HS 04/05/17 04/05/17 (formulary)] Allergies Allergy/AdvReac Type Severity Reaction Status Date / Time morphine Allergy Rash/Hives Verified 04/05/17 11:05 Review of Systems ROS Statement: Those systems with pertinent positive or pertinent negative responses have been documented in the HPI. ROS Other: All systems not noted in ROS Statement are negative. Past Medical History Past Medical History: No Reported History Additional Past Medical History / Comment(s): brain anuerysm, ETOH abuse, bicornuate uterus, dysfunctional uterine bleeding History of Any Multi-Drug Resistant Organisms: None Reported Past Surgical History: Adenoidectomy, Section, Orthopedic Surgery, Tonsillectomy Additional Past Surgical History / Comment(s): right knee surgery, brain surgery for removal aneurysm, ovarian cystectomy laparoscopically, D&C Past Anesthesia/Blood Transfusion Reactions: No Reported Reaction Past Psychological History: Anxiety, Depression, PTSD Smoking Status: Former smoker Past Alcohol Use History: Daily, Heavy Past Drug Use History: None Reported - Past Family History Father Additional Family Medical History / Comment(s): ETOH Mother Additional Family Medical History / Comment(s): ETOH, history of uterine fibroids General Exam Limitations: no limitations General appearance: alert, in no apparent distress Head exam: Present: atraumatic, normocephalic, normal inspection Eye exam: Present: normal appearance, PERRL, EOMI. Absent: scleral icterus, conjunctival injection, periorbital swelling ENT exam: Present: normal exam, mucous membranes moist Neck exam: Present: normal inspection. Absent: tenderness, meningismus, lymphadenopathy Respiratory exam: Present: normal lung sounds bilaterally. Absent: respiratory distress, wheezes, rales, rhonchi, stridor Cardiovascular Exam: Present: regular rate, normal rhythm, normal heart sounds. Absent: systolic murmur, diastolic murmur, rubs, gallop, clicks GI/Abdominal exam: Present: soft, normal bowel sounds. Absent: distended, tenderness, guarding, rebound, rigid Extremities exam: Present: normal inspection, full ROM, normal capillary refill. Absent: tenderness, pedal edema, joint swelling, calf tenderness Back exam: Present: normal inspection Neurological exam: Present: alert, oriented X3, CN II-XII intact Psychiatric exam: Present: normal affect, normal mood Skin exam: Present: warm, dry, intact, normal color. Absent: rash Course Vital Signs 04/05/17 04/05/17 10:31 13:30 Temperature 98.0 F 97.8 F Pulse Rate 100 85 Respiratory 18 16 Rate Blood Pressure 126/76 116/78 O2 Sat by Pulse 99 100 Oximetry - Reevaluation(s) Reevaluation #1: Patient has adequate pain control at this time Medical Decision Making - Medical Decision Making 32 female RAND patient without pain, think she has pancreatitis versus recurrent gallbladder pain. Lab work is normal. Patient's pain is controlled. Patient will follow up with family medicine for further evaluation and treatment - Lab Data Result diagrams: 04/05/17 11:20 04/05/17 11:20 Lab Results 04/05/17 04/05/17 04/05/17 Range/Units 11:10 11:10 11:20 WBC 5.6 (3.8-10.6) k/uL RBC 3.75 L (3.80-5.40) m/uL Hgb 10.8 L (11.4-16.0) gm/dL Hct 35.4 (34.0-46.0) % MCV 94.5 (80.0-100.0) fL MCH 28.7 (25.0-35.0) pg MCHC 30.4 L (31.0-37.0) g/dL RDW 13.9 (11.5-15.5) % Plt Count 192 (150-450) k/uL Neutrophils % 75 % Lymphocytes % 13 % Monocytes % 7 % Eosinophils % 1 % Basophils % 1 % Neutrophils # 4.2 (1.3-7.7) k/uL Lymphocytes # 0.7 L (1.0-4.8) k/uL Monocytes # 0.4 (0-1.0) k/uL Eosinophils # 0.0 (0-0.7) k/uL Basophils # 0.0 (0-0.2) k/uL Hypochromasia Moderate Sodium (137-145) mmol/L Potassium (3.5-5.1) mmol/L Chloride (98-107) mmol/L Carbon Dioxide (22-30) mmol/L Anion Gap mmol/L BUN (7-17) mg/dL Creatinine (0.52-1.04) mg/dL Est GFR (MDRD) Af Amer (>60 ml/min/1.73 sqM) Est GFR (MDRD) Non-Af (>60 ml/min/1.73 sqM) Glucose (74-99) mg/dL Lactic Ac Sepsis Rflx Plasma Lactic Acid [place] (0.7-2.0) mmol/L Calcium (8.4-10.2) mg/dL Total Bilirubin (0.2-1.3) mg/dL AST (14-36) U/L ALT (9-52) U/L Alkaline Phosphatase (38-126) U/L Total Protein (6.3-8.2) g/dL Albumin (3.5-5.0) g/dL Amylase (30-110) U/L Lipase (23-300) U/L Urine Color Yellow Urine Appearance Clear (Clear) Urine pH 6.0 (5.0-8.0) Ur Specific [place] 1.006 (1.001-1.035) Urine Protein Trace H (Negative) Urine Glucose (UA) Negative (Negative) Urine Ketones Negative (Negative) Urine Blood Large H (Negative) Urine Nitrite Negative (Negative) Urine Bilirubin Negative (Negative) Urine Urobilinogen <2.0 (<2.0) mg/dL Ur Leukocyte Esterase Trace H (Negative) Urine RBC 164 H (0-5) /hpf Urine WBC 44 H (0-5) /hpf Ur Squamous Epith Cells 1 (0-4) /hpf Urine Bacteria Rare H (None) /hpf Urine Mucus Rare H (None) /hpf Urine HCG, Qual Not Detected (Not Detectd) 08/04/05/17 04/05/17 Range/Units 11:20 11:20 12:03 WBC (3.8-10.6) k/uL RBC (3.80-5.40) m/uL Hgb (11.4-16.0) gm/dL Hct (34.0-46.0) % MCV (80.0-100.0) fL MCH (25.0-35.0) pg MCHC (31.0-37.0) g/dL RDW (11.5-15.5) % Plt Count (150-450) k/uL Neutrophils % % Lymphocytes % % Monocytes % % Eosinophils % % Basophils % % Neutrophils # (1.3-7.7) k/uL Lymphocytes # (1.0-4.8) k/uL Monocytes # (0-1.0) k/uL Eosinophils # (0-0.7) k/uL Basophils # (0-0.2) k/uL Hypochromasia Sodium 144 (137-145) mmol/L Potassium 3.7 (3.5-5.1) mmol/L Chloride 108 H (98-107) mmol/L Carbon Dioxide 22 (22-30) mmol/L Anion Gap 14 mmol/L BUN 3 L (7-17) mg/dL Creatinine 0.50 L (0.52-1.04) mg/dL Est GFR (MDRD) Af Amer >60 (>60 ml/min/1.73 sqM) Est GFR (MDRD) Non-Af >60 (>60 ml/min/1.73 sqM) Glucose 99 (74-99) mg/dL Lactic Ac Sepsis Rflx Y Plasma Lactic Acid [place] 2.2 H* (0.7-2.0) mmol/L Calcium 9.5 (8.4-10.2) mg/dL Total Bilirubin 1.2 (0.2-1.3) mg/dL AST 53 H (14-36) U/L ALT 35 (9-52) U/L Alkaline Phosphatase 63 (38-126) U/L Total Protein 6.5 (6.3-8.2) g/dL Albumin 4.0 (3.5-5.0) g/dL Amylase <30 L (30-110) U/L Lipase 142 (23-300) U/L Urine Color Urine Appearance (Clear) Urine pH (5.0-8.0) Ur Specific [place] (1.001-1.035) Urine Protein (Negative) Urine Glucose (UA) (Negative) Urine Ketones (Negative) Urine Blood (Negative) Urine Nitrite (Negative) Urine Bilirubin (Negative) Urine Urobilinogen (<2.0) mg/dL Ur Leukocyte Esterase (Negative) Urine RBC (0-5) /hpf Urine WBC (0-5) /hpf Ur Squamous Epith Cells (0-4) /hpf Urine Bacteria (None) /hpf Urine Mucus (None) /hpf Urine HCG, Qual (Not Detectd) - Radiology Data Radiology results: report reviewed (Ultrasound gallbladder is negative), image reviewed Disposition Clinical Impression: Biliary colic, Abdominal pain Disposition: HOME SELF-CARE Condition: Good Instructions: Biliary Colic (ED), Gallstones (ED) Referrals: Kevin Nichole MD [Primary Care Provider] - 1-2 days
[2017-04-05 12:00] LABS: Appearance,Urine Clear (Clear); Bacteria,Urine Rare /hpf; Bilirubin,Urine Negative (Negative); Glucose,Urine (UA) Negative (Negative); Ketones,Urine Negative (Negative); Leukocyte Esterase,Urine Trace (Negative); Mucus,Urine Rare /hpf; Nitrite,Urine Negative (Negative); Particle Count 2803; Protein,Urine Trace (Negative); RBC,Urine 164 /hpf (0-5); Specific Gravity,Urine 1.006 (1.001-1.035); Squamous Epithelial Cell,Urine 1 /hpf (0-4); UA Billing (MACRO vs. MICRO) MICRO; Urobilinogen,Urine <2.0 mg/dL (<2.0); WBC,Urine 44 /hpf (0-5)
[2017-04-05 12:12] LABS: ALT 35 U/L (9-52); AST 53 U/L (14-36); Alkaline Phosphatase 63 U/L (38-126); Amylase <30 U/L (30-110); Anion Gap 14 mmol/L; Blood Urea Nitrogen 3 mg/dL (7-17); Calcium 9.5 mg/dL (8.4-10.2); Carbon Dioxide 22 mmol/L (22-30); Chloride 108 mmol/L (98-107); Glucose 99 mg/dL (74-99); Non-African American GFR(MDRD) >60 (>60 ml/min/1.73 sqM); Potassium 3.7 mmol/L (3.5-5.1); Sodium 144 mmol/L (137-145); Total Bilirubin 1.2 mg/dL (0.2-1.3); Total Protein 6.5 g/dL (6.3-8.2)
--- NOTE | 2017-04-05 12:40 | US ---
EXAMINATION TYPE: US gallbladder DATE OF EXAM: 04/05/2017 COMPARISON: None CLINICAL HISTORY: 32-year-old female with pain. RUQ since this morning. Patient is not NPO. TECHNIQUE: Multiple sonographic images of the right upper quadrant are obtained. FINDINGS: Liver Length: 13.2 cm Gallbladder Wall: 3.4 mm CHD: 0.5 cm Right Kidney: 10.8 x 4.5 x 5.4 cm Pancreas: Head and tail not well seen due to overlying bowel gas. The main pancreatic duct is slight ly prominent at 1.6 mm but still normal. Liver: Normal size with homogeneous echotexture. No focal lesion seen. Gallbladder: Multiple mobile echogenic foci seen with shadowing. There is borderline gallbladder wal l thickening. Evidence for sonographic Jones's sign: neg CHD: wnl Right Kidney: No hydronephrosis. IMPRESSION: 1. Borderline gallbladder wall thickening and cholelithiasis. Sonographic Jones sign is reported abs ent. Correlate for possible chronic cholecystitis. 2. As the gallbladder is not contracted and the warehouse helper reports that the patient has eaten, if th ere is clinical concern for early acute cholecystitis, follow-up ultrasound or HIDA scan. 3. No biliary ductal dilatation.
[2017-04-05] MEDS ORDERED: DIAZEPAM 5 MG/ML 2 ML SYRINGE IVP STA (13:05)
[2017-04-05 13:31] VITALS: BP 116/78; PULSE 85; RESP 16; TEMP 97.8
== END 2017-04-05 13:40 | disposition home or self-care (01) ==
LOC: EC 10:08
DX: K80.50 Calculus of bile duct without cholangitis or cholecystitis without obstruction (principal); F41.9 Anxiety disorder, unspecified; Z98.890 Other specified postprocedural states; Z88.5 Allergy status to narcotic agent; Z87.891 Personal history of nicotine dependence; Z79.899 Other long term (current) drug therapy
CPT/HCPCS: 36415; 80053; 82150; 83605; 83690; 85025; 81001; 81025; 87086; 76705; 99284; 96374; 96375 ×3; 96361 ×3; J3360; J2405; J1170; C9113

== ENCOUNTER 2017-07-06 09:09 | Emergency (ER) | payer OTHER ==
[2017-07-06] MEDS ORDERED: SODIUM CHLORIDE 0.9% 1,000 ML IV STA (09:27)
--- NOTE | 2017-07-06 09:29 | ED ---
General Adult HPI - General Chief complaint: Vaginal Bleeding Stated complaint: abdominal pain Time Seen by Provider: 07/06/17 09:22 Source: patient, RN notes reviewed Mode of arrival: ambulatory Limitations: no limitations - History of Present Illness Initial comments: 32-year-old female presents to the emergency department with a chief complaint of vaginal bleeding. Patient has been having vaginal bleeding on and off since March. She saw her CEO [employer] last week and the fact that she get a Depakote shot which she has not gotten. Patient states that she will pass large clots. There is some associated cramping with this. Patient states is going on for many months. She was concerned that she may be losing too much blood so she thought that she should be seen. Patient denies any concern for . Patient states that she hasn't had a nausea vomiting with this. Patient does admit to history of heavy periods states she has had D&Cs in the past.Patient denies any recent fever, chills, shortness of breath, chest pain, back pain, nausea vomiting, numbness or tingling, dysuria or hematuria, constipation or diarrhea, headaches or visual changes, or any other current symptoms. - Related Data Home Medications Medication Instructions Recorded Confirmed ALPRAZolam [Xanax] 1 mg PO HS 12/31/15 07/06/17 Melatonin 9 mg PO HS 07/05/17 07/06/17 Ondansetron HCl [Zofran] 4 mg PO Q6H PRN 07/06/17 07/06/17 Allergies Allergy/AdvReac Type Severity Reaction Status Date / Time morphine Allergy Rash/Hives Verified 07/06/17 09:41 Review of Systems ROS Statement: Those systems with pertinent positive or pertinent negative responses have been documented in the HPI. ROS Other: All systems not noted in ROS Statement are negative. Past Medical History Past Medical History: Cancer Additional Past Medical History / Comment(s): brain anuerysm 2010-(had seizure related to), bicornuate uterus, dysfunctional uterine bleeding, hx migraines. recent bronchitis, IBS, gallstones, "pre cervical cancer age 15", insomnia History of Any Multi-Drug Resistant Organisms: None Reported Past Surgical History: Adenoidectomy, Breast Surgery, Section, Orthopedic Surgery, Tonsillectomy Additional Past Surgical History / Comment(s): right knee surgery, brain surgery for aneurysm, ovarian cystectomy laparoscopically, D&C x 2, breast biopsy-left breast Past Anesthesia/Blood Transfusion Reactions: No Reported Reaction Past Psychological History: Anxiety, Depression, PTSD Smoking Status: Current every day smoker Past Alcohol Use History: Abuse, Daily, Heavy Past Drug Use History: None Reported - Past Family History Father Additional Family Medical History / Comment(s): ETOH Mother Family Medical History: No Reported History Additional Family Medical History / Comment(s): ETOH, history of uterine fibroids General Exam - General Exam Comments Initial Comments: General: The patient is awake and alert, in no distress, and does not appear acutely ill. Eye: Pupils are equal, round and reactive to light, extra-ocular movements are intact; there is normal conjunctiva bilaterally. No signs of icterus. Ears, nose, mouth and throat: There are moist mucous membranes and no oral lesions. Neck: The neck is supple, there is no tenderness. Cardiovascular: There is a regular rate and rhythm. No murmur, rub or gallop is appreciated. Respiratory: Lungs are clear to auscultation, respirations are non-labored, breath sounds are equal. No wheezes, stridor, rales, or rhonchi. Gastrointestinal: Soft, non-distended, non-tender abdomen without masses or organomegaly noted. There is no rebound or guarding present. No CVA tenderness. Bowel sounds are unremarkable. Back: There is no tenderness to palpation in the midline. There is no obvious deformity. No rashes noted. Musculoskeletal: Normal ROM, no tenderness, There is no pedal edema. There is no calf tenderness or swelling. Sensation intact. Pulses equal bilaterally 2+. Neurological: CN II-XII intact, There are no obvious motor or sensory deficits. Coordination appears grossly intact. Speech is normal. Skin: Skin is warm and dry and no rashes or lesions are noted. Psychiatric: Cooperative, appropriate mood & affect, normal judgment. Limitations: no limitations External exam: Present: normal external exam Speculum exam: Present: normal speculum exam, vaginal bleeding (Minimal) Course Vital Signs 07/06/17 09:16 Temperature 97.7 F Pulse Rate 113 H Respiratory 18 Rate Blood Pressure 136/61 O2 Sat by Pulse 98 Oximetry Medical Decision Making - Medical Decision Making 32-year-old female presents for vaginal bleeding. This time patient's lab work is been reviewed. At this time patient's liver function is appear to be stable from previous labs. She does have a procedure scheduled for a few days from now. At this time pelvic exam is not showing an increased amount of bleeding. At this time we discussed the need to follow-up with the CEO [employer]. We did discuss return parameters all questions. Patient stated that she understood and she is given plan. All questions have been answered. She will be discharged. - Lab Data Result diagrams: 07/06/17 09:31 07/06/17 09:31 Lab Results 07/06/17 07/06/17 07/06/17 Range/Units 09:31 09:31 09:31 WBC 3.1 L (3.8-10.6) k/uL RBC 4.27 (3.80-5.40) m/uL Hgb 12.9 (11.4-16.0) gm/dL Hct 40.2 (34.0-46.0) % MCV 94.1 (80.0-100.0) fL MCH 30.1 (25.0-35.0) pg MCHC 32.0 (31.0-37.0) g/dL RDW 16.7 H (11.5-15.5) % Plt Count 173 (150-450) k/uL Neutrophils % (Manual) 22 % Lymphocytes % (Manual) 60 % Monocytes % (Manual) 15 % Eosinophils % (Manual) 3 % Neutrophils # (Manual) 0.68 L (1.3-7.7) k/uL Lymphocytes # (Manual) 1.86 (1.0-4.8) k/uL Monocytes # (Manual) 0.47 (0-1.0) k/uL Eosinophils # (Manual) 0.09 (0-0.7) k/uL Nucleated RBCs 0 (0-0) /100 WBC Manual Slide Review Performed Anisocytosis Slight PT (9.0-12.0) sec INR (<1.2) APTT (22.0-30.0) sec Sodium 139 (137-145) mmol/L Potassium 4.2 (3.5-5.1) mmol/L Chloride 98 (98-107) mmol/L Carbon Dioxide 26 (22-30) mmol/L Anion Gap 15 mmol/L BUN <2 L (7-17) mg/dL Creatinine 0.58 (0.52-1.04) mg/dL Est GFR (MDRD) Af Amer >60 (>60 ml/min/1.73 sqM) Est GFR (MDRD) Non-Af >60 (>60 ml/min/1.73 sqM) Glucose 157 H (74-99) mg/dL Calcium 10.7 H (8.4-10.2) mg/dL Total Bilirubin 1.9 H (0.2-1.3) mg/dL AST 124 H (14-36) U/L ALT 54 H (9-52) U/L Alkaline Phosphatase 57 (38-126) U/L Total Protein 8.1 (6.3-8.2) g/dL Albumin 5.0 (3.5-5.0) g/dL Urine Color Urine Appearance (Clear) Urine pH (5.0-8.0) Ur Specific [place] (1.001-1.035) Urine Protein (Negative) Urine Glucose (UA) (Negative) Urine Ketones (Negative) Urine Blood (Negative) Urine Nitrite (Negative) Urine Bilirubin (Negative) Urine Urobilinogen (<2.0) mg/dL Ur Leukocyte Esterase (Negative) Urine RBC (0-5) /hpf Urine WBC (0-5) /hpf Ur Squamous Epith Cells (0-4) /hpf Urine Mucus (None) /hpf Urine HCG, Qual Not Detected (Not Detectd) 07/06/17 07/06/17 Range/Units 09:31 09:31 WBC (3.8-10.6) k/uL RBC (3.80-5.40) m/uL Hgb (11.4-16.0) gm/dL Hct (34.0-46.0) % MCV (80.0-100.0) fL MCH (25.0-35.0) pg MCHC (31.0-37.0) g/dL RDW (11.5-15.5) % Plt Count (150-450) k/uL Neutrophils % (Manual) % Lymphocytes % (Manual) % Monocytes % (Manual) % Eosinophils % (Manual) % Neutrophils # (Manual) (1.3-7.7) k/uL Lymphocytes # (Manual) (1.0-4.8) k/uL Monocytes # (Manual) (0-1.0) k/uL Eosinophils # (Manual) (0-0.7) k/uL Nucleated RBCs (0-0) /100 WBC Manual Slide Review Anisocytosis PT 11.8 (9.0-12.0) sec INR 1.2 H (<1.2) APTT 24.3 (22.0-30.0) sec Sodium (137-145) mmol/L Potassium (3.5-5.1) mmol/L Chloride (98-107) mmol/L Carbon Dioxide (22-30) mmol/L Anion Gap mmol/L BUN (7-17) mg/dL Creatinine (0.52-1.04) mg/dL Est GFR (MDRD) Af Amer (>60 ml/min/1.73 sqM) Est GFR (MDRD) Non-Af (>60 ml/min/1.73 sqM) Glucose (74-99) mg/dL Calcium (8.4-10.2) mg/dL Total Bilirubin (0.2-1.3) mg/dL AST (14-36) U/L ALT (9-52) U/L Alkaline Phosphatase (38-126) U/L Total Protein (6.3-8.2) g/dL Albumin (3.5-5.0) g/dL Urine Color Dark Red Urine Appearance Cloudy H (Clear) Urine pH 6.5 (5.0-8.0) Ur Specific [place] 1.006 (1.001-1.035) Urine Protein 2+ H (Negative) Urine Glucose (UA) Negative (Negative) Urine Ketones Negative (Negative) Urine Blood Large H (Negative) Urine Nitrite Negative (Negative) Urine Bilirubin Negative (Negative) Urine Urobilinogen <2.0 (<2.0) mg/dL Ur Leukocyte Esterase Trace H (Negative) Urine RBC >182 H (0-5) /hpf Urine WBC 32 H (0-5) /hpf Ur Squamous Epith Cells 6 H (0-4) /hpf Urine Mucus Rare H (None) /hpf Urine HCG, Qual (Not Detectd) Disposition Clinical Impression: Elevated LFTs, Vaginal bleeding, DUB (dysfunctional uterine bleeding) Disposition: HOME SELF-CARE Condition: Stable Instructions: Menstruation (ED) Additional Instructions: Please use medication as discussed. Please follow up with family doctor if symptoms have not improved over the next two days. Please return to the emergency room if your symptoms increase or worsen or for any other concerns. Referrals: Alicia Millan DO [Doctor of Osteopathic Medicine] - 1-2 days Time of Disposition: 11:04
[2017-07-06 10:00] LABS: ALT 54 U/L (9-52); AST 124 U/L (14-36); Alkaline Phosphatase 57 U/L (38-126); Anion Gap 15 mmol/L; Blood Urea Nitrogen <2 mg/dL (7-17); Calcium 10.7 mg/dL (8.4-10.2); Carbon Dioxide 26 mmol/L (22-30); Chloride 98 mmol/L (98-107); Glucose 157 mg/dL (74-99); Non-African American GFR(MDRD) >60 (>60 ml/min/1.73 sqM); Potassium 4.2 mmol/L (3.5-5.1); Sodium 139 mmol/L (137-145); Total Bilirubin 1.9 mg/dL (0.2-1.3); Total Protein 8.1 g/dL (6.3-8.2)
[2017-07-06 10:01] LABS: INR 1.2 (<1.2); Partial Thromboplastin Time 24.3 sec (22.0-30.0); Prothrombin Time 11.8 sec (9.0-12.0)
[2017-07-06 10:04] LABS: Appearance,Urine Cloudy (Clear); Bilirubin,Urine Negative (Negative); Glucose,Urine (UA) Negative (Negative); Ketones,Urine Negative (Negative); Leukocyte Esterase,Urine Trace (Negative); Mucus,Urine Rare /hpf; Nitrite,Urine Negative (Negative); PH, Urine 6.5 (5.0-8.0); Particle Count 37567; Protein,Urine 2+ (Negative); RBC,Urine >182 /hpf (0-5); Specific Gravity,Urine 1.006 (1.001-1.035); Squamous Epithelial Cell,Urine 6 /hpf (0-4); UA Billing (MACRO vs. MICRO) MICRO; Urobilinogen,Urine <2.0 mg/dL (<2.0); WBC,Urine 32 /hpf (0-5)
[2017-07-06 10:19] LABS: Anisocytosis Slight; Aty Lym Flag Slight; CH 30.8; CHCM 32.7; HCT 40.2 % (34.0-46.0); HDW 2.24; HGB 12.9 gm/dL (11.4-16.0); MCH 30.1 pg (25.0-35.0); MCV 94.1 fL (80.0-100.0); Mean Platelet Volume 7.4; RBC 4.27 m/uL (3.80-5.40); RDW 16.7 % (11.5-15.5); WBC 3.1 k/uL (3.8-10.6); WBC (Perox) 3.08
[2017-07-06 10:45] LABS: Add Differential Manual Differential
[2017-07-06 10:58] LABS: Manual Review Performed; Nucleated Red Blood Cells 0 /100 WBC (0-0); Total Cells Counted 100
[2017-07-06 11:23] VITALS: BP 119/75; PULSE 88; RESP 24; TEMP 97.8
== END 2017-07-06 11:24 | disposition home or self-care (01) ==
LOC: EC 09:09
DX: N93.8 Other specified abnormal uterine and vaginal bleeding (principal); R79.89 Other specified abnormal findings of blood chemistry; F32.9 Major depressive disorder, single episode, unspecified; F41.9 Anxiety disorder, unspecified; F17.200 Nicotine dependence, unspecified, uncomplicated; Z85.41 Personal history of malignant neoplasm of cervix uteri; Z79.899 Other long term (current) drug therapy; Z88.5 Allergy status to narcotic agent
CPT/HCPCS: 36415; 80053; 81001; 81025; 85025; 85610; 85730; 96360; 99284

== ENCOUNTER 2017-07-08 09:37 | Day surgery (SDC) | payer OTHER ==
[2017-07-05 10:51] VITALS: BMI 20.2
[~2017-07-08 09:37] MED LIST: DEXAMETHASONE SOD PHOSPHATE 10 MG/ML 1 ML VIAL IV ONE; HEPARIN SODIUM,PORCINE 5,000 UNIT/ML 1 ML VIAL SQ ONE; LACTATED RINGERS 1,000 ML IV SCH; LIDOCAINE 1% 20 ML VIAL (10MG/ML) FOR IV START INTRADERMA PRN; ONDANSETRON 4 MG/2 ML VIAL IVP ONE; SCOPOLAMINE 1.5MG/72HR PATCH TRANSDERM ONE; ceFAZolin IN SWFI 2 GM/20 ML SYRINGE IVP ONE; fentaNYL (PF) 50 MCG/ML 2 ML AMP IV PRN
--- NOTE | 2017-07-08 11:08 | P.GSHP ---
History of Present Illness H&P Date: 07/08/17 Chief Complaint: Right upper quadrant pain This is a 32-year-old female who's had complete the right quadrant pain. Her recent ultrasounds was evidence of cholelithiasis. She had a recent hospital visit for right quadrant pain that time she passed a gallstone. Patient presents today for laparoscopic cholecystectomy. Past Medical History Past Medical History: Cancer Additional Past Medical History / Comment(s): brain anuerysm 2010-(had seizure related to), bicornuate uterus, dysfunctional uterine bleeding, hx migraines. recent bronchitis, IBS, gallstones, "pre cervical cancer age 15", insomnia History of Any Multi-Drug Resistant Organisms: None Reported Past Surgical History: Adenoidectomy, Breast Surgery, Section, Orthopedic Surgery, Tonsillectomy Additional Past Surgical History / Comment(s): right knee surgery, brain surgery for aneurysm, ovarian cystectomy laparoscopically, D&C x 2, breast biopsy-left breast Past Anesthesia/Blood Transfusion Reactions: No Reported Reaction Past Psychological History: Anxiety, Depression, PTSD Smoking Status: Current every day smoker Past Alcohol Use History: Abuse, Daily, Heavy Past Drug Use History: None Reported - Past Family History Father Additional Family Medical History / Comment(s): ETOH Mother Family Medical History: No Reported History Additional Family Medical History / Comment(s): ETOH, history of uterine fibroids Medications and Allergies Home Medications Medication Instructions Recorded Confirmed Type ALPRAZolam [Xanax] 1 mg PO HS 12/31/15 07/08/17 History Melatonin 9 mg PO HS 07/05/17 07/08/17 History Ondansetron HCl [Zofran] 4 mg PO Q6H PRN 07/06/17 07/08/17 History Allergies Allergy/AdvReac Type Severity Reaction Status Date / Time morphine Allergy Rash/Hives Verified 07/08/17 10:55 Surgical - Exam - General well developed, well nourished, no distress - Eyes PERRL - ENT normal pinna - Neck no masses - Respiratory normal expansion - Cardiovascular Rhythm: regular - Abdomen Abdomen: soft, non tender Assessment and Plan Assessment: Right quadrant pain Cholelithiasis We will perform laparoscopic cholecystectomy. The patient is aware the risk of retained common bile duct stone.
[2017-07-08 11:23] VITALS: TEMP 97.8
[2017-07-08] MEDS ORDERED: MIDAZOLAM 2 MG/2 ML VIAL IV ONE (11:34)
[2017-07-08] MEDS ORDERED: fentaNYL (PF) 50 MCG/ML 2 ML AMP ONE (12:18)
[2017-07-08] MEDS ORDERED: NEOSTIGMINE 1 MG/ML 10 ML VIAL ONE (12:18)
[2017-07-08] MEDS ORDERED: LIDOCAINE 1% INJ 10MG/ML (20 ML MDV) ONE (12:18)
[2017-07-08] MEDS ORDERED: SUCCINYLCHOLINE CHLORIDE 100 MG/5 ML SYR IV ONE (12:18)
[2017-07-08] MEDS ORDERED: PROPOFOL 10 MG/ML 20 ML VIAL IV ONE (12:18)
[2017-07-08] MEDS ORDERED: MIDAZOLAM 2 MG/2 ML VIAL ONE (12:18)
[2017-07-08] MEDS ORDERED: ROCURONIUM BROMIDE 10 MG/ML 10 ML VIAL IV ONE (12:18)
[2017-07-08] MEDS ORDERED: GLYCOPYRROLATE 0.2 MG/ML 2 ML VIAL ONE (12:18)
[2017-07-08] MEDS ORDERED: BUPIVACAINE (PF) 0.25% 30 ML VIAL SQ ONE ×2 (12:25→12:36)
--- NOTE | 2017-07-08 12:55 | P.OP ---
Date of Procedure: 07/08/17 Preoperative Diagnosis: Cholelithiasis Postoperative Diagnosis: Cholelithiasis Chronic cholecystitis Procedure(s) Performed: Laparoscopic cholecystectomy Anesthesia: TYRELL Surgeon: Temo Johnson Estimated Blood Loss (ml): 5 Pathology: other (Gallbladder) Condition: stable Disposition: PACU Description of Procedure: The patient was placed on the operating table. The patient received a general endotracheal tube anesthesia. The patients abdomen was prepped and draped in the usual sterile fashion. Through an infraumbilical stab incision, the fascia of the anterior abdominal wall was grasped with a pair of Kochers and then the Veress needle was placed in the peritoneal cavity. Position of the Veress needle was confirmed with positive drop test. The abdomen was then insufflated. After adequate insufflation, the 10 mm trocar was placed in the peritoneal cavity. Following this the laparoscope was placed in the peritoneal cavity. The patient was placed in the head-up, right side up position and then a 5 mm trocar was placed in the right lateral and right subcostal position under direct visualization. A 8 mm trocar was placed in the epigastric position. The gallbladder was grasped in the fundus and infundibulum. Traction on the gallbladder was placed in the lateral and the cephalad positions. The triangle of Calot was visualized.. The cystic duct was bluntly dissected until the union of the cystic duct and common bile duct was seen. The cystic duct was then divided and sealed with the Harmonic scissors. A PDS Endoloop was then placed throughout the cystic duct stump. The cystic artery divided and sealed with the Harmonic scissors. The gallbladder was then removed from the liver bed using Harmonic scissors. The gallbladder was then extracted through the epigastric port site. Operative field was checked for any bleeding spots and Harmonic scissors was used to coagulate the liver bed. The abdomen was irrigated. The trocars were removed. The skin was closed using interrupted 3-0 Vicryl suture. Dermabond dressing were applied. The patient tolerated the procedure well.
[2017-07-08] MEDS ORDERED: LACTATED RINGERS 1,000 ML IV ONE ×2 (12:57→14:13)
[2017-07-08] MEDS ORDERED: ONDANSETRON 4 MG/2 ML VIAL IVP ONE (13:38)
[2017-07-08] MEDS ORDERED: HYDROmorphone 1 MG/ML 1 ML SYRINGE IVP ONE ×2 (13:46→14:28)
[2017-07-08 15:44] VITALS: BP 110/72; PULSE 88; RESP 18
== END 2017-07-08 16:02 | disposition home or self-care (01) ==
LOC: OR 09:37
PROVIDERS: ATTEND Surgery
DX: K80.10 Calculus of gallbladder with chronic cholecystitis without obstruction (principal); K58.9 Irritable bowel syndrome, unspecified; G47.00 Insomnia, unspecified; F41.9 Anxiety disorder, unspecified; F32.9 Major depressive disorder, single episode, unspecified; F43.10 Post-traumatic stress disorder, unspecified; F17.200 Nicotine dependence, unspecified, uncomplicated; Z88.5 Allergy status to narcotic agent; Z79.899 Other long term (current) drug therapy; Z85.41 Personal history of malignant neoplasm of cervix uteri
CPT/HCPCS: 47562; 81025; 88304; J2250; J1644; J1100; J2710; J0690; J2405; J2001; J3010; J1170; J0330; J2704

== ENCOUNTER 2017-11-07 11:53 | Emergency (ER) | payer OTHER ==
--- NOTE | 2017-11-07 12:27 | ED ---
General Adult HPI - General Chief complaint: Recheck/Abnormal Lab/Rx Stated complaint: Sore throat Time Seen by Provider: 11/07/17 12:10 Source: patient, RN notes reviewed Mode of arrival: ambulatory Limitations: no limitations - History of Present Illness Initial comments: This is a 32-year-old female who presents to the emergency department with multiple complaints. Patient states that on and off for the past 3 months she has had nasal congestion, ear pain, sore throat and nausea. She states that she has been having a lot of mucus drainage down the back of her throat. She states that over the weekend the symptoms seemed to become worse. She states that she has been drinking a lot of beer but has been unable to drink any water as she has been "gagging." She requests to have an IV. Patient also complains that she may have a urinary tract infection. She states that she has been experiencing dysuria. Patient also complains of depression. She states that she has been down lately because her father is dying and she is an alcoholic. Denies fevers or chills, shortness of breath or chest pain, abdominal pain, diarrhea or constipation, headache or vision changes. - Related Data Home Medications Medication Instructions Recorded Confirmed ALPRAZolam [Xanax] 1 mg PO HS 12/31/15 11/07/17 Melatonin 9 mg PO HS 07/05/17 11/07/17 Previous Rx's Medication Instructions Recorded Amoxicillin/Potassium Clav 1 tab PO Q12HR #14 tab 11/07/17 [Augmentin 875-125 Tablet] Allergies Allergy/AdvReac Type Severity Reaction Status Date / Time morphine Allergy Rash/Hives Verified 11/07/17 12:30 Review of Systems ROS Statement: Those systems with pertinent positive or pertinent negative responses have been documented in the HPI. ROS Other: All systems not noted in ROS Statement are negative. Past Medical History Past Medical History: Cancer Additional Past Medical History / Comment(s): brain anuerysm 2010-(had seizure related to), bicornuate uterus, dysfunctional uterine bleeding, hx migraines. recent bronchitis, IBS, gallstones, "pre cervical cancer age 15", insomnia History of Any Multi-Drug Resistant Organisms: None Reported Past Surgical History: Adenoidectomy, Breast Surgery, Section, Orthopedic Surgery, Tonsillectomy Additional Past Surgical History / Comment(s): right knee surgery, brain surgery for aneurysm, ovarian cystectomy laparoscopically, D&C x 2, breast biopsy-left breast Past Anesthesia/Blood Transfusion Reactions: No Reported Reaction Past Psychological History: Anxiety, Depression, PTSD Smoking Status: Current every day smoker Past Alcohol Use History: Abuse, Daily, Heavy Past Drug Use History: None Reported - Past Family History Father Additional Family Medical History / Comment(s): ETOH Mother Family Medical History: No Reported History Additional Family Medical History / Comment(s): ETOH, history of uterine fibroids General Exam - General Exam Comments Initial Comments: General: Awake and alert, well-developed; in no apparent distress. HEENT: Head atraumatic, normocephalic. Pupils are equal, round and reactive to light. Extraocular movements intact. Oropharynx moist without erythema or exudate. Bilateral TMs are pearly without effusion. Tenderness on palpation of maxillary and frontal sinuses. Neck: Supple. Normal ROM. Cardiovascular: Regular rate and rhythm. No murmurs, rubs or gallops. Chest symmetrical. Respiratory: Lungs clear to auscultation bilaterally. No wheezes, rales or rhonchi. Normal respiratory effort with no use of accessory muscles. Abdomen: Soft, non-tender, non-distended. No rigidity, rebound or guarding. Normal bowel sounds in all 4 quadrants. Musculoskeletal: Normal ROM, no tenderness bilateral upper and lower extremities. Ambulating normally. Skin: [place], warm and dry without rashes or lesions. Neurological: Alert and oriented x3. CN II-XII grossly intact. Speech is fluent and answers are appropriate. No focal neuro deficits. Psychiatric: Melancholic mood. Normal insight and judgment. Limitations: no limitations Course Vital Signs 11/07/17 11/07/17 11/07/17 12:08 14:12 15:43 Temperature 98.0 F 99.6 F Pulse Rate 116 H 93 Respiratory 18 18 16 Rate Blood Pressure 131/95 116/78 O2 Sat by Pulse 97 96 Oximetry Medical Decision Making - Medical Decision Making This is a 32-year-old female who presented to the emergency department for evaluation of multiple complaints. Patient initially complained of a sore throat, bilateral ear pain, congestion and nausea. She will be treated for a sinus infection with Augmentin. Patient then complained of depression and alchoholism. BAT obtained was 0.108. Urine drug screen was positive for benzodiazepines, however patient does take Xanax. Patient was evaluated by EPS who is recommending outpatient treatment. EPS provided patient with many outpatient resources for depression and alcohol abuse. Vital signs have been stable and she is in no acute distress. She will be discharged home. She is in agreement and voices understanding. All questions answered. - Lab Data Lab Results 11/07/17 11/07/17 11/07/17 Range/Units 12:01 12:01 12:01 Urine Color Yellow Urine Appearance Cloudy H (Clear) Urine pH 5.5 (5.0-8.0) Ur Specific [place] 1.006 (1.001-1.035) Urine Protein Negative (Negative) Urine Glucose (UA) Negative (Negative) Urine Ketones 2+ H (Negative) Urine Blood Small H (Negative) Urine Nitrite Negative (Negative) Urine Bilirubin Negative (Negative) Urine Urobilinogen <2.0 (<2.0) mg/dL Ur Leukocyte Esterase Negative (Negative) Urine RBC 1 (0-5) /hpf Urine WBC 1 (0-5) /hpf Ur Squamous Epith Cells 19 H (0-4) /hpf Urine Bacteria Rare H (None) /hpf Urine Mucus Rare H (None) /hpf Urine HCG, Qual Not Detected (Not Detectd) Urine Opiates Screen Not Detected (NotDetected) Ur Oxycodone Screen Not Detected (NotDetected) Urine Methadone Screen Not Detected (NotDetected) Ur Propoxyphene Screen Not Detected (NotDetected) Ur Barbiturates Screen Not Detected (NotDetected) U Tricyclic Antidepress Not Detected (NotDetected) Ur Phencyclidine Scrn Not Detected (NotDetected) Ur Amphetamines Screen Not Detected (NotDetected) U Methamphetamines Scrn Not Detected (NotDetected) U Benzodiazepines Scrn Detected H (NotDetected) Urine Cocaine Screen Not Detected (NotDetected) U Marijuana (THC) Screen Not Detected (NotDetected) Disposition Clinical Impression: Alcoholism /alcohol abuse, Sinusitis, Depression Disposition: HOME SELF-CARE Condition: Good Instructions: Sinusitis (ED), Depression (ED), Alcohol Use Disorder (ED) Additional Instructions: Please take medications as prescribed. Please increase fluid intake. Please contact outpatient resources that were given to you by the mental health nurse. Please follow up with primary care provider within 1-2 days. Return to emergency department if symptoms should worsen or any concerns arise. Prescriptions: Amoxicillin/Potassium Clav [Augmentin 875-125 Tablet] 1 tab PO Q12HR #14 tab Referrals: None,Stated [Primary Care Provider] - 1-2 days Johann Ham MD [REFERRING] - 1-2 days Kevin Briggs MD [REFERRING] - 1-2 days Time of Disposition: 18:12
[2017-11-07 12:39] LABS: Appearance,Urine Cloudy (Clear); Bacteria,Urine Rare /hpf; Bilirubin,Urine Negative (Negative); Blood,Urine Small (Negative); Color,Urine Yellow; Glucose,Urine (UA) Negative (Negative); Ketones,Urine 2+ (Negative); Leukocyte Esterase,Urine Negative (Negative); Mucus,Urine Rare /hpf; Nitrite,Urine Negative (Negative); PH, Urine 5.5 (5.0-8.0); Protein,Urine Negative (Negative); RBC,Urine 1 /hpf (0-5); Specific Gravity,Urine 1.006 (1.001-1.035); Squamous Epithelial Cell,Urine 19 /hpf (0-4); Urobilinogen,Urine <2.0 mg/dL (<2.0); WBC,Urine 1 /hpf (0-5)
[2017-11-07] MEDS ORDERED: ONDANSETRON ODT 4 MG TAB PO STA (13:09)
[2017-11-07 13:20] LABS: Amphetamine Screen,Urine Not Detected (NotDetected); Barbiturate Screen,Urine Not Detected (NotDetected); Benzodiazepines Screen,Urine Detected (NotDetected); Cocaine Screen,Urine Not Detected (NotDetected); Methadone Screen, Urine Not Detected (NotDetected); Opiate Screen,Urine Not Detected (NotDetected); Oxycodone Screen, Urine Not Detected (NotDetected); Phencyclidine Screen,Urine Not Detected (NotDetected); Tricyclic Antidepressant,Urine Not Detected (NotDetected); Urn Cannabinoid Scrn Not Detected (NotDetected)
[2017-11-07] MEDS ORDERED: ALPRAZolam 0.5 MG TAB PO STA (14:22)
[2017-11-07] MEDS ORDERED: IBUPROFEN 600 MG TAB PO STA (17:09)
[2017-11-07] MEDS ORDERED: ONDANSETRON 4 MG ODT STARTER PACK 2 TAB BTL PO STA (18:07)
[2017-11-07 18:19] VITALS: BP 127/70; PULSE 97; RESP 18; TEMP 98.9
== END 2017-11-07 18:15 | disposition home or self-care (01) ==
LOC: EC 11:53
DX: J32.9 Chronic sinusitis, unspecified (principal); F32.9 Major depressive disorder, single episode, unspecified; F10.10 Alcohol abuse, uncomplicated; F41.9 Anxiety disorder, unspecified; F17.200 Nicotine dependence, unspecified, uncomplicated; Z85.41 Personal history of malignant neoplasm of cervix uteri; Z79.899 Other long term (current) drug therapy
CPT/HCPCS: 82075; 81001; 81025; 80306; 99283; S0119

== ENCOUNTER 2017-12-17 02:17 | Emergency (ER) | payer OTHER ==
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
--- NOTE | 2017-12-17 03:12 | XR ---
History pain. Injury. Comparison none. Technique 3 views. FINDINGS: I see no fracture nor dislocation. Joint spaces are normal. There are no erosions. Metacarpals appear intact. CONCLUSION: Normal left hand exam.
[2017-12-17 03:23] LABS: Amphetamine Screen,Urine Not Detected (NotDetected); Barbiturate Screen,Urine Not Detected (NotDetected); Benzodiazepines Screen,Urine Detected (NotDetected); Cocaine Screen,Urine Not Detected (NotDetected); Methadone Screen, Urine Not Detected (NotDetected); Opiate Screen,Urine Not Detected (NotDetected); Oxycodone Screen, Urine Not Detected (NotDetected); Phencyclidine Screen,Urine Not Detected (NotDetected); Tricyclic Antidepressant,Urine Not Detected (NotDetected); Urn Cannabinoid Scrn Not Detected (NotDetected)
[2017-12-17 12:29] VITALS: BP 110/73; PULSE 94; RESP 16; TEMP 97.6
== END 2017-12-17 12:31 | disposition home or self-care (01) ==
LOC: EC 02:17
DX: F10.129 Alcohol abuse with intoxication, unspecified (principal); F43.20 Adjustment disorder, unspecified; S60.222A Contusion of left hand, initial encounter; F17.200 Nicotine dependence, unspecified, uncomplicated; Z88.5 Allergy status to narcotic agent; Z98.890 Other specified postprocedural states; W22.03XA Walked into furniture, initial encounter
CPT/HCPCS: 80306; 82075; 99285

== ENCOUNTER 2018-01-01 23:01 | Emergency (ER) | payer OTHER ==
[2018-01-01 23:10] VITALS: RESP 20
[2018-01-01 23:48] LABS: Appearance,Urine Clear (Clear); Bilirubin,Urine Negative (Negative); Blood,Urine Negative (Negative); Color,Urine Colorless; Glucose,Urine (UA) Negative (Negative); Ketones,Urine Negative (Negative); Leukocyte Esterase,Urine Negative (Negative); Nitrite,Urine Negative (Negative); Protein,Urine Negative (Negative); Specific Gravity,Urine 1.001 (1.001-1.035); Urobilinogen,Urine <2.0 mg/dL (<2.0)
[2018-01-01 23:59] LABS: Amphetamine Screen,Urine Not Detected (NotDetected); Barbiturate Screen,Urine Not Detected (NotDetected); Benzodiazepines Screen,Urine Detected (NotDetected); Cocaine Screen,Urine Not Detected (NotDetected); Methadone Screen, Urine Not Detected (NotDetected); Opiate Screen,Urine Not Detected (NotDetected); Oxycodone Screen, Urine Not Detected (NotDetected); Phencyclidine Screen,Urine Not Detected (NotDetected); Tricyclic Antidepressant,Urine Not Detected (NotDetected); Urn Cannabinoid Scrn Not Detected (NotDetected)
[2018-01-02] MEDS ORDERED: IBUPROFEN 600 MG TAB PO STA (00:34)
[2018-01-02] MEDS ORDERED: levETIRAcetam 500 MG TAB PO STA (00:39)
--- NOTE | 2018-01-02 00:39 | ED ---
General Adult HPI - General Chief complaint: Psychiatric Symptoms Stated complaint: mental health Time Seen by Provider: 01/01/18 23:23 Source: patient Mode of arrival: ambulatory Limitations: no limitations - History of Present Illness Initial comments: 32-year-old female patient presents to the emergency department today for complaints of upper respiratory symptoms. Patient states that she has had sore throat, cough, nasal congestion for the last 5 days. Patient states that she has had a lot of nasal pressure and sinus headaches. Patient states she is coughing up green to yellow sputum. States that occasionally she is short of breath and feels chest tightness with this. States that today she developed a fever. She states she has also been having some emotional issues and going through attempt breakup however denies any suicidal or homicidal ideation. She does not feel like she needs to be evaluated by mental health services. She does admit to drinking alcohol today. Patient denies any recent rash, abdominal pain, nausea, vomiting, diarrhea, constipation, back pain, numbness, tingling, dizziness, weakness, hematuria, dysuria, urinary urgency, urinary frequency, visual changes, or any other complaints. - Related Data Home Medications Medication Instructions Recorded Confirmed ALPRAZolam [Xanax] 1 mg PO DAILY PRN 12/31/15 01/01/18 levETIRAcetam [Keppra] 500 mg PO Q12HR 01/01/18 01/01/18 Previous Rx's Medication Instructions Recorded Albuterol Inhaler [Ventolin Hfa 1 - 2 puff INHALATION Q4HR PRN #1 12/02/17 Inhaler] inhaler Allergies Allergy/AdvReac Type Severity Reaction Status Date / Time morphine Allergy Rash/Hives Verified 01/01/18 23:10 Review of Systems ROS Statement: Those systems with pertinent positive or pertinent negative responses have been documented in the HPI. ROS Other: All systems not noted in ROS Statement are negative. Past Medical History Past Medical History: Cancer Additional Past Medical History / Comment(s): brain anuerysm 2010-(had seizure related to), bicornuate uterus, dysfunctional uterine bleeding, hx migraines. recent bronchitis, IBS, gallstones, "pre cervical cancer age 15", insomnia History of Any Multi-Drug Resistant Organisms: None Reported Past Surgical History: Adenoidectomy, Breast Surgery, Section, Orthopedic Surgery, Tonsillectomy Additional Past Surgical History / Comment(s): right knee surgery, brain surgery for aneurysm, ovarian cystectomy laparoscopically, D&C x 2, breast biopsy-left breast Past Anesthesia/Blood Transfusion Reactions: No Reported Reaction Past Psychological History: Anxiety, Depression, PTSD Smoking Status: Current every day smoker Past Alcohol Use History: Abuse, Daily, Heavy Past Drug Use History: None Reported - Past Family History Father Additional Family Medical History / Comment(s): ETOH Mother Family Medical History: No Reported History Additional Family Medical History / Comment(s): ETOH, history of uterine fibroids General Exam Limitations: no limitations General appearance: alert, in no apparent distress, other (This is a well- developed, well-nourished adult female patient in no acute distress. Vital signs upon presentation are 100.0F, pulse 109, respirations 20, blood pressure 128/83, pulse ox 97% on room air.) Eye exam: Present: normal appearance, PERRL, EOMI. Absent: scleral icterus, conjunctival injection, periorbital swelling ENT exam: Present: normal exam, normal oropharynx, mucous membranes moist Respiratory exam: Present: normal lung sounds bilaterally. Absent: respiratory distress, wheezes, rales, rhonchi, stridor Cardiovascular Exam: Present: normal rhythm, tachycardia, normal heart sounds. Absent: systolic murmur, diastolic murmur, rubs, gallop, clicks GI/Abdominal exam: Present: soft, normal bowel sounds. Absent: distended, tenderness, guarding, rebound, rigid Neurological exam: Present: alert, oriented X3, CN II-XII intact Psychiatric exam: Present: normal affect, normal mood Skin exam: Present: warm, dry, intact, normal color. Absent: rash Course Vital Signs 01/01/18 23:04 Temperature 100 F H Pulse Rate 109 H Respiratory 20 Rate Blood Pressure 128/83 O2 Sat by Pulse 97 Oximetry Medical Decision Making - Medical Decision Making 32-year-old female patient presents to the emergency department today for evaluation of upper respiratory symptoms and increased stress. Physical examination is unremarkable. Lungs are clear to auscultation with good air movement. Chest x-ray was reviewed and shows no acute cardiopulmonary process. Influenza testing was negative. Patient is feeling better after receiving ibuprofen here in the emergency department. Patient is intoxicated, reports increased stress, but denies any suicidal or homicidal ideation. We did discuss follow-up with her counselor as soon as possible. She is instructed to follow-up with her primary care physician for recheck in 1-2 days. Return parameters were discussed in detail. She verbalizes understanding and agrees with this plan. - Lab Data Lab Results 01/01/18 01/01/18 01/02/18 Range/Units 23:30 23:30 00:45 Urine Color Colorless Urine Appearance Clear (Clear) Urine pH 6.0 (5.0-8.0) Ur Specific [place] 1.001 (1.001-1.035) Urine Protein Negative (Negative) Urine Glucose (UA) Negative (Negative) Urine Ketones Negative (Negative) Urine Blood Negative (Negative) Urine Nitrite Negative (Negative) Urine Bilirubin Negative (Negative) Urine Urobilinogen <2.0 (<2.0) mg/dL Ur Leukocyte Esterase Negative (Negative) Urine HCG, Qual Not Detected (Not Detectd) Urine Opiates Screen Not Detected (NotDetected) Ur Oxycodone Screen Not Detected (NotDetected) Urine Methadone Screen Not Detected (NotDetected) Ur Propoxyphene Screen Not Detected (NotDetected) Ur Barbiturates Screen Not Detected (NotDetected) U Tricyclic Antidepress Not Detected (NotDetected) Ur Phencyclidine Scrn Not Detected (NotDetected) Ur Amphetamines Screen Not Detected (NotDetected) U Methamphetamines Scrn Not Detected (NotDetected) U Benzodiazepines Scrn Detected H (NotDetected) Urine Cocaine Screen Not Detected (NotDetected) U Marijuana (THC) Screen Not Detected (NotDetected) Influenza Type A RNA Not Detected (Not Detectd) Influenza Type B (PCR) Not Detected (Not Detectd) - Radiology Data Radiology results: report reviewed, image reviewed Two-view x-ray of the chest was reviewed. Heart and mediastinum are normal. Lungs are clear. Diaphragm is normal. Bony thorax appears normal. Impression by Dr. Alvarado shows normal chest with no change. Disposition Clinical Impression: Viral upper respiratory infection, Stress Disposition: HOME SELF-CARE Condition: Good Instructions: Stress (ED), Upper Respiratory Infection (ED) Additional Instructions: Make appointment with your counselor in the morning. Take [id number] nasal decongestants to help her symptoms. Take your home medications as directed. Return here immediately for any new, worsening, or concerning symptoms. Is patient prescribed a controlled substance at d/c from ED?: No Referrals: None,Stated [Primary Care Provider] - 1-2 days Time of Disposition: 01:27
--- NOTE | 2018-01-02 01:06 | XR ---
EXAMINATION TYPE: XR chest 2V DATE OF EXAM: 01/02/2018 COMPARISON: 12/02/2017 HISTORY: Congestion TECHNIQUE: Frontal and lateral views of the chest are obtained. FINDINGS: Heart and mediastinum are normal. Lungs are clear. Diaphragm is normal. Bony thorax appear s normal. IMPRESSION: Normal chest. No change.
[2018-01-02 01:41] VITALS: BP 122/86; PULSE 100; TEMP 97.2
== END 2018-01-02 01:40 | disposition home or self-care (01) ==
LOC: EC 23:01
DX: J06.9 Acute upper respiratory infection, unspecified (principal); F43.9 Reaction to severe stress, unspecified; F17.200 Nicotine dependence, unspecified, uncomplicated; Z85.41 Personal history of malignant neoplasm of cervix uteri; Z79.899 Other long term (current) drug therapy; Z90.89 Acquired absence of other organs
CPT/HCPCS: 71046; 80306; 81003; 81025; 82075; 87502; 99283

== ENCOUNTER 2018-01-03 00:35 | Emergency (ER) | payer OTHER ==
[2018-01-03 00:41] VITALS: RESP 18
[2018-01-03] MEDS ORDERED: SODIUM CHLORIDE 0.9% 1,000 ML IV STA (00:54)
[2018-01-03 01:04] LABS: Basophils % (A) 1 %; Eosinophils % (A) 0 %; HCT 36.6 % (34.0-46.0); HGB 12.1 gm/dL (11.4-16.0); Lymphocytes # (A) 1.2 k/uL (1.0-4.8); Lymphocytes % (A) 35 %; Mean Platelet Volume 6.6; Monocytes # (A) 0.2 k/uL (0-1.0); Monocytes % (A) 7 %; Neutrophils # (A) 1.8 k/uL (1.3-7.7); Neutrophils % (A) 53 %; Platelet Count 182 k/uL (150-450); RDW 14.2 % (11.5-15.5); WBC 3.4 k/uL (3.8-10.6)
[2018-01-03 01:12] LABS: ALT 32 U/L (9-52); AST 58 U/L (14-36); Albumin 4.5 g/dL (3.5-5.0); Alkaline Phosphatase 60 U/L (38-126); Anion Gap 17 mmol/L; Blood Urea Nitrogen 3 mg/dL (7-17); Calcium 9.7 mg/dL (8.4-10.2); Carbon Dioxide 22 mmol/L (22-30); Chloride 100 mmol/L (98-107); Glucose 97 mg/dL (74-99); Potassium 4.1 mmol/L (3.5-5.1); Sodium 139 mmol/L (137-145); Total Bilirubin 1.1 mg/dL (0.2-1.3); Total Protein 7.2 g/dL (6.3-8.2)
[2018-01-03 01:15] LABS: Alcohol 255 mg/dL
[2018-01-03] MEDS ORDERED: levETIRAcetam 500 MG TAB PO STA (01:36)
--- NOTE | 2018-01-03 01:38 | ED ---
General Adult HPI - General Chief complaint: Seizure Stated complaint: SEIZURE Time Seen by Provider: 01/03/18 00:54 Source: patient, EMS, RN notes reviewed Mode of arrival: EMS Limitations: no limitations - History of Present Illness Initial comments: This a 32-year-old female presents emergency Department with multiple complaints. Patient states she had she had 3 seizures today though they are unwitnessed. She states that she knows she had them. Patient states that she' s been drinking alcohol today which has a recurrent thing for her. She also states that she has not been taking her Keppra as directed because she was convinced by her ex-boyfriend that she should not take the medication. She states she was tapering herself off it. Patient denies any homicidal or suicidal ideation. She has no headache no dizziness no chest pain or shortness of breath. She has no physical complaints at this time. - Related Data Home Medications Medication Instructions Recorded Confirmed ALPRAZolam [Xanax] 1 mg PO DAILY PRN 12/31/15 01/01/18 levETIRAcetam [Keppra] 500 mg PO Q12HR 01/01/18 01/01/18 Previous Rx's Medication Instructions Recorded Albuterol Inhaler [Ventolin Hfa 1 - 2 puff INHALATION Q4HR PRN #1 12/02/17 Inhaler] inhaler Allergies Allergy/AdvReac Type Severity Reaction Status Date / Time morphine Allergy Rash/Hives Verified 01/03/18 00:42 Review of Systems ROS Statement: Those systems with pertinent positive or pertinent negative responses have been documented in the HPI. ROS Other: All systems not noted in ROS Statement are negative. Past Medical History Past Medical History: Cancer Additional Past Medical History / Comment(s): brain anuerysm 2010-(had seizure related to), bicornuate uterus, dysfunctional uterine bleeding, hx migraines. recent bronchitis, IBS, gallstones, "pre cervical cancer age 15", insomnia History of Any Multi-Drug Resistant Organisms: None Reported Past Surgical History: Adenoidectomy, Breast Surgery, Section, Orthopedic Surgery, Tonsillectomy Additional Past Surgical History / Comment(s): right knee surgery, brain surgery for aneurysm, ovarian cystectomy laparoscopically, D&C x 2, breast biopsy-left breast Past Anesthesia/Blood Transfusion Reactions: No Reported Reaction Past Psychological History: Anxiety, Depression, PTSD Smoking Status: Current every day smoker Past Alcohol Use History: Abuse, Daily, Heavy Past Drug Use History: None Reported - Past Family History Father Additional Family Medical History / Comment(s): ETOH Mother Family Medical History: No Reported History Additional Family Medical History / Comment(s): ETOH, history of uterine fibroids General Exam Limitations: no limitations General appearance: alert, in no apparent distress, appears intoxicated Head exam: Present: atraumatic, normocephalic, normal inspection Eye exam: Present: normal appearance, PERRL, EOMI. Absent: scleral icterus, conjunctival injection, periorbital swelling ENT exam: Present: normal exam, normal oropharynx, mucous membranes moist Neck exam: Present: normal inspection. Absent: tenderness, meningismus, lymphadenopathy Respiratory exam: Present: normal lung sounds bilaterally. Absent: respiratory distress, wheezes, rales, rhonchi, stridor Cardiovascular Exam: Present: normal rhythm, tachycardia, normal heart sounds. Absent: systolic murmur, diastolic murmur, rubs, gallop, clicks GI/Abdominal exam: Present: soft, normal bowel sounds. Absent: distended, tenderness, guarding, rebound, rigid Neurological exam: Present: alert, oriented X3, CN II-XII intact, reflexes normal. Absent: motor sensory deficit Skin exam: Present: warm, dry, intact, normal color. Absent: rash Course Vital Signs 01/03/18 01/03/18 00:40 02:43 Temperature 98.2 F Pulse Rate 113 H 89 Respiratory 18 18 Rate Blood Pressure 114/77 103/65 O2 Sat by Pulse 99 99 Oximetry - Reevaluation(s) Reevaluation #1: 01/03/18 03:27 Patient was endorsed to Dr. Lowery. EKG Findings - EKG Comments: EKG Findings:: EKG performed at 0:49 normal sinus rhythm with rate 91. 122 QRS 76 QT/QTC 342/420 Medical Decision Making - Lab Data Result diagrams: 01/03/18 00:47 01/03/18 00:47 Lab Results 01/03/18 01/03/18 01/03/18 Range/Units 00:47 00:47 01:01 WBC 3.4 L (3.8-10.6) k/uL RBC 3.90 (3.80-5.40) m/uL Hgb 12.1 (11.4-16.0) gm/dL Hct 36.6 (34.0-46.0) % MCV 94.0 (80.0-100.0) fL MCH 31.0 (25.0-35.0) pg MCHC 33.0 (31.0-37.0) g/dL RDW 14.2 (11.5-15.5) % Plt Count 182 (150-450) k/uL Neutrophils % 53 % Lymphocytes % 35 % Monocytes % 7 % Eosinophils % 0 % Basophils % 1 % Neutrophils # 1.8 (1.3-7.7) k/uL Lymphocytes # 1.2 (1.0-4.8) k/uL Monocytes # 0.2 (0-1.0) k/uL Eosinophils # 0.0 (0-0.7) k/uL Basophils # 0.0 (0-0.2) k/uL Sodium 139 (137-145) mmol/L Potassium 4.1 (3.5-5.1) mmol/L Chloride 100 (98-107) mmol/L Carbon Dioxide 22 (22-30) mmol/L Anion Gap 17 mmol/L BUN 3 L (7-17) mg/dL Creatinine 0.50 L (0.52-1.04) mg/dL Est GFR (CKD-EPI)AfAm >90 (>60 ml/min/1.73 sqM) Est GFR (CKD-EPI)NonAf >90 (>60 ml/min/1.73 sqM) Glucose 97 (74-99) mg/dL Calcium 9.7 (8.4-10.2) mg/dL Total Bilirubin 1.1 (0.2-1.3) mg/dL AST 58 H (14-36) U/L ALT 32 (9-52) U/L Alkaline Phosphatase 60 (38-126) U/L Total Protein 7.2 (6.3-8.2) g/dL Albumin 4.5 (3.5-5.0) g/dL Urine Opiates Screen Not Detected (NotDetected) Ur Oxycodone Screen Not Detected (NotDetected) Urine Methadone Screen Not Detected (NotDetected) Ur Propoxyphene Screen Not Detected (NotDetected) Ur Barbiturates Screen Not Detected (NotDetected) U Tricyclic Antidepress Not Detected (NotDetected) Ur Phencyclidine Scrn Not Detected (NotDetected) Ur Amphetamines Screen Not Detected (NotDetected) U Methamphetamines Scrn Not Detected (NotDetected) U Benzodiazepines Scrn Not Detected (NotDetected) Urine Cocaine Screen Not Detected (NotDetected) U Marijuana (THC) Screen Not Detected (NotDetected) Serum Alcohol 255 mg/dL Disposition Clinical Impression: Acute alcohol intoxication Referrals: None,Stated [Primary Care Provider] - 1-2 days
[2018-01-03 02:30] LABS: Amphetamine Screen,Urine Not Detected (NotDetected); Barbiturate Screen,Urine Not Detected (NotDetected); Benzodiazepines Screen,Urine Not Detected (NotDetected); Cocaine Screen,Urine Not Detected (NotDetected); Methadone Screen, Urine Not Detected (NotDetected); Opiate Screen,Urine Not Detected (NotDetected); Oxycodone Screen, Urine Not Detected (NotDetected); Phencyclidine Screen,Urine Not Detected (NotDetected); Tricyclic Antidepressant,Urine Not Detected (NotDetected); Urn Cannabinoid Scrn Not Detected (NotDetected)
[2018-01-03 04:34] VITALS: BP 114/68; PULSE 105
[2018-01-03 04:36] VITALS: TEMP 98
== END 2018-01-03 04:36 | disposition home or self-care (01) ==
LOC: EC 00:35
DX: F10.120 Alcohol abuse with intoxication, uncomplicated (principal); R56.9 Unspecified convulsions; F17.200 Nicotine dependence, unspecified, uncomplicated; Z85.41 Personal history of malignant neoplasm of cervix uteri; Z79.899 Other long term (current) drug therapy; Z88.5 Allergy status to narcotic agent; Z86.79 Personal history of other diseases of the circulatory system; Z98.890 Other specified postprocedural states
CPT/HCPCS: 36415; 80053; 80306; 80320; 85025; 93005; 96360; 99284

== ENCOUNTER 2018-01-04 23:20 | Emergency (ER) | payer OTHER ==
[2018-01-05 00:05] VITALS: RESP 18
--- NOTE | 2018-01-05 00:47 | ED ---
Lower Extremity Injury HPI - General Chief Complaint: Extremity Injury, Lower Stated Complaint: Knee Injury Time Seen by Provider: 01/05/18 00:29 Source: patient, RN notes reviewed Mode of arrival: ambulatory Limitations: no limitations - History of Present Illness Initial Comments: This is a 32-year-old female who presents to the emergency department with chief complaint of right knee injury. Patient states that yesterday she dislocated her knee. She states that she popped it back into place but it now feels "not normal." She feels like it is out of place. She states she has been wearing a knee brace. She states that she has been bearing weight and ambulating. Denies any falls or specific injuries or trauma. She states that she has a history of surgery on her right knee. Denies fever, chills, chest pain , shortness of breath, abdominal pain, nausea or vomiting, constipation or diarrhea, dysuria or hematuria, numbness or tingling, headache or vision changes. - Related Data Home Medications Medication Instructions Recorded Confirmed ALPRAZolam [Xanax] 1 mg PO DAILY PRN 12/31/15 01/01/18 levETIRAcetam [Keppra] 500 mg PO Q12HR 01/01/18 01/01/18 Previous Rx's Medication Instructions Recorded Albuterol Inhaler [Ventolin Hfa 1 - 2 puff INHALATION Q4HR PRN #1 12/02/17 Inhaler] inhaler Allergies Allergy/AdvReac Type Severity Reaction Status Date / Time morphine Allergy Rash/Hives Verified 01/05/18 00:00 Review of Systems ROS Statement: Those systems with pertinent positive or pertinent negative responses have been documented in the HPI. ROS Other: All systems not noted in ROS Statement are negative. Past Medical History Past Medical History: Cancer, Seizure Disorder Additional Past Medical History / Comment(s): brain anuerysm 2010-(had seizure related to), bicornuate uterus, dysfunctional uterine bleeding, hx migraines. recent bronchitis, IBS, gallstones, "pre cervical cancer age 15", insomnia History of Any Multi-Drug Resistant Organisms: None Reported Past Surgical History: Adenoidectomy, Breast Surgery, Section, Orthopedic Surgery, Tonsillectomy Additional Past Surgical History / Comment(s): right knee surgery, brain surgery for aneurysm, ovarian cystectomy laparoscopically, D&C x 2, breast biopsy-left breast Past Anesthesia/Blood Transfusion Reactions: No Reported Reaction Past Psychological History: Anxiety, Depression, PTSD Smoking Status: Current every day smoker Past Alcohol Use History: Abuse, Daily, Heavy Past Drug Use History: None Reported - Past Family History Father Additional Family Medical History / Comment(s): ETOH Mother Family Medical History: No Reported History Additional Family Medical History / Comment(s): ETOH, history of uterine fibroids General Exam - General Exam Comments Initial Comments: General: Awake and alert, well-developed; in no apparent distress. HEENT: Head atraumatic, normocephalic. Pupils are equal, round and reactive to light. Extraocular movements intact. Oropharynx moist without erythema or exudate. Neck: Supple. Normal ROM. Cardiovascular: Regular rate and rhythm. No murmurs, rubs or gallops. Chest symmetrical. Respiratory: Lungs clear to auscultation bilaterally. No wheezes, rales or rhonchi. Normal respiratory effort with no use of accessory muscles. Musculoskeletal: Normal range of motion of the right knee. There is generalized soft tissue swelling. Tenderness along the lateral joint line. Sensations intact. Pedal pulses are 2+ equal and palpable bilaterally. No obvious gross deformities. Skin: Rafael Capo, warm and dry without rashes or lesions. Neurological: Alert and oriented x3. CN II-XII grossly intact. Speech is fluent and answers are appropriate. No focal neuro deficits. Psychiatric: Normal mood and affect. No overt signs of depression or anxiety noted. Limitations: no limitations Course Vital Signs 01/05/18 00:00 Temperature 99.4 F Pulse Rate 106 H Respiratory 18 Rate Blood Pressure 127/88 O2 Sat by Pulse 100 Oximetry Medical Decision Making - Medical Decision Making This is a 32-year-old female who presents to the emergency department with chief complaint of right knee injury. Patient states she believes that she dislocated her kneecap yesterday and now it "does not feel normal" and feels "out of place." She is bearing weight and ambulating normally. X-ray of the right knee revealed a small joint effusion, however no acute fractures or dislocations. Recommended a knee immobilizer, however patient declines stating she just wants an Levon bandage. Recommended rest, ice, elevation and ibuprofen as needed. Patient does state that she has ibuprofen at home that she can take. Patient currently does not have a primary care provider so will be provided with contact information for one. She will also be provided with orthopedic follow-up if no improvement in symptoms. Patient's vital signs are stable and she is no acute distress. She'll be discharged home at this time. She is in agreement with plan and voices understanding. All questions answered. - Radiology Data Radiology results: report reviewed, image reviewed X-ray right knee impression: Small joint effusion. No fracture seen. Disposition Clinical Impression: Right knee pain Disposition: HOME SELF-CARE Condition: Good Instructions: Knee Pain (ED) Additional Instructions: Please rest, ice, elevate and take ibuprofen 600 mg every 6 hours for the next couple of days as needed for pain. Please only wear Levon bandage while ambulating. Please follow-up with orthopedics if no improvement in symptoms. Please follow up with primary care provider within 1-2 days. Return to emergency department if symptoms should worsen or any concerns arise. Is patient prescribed a controlled substance at d/c from ED?: No Referrals: None,Stated [Primary Care Provider] - 1-2 days Dany Casanova MD [STAFF PHYSICIAN] - 1-2 days Duncan Bojorquez MD [STAFF PHYSICIAN] - 1-2 days Charbel Cuevas DO [STAFF PHYSICIAN] - 1-2 days Rick Torres MD [STAFF PHYSICIAN] - 1-2 days Time of Disposition: 01:59
--- NOTE | 2018-01-05 01:47 | XR ---
EXAMINATION TYPE: XR knee complete RT DATE OF EXAM: 01/05/2018 COMPARISON: NONE HISTORY: Dislocated knee TECHNIQUE: 3 views FINDINGS: There is a single screw in the tibial tubercle. I see no fracture nor dislocation. There i s probably a tiny joint effusion. Joint spaces are fairly normal. IMPRESSION: Small joint effusion. No fracture seen.
[2018-01-05 02:16] VITALS: BP 116/85; PULSE 98; TEMP 98.8
== END 2018-01-05 02:15 | disposition home or self-care (01) ==
LOC: EC 23:20
DX: M25.461 Effusion, right knee (principal); M25.561 Pain in right knee; G40.909 Epilepsy, unspecified, not intractable, without status epilepticus; F17.200 Nicotine dependence, unspecified, uncomplicated; Z85.41 Personal history of malignant neoplasm of cervix uteri; Z98.890 Other specified postprocedural states; Z79.899 Other long term (current) drug therapy; Z88.5 Allergy status to narcotic agent
CPT/HCPCS: 99283

== ENCOUNTER 2018-01-20 21:31 | Emergency (ER) | payer OTHER ==
[2018-01-20] MEDS ORDERED: SODIUM CHLORIDE 0.9% 1,000 ML IV STA (22:10)
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
[2018-01-20 22:44] LABS: Basophils % (A) 1 %; Eosinophils % (A) 0 %; HCT 36.3 % (34.0-46.0); Lymphocytes # (A) 1.2 k/uL (1.0-4.8); Lymphocytes % (A) 41 %; MCH 31.5 pg (25.0-35.0); MCHC 33.1 g/dL (31.0-37.0); MCV 95.3 fL (80.0-100.0); Mean Platelet Volume 7.1; Monocytes # (A) 0.2 k/uL (0-1.0); Monocytes % (A) 6 %; Neutrophils # (A) 1.3 k/uL (1.3-7.7); Neutrophils % (A) 48 %; Platelet Count 148 k/uL (150-450); RBC 3.81 m/uL (3.80-5.40); RDW 14.6 % (11.5-15.5); WBC 2.8 k/uL (3.8-10.6)
[2018-01-20 22:51] LABS: Acetaminophen <10.0 ug/mL; Anion Gap 22 mmol/L; Blood Urea Nitrogen 2 mg/dL (7-17); Calcium 9.8 mg/dL (8.4-10.2); Carbon Dioxide 19 mmol/L (22-30); Chloride 97 mmol/L (98-107); Glucose 85 mg/dL (74-99); Salicylate <1.0 mg/dL; Sodium 138 mmol/L (137-145)
[2018-01-20 23:08] LABS: Potassium 4.3 mmol/L (3.5-5.1)
[2018-01-20 23:18] LABS: Appearance,Urine Clear (Clear); Bacteria,Urine Rare /hpf; Bilirubin,Urine Negative (Negative); Blood,Urine Small (Negative); Color,Urine Colorless; Glucose,Urine (UA) Negative (Negative); Ketones,Urine 1+ (Negative); Leukocyte Esterase,Urine Negative (Negative); Nitrite,Urine Negative (Negative); Protein,Urine Negative (Negative); Specific Gravity,Urine 1.001 (1.001-1.035); Squamous Epithelial Cell,Urine <1 /hpf (0-4); Urobilinogen,Urine <2.0 mg/dL (<2.0); WBC,Urine <1 /hpf (0-5)
[2018-01-20 23:35] LABS: Amphetamine Screen,Urine Not Detected (NotDetected); Barbiturate Screen,Urine Not Detected (NotDetected); Benzodiazepines Screen,Urine Detected (NotDetected); Cocaine Screen,Urine Not Detected (NotDetected); Methadone Screen, Urine Not Detected (NotDetected); Opiate Screen,Urine Not Detected (NotDetected); Oxycodone Screen, Urine Not Detected (NotDetected); Phencyclidine Screen,Urine Not Detected (NotDetected); Tricyclic Antidepressant,Urine Not Detected (NotDetected); Urn Cannabinoid Scrn Not Detected (NotDetected)
[2018-01-20] MEDS ORDERED: ONDANSETRON 4 MG/2 ML VIAL IVP STA (23:47)
[2018-01-21] MEDS ORDERED: levETIRAcetam 500 MG TAB PO STA (04:49)
[2018-01-21 05:15] VITALS: RESP 16
[2018-01-21 10:27] VITALS: BP 107/56; PULSE 82; TEMP 98.3
== END 2018-01-21 11:07 | disposition home or self-care (01) ==
LOC: EC 21:31
DX: S50.811A Abrasion of right forearm, initial encounter (principal); F32.9 Major depressive disorder, single episode, unspecified; F10.129 Alcohol abuse with intoxication, unspecified; R11.0 Nausea; G40.909 Epilepsy, unspecified, not intractable, without status epilepticus; F17.200 Nicotine dependence, unspecified, uncomplicated; Z79.899 Other long term (current) drug therapy; Z88.5 Allergy status to narcotic agent; Z85.41 Personal history of malignant neoplasm of cervix uteri; X78.8XXA Intentional self-harm by other sharp object, initial encounter; Y92.59 Other trade areas as the place of occurrence of the external cause
CPT/HCPCS: 82075; 36415; 80048; 85025; 81001; 81025; 80306; 83520 ×2; 99284; 96374; 96361; J2405

== ENCOUNTER 2018-02-05 05:01 | Emergency (ER) | payer OTHER ==
[2018-02-05 05:08] VITALS: BP 147/99; RESP 20; TEMP 98.5
--- NOTE | 2018-02-05 05:16 | ED ---
General Adult HPI - General Chief complaint: ENT Stated complaint: Sore Throat Time Seen by Provider: 02/05/18 05:05 Source: patient, RN notes reviewed Mode of arrival: ambulatory Limitations: no limitations - History of Present Illness Initial comments: This is a [age] female presents emergency Department stating she's had postnasal drip for a week and a half and sinus pressure for a week and a half. Patient states she thinks she had a fever but didn't take her temperature. Patient states in the morning when she swallows sore throat is much worse. She drinks of throughout the day it gets better. Patient denies any cough patient denies any difficulty breathing shortness of breath per patient denies any chest pain. Patient denies any exposure to strep throat. - Related Data Home Medications Medication Instructions Recorded Confirmed levETIRAcetam [Keppra] 250 mg PO Q12HR 01/01/18 01/20/18 Ibuprofen [Motrin Ib] 200 mg PO Q4HR PRN 01/20/18 01/20/18 Previous Rx's Medication Instructions Recorded Amoxicillin/Potassium Clav 1 each PO Q12HR #28 tab 02/05/18 [Augmentin 875-125 Tablet] Allergies Allergy/AdvReac Type Severity Reaction Status Date / Time morphine Allergy Rash/Hives Verified 02/05/18 05:08 Review of Systems ROS Statement: Those systems with pertinent positive or pertinent negative responses have been documented in the HPI. ROS Other: All systems not noted in ROS Statement are negative. Past Medical History Past Medical History: Cancer, Seizure Disorder Additional Past Medical History / Comment(s): brain anuerysm 2010-(had seizure related to), bicornuate uterus, dysfunctional uterine bleeding, hx migraines. recent bronchitis, IBS, gallstones, "pre cervical cancer age 15", insomnia History of Any Multi-Drug Resistant Organisms: None Reported Past Surgical History: Adenoidectomy, Breast Surgery, Section, Cholecystectomy, Orthopedic Surgery, Tonsillectomy Additional Past Surgical History / Comment(s): right knee surgery, brain surgery for aneurysm, ovarian cystectomy laparoscopically, D&C x 2, breast biopsy-left breast, Past Anesthesia/Blood Transfusion Reactions: No Reported Reaction Past Psychological History: Anxiety, Depression, PTSD Smoking Status: Current every day smoker Past Alcohol Use History: Abuse, Daily, Heavy Past Drug Use History: Prescription Drug Abuse - Past Family History Father Additional Family Medical History / Comment(s): ETOH Mother Family Medical History: No Reported History Additional Family Medical History / Comment(s): ETOH, history of uterine fibroids General Exam - General Exam Comments Initial Comments: GENERAL: Patient is well-developed and well-nourished. Patient is nontoxic and well- hydrated and is in mild distress. ENT: Neck is soft and supple. No significant lymphadenopathy is noted. Oropharynx is clear. Moist mucous membranes. Neck has full range of motion without eliciting any pain. Patient has some facial tenderness over the maxillary sinuses EYES: The sclera were anicteric and conjunctiva were pink and moist. Extraocular movements were intact and pupils were equal round and reactive to light. Eyelids were unremarkable. PULMONARY: Unlabored respirations. Good breath sounds bilaterally. No audible rales rhonchi or wheezing was noted. CARDIOVASCULAR: There is a regular rate and rhythm without any murmurs gallops or rubs. SKIN: Skin is clear with no lesions or rashes and otherwise unremarkable. NEUROLOGIC: Patient is alert and oriented x3. Cranial nerves II through XII are grossly intact. Motor and sensory are also intact. Normal speech, volume and content. Symmetrical smile. MUSCULOSKELETAL: Normal extremities with adequate strength and full range of motion. No lower extremity swelling or edema. No calf tenderness. LYMPHATICS: No significant lymphadenopathy is noted PSYCHIATRIC: Normal psychiatric evaluation. Limitations: no limitations Course Vital Signs 02/05/18 05:04 Temperature 98.5 F Pulse Rate 130 H Respiratory 20 Rate Blood Pressure 147/99 O2 Sat by Pulse 98 Oximetry Disposition Clinical Impression: Sinusitis Disposition: HOME SELF-CARE Condition: Good Instructions: Sinusitis (ED) Additional Instructions: Patient should take an [id number] decongestant. Patient should take Augmentin as prescribed. Prescriptions: Amoxicillin/Potassium Clav [Augmentin 875-125 Tablet] 1 each PO Q12HR #28 tab Is patient prescribed a controlled substance at d/c from ED?: No Referrals: None,Stated [Primary Care Provider] - 1-2 days Time of Disposition: 05:16
[2018-02-05 05:23] VITALS: PULSE 101
== END 2018-02-05 05:23 | disposition home or self-care (01) ==
LOC: EC 05:01
DX: J32.0 Chronic maxillary sinusitis (principal); G40.909 Epilepsy, unspecified, not intractable, without status epilepticus; F17.200 Nicotine dependence, unspecified, uncomplicated; Z88.5 Allergy status to narcotic agent; Z79.899 Other long term (current) drug therapy
CPT/HCPCS: 99282

== ENCOUNTER 2018-02-08 10:25 | Emergency (ER) | payer OTHER ==
[2018-02-08 10:55] VITALS: TEMP 98.4
[2018-02-08] MEDS ORDERED: SODIUM CHLORIDE 0.9% 1,000 ML IV STA (11:26)
[2018-02-08] MEDS ORDERED: ONDANSETRON 4 MG/2 ML VIAL IVP STA ×2 (11:26→14:07)
--- NOTE | 2018-02-08 11:28 | ED ---
General Adult HPI - General Chief complaint: Nausea/Vomiting/Diarrhea Stated complaint: EPILEPTIC, NAUSEA, VOMITING Time Seen by Provider: 02/08/18 11:00 Source: patient, RN notes reviewed Mode of arrival: ambulatory Limitations: no limitations - History of Present Illness Initial comments: This is a 32-year-old female who presents emergency Department complaining that she has been having some nausea and vomiting for the last 3 days. Patient states she has a little bit of abdominal cramping but no significant abdominal pain. Patient denies any fever she states she does feel little chilled however. Patient denies any diarrhea. Patient denies any chest pain difficulty breathing shortness of breath. Patient denies any recent cough or upper respiratory symptoms. Patient denies lightheadedness dizziness or near syncopal episode. Patient denies any vaginal bleeding or discharge. Patient denies any dysuria hematuria urinary frequency. - Related Data Home Medications Medication Instructions Recorded Confirmed levETIRAcetam [Keppra] 250 mg PO Q12HR 01/01/18 02/08/18 Previous Rx's Medication Instructions Recorded Ondansetron Odt [Zofran Odt] 4 mg PO Q8HR PRN #10 tab 02/08/18 levETIRAcetam [Keppra] 500 mg PO Q12HR #10 tab 02/08/18 Allergies Allergy/AdvReac Type Severity Reaction Status Date / Time morphine Allergy Rash/Hives Verified 02/08/18 12:18 Review of Systems ROS Statement: Those systems with pertinent positive or pertinent negative responses have been documented in the HPI. ROS Other: All systems not noted in ROS Statement are negative. Past Medical History Past Medical History: Cancer, Seizure Disorder Additional Past Medical History / Comment(s): brain anuerysm 2010-(had seizure related to), bicornuate uterus, dysfunctional uterine bleeding, hx migraines. recent bronchitis, IBS, gallstones, "pre cervical cancer age 15", insomnia History of Any Multi-Drug Resistant Organisms: None Reported Past Surgical History: Adenoidectomy, Breast Surgery, Section, Cholecystectomy, Orthopedic Surgery, Tonsillectomy Additional Past Surgical History / Comment(s): right knee surgery, brain surgery for aneurysm, ovarian cystectomy laparoscopically, D&C x 2, breast biopsy-left breast, Past Anesthesia/Blood Transfusion Reactions: No Reported Reaction Past Psychological History: Anxiety, Depression, PTSD Smoking Status: Current every day smoker Past Alcohol Use History: Abuse, Daily, Heavy Past Drug Use History: Prescription Drug Abuse - Past Family History Father Additional Family Medical History / Comment(s): ETOH Mother Family Medical History: No Reported History Additional Family Medical History / Comment(s): ETOH, history of uterine fibroids General Exam - General Exam Comments Initial Comments: GENERAL: Patient is well-developed and well-nourished. Patient is nontoxic and well- hydrated and is in mild distress. ENT: Neck is soft and supple. No significant lymphadenopathy is noted. Oropharynx is clear. Moist mucous membranes. Neck has full range of motion without eliciting any pain. EYES: The sclera were anicteric and conjunctiva were pink and moist. Extraocular movements were intact and pupils were equal round and reactive to light. Eyelids were unremarkable. PULMONARY: Unlabored respirations. Good breath sounds bilaterally. No audible rales rhonchi or wheezing was noted. CARDIOVASCULAR: There is a regular rate and rhythm without any murmurs gallops or rubs. ABDOMEN: Soft and nontender with normal bowel sounds. No palpable organomegaly was noted. There is no palpable pulsatile mass. SKIN: Skin is clear with no lesions or rashes and otherwise unremarkable. NEUROLOGIC: Patient is alert and oriented x3. Cranial nerves II through XII are grossly intact. Motor and sensory are also intact. Normal speech, volume and content. Symmetrical smile. MUSCULOSKELETAL: Normal extremities with adequate strength and full range of motion. No lower extremity swelling or edema. No calf tenderness. LYMPHATICS: No significant lymphadenopathy is noted PSYCHIATRIC: Normal psychiatric evaluation. Limitations: no limitations Course Vital Signs 02/08/18 10:53 Temperature 98.4 F Pulse Rate 97 Respiratory 18 Rate Blood Pressure 132/88 O2 Sat by Pulse 100 Oximetry Medical Decision Making - Medical Decision Making X-ray shows no acute abnormality. Just this patient was about to be discharged patient started having a seizure gave her Ativan in the thousand of Keppra. Patient admits that patient has not taken her Keppra for 5 days because she left at her boyfriends. - Lab Data Result diagrams: 02/08/18 11:30 02/08/18 11:30 Lab Results 02/08/18 02/08/18 02/08/18 Range/Units 11:30 11:30 11:30 WBC 3.1 L (3.8-10.6) k/uL RBC 4.11 (3.80-5.40) m/uL Hgb 13.2 (11.4-16.0) gm/dL Hct 38.7 (34.0-46.0) % MCV 94.2 (80.0-100.0) fL MCH 32.1 (25.0-35.0) pg MCHC 34.0 (31.0-37.0) g/dL RDW 14.0 (11.5-15.5) % Plt Count 108 L (150-450) k/uL Neutrophils % 46 % Lymphocytes % 35 % Monocytes % 13 % Eosinophils % 0 % Basophils % 2 % Neutrophils # 1.4 (1.3-7.7) k/uL Lymphocytes # 1.1 (1.0-4.8) k/uL Monocytes # 0.4 (0-1.0) k/uL Eosinophils # 0.0 (0-0.7) k/uL Basophils # 0.1 (0-0.2) k/uL Sodium 137 (137-145) mmol/L Potassium 4.4 (3.5-5.1) mmol/L Chloride 95 L (98-107) mmol/L Carbon Dioxide 17 L (22-30) mmol/L Anion Gap 25 mmol/L BUN 3 L (7-17) mg/dL Creatinine 0.50 L (0.52-1.04) mg/dL Est GFR (CKD-EPI)AfAm >90 (>60 ml/min/1.73 sqM) Est GFR (CKD-EPI)NonAf >90 (>60 ml/min/1.73 sqM) Glucose 85 (74-99) mg/dL Calcium 10.1 (8.4-10.2) mg/dL Total Bilirubin 3.0 H (0.2-1.3) mg/dL AST 160 H (14-36) U/L ALT 66 H (9-52) U/L Alkaline Phosphatase 54 (38-126) U/L Total Protein 8.1 (6.3-8.2) g/dL Albumin 5.5 H (3.5-5.0) g/dL Amylase 40 (30-110) U/L Lipase 127 (23-300) U/L Urine Color Yellow Urine Appearance Cloudy H (Clear) Urine pH 6.0 (5.0-8.0) Ur Specific [place] 1.008 (1.001-1.035) Urine Protein Trace H (Negative) Urine Glucose (UA) Negative (Negative) Urine Ketones 3+ H (Negative) Urine Blood Large H (Negative) Urine Nitrite Negative (Negative) Urine Bilirubin Negative (Negative) Urine Urobilinogen 2.0 (<2.0) mg/dL Ur Leukocyte Esterase Negative (Negative) Urine RBC 3 (0-5) /hpf Urine WBC 2 (0-5) /hpf Ur Squamous Epith Cells 7 H (0-4) /hpf Urine Bacteria Rare H (None) /hpf Urine Mucus Few H (None) /hpf Disposition Clinical Impression: Acute vomiting, Elevated liver enzymes, Seizure, History of medication noncompliance Disposition: HOME SELF-CARE Condition: Good Instructions: Acute Nausea and Vomiting (ED) Additional Instructions: Patient is to follow-up with the primary to reevaluate the liver enzymes. Patient will be sent home with Zo[facility]. Urgent she returns as increased abdominal pain or persistent vomiting. Prescriptions: levETIRAcetam [Keppra] 500 mg PO Q12HR #10 tab Ondansetron Odt [Zofran Odt] 4 mg PO Q8HR PRN #10 tab PRN Reason: Nausea Is patient prescribed a controlled substance at d/c from ED?: No Referrals: None,Stated [Primary Care Provider] - 1-2 days Time of Disposition: 13:38
[2018-02-08 12:05] LABS: ALT 66 U/L (9-52); AST 160 U/L (14-36); Albumin 5.5 g/dL (3.5-5.0); Alkaline Phosphatase 54 U/L (38-126); Amylase 40 U/L (30-110); Anion Gap 25 mmol/L; Blood Urea Nitrogen 3 mg/dL (7-17); Calcium 10.1 mg/dL (8.4-10.2); Carbon Dioxide 17 mmol/L (22-30); Chloride 95 mmol/L (98-107); Glucose 85 mg/dL (74-99); Lipase 127 U/L (23-300); Potassium 4.4 mmol/L (3.5-5.1); Sodium 137 mmol/L (137-145); Total Protein 8.1 g/dL (6.3-8.2)
[2018-02-08 12:08] LABS: Appearance,Urine Cloudy (Clear); Bacteria,Urine Rare /hpf; Basophils # (A) 0.1 k/uL (0-0.2); Basophils % (A) 2 %; Bilirubin,Urine Negative (Negative); Blood,Urine Large (Negative); Color,Urine Yellow; Eosinophils % (A) 0 %; Glucose,Urine (UA) Negative (Negative); HCT 38.7 % (34.0-46.0); HGB 13.2 gm/dL (11.4-16.0); Ketones,Urine 3+ (Negative); Leukocyte Esterase,Urine Negative (Negative); Lymphocytes # (A) 1.1 k/uL (1.0-4.8); Lymphocytes % (A) 35 %; MCH 32.1 pg (25.0-35.0); MCV 94.2 fL (80.0-100.0); Mean Platelet Volume 7.6; Monocytes # (A) 0.4 k/uL (0-1.0); Monocytes % (A) 13 %; Mucus,Urine Few /hpf; Neutrophils # (A) 1.4 k/uL (1.3-7.7); Neutrophils % (A) 46 %; Nitrite,Urine Negative (Negative); Platelet Count 108 k/uL (150-450); Protein,Urine Trace (Negative); RBC 4.11 m/uL (3.80-5.40); RBC,Urine 3 /hpf (0-5); Specific Gravity,Urine 1.008 (1.001-1.035); Squamous Epithelial Cell,Urine 7 /hpf (0-4); WBC 3.1 k/uL (3.8-10.6); WBC,Urine 2 /hpf (0-5)
[2018-02-08] MEDS ORDERED: KETOROLAC 30 MG/ML 1 ML VIAL IVP STA (12:47)
--- NOTE | 2018-02-08 12:56 | XR ---
EXAMINATION TYPE: XR KUB DATE OF EXAM: 02/08/2018 CLINICAL DATA: 32-year-old female with abdominal pain, PHH COMPARISON: None FINDINGS: Lung bases are clear with bilateral nipple shadows noted. No evidence for free intraperitoneal air. No dilated small bowel or air-fluid levels. Scattered air is seen within the colon. No significant st ool burden. No suspicious calcifications identified. Multiple pelvic phleboliths. IMPRESSION: No evidence of bowel obstruction or free intraperitoneal air.
[2018-02-08] MEDS ORDERED: LORazepam 2 MG/ML INJ IV STA ×2 (14:08→14:13)
[2018-02-08] MEDS ORDERED: levETIRAcetam 500 MG TAB PO STA (14:18)
[2018-02-08 14:40] VITALS: BP 129/78; PULSE 96; RESP 16
[2018-02-08 17:16] LABS: Hepatitis B Core IgM Non-Reactive (Non-Reactive)
== END 2018-02-08 15:00 | disposition home or self-care (01) ==
LOC: EC 10:25
DX: G40.909 Epilepsy, unspecified, not intractable, without status epilepticus (principal); R11.2 Nausea with vomiting, unspecified; R94.5 Abnormal results of liver function studies; F17.200 Nicotine dependence, unspecified, uncomplicated; Z90.49 Acquired absence of other specified parts of digestive tract; Z91.19 Patient's noncompliance with other medical treatment and regimen; Z88.5 Allergy status to narcotic agent; Z79.899 Other long term (current) drug therapy
CPT/HCPCS: 99284; 96374; 96375 ×2; 96376; 96361; 36415; 86709; 80053; 80074; 82150; 83690; 85025; 81001; 74018; J2060; J2405; J1885

== ENCOUNTER 2018-02-21 20:11 | Emergency (ER) | payer OTHER ==
[2018-02-21] MEDS ORDERED: SODIUM CHLORIDE 0.9% 1,000 ML IV STA (20:34)
--- NOTE | 2018-02-21 20:50 | ED ---
General Adult HPI - General Chief complaint: Seizure Stated complaint: seizure Time Seen by Provider: 02/21/18 20:13 Source: patient, family, RN notes reviewed Mode of arrival: EMS Limitations: no limitations - History of Present Illness Initial comments: 32-year-old female presents to the emergency department for a chief complaint of seizure occurring about 30 minutes ago and lasting for about 2 minutes. Patient's friend called EMS. Patient has a history of seizures for which she takes Keppra. Patient has been taking her Keppra but states she took it about 3 hours late. Patient denies any recent head injuries or falls. Patient states she does not remember the seizure. Patient states she feels better at this point but is still a little shaky. Patient is unsure if she is . Patient states her last seizure was a couple months ago. Patient has no other complaints at this time including shortness of breath, chest pain, abdominal pain, nausea or vomiting, headache, or visual changes. - Related Data Home Medications Medication Instructions Recorded Confirmed levETIRAcetam [Keppra] 500 mg PO BID@,15 02/21/18 02/21/18 Allergies Allergy/AdvReac Type Severity Reaction Status Date / Time morphine Allergy Rash/Hives Verified 02/21/18 20:26 Review of Systems ROS Statement: Those systems with pertinent positive or pertinent negative responses have been documented in the HPI. ROS Other: All systems not noted in ROS Statement are negative. Past Medical History Past Medical History: Cancer, Seizure Disorder Additional Past Medical History / Comment(s): brain anuerysm 2010-(had seizure related to), bicornuate uterus, dysfunctional uterine bleeding, hx migraines. recent bronchitis, IBS, gallstones, "pre cervical cancer age 15", insomnia History of Any Multi-Drug Resistant Organisms: None Reported Past Surgical History: Adenoidectomy, Breast Surgery, Section, Cholecystectomy, Orthopedic Surgery, Tonsillectomy Additional Past Surgical History / Comment(s): right knee surgery, brain surgery for aneurysm, ovarian cystectomy laparoscopically, D&C x 2, breast biopsy-left breast, Past Anesthesia/Blood Transfusion Reactions: No Reported Reaction Past Psychological History: Anxiety, Depression, PTSD Smoking Status: Current every day smoker Past Alcohol Use History: Abuse, Daily, Heavy Past Drug Use History: Prescription Drug Abuse - Past Family History Father Additional Family Medical History / Comment(s): ETOH Mother Family Medical History: No Reported History Additional Family Medical History / Comment(s): ETOH, history of uterine fibroids General Exam Limitations: no limitations General appearance: alert, in no apparent distress Head exam: Present: atraumatic, normocephalic, normal inspection Eye exam: Present: normal appearance, PERRL, EOMI. Absent: scleral icterus, conjunctival injection, nystagmus, periorbital swelling Pupils: Present: normal accommodation ENT exam: Present: normal exam, normal oropharynx, mucous membranes moist, TM's normal bilaterally, normal external ear exam Neck exam: Present: normal inspection, full ROM. Absent: tenderness, meningismus, lymphadenopathy Respiratory exam: Present: normal lung sounds bilaterally. Absent: respiratory distress, wheezes, rales, rhonchi, stridor Cardiovascular Exam: Present: regular rate, normal rhythm, normal heart sounds. Absent: systolic murmur, diastolic murmur, rubs, gallop, clicks Neurological exam: Present: alert, oriented X3, CN II-XII intact, other (GCS 15 , neg arm drift, strength 5/5 in upper and lower ext bilat) Psychiatric exam: Present: normal affect, normal mood Course Vital Signs 02/21/18 20:13 Temperature 98.0 F Pulse Rate 101 H Respiratory 20 Rate Blood Pressure 120/78 O2 Sat by Pulse 100 Oximetry EKG Findings - EKG Comments: EKG Findings:: Normal sinus rhythm, ventricular rate 100, OH interval 1:30, QRS duration 72 Medical Decision Making - Medical Decision Making 32-year-old female presents to the emergency department for a chief complaint of seizure occurring about 30 minutes ago. Patient states the seizure lasted for about 2 minutes. It was witnessed by a friend. Patient has been taking Keppra. Patient admits to drinking alcohol today. On exam, no focal neuro deficits. Patient is alert and awake. She is responsive to questions and cooperative. CBC shows a neutropenia consistent with previous lab work. CMP unremarkable. Keppra levels were sent out. Urinalysis clear and hCG negative. Urine toxicology screen negative. Patient did admit to moderate alcohol consumption earlier in the day. Patient is ataxic and operating within normal limits mentally. She is taking a cab home. On reexamination, patient is alert and oriented. Patient states she feels much better. She is at baseline mentally. Patient is ready to go home. She will follow up with neurology as soon as possible and continue to take Keppra. She will return to the emergency Department if she has any worsening symptoms. - Lab Data Result diagrams: 02/21/18 20:47 02/21/18 20:47 Lab Results 02/21/18 02/21/18 02/21/18 Range/Units 20:47 20:47 22:20 WBC 3.0 L (3.8-10.6) k/uL RBC 3.76 L (3.80-5.40) m/uL Hgb 11.8 (11.4-16.0) gm/dL Hct 35.0 (34.0-46.0) % MCV 92.9 (80.0-100.0) fL MCH 31.4 (25.0-35.0) pg MCHC 33.8 (31.0-37.0) g/dL RDW 14.1 (11.5-15.5) % Plt Count 137 L (150-450) k/uL Neutrophils % (Manual) 15 % Lymphocytes % (Manual) 76 % Monocytes % (Manual) 8 % Eosinophils % (Manual) 1 % Neutrophils # (Manual) 0.45 L (1.3-7.7) k/uL Lymphocytes # (Manual) 2.28 (1.0-4.8) k/uL Monocytes # (Manual) 0.24 (0-1.0) k/uL Eosinophils # (Manual) 0.03 (0-0.7) k/uL Nucleated RBCs 0 (0-0) /100 WBC Manual Slide Review Performed Sodium 135 L (137-145) mmol/L Potassium 3.8 (3.5-5.1) mmol/L Chloride 95 L (98-107) mmol/L Carbon Dioxide 23 (22-30) mmol/L Anion Gap 17 mmol/L BUN <2 L (7-17) mg/dL Creatinine 0.50 L (0.52-1.04) mg/dL Est GFR (CKD-EPI)AfAm >90 (>60 ml/min/1.73 sqM) Est GFR (CKD-EPI)NonAf >90 (>60 ml/min/1.73 sqM) Glucose 97 (74-99) mg/dL Calcium 9.5 (8.4-10.2) mg/dL Total Bilirubin 1.4 H (0.2-1.3) mg/dL AST 146 H (14-36) U/L ALT 66 H (9-52) U/L Alkaline Phosphatase 50 (38-126) U/L Total Protein 6.8 (6.3-8.2) g/dL Albumin 4.5 (3.5-5.0) g/dL Urine Color Urine Appearance (Clear) Urine pH (5.0-8.0) Ur Specific [place] (1.001-1.035) Urine Protein (Negative) Urine Glucose (UA) (Negative) Urine Ketones (Negative) Urine Blood (Negative) Urine Nitrite (Negative) Urine Bilirubin (Negative) Urine Urobilinogen (<2.0) mg/dL Ur Leukocyte Esterase (Negative) Urine HCG, Qual (Not Detectd) Urine Opiates Screen Not Detected (NotDetected) Ur Oxycodone Screen Not Detected (NotDetected) Urine Methadone Screen Not Detected (NotDetected) Ur Propoxyphene Screen Not Detected (NotDetected) Ur Barbiturates Screen Not Detected (NotDetected) U Tricyclic Antidepress Not Detected (NotDetected) Ur Phencyclidine Scrn Not Detected (NotDetected) Ur Amphetamines Screen Not Detected (NotDetected) U Methamphetamines Scrn Not Detected (NotDetected) U Benzodiazepines Scrn Not Detected (NotDetected) Urine Cocaine Screen Not Detected (NotDetected) U Marijuana (THC) Screen Not Detected (NotDetected) 02/21/18 02/21/18 Range/Units 22:22 22:22 WBC (3.8-10.6) k/uL RBC (3.80-5.40) m/uL Hgb (11.4-16.0) gm/dL Hct (34.0-46.0) % MCV (80.0-100.0) fL MCH (25.0-35.0) pg MCHC (31.0-37.0) g/dL RDW (11.5-15.5) % Plt Count (150-450) k/uL Neutrophils % (Manual) % Lymphocytes % (Manual) % Monocytes % (Manual) % Eosinophils % (Manual) % Neutrophils # (Manual) (1.3-7.7) k/uL Lymphocytes # (Manual) (1.0-4.8) k/uL Monocytes # (Manual) (0-1.0) k/uL Eosinophils # (Manual) (0-0.7) k/uL Nucleated RBCs (0-0) /100 WBC Manual Slide Review Sodium (137-145) mmol/L Potassium (3.5-5.1) mmol/L Chloride (98-107) mmol/L Carbon Dioxide (22-30) mmol/L Anion Gap mmol/L BUN (7-17) mg/dL Creatinine (0.52-1.04) mg/dL Est GFR (CKD-EPI)AfAm (>60 ml/min/1.73 sqM) Est GFR (CKD-EPI)NonAf (>60 ml/min/1.73 sqM) Glucose (74-99) mg/dL Calcium (8.4-10.2) mg/dL Total Bilirubin (0.2-1.3) mg/dL AST (14-36) U/L ALT (9-52) U/L Alkaline Phosphatase (38-126) U/L Total Protein (6.3-8.2) g/dL Albumin (3.5-5.0) g/dL Urine Color Colorless Urine Appearance Clear (Clear) Urine pH 5.5 (5.0-8.0) Ur Specific [place] 1.001 (1.001-1.035) Urine Protein Negative (Negative) Urine Glucose (UA) Negative (Negative) Urine Ketones Negative (Negative) Urine Blood Negative (Negative) Urine Nitrite Negative (Negative) Urine Bilirubin Negative (Negative) Urine Urobilinogen <2.0 (<2.0) mg/dL Ur Leukocyte Esterase Negative (Negative) Urine HCG, Qual Not Detected (Not Detectd) Urine Opiates Screen (NotDetected) Ur Oxycodone Screen (NotDetected) Urine Methadone Screen (NotDetected) Ur Propoxyphene Screen (NotDetected) Ur Barbiturates Screen (NotDetected) U Tricyclic Antidepress (NotDetected) Ur Phencyclidine Scrn (NotDetected) Ur Amphetamines Screen (NotDetected) U Methamphetamines Scrn (NotDetected) U Benzodiazepines Scrn (NotDetected) Urine Cocaine Screen (NotDetected) U Marijuana (THC) Screen (NotDetected) Disposition Clinical Impression: Seizure Disposition: HOME SELF-CARE Condition: Good Instructions: Recurrent Seizures in Adults (ED) Additional Instructions: Please follow up with neurologist as soon as possible. Please follow-up with primary care as well. Continue to take medication as directed. Return to the emergency department if you have any worsening symptoms or additional concerns. Is patient prescribed a controlled substance at d/c from ED?: No Referrals: Lake Leong MD [STAFF PHYSICIAN] - 1-2 days Time of Disposition: 23:11
[2018-02-21] MEDS ORDERED: ONDANSETRON 4 MG/2 ML VIAL IVP STA (20:51)
[2018-02-21 21:05] LABS: ALT 66 U/L (9-52); AST 146 U/L (14-36); Albumin 4.5 g/dL (3.5-5.0); Alkaline Phosphatase 50 U/L (38-126); Anion Gap 17 mmol/L; Blood Urea Nitrogen <2 mg/dL (7-17); Calcium 9.5 mg/dL (8.4-10.2); Carbon Dioxide 23 mmol/L (22-30); Chloride 95 mmol/L (98-107); Glucose 97 mg/dL (74-99); Potassium 3.8 mmol/L (3.5-5.1); Sodium 135 mmol/L (137-145); Total Bilirubin 1.4 mg/dL (0.2-1.3); Total Protein 6.8 g/dL (6.3-8.2)
[2018-02-21 21:07] LABS: HGB 11.8 gm/dL (11.4-16.0); MCH 31.4 pg (25.0-35.0); MCHC 33.8 g/dL (31.0-37.0); MCV 92.9 fL (80.0-100.0); Mean Platelet Volume 7.1; Platelet Count 137 k/uL (150-450); RBC 3.76 m/uL (3.80-5.40); RDW 14.1 % (11.5-15.5)
[2018-02-21 21:34] LABS: Eosinophils # (M) 0.03 k/uL (0-0.7); Lymphocytes # (M) 2.28 k/uL (1.0-4.8); Monocytes # (M) 0.24 k/uL (0-1.0); Neutrophils # (M) 0.45 k/uL (1.3-7.7); Neutrophils % (M) 15 %; Nucleated Red Blood Cells 0 /100 WBC (0-0); Total Cells Counted 100
[2018-02-21 22:30] LABS: Appearance,Urine Clear (Clear); Bilirubin,Urine Negative (Negative); Blood,Urine Negative (Negative); Color,Urine Colorless; Glucose,Urine (UA) Negative (Negative); Ketones,Urine Negative (Negative); Leukocyte Esterase,Urine Negative (Negative); Nitrite,Urine Negative (Negative); PH, Urine 5.5 (5.0-8.0); Protein,Urine Negative (Negative); Specific Gravity,Urine 1.001 (1.001-1.035); Urobilinogen,Urine <2.0 mg/dL (<2.0)
[2018-02-21 22:43] LABS: Amphetamine Screen,Urine Not Detected (NotDetected); Barbiturate Screen,Urine Not Detected (NotDetected); Benzodiazepines Screen,Urine Not Detected (NotDetected); Cocaine Screen,Urine Not Detected (NotDetected); Methadone Screen, Urine Not Detected (NotDetected); Opiate Screen,Urine Not Detected (NotDetected); Oxycodone Screen, Urine Not Detected (NotDetected); Phencyclidine Screen,Urine Not Detected (NotDetected); Tricyclic Antidepressant,Urine Not Detected (NotDetected); Urn Cannabinoid Scrn Not Detected (NotDetected)
[2018-02-21 23:28] VITALS: BP 92/53; PULSE 86; RESP 16; TEMP 98
== END 2018-02-21 23:37 | disposition home or self-care (01) ==
LOC: EC 20:11
DX: G40.909 Epilepsy, unspecified, not intractable, without status epilepticus (principal); D70.9 Neutropenia, unspecified; F17.200 Nicotine dependence, unspecified, uncomplicated; Z88.5 Allergy status to narcotic agent; Z79.899 Other long term (current) drug therapy
CPT/HCPCS: 99284; 96374; 96361 ×2; 36415; 93005; 80053; 80177; 85025; 81003; 81025; 80306; J2405

== ENCOUNTER 2018-02-28 10:59 | Emergency (ER) | payer OTHER ==
[2018-02-28] MEDS ORDERED: DIPH,PERTUS(ACELL)TETVAC-LF 0.5 ML VIAL IM ONE (11:14)
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
--- NOTE | 2018-02-28 11:59 | CT ---
EXAMINATION TYPE: CT brain reece mantilla DATE OF EXAM: 02/28/2018 COMPARISON: 03/21/2016 HISTORY: trauma, fall today, hx of brain aneurysm CT DLP: 1274.[address] Brain: Unenhanced CT of the brain was performed. The ventricles, basal cisterns and sulci overlying the cerebral convexities demonstrate mild prominen ce of the patient's age group. There is no evidence for intracranial hemorrhage or sulcal effacement. No mass effects are seen. If symptoms persist consider MRI. Osseous calvarium is intact. Right temporal parietal craniotomy changes again noted. IMPRESSION: No acute intracranial process CT Cervical Spine: Unenhanced CT of the cervical spine was performed with bone and soft tissue window settings submitted . Coronal and sagittal reconstruction is obtained. There is normal alignment and prevertebral soft tissues. I do not see evidence for fracture or sublu xation. No significant degenerative changes are present. The lung apices are clear. IMPRESSION: No evidence for acute fracture or subluxation of the cervical spine.
--- NOTE | 2018-02-28 12:00 | XR ---
EXAMINATION TYPE: XR knee complete LT DATE OF EXAM: 02/28/2018 CLINICAL HISTORY: pain TECHNIQUE: Three views of the left knee are obtained. COMPARISON: None. FINDINGS: There is no acute fracture/dislocation. The tri-compartment joint spaces appear within no rmal limits. The overlying soft tissue appears unremarkable. IMPRESSION: There is no acute fracture or dislocation ICD 10 NO FRACTURE, INITIAL EVALUATION
[2018-02-28 12:45] VITALS: BP 113/69; PULSE 89; RESP 14; TEMP 97.5
== END 2018-02-28 12:46 | disposition home or self-care (01) ==
LOC: EC 10:59
DX: S09.90XA Unspecified injury of head, initial encounter (principal); S80.212A Abrasion, left knee, initial encounter; S60.511A Abrasion of right hand, initial encounter; R40.2142 Coma scale, eyes open, spontaneous, at arrival to emergency department; R40.2252 Coma scale, best verbal response, oriented, at arrival to emergency department; R40.2362 Coma scale, best motor response, obeys commands, at arrival to emergency department; G40.909 Epilepsy, unspecified, not intractable, without status epilepticus; F17.200 Nicotine dependence, unspecified, uncomplicated; Z23 Encounter for immunization; Z85.41 Personal history of malignant neoplasm of cervix uteri; Z79.899 Other long term (current) drug therapy; Z88.5 Allergy status to narcotic agent; W01.198A Fall on same level from slipping, tripping and stumbling with subsequent striking against other object, initial encounter; Y92.89 Other specified places as the place of occurrence of the external cause
CPT/HCPCS: 36415; 70450; 72125; 80053; 82075; 85025; 90471; 90715; 93005; 99284

== ENCOUNTER 2018-02-28 21:09 | Emergency (ER) | payer OTHER ==
[2018-02-28 21:14] VITALS: BP 146/91; PULSE 111; RESP 18; TEMP 98.3
[2018-02-28] MEDS ORDERED: levETIRAcetam 500 MG TAB PO STA (21:45)
[2018-02-28] MEDS ORDERED: SODIUM CHLORIDE 0.9% 1,000 ML IV STA (21:45)
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
--- NOTE | 2018-02-28 22:23 | CT ---
EXAMINATION TYPE: CT brain reece mantilla DATE OF EXAM: 02/28/2018 COMPARISON: Today HISTORY: Multiple seizures today. CT DLP: 1061.8 mGycm Automated exposure control for dose reduction was used. TECHNIQUE: CT scan of the head and cervical spine are performed without contrast. FINDINGS: Ventricles are not enlarged. There is no mass effect nor midline shift. There is no sign of intracranial hemorrhage. The calvarium is intact. There is mild straightening of the cervical vertebra. Disc spaces are normal. Posterior elements are intact. Skull base is intact. There is no evidence of cervical spine fracture. There is right tempora l craniotomy defect. IMPRESSION: Minimal cerebral atrophy. No acute intracranial abnormality. No change. Mild straightening of the cervical spine. No fracture. No change.
[2018-02-28 22:39] LABS: Basophils % (A) 1 %; Eosinophils % (A) 1 %; HCT 35.4 % (34.0-46.0); HGB 11.5 gm/dL (11.4-16.0); Lymphocytes # (A) 1.4 k/uL (1.0-4.8); Lymphocytes % (A) 48 %; MCH 31.2 pg (25.0-35.0); MCHC 32.6 g/dL (31.0-37.0); MCV 95.7 fL (80.0-100.0); Mean Platelet Volume 7.5; Monocytes # (A) 0.2 k/uL (0-1.0); Monocytes % (A) 8 %; Neutrophils # (A) 1.1 k/uL (1.3-7.7); Neutrophils % (A) 39 %; RBC 3.69 m/uL (3.80-5.40); RDW 14.4 % (11.5-15.5); WBC 2.9 k/uL (3.8-10.6)
[2018-02-28 22:49] LABS: ALT 63 U/L (9-52); AST 201 U/L (14-36); Albumin 4.2 g/dL (3.5-5.0); Alkaline Phosphatase 59 U/L (38-126); Anion Gap 15 mmol/L; Blood Urea Nitrogen <2 mg/dL (7-17); Calcium 9.7 mg/dL (8.4-10.2); Carbon Dioxide 24 mmol/L (22-30); Chloride 98 mmol/L (98-107); Glucose 100 mg/dL (74-99); Potassium 3.7 mmol/L (3.5-5.1); Sodium 137 mmol/L (137-145); Total Bilirubin 1.2 mg/dL (0.2-1.3); Total Protein 6.8 g/dL (6.3-8.2)
[2018-02-28 22:50] LABS: Platelet Count 78 k/uL (150-450)
== END 2018-02-28 23:34 | disposition home or self-care (01) ==
LOC: EC 21:09
DX: S09.90XA Unspecified injury of head, initial encounter (principal); G31.9 Degenerative disease of nervous system, unspecified; D72.819 Decreased white blood cell count, unspecified; R40.2412 Glasgow coma scale score 13-15, at arrival to emergency department; M53.82 Other specified dorsopathies, cervical region; Q51.3 Bicornate uterus; G40.909 Epilepsy, unspecified, not intractable, without status epilepticus; F17.200 Nicotine dependence, unspecified, uncomplicated; Z79.899 Other long term (current) drug therapy; Z88.5 Allergy status to narcotic agent; Y04.2XXA Assault by strike against or bumped into by another person, initial encounter; Y93.89 Activity, other specified; Y92.009 Unspecified place in unspecified non-institutional (private) residence as the place of occurrence of the external cause
CPT/HCPCS: 36415; 70450; 72125; 80053; 82075; 85025; 93005; 99284

== ENCOUNTER 2018-03-12 01:53 | Emergency (ER) | payer OTHER ==
[2018-03-12 03:44] LABS: Basophils % (A) 1 %; Eosinophils % (A) 1 %; HCT 33.4 % (34.0-46.0); HGB 10.7 gm/dL (11.4-16.0); Lymphocytes # (A) 2.1 k/uL (1.0-4.8); Lymphocytes % (A) 60 %; MCH 30.8 pg (25.0-35.0); MCHC 32.2 g/dL (31.0-37.0); MCV 95.8 fL (80.0-100.0); Mean Platelet Volume 7.3; Monocytes # (A) 0.2 k/uL (0-1.0); Monocytes % (A) 7 %; Neutrophils % (A) 28 %; RBC 3.48 m/uL (3.80-5.40); RDW 14.4 % (11.5-15.5); WBC 3.5 k/uL (3.8-10.6)
[2018-03-12 03:53] LABS: Platelet Count 122 k/uL (150-450)
[2018-03-12 03:54] LABS: ALT 37 U/L (9-52); AST 87 U/L (14-36); Albumin 3.7 g/dL (3.5-5.0); Alkaline Phosphatase 49 U/L (38-126); Anion Gap 9 mmol/L; Blood Urea Nitrogen 2 mg/dL (7-17); Calcium 9.2 mg/dL (8.4-10.2); Carbon Dioxide 25 mmol/L (22-30); Chloride 107 mmol/L (98-107); Glucose 90 mg/dL (74-99); Potassium 3.8 mmol/L (3.5-5.1); Sodium 141 mmol/L (137-145); Total Bilirubin 0.9 mg/dL (0.2-1.3)
[2018-03-12 03:58] LABS: Amphetamine Screen,Urine Not Detected (NotDetected); Barbiturate Screen,Urine Not Detected (NotDetected); Benzodiazepines Screen,Urine Not Detected (NotDetected); Cocaine Screen,Urine Not Detected (NotDetected); Methadone Screen, Urine Not Detected (NotDetected); Opiate Screen,Urine Not Detected (NotDetected); Oxycodone Screen, Urine Not Detected (NotDetected); Phencyclidine Screen,Urine Not Detected (NotDetected); Tricyclic Antidepressant,Urine Not Detected (NotDetected); Urn Cannabinoid Scrn Not Detected (NotDetected)
--- NOTE | 2018-03-12 04:03 | CT ---
EXAMINATION TYPE: CT brain wo con DATE OF EXAM: 03/12/2018 COMPARISON: 02/28/2018 HISTORY: Seizures CT DLP: 1066.90 mGycm. Automated Exposure Control for Dose Reduction was Utilized. TECHNIQUE: CT scan of the head is performed without contrast. FINDINGS: Ventricles and sulci are within normal limits. There is no mass effect nor midline shift. There is no sign of intracranial hemorrhage. There is right temporal craniotomy defect. IMPRESSION: No acute intracranial abnormality. No change.
--- NOTE | 2018-03-12 05:34 | ED ---
Seizure HPI - General Chief Complaint: Seizure Stated Complaint: Seizure Time Seen by Provider: 03/12/18 01:57 Source: patient, EMS Mode of arrival: EMS Limitations: no limitations - History of Present Illness Initial Comments: 32 years old female history of seizure disorder she said she had 5 seizures today, she said she was shaking was she was awake and now she noticed some coming she remember all the details of the seizures she denies any loss of consciousness she denies any postictal state she said she was out there are walking she walked about 10 miles an hour and Tuesday rather she denies any injury from the seizures no fall no trauma to the head or neck said she has been taking her Keppra. Regularly devious system denies any headaches no neck stiffness no chest pain or shortness of breath no abdominal pain no frequency urgency dysuria she denies any street drugs use she said she has been using her she been drinking, no falls and no trauma no injury from the seizure - Related Data Home Medications Medication Instructions Recorded Confirmed levETIRAcetam [Keppra] 500 mg PO BID@0030,1230 02/21/18 02/28/18 Hemp Oil 1 vial PO TID PRN 02/28/18 02/28/18 Melatonin 5 mg PO HS 02/28/18 02/28/18 Allergies Allergy/AdvReac Type Severity Reaction Status Date / Time morphine Allergy Rash/Hives Verified 02/28/18 21:30 Review of Systems ROS Statement: Those systems with pertinent positive or pertinent negative responses have been documented in the HPI. ROS Other: All systems not noted in ROS Statement are negative. Past Medical History Past Medical History: Cancer, Seizure Disorder Additional Past Medical History / Comment(s): brain anuerysm 2010-(had seizure related to), bicornuate uterus, dysfunctional uterine bleeding, hx migraines. recent bronchitis, IBS, gallstones, "pre cervical cancer age 15", insomnia History of Any Multi-Drug Resistant Organisms: None Reported Past Surgical History: Adenoidectomy, Breast Surgery, Section, Cholecystectomy, Orthopedic Surgery, Tonsillectomy Additional Past Surgical History / Comment(s): right knee surgery, brain surgery for aneurysm, ovarian cystectomy laparoscopically, D&C x 2, breast biopsy-left breast, Past Anesthesia/Blood Transfusion Reactions: No Reported Reaction Past Psychological History: Anxiety, Depression, PTSD Smoking Status: Current every day smoker Past Alcohol Use History: Abuse, Daily, Heavy Past Drug Use History: Prescription Drug Abuse - Past Family History Father Additional Family Medical History / Comment(s): ETOH Mother Family Medical History: No Reported History Additional Family Medical History / Comment(s): ETOH, history of uterine fibroids General Exam - General Exam Comments Initial Comments: General: The patient is awake and alert, in no distress, and does not appear acutely ill. Skin: Skin is warm and dry and no rashes or lesions are noted. Eye: Pupils are equal, round and reactive to light, extra-ocular movements are intact; there is normal conjunctiva bilaterally. Ears, nose, mouth and throat: There are moist mucous membranes and no oral lesions. Neck: The neck is supple, there is no tenderness or JVD. Cardiovascular: There is a regular rate and rhythm. No murmur, rub or gallop is appreciated. Respiratory: To auscultation bilateral, no wheezing no rhonchi no distress respiratory pulliam noticed Gastrointestinal: Soft, non-distended, non-tender abdomen without masses or organomegaly noted. There is no rebound or guarding present. Bowel sounds are unremarkable. Back: There is no tenderness to palpation in the midline. There is no obvious deformity. Musculoskeletal: Normal ROM, no tenderness, There is no pedal edema. There is no calf tenderness or swelling. No cords were appreciated. Neurological: CN II-XII intact, Cranial nerves III through XII are intact. There are no obvious motor or sensory deficits. Coordination appears grossly intact. Speech is normal. Psychiatric: Cooperative, appropriate mood & affect, normal judgment. Limitations: no limitations Course Vital Signs 03/12/18 01:59 Temperature 98.0 F Pulse Rate 97 Respiratory 16 Rate Blood Pressure 110/69 O2 Sat by Pulse 97 Oximetry KG was normal sinus ventricular rate was 71 FL interval is 142 QRS duration is 70 QT/QTc is 410/445 review of this EKG does not reveal any ST elevation or ST depression Reassessment noticed CBC, CMP, urine drug screen, head CT are normal she had no seizure during her stay here she be discharged home to follow-up family doctor and neurologist, she has no family doctor she was advised to follow with the Dr. Duncan Soni's one of the few doctors we were advised patient could follow- up if they don't have a family doctor Medical Decision Making - Lab Data Result diagrams: 03/12/18 02:09 03/12/18 02:09 Lab Results 03/12/18 03/12/18 03/12/18 Range/Units 02:09 02:09 02:09 WBC 3.5 L (3.8-10.6) k/uL RBC 3.48 L (3.80-5.40) m/uL Hgb 10.7 L (11.4-16.0) gm/dL Hct 33.4 L (34.0-46.0) % MCV 95.8 (80.0-100.0) fL MCH 30.8 (25.0-35.0) pg MCHC 32.2 (31.0-37.0) g/dL RDW 14.4 (11.5-15.5) % Plt Count 122 L D (150-450) k/uL Neutrophils % 28 % Lymphocytes % 60 % Monocytes % 7 % Eosinophils % 1 % Basophils % 1 % Neutrophils # 1.0 L (1.3-7.7) k/uL Lymphocytes # 2.1 (1.0-4.8) k/uL Monocytes # 0.2 (0-1.0) k/uL Eosinophils # 0.0 (0-0.7) k/uL Basophils # 0.0 (0-0.2) k/uL Sodium 141 (137-145) mmol/L Potassium 3.8 (3.5-5.1) mmol/L Chloride 107 (98-107) mmol/L Carbon Dioxide 25 (22-30) mmol/L Anion Gap 9 mmol/L BUN 2 L (7-17) mg/dL Creatinine 0.46 L (0.52-1.04) mg/dL Est GFR (CKD-EPI)AfAm >90 (>60 ml/min/1.73 sqM) Est GFR (CKD-EPI)NonAf >90 (>60 ml/min/1.73 sqM) Glucose 90 (74-99) mg/dL Calcium 9.2 (8.4-10.2) mg/dL Total Bilirubin 0.9 (0.2-1.3) mg/dL AST 87 H (14-36) U/L ALT 37 (9-52) U/L Alkaline Phosphatase 49 (38-126) U/L Total Protein 6.0 L (6.3-8.2) g/dL Albumin 3.7 (3.5-5.0) g/dL Urine Opiates Screen Not Detected (NotDetected) Ur Oxycodone Screen Not Detected (NotDetected) Urine Methadone Screen Not Detected (NotDetected) Ur Propoxyphene Screen Not Detected (NotDetected) Ur Barbiturates Screen Not Detected (NotDetected) U Tricyclic Antidepress Not Detected (NotDetected) Ur Phencyclidine Scrn Not Detected (NotDetected) Ur Amphetamines Screen Not Detected (NotDetected) U Methamphetamines Scrn Not Detected (NotDetected) U Benzodiazepines Scrn Not Detected (NotDetected) Urine Cocaine Screen Not Detected (NotDetected) U Marijuana (THC) Screen Not Detected (NotDetected) Disposition Clinical Impression: Seizure disorder Disposition: HOME SELF-CARE Condition: Good Additional Instructions: She will continue the Keppra she has a supply of Her with her Is patient prescribed a controlled substance at d/c from ED?: No Referrals: None,Stated [Primary Care Provider] - 1-2 days Duncan Soni MD [STAFF PHYSICIAN] - 1-2 days Lucero Tabor MD [STAFF PHYSICIAN] - 1-2 days
[2018-03-12 05:44] VITALS: BP 137/68; PULSE 71; RESP 17; TEMP 98.7
== END 2018-03-12 05:44 | disposition home or self-care (01) ==
LOC: EC 01:53
DX: G40.909 Epilepsy, unspecified, not intractable, without status epilepticus (principal); F17.200 Nicotine dependence, unspecified, uncomplicated; Z85.41 Personal history of malignant neoplasm of cervix uteri; Z86.69 Personal history of other diseases of the nervous system and sense organs; Z98.890 Other specified postprocedural states; Z79.899 Other long term (current) drug therapy
CPT/HCPCS: 36415; 70450; 80053; 80306; 85025; 93005; 99285

== ENCOUNTER 2018-03-16 22:04 | Emergency (ER) | payer OTHER ==
[2018-03-16] MEDS ORDERED: levETIRAcetam IV 1,000 MG in SALINE 1 100ML.BAG IVPB STA (23:23)
[2018-03-16] MEDS ORDERED: SODIUM CHLORIDE 0.9% 1,000 ML IV STA (23:23)
[2018-03-16] MEDS ORDERED: METOCLOPRAMIDE 5 MG/ML 2 ML VIAL IVP STA (23:44)
[2018-03-17] LABS: Anion Gap 13 mmol/L; Blood Urea Nitrogen 3 mg/dL (7-17); Calcium 9.6 mg/dL (8.4-10.2); Carbon Dioxide 23 mmol/L (22-30); Chloride 101 mmol/L (98-107); Glucose 92 mg/dL (74-99); Magnesium 1.7 mg/dL (1.6-2.3); Potassium 4.4 mmol/L (3.5-5.1); Sodium 137 mmol/L (137-145)
[2018-03-17 00:09] LABS: HCT 37.8 % (34.0-46.0); HGB 12.2 gm/dL (11.4-16.0); MCH 31.1 pg (25.0-35.0); MCHC 32.2 g/dL (31.0-37.0); MCV 96.5 fL (80.0-100.0); Mean Platelet Volume 6.9; Platelet Count 130 k/uL (150-450); RBC 3.92 m/uL (3.80-5.40); RDW 14.4 % (11.5-15.5); WBC 2.8 k/uL (3.8-10.6)
--- NOTE | 2018-03-17 00:49 | ED ---
General Adult HPI - General Chief complaint: Nausea/Vomiting/Diarrhea Stated complaint: POSS SEIZURE Source: patient, EMS Mode of arrival: EMS Limitations: no limitations - History of Present Illness Initial comments: Dictation was produced using [employer] dictation software. please excuse any grammatical, word or spelling errors. Chief Complaint: 32-year-old -[place] female past medical history of seizure disorder, brain aneurysm presents with episode of tremors. History of Present Illness: There is 2-year-old female past medical history of seizures. She takes Keppra daily. She states that she has not been consistent with her Keppra medication. She states she was in an argument with her significant other when she became upset and had episode of tremors. Patient course that she has not been compliant with her medications over the past several days. She did report drinking alcohol today. Denies any constitutional symptoms. The ROS documented in this emergency department record has been reviewed and confirmed by me. Those systems with pertinent positive or negative responses have been documented in the HPI. All other systems are other negative and/or noncontributory. - Related Data Home Medications Medication Instructions Recorded Confirmed levETIRAcetam [Keppra] 500 mg PO Q12H 02/21/18 03/16/18 Allergies Allergy/AdvReac Type Severity Reaction Status Date / Time morphine Allergy Rash/Hives Verified 03/16/18 22:11 Review of Systems ROS Statement: Those systems with pertinent positive or pertinent negative responses have been documented in the HPI. ROS Other: All systems not noted in ROS Statement are negative. Past Medical History Past Medical History: Cancer, Seizure Disorder Additional Past Medical History / Comment(s): brain anuerysm 2010-(had seizure related to), bicornuate uterus, dysfunctional uterine bleeding, hx migraines. recent bronchitis, IBS, gallstones, "pre cervical cancer age 15", insomnia History of Any Multi-Drug Resistant Organisms: None Reported Past Surgical History: Adenoidectomy, Breast Surgery, Section, Cholecystectomy, Orthopedic Surgery, Tonsillectomy Additional Past Surgical History / Comment(s): right knee surgery, brain surgery for aneurysm, ovarian cystectomy laparoscopically, D&C x 2, breast biopsy-left breast, Past Anesthesia/Blood Transfusion Reactions: No Reported Reaction Past Psychological History: Anxiety, Depression, PTSD Smoking Status: Current every day smoker Past Alcohol Use History: Abuse, Daily, Heavy Past Drug Use History: Prescription Drug Abuse - Past Family History Father Additional Family Medical History / Comment(s): ETOH Mother Family Medical History: No Reported History Additional Family Medical History / Comment(s): ETOH, history of uterine fibroids General Exam - General Exam Comments Initial Comments: PHYSICAL EXAM: General Impression: Alert and oriented x3, not in acute distress HEENT: Normocephalic atraumatic, extra-ocular movements intact, pupils equal and reactive to light bilaterally, mucous membranes moist. Cardiovascular: Heart regular rate and rhythm, S1&S2 audible, no murmurs, rubs or gallops Chest: Lungs clear to auscultation bilaterally, no rhonchi, no wheeze, no rales Abdomen: Bowel sounds present, abdomen soft, non-tender, non-distended, no organomegaly Musculoskeletal: Pulses present and equal in all extremities, no peripheral edema Motor: Power 5/5 bilaterally, no focal deficits noted Neurological: CN II-XII grossly intact, no focal motor or sensory deficits noted Skin: Intact with no visualized rashes Psych: Normal affect and mood Limitations: no limitations Course Vital Signs 03/16/18 22:16 Temperature 98.9 F Pulse Rate 90 Respiratory 18 Rate Blood Pressure 120/85 O2 Sat by Pulse 97 Oximetry Medical Decision Making - Medical Decision Making ED course: 32-year-old female presents after episode of tremors. Patient has history of seizures. Doubt that she had seizures. No physical examination or details in the history of present illness to suggest that patient had a seizure. Vital signs upon arrival are within acceptable limits. Physical examination is benign. EKG shows no acute processes. Labs obtained actually derangement. Rest of labs are unremarkable. Patient does have mild peripheral cytopenia and leukopenia. Patient given intravenous fluids, 1 g of Keppra. Patient medically stable for discharge. She is told to follow-up with her neurologist. Patient is counseled on the significance of taking Her medication on a regular basis. She is understandable and agreeable. - Lab Data Result diagrams: 03/16/18 23:41 03/16/18 23:41 Lab Results 03/16/18 03/16/18 Range/Units 23:41 23:41 WBC 2.8 L (3.8-10.6) k/uL RBC 3.92 (3.80-5.40) m/uL Hgb 12.2 (11.4-16.0) gm/dL Hct 37.8 (34.0-46.0) % MCV 96.5 (80.0-100.0) fL MCH 31.1 (25.0-35.0) pg MCHC 32.2 (31.0-37.0) g/dL RDW 14.4 (11.5-15.5) % Plt Count 130 L (150-450) k/uL Sodium 137 (137-145) mmol/L Potassium 4.4 (3.5-5.1) mmol/L Chloride 101 (98-107) mmol/L Carbon Dioxide 23 (22-30) mmol/L Anion Gap 13 mmol/L BUN 3 L (7-17) mg/dL Creatinine 0.50 L (0.52-1.04) mg/dL Est GFR (CKD-EPI)AfAm >90 (>60 ml/min/1.73 sqM) Est GFR (CKD-EPI)NonAf >90 (>60 ml/min/1.73 sqM) Glucose 92 (74-99) mg/dL Calcium 9.6 (8.4-10.2) mg/dL Magnesium 1.7 (1.6-2.3) mg/dL Disposition Clinical Impression: Anxiety reaction Disposition: HOME SELF-CARE Condition: Fair Instructions: Tremors (ED) Is patient prescribed a controlled substance at d/c from ED?: No Referrals: None,Stated [Primary Care Provider] - 1-2 days Decision Time: 00:49
[2018-03-17 00:52] LABS: Band Neutrophils % 2 %; Lymphocytes # (M) 1.29 k/uL (1.0-4.8); Monocytes # (M) 0.28 k/uL (0-1.0); Neutrophils % (M) 42 %; Nucleated Red Blood Cells 0 /100 WBC (0-0); Total Cells Counted 100
[2018-03-17 00:53] LABS: Target Cells Present
[2018-03-17 00:55] LABS: Large Platelets Present
[2018-03-17 00:56] VITALS: BP 109/78; PULSE 83; RESP 17; TEMP 97.9
== END 2018-03-17 00:56 | disposition home or self-care (01) ==
LOC: EC 22:04
DX: F41.1 Generalized anxiety disorder (principal); D75.9 Disease of blood and blood-forming organs, unspecified; D72.819 Decreased white blood cell count, unspecified; G40.909 Epilepsy, unspecified, not intractable, without status epilepticus; F17.200 Nicotine dependence, unspecified, uncomplicated; Z85.41 Personal history of malignant neoplasm of cervix uteri; Z98.890 Other specified postprocedural states; Z79.899 Other long term (current) drug therapy; Z88.5 Allergy status to narcotic agent
CPT/HCPCS: 99284; 96365; 96375; 96361; 36415; 93005; 80048; 83735; 85025; J2765; J1953

== ENCOUNTER 2018-03-23 13:55 | Emergency (ER) | payer OTHER ==
[2018-03-23] MEDS ORDERED: SODIUM CHLORIDE 0.9% 1,000 ML IV STA (14:26)
[2018-03-23] MEDS ORDERED: levETIRAcetam 500 MG TAB PO STA (14:26)
--- NOTE | 2018-03-23 14:41 | ED ---
General Adult HPI - General Chief complaint: Seizure Stated complaint: SEIZURE Time Seen by Provider: 03/23/18 14:06 Source: patient, RN notes reviewed Mode of arrival: EMS Limitations: no limitations - History of Present Illness Initial comments: 32-year-old female presents to the emergency department for a chief complaint of possible seizure activity yesterday. Patient states she has been "dazed and confused" since then and [facility] wanted her to be evaluated. Patient states seizure was consistent with past seizures. Patient states she feels shaky. Patient states earlier today she took 500 mg of Keppra but it did not help. Patient has no other complaints at this time including shortness of breath , chest pain, abdominal pain, nausea or vomiting, headache, or visual changes. - Related Data Home Medications Medication Instructions Recorded Confirmed levETIRAcetam [Keppra] 250 mg PO Q12HR 03/23/18 03/23/18 Previous Rx's Medication Instructions Recorded levETIRAcetam [Keppra] 500 mg PO Q12HR #20 tab 03/23/18 Allergies Allergy/AdvReac Type Severity Reaction Status Date / Time morphine Allergy Rash/Hives Verified 03/23/18 14:09 Review of Systems ROS Statement: Those systems with pertinent positive or pertinent negative responses have been documented in the HPI. ROS Other: All systems not noted in ROS Statement are negative. Past Medical History Past Medical History: Cancer, Seizure Disorder Additional Past Medical History / Comment(s): brain anuerysm 2010-(had seizure related to), bicornuate uterus, dysfunctional uterine bleeding, hx migraines. recent bronchitis, IBS, gallstones, "pre cervical cancer age 15", insomnia History of Any Multi-Drug Resistant Organisms: None Reported Past Surgical History: Adenoidectomy, Breast Surgery, Section, Cholecystectomy, Orthopedic Surgery, Tonsillectomy Additional Past Surgical History / Comment(s): right knee surgery, brain surgery for aneurysm, ovarian cystectomy laparoscopically, D&C x 2, breast biopsy-left breast, Past Anesthesia/Blood Transfusion Reactions: No Reported Reaction Past Psychological History: Anxiety, Depression, PTSD Smoking Status: Current every day smoker Past Alcohol Use History: Abuse, Daily, Heavy Past Drug Use History: Prescription Drug Abuse - Past Family History Father Additional Family Medical History / Comment(s): ETOH Mother Family Medical History: No Reported History Additional Family Medical History / Comment(s): ETOH, history of uterine fibroids General Exam Limitations: no limitations General appearance: alert, in no apparent distress Head exam: Present: atraumatic, normocephalic, normal inspection Eye exam: Present: normal appearance, PERRL, EOMI. Absent: scleral icterus, conjunctival injection, nystagmus, periorbital swelling, periorbital tenderness ENT exam: Present: normal exam, normal oropharynx, mucous membranes moist, TM's normal bilaterally, normal external ear exam Neck exam: Present: normal inspection, full ROM. Absent: tenderness, meningismus, lymphadenopathy Respiratory exam: Present: normal lung sounds bilaterally. Absent: respiratory distress, wheezes, rales, rhonchi, stridor Cardiovascular Exam: Present: regular rate, normal rhythm, normal heart sounds. Absent: systolic murmur, diastolic murmur, rubs, gallop, clicks GI/Abdominal exam: Present: soft, normal bowel sounds. Absent: distended, tenderness, guarding, rebound, rigid Extremities exam: Present: normal inspection, full ROM, normal capillary refill. Absent: tenderness, pedal edema, joint swelling, calf tenderness Neurological exam: Present: alert, oriented X3, CN II-XII intact, other (GCS 15 , negative arm drift, strength 5 out of 5 in upper and lower extremities bilaterally). Absent: motor sensory deficit Psychiatric exam: Present: normal affect, normal mood Course Vital Signs 03/23/18 14:10 Temperature 98.3 F Pulse Rate 82 Respiratory 20 Rate Blood Pressure 130/75 O2 Sat by Pulse 97 Oximetry EKG Findings - EKG Comments: EKG Findings:: Normal sinus rhythm, ventricular rate 78, MA interval 148, QRS duration 76 Medical Decision Making - Medical Decision Making 32-year-old female to the emergency department with a history of seizures yesterday. Patient has been seen multiple times in the emergency department for possible seizures. No tongue lacerations, no loss of bladder or bowel function. Exam unremarkable no focal neuro deficits. Patient does have a white count of 2.0. Patient does have chronic leukopenia. Blood cultures will be drawn. EKG showed normal sinus rhythm without evidence of ST elevation or depression. Patient is currently on a dose of 250 mg Keppra every 12 hours. This will be increased to 500 every 12 hours until patient can follow up with neurology as discussed with Dr Islas. Patient states she feels much better and is no longer dazed. Patient feels ready to go back home. - Lab Data Result diagrams: 03/23/18 14:55 03/23/18 14:55 Lab Results 03/23/18 03/23/18 Range/Units 14:55 14:55 WBC 2.0 L* (3.8-10.6) k/uL RBC 3.25 L (3.80-5.40) m/uL Hgb 10.4 L (11.4-16.0) gm/dL Hct 30.8 L (34.0-46.0) % MCV 94.9 (80.0-100.0) fL MCH 32.1 (25.0-35.0) pg MCHC 33.8 (31.0-37.0) g/dL RDW 14.3 (11.5-15.5) % Plt Count 81 L (150-450) k/uL Neutrophils % (Manual) 48 % Lymphocytes % (Manual) 47 % Monocytes % (Manual) 5 % Neutrophils # (Manual) 0.96 L (1.3-7.7) k/uL Lymphocytes # (Manual) 0.94 L (1.0-4.8) k/uL Monocytes # (Manual) 0.10 (0-1.0) k/uL Nucleated RBCs 0 (0-0) /100 WBC Manual Slide Review Performed Poikilocytosis (manual Present Anisocytosis (manual) Present Sodium 135 L (137-145) mmol/L Potassium 3.9 (3.5-5.1) mmol/L Chloride 101 (98-107) mmol/L Carbon Dioxide 21 L (22-30) mmol/L Anion Gap 13 mmol/L BUN 2 L (7-17) mg/dL Creatinine 0.44 L (0.52-1.04) mg/dL Est GFR (CKD-EPI)AfAm >90 (>60 ml/min/1.73 sqM) Est GFR (CKD-EPI)NonAf >90 (>60 ml/min/1.73 sqM) Glucose 88 (74-99) mg/dL Calcium 8.5 (8.4-10.2) mg/dL Total Bilirubin 0.9 (0.2-1.3) mg/dL AST 98 H (14-36) U/L ALT 39 (9-52) U/L Alkaline Phosphatase 52 (38-126) U/L Total Protein 6.3 (6.3-8.2) g/dL Albumin 4.0 (3.5-5.0) g/dL Disposition Clinical Impression: Seizure disorder Disposition: HOME SELF-CARE Condition: Good Instructions: Recurrent Seizures in Adults (ED) Additional Instructions: Please take new prescription of Breath. Please follow-up with neurology in 1-2 days. Return to the emergency department if you have any worsening symptoms or additional seizures. Prescriptions: levETIRAcetam [Keppra] 500 mg PO Q12HR #20 tab Is patient prescribed a controlled substance at d/c from ED?: No Referrals: Lionel Baca MD [STAFF PHYSICIAN] - 1-2 days Time of Disposition: 16:08
[2018-03-23 15:20] LABS: ALT 39 U/L (9-52); AST 98 U/L (14-36); Alkaline Phosphatase 52 U/L (38-126); Anion Gap 13 mmol/L; Blood Urea Nitrogen 2 mg/dL (7-17); Calcium 8.5 mg/dL (8.4-10.2); Carbon Dioxide 21 mmol/L (22-30); Chloride 101 mmol/L (98-107); Glucose 88 mg/dL (74-99); Potassium 3.9 mmol/L (3.5-5.1); Sodium 135 mmol/L (137-145); Total Bilirubin 0.9 mg/dL (0.2-1.3); Total Protein 6.3 g/dL (6.3-8.2)
[2018-03-23 15:26] LABS: HCT 30.8 % (34.0-46.0); HGB 10.4 gm/dL (11.4-16.0); MCH 32.1 pg (25.0-35.0); MCHC 33.8 g/dL (31.0-37.0); MCV 94.9 fL (80.0-100.0); Mean Platelet Volume 7.2; RBC 3.25 m/uL (3.80-5.40); RDW 14.3 % (11.5-15.5)
[2018-03-23 15:55] LABS: Anisocytosis (M) Present; Lymphocytes # (M) 0.94 k/uL (1.0-4.8); Neutrophils # (M) 0.96 k/uL (1.3-7.7); Neutrophils % (M) 48 %; Nucleated Red Blood Cells 0 /100 WBC (0-0); Platelet Count 81 k/uL (150-450); Poikilocytosis (M) Present; Total Cells Counted 100
[2018-03-23 16:53] VITALS: BP 103/74; PULSE 91; RESP 17; TEMP 98.1
== END 2018-03-23 16:45 | disposition home or self-care (01) ==
LOC: EC 13:55
DX: G40.909 Epilepsy, unspecified, not intractable, without status epilepticus (principal); D72.819 Decreased white blood cell count, unspecified; R40.2412 Glasgow coma scale score 13-15, at arrival to emergency department; F17.200 Nicotine dependence, unspecified, uncomplicated; Z98.890 Other specified postprocedural states; Z79.899 Other long term (current) drug therapy; Z88.5 Allergy status to narcotic agent
CPT/HCPCS: 36415; 80053; 85025; 87040; 93005; 96360; 99284

== ENCOUNTER 2018-03-27 19:36 | Emergency (ER) | payer OTHER ==
[2018-03-27] MEDS ORDERED: SODIUM CHLORIDE 0.9% 1,000 ML IV STA (20:00)
--- NOTE | 2018-03-27 20:08 | ED ---
Seizure HPI - General Chief Complaint: Seizure Stated Complaint: seizures Time Seen by Provider: 03/27/18 19:49 Source: patient, RN notes reviewed Mode of arrival: ambulatory Limitations: no limitations - History of Present Illness Initial Comments: This is a 33-year-old female with history of seizure disorder who presents to the emergency department with chief complaint of seizures. Patient is well- known to this emergency department. Patient states that she has had at least 12 -13 seizures today. She states that seizures began at 1 PM and then patient began drinking alcohol. Patient states that she has had 6 beers today. Patient states that she was seen here recently and her Keppra was increased to 500 mg twice per day. Patient states that she does not see a neurologist. Patient has no other complaints. She denies injuries or trauma. She denies fevers or chills, chest pain or shortness of breath, abdominal pain, dizziness or headache. She does admit to some nausea. - Related Data Previous Rx's Medication Instructions Recorded levETIRAcetam [Keppra] 500 mg PO Q12HR #20 tab 03/23/18 Allergies Allergy/AdvReac Type Severity Reaction Status Date / Time morphine Allergy Rash/Hives Verified 03/27/18 20:07 Review of Systems ROS Statement: Those systems with pertinent positive or pertinent negative responses have been documented in the HPI. ROS Other: All systems not noted in ROS Statement are negative. Past Medical History Past Medical History: Cancer, Seizure Disorder Additional Past Medical History / Comment(s): brain anuerysm 2010-(had seizure related to), bicornuate uterus, dysfunctional uterine bleeding, hx migraines. recent bronchitis, IBS, gallstones, "pre cervical cancer age 15", insomnia History of Any Multi-Drug Resistant Organisms: None Reported Past Surgical History: Adenoidectomy, Breast Surgery, Section, Cholecystectomy, Orthopedic Surgery, Tonsillectomy Additional Past Surgical History / Comment(s): right knee surgery, brain surgery for aneurysm, ovarian cystectomy laparoscopically, D&C x 2, breast biopsy-left breast, Past Anesthesia/Blood Transfusion Reactions: No Reported Reaction Past Psychological History: Anxiety, Depression, PTSD Smoking Status: Current every day smoker Past Alcohol Use History: Abuse, Daily, Heavy Past Drug Use History: Prescription Drug Abuse - Past Family History Father Additional Family Medical History / Comment(s): ETOH Mother Family Medical History: No Reported History Additional Family Medical History / Comment(s): ETOH, history of uterine fibroids General Exam - General Exam Comments Initial Comments: General: Awake and alert, well-developed; in no apparent distress. Patient patient does appear intoxicated. HEENT: Head atraumatic, normocephalic. Pupils are equal, round and reactive to light. Extraocular movements intact. Oropharynx moist without erythema or exudate. Neck: Supple. Normal ROM. Cardiovascular: Regular rate and rhythm. No murmurs, rubs or gallops. Chest symmetrical. Respiratory: Lungs clear to auscultation bilaterally. No wheezes, rales or rhonchi. Normal respiratory effort with no use of accessory muscles. Abdomen: Soft, non-tender, non-distended. No rigidity, rebound or guarding. Normal bowel sounds in all 4 quadrants. Musculoskeletal: Normal ROM, no tenderness bilateral upper and lower extremities. Skin: [place], warm and dry without rashes or lesions. Neurological: Alert and oriented x3. CN II-XII grossly intact. Speech is fluent and answers are appropriate. No focal neuro deficits. Limitations: no limitations Course Vital Signs 03/27/18 19:59 Temperature 98.7 F Pulse Rate 84 Respiratory 16 Rate Blood Pressure 123/80 O2 Sat by Pulse 95 Oximetry Medical Decision Making - Medical Decision Making This is a 33-year-old female with history of seizure disorder and alcoholism who presents to the emergency department with chief complaint of seizures. Patient states that she has been drinking today and has had 13 seizures. Patient takes Keppra 500 mg twice a day. She states that she does not have a primary care physician or neurologist. She states that she gets her medications prescribed here in the emergency department. I explained the patient that we do not manage these types of medications and that she needs to follow-up. Patient denies any recent falls or head injuries. Laboratory studies were obtained and a CBC, CMP were consistent with previous labs. UA was unremarkable. Patient had an alcohol concentration of 365. No other illicit drugs were identified. Patient states that she does have transportation home. Vital signs have been stable and she is in no acute distress. She will be discharged home at this time. Patient will be provided with contact information for a primary care provider and a neurologist for follow-up. She is in agreement and voices understanding. All questions answered. - Lab Data Result diagrams: 03/27/18 20:20 03/27/18 20:20 Lab Results 03/27/18 03/27/18 03/27/18 Range/Units 20:20 20:20 20:20 WBC 2.8 L (3.8-10.6) k/uL RBC 3.64 L (3.80-5.40) m/uL Hgb 11.5 (11.4-16.0) gm/dL Hct 34.0 (34.0-46.0) % MCV 93.6 (80.0-100.0) fL MCH 31.5 (25.0-35.0) pg MCHC 33.7 (31.0-37.0) g/dL RDW 14.4 (11.5-15.5) % Sodium 130 L (137-145) mmol/L Potassium 3.9 (3.5-5.1) mmol/L Chloride 93 L (98-107) mmol/L Carbon Dioxide 21 L (22-30) mmol/L Anion Gap 16 mmol/L BUN 2 L (7-17) mg/dL Creatinine 0.40 L (0.52-1.04) mg/dL Est GFR (CKD-EPI)AfAm >90 (>60 ml/min/1.73 sqM) Est GFR (CKD-EPI)NonAf >90 (>60 ml/min/1.73 sqM) Glucose 84 (74-99) mg/dL Calcium 9.3 (8.4-10.2) mg/dL Total Bilirubin 1.6 H (0.2-1.3) mg/dL AST 136 H (14-36) U/L ALT 50 (9-52) U/L Alkaline Phosphatase 62 (38-126) U/L Total Protein 6.9 (6.3-8.2) g/dL Albumin 4.3 (3.5-5.0) g/dL Urine Color Light Yellow Urine Appearance Clear (Clear) Urine pH 6.0 (5.0-8.0) Ur Specific [place] 1.003 (1.001-1.035) Urine Protein Negative (Negative) Urine Glucose (UA) Negative (Negative) Urine Ketones 1+ H (Negative) Urine Blood Negative (Negative) Urine Nitrite Negative (Negative) Urine Bilirubin Negative (Negative) Urine Urobilinogen <2.0 (<2.0) mg/dL Ur Leukocyte Esterase Negative (Negative) Urine Opiates Screen Not Detected (NotDetected) Ur Oxycodone Screen Not Detected (NotDetected) Urine Methadone Screen Not Detected (NotDetected) Ur Propoxyphene Screen Not Detected (NotDetected) Ur Barbiturates Screen Not Detected (NotDetected) U Tricyclic Antidepress Not Detected (NotDetected) Ur Phencyclidine Scrn Not Detected (NotDetected) Ur Amphetamines Screen Not Detected (NotDetected) U Methamphetamines Scrn Not Detected (NotDetected) U Benzodiazepines Scrn Not Detected (NotDetected) Urine Cocaine Screen Not Detected (NotDetected) U Marijuana (THC) Screen Not Detected (NotDetected) Serum Alcohol 365 mg/dL - EKG Data EKG Comments: 20:04:00. Normal sinus rhythm. Ventricular rate 82 bpm, [place] interval 148, QRS duration 72, QT/QTC 362/422 Disposition Clinical Impression: Acute alcohol intoxication, Seizure disorder Disposition: HOME SELF-CARE Condition: Good Instructions: Recurrent Seizures in Adults (ED), Abuse of Alcohol (ED) Additional Instructions: Please follow-up with a neurologist for management of your seizure medications. Please follow up with primary care provider within 1-2 days. Return to emergency department if symptoms should worsen or any concerns arise. Is patient prescribed a controlled substance at d/c from ED?: No Referrals: None,Stated [Primary Care Provider] - 1-2 days Misty Quintero MD [STAFF PHYSICIAN] - 1-2 days Mehreen Tabor MD [STAFF PHYSICIAN] - 1-2 days Time of Disposition: 21:33
[2018-03-27 20:24] LABS: Appearance,Urine Clear (Clear); Bilirubin,Urine Negative (Negative); Blood,Urine Negative (Negative); Color,Urine Light Yellow; Glucose,Urine (UA) Negative (Negative); Ketones,Urine 1+ (Negative); Leukocyte Esterase,Urine Negative (Negative); Nitrite,Urine Negative (Negative); Protein,Urine Negative (Negative); Specific Gravity,Urine 1.003 (1.001-1.035); Urobilinogen,Urine <2.0 mg/dL (<2.0)
[2018-03-27 20:37] LABS: Amphetamine Screen,Urine Not Detected (NotDetected); Barbiturate Screen,Urine Not Detected (NotDetected); Benzodiazepines Screen,Urine Not Detected (NotDetected); Cocaine Screen,Urine Not Detected (NotDetected); Methadone Screen, Urine Not Detected (NotDetected); Opiate Screen,Urine Not Detected (NotDetected); Oxycodone Screen, Urine Not Detected (NotDetected); Phencyclidine Screen,Urine Not Detected (NotDetected); Tricyclic Antidepressant,Urine Not Detected (NotDetected); Urn Cannabinoid Scrn Not Detected (NotDetected)
[2018-03-27 20:39] LABS: ALT 50 U/L (9-52); AST 136 U/L (14-36); Albumin 4.3 g/dL (3.5-5.0); Alkaline Phosphatase 62 U/L (38-126); Anion Gap 16 mmol/L; Blood Urea Nitrogen 2 mg/dL (7-17); Calcium 9.3 mg/dL (8.4-10.2); Carbon Dioxide 21 mmol/L (22-30); Chloride 93 mmol/L (98-107); Glucose 84 mg/dL (74-99); Potassium 3.9 mmol/L (3.5-5.1); Sodium 130 mmol/L (137-145); Total Bilirubin 1.6 mg/dL (0.2-1.3); Total Protein 6.9 g/dL (6.3-8.2)
[2018-03-27 20:42] LABS: HGB 11.5 gm/dL (11.4-16.0); MCH 31.5 pg (25.0-35.0); MCHC 33.7 g/dL (31.0-37.0); MCV 93.6 fL (80.0-100.0); Mean Platelet Volume 6.8; Platelet Count 99 k/uL (150-450); RBC 3.64 m/uL (3.80-5.40); RDW 14.4 % (11.5-15.5); WBC 2.8 k/uL (3.8-10.6)
[2018-03-27 21:10] LABS: Alcohol 365 mg/dL
[2018-03-27 21:43] LABS: Basophils # (M) 0.06 k/uL (0-0.2); Eosinophils # (M) 0.03 k/uL (0-0.7); Lymphocytes # (M) 1.71 k/uL (1.0-4.8); Neutrophils # (M) 0.81 k/uL (1.3-7.7); Neutrophils % (M) 29 %; Nucleated Red Blood Cells 0 /100 WBC (0-0); Total Cells Counted 100
[2018-03-27 21:44] LABS: Target Cells Present
[2018-03-27 22:01] VITALS: TEMP 98.6
[2018-03-27 22:30] VITALS: BP 110/78; PULSE 84; RESP 16
== END 2018-03-27 22:15 | disposition home or self-care (01) ==
LOC: EC 19:36
DX: G40.909 Epilepsy, unspecified, not intractable, without status epilepticus (principal); F10.129 Alcohol abuse with intoxication, unspecified; Y90.8 Blood alcohol level of 240 mg/100 ml or more; Z85.41 Personal history of malignant neoplasm of cervix uteri; F17.200 Nicotine dependence, unspecified, uncomplicated; Z88.5 Allergy status to narcotic agent
CPT/HCPCS: 36415; 80053; 80306; 80320; 81003; 85025; 93005; 96360; 99284

== ENCOUNTER 2018-04-01 09:13 | Emergency (ER) | payer OTHER ==
[2018-04-01] MEDS ORDERED: ONDANSETRON 4 MG/2 ML VIAL IVP STA (09:26)
[2018-04-01] MEDS ORDERED: SODIUM CHLORIDE 0.9% 1,000 ML IV STA (09:26)
[2018-04-01] MEDS ORDERED: LORazepam 2 MG/ML INJ IV STA (09:29)
--- NOTE | 2018-04-01 09:32 | ED ---
General Adult HPI - General Chief complaint: Seizure Stated complaint: seizure Time Seen by Provider: 04/01/18 09:20 Source: patient, RN notes reviewed Mode of arrival: wheelchair Limitations: no limitations - History of Present Illness Initial comments: Patient 33-year-old female presented to the emergency room today with chief complaint petite mall seizures. She does admit to history of epilepsy. She states that she is only been taking half doses of Keppra. She states that her ex-boyfriend told her it was a good idea to try to wean off of it. Patient states that last night when she was at a constitution party she began having these petite mall seizures. She's had a few this morning. Patient does note some cough congestion. She denies any other complaints. Patient denies any recent fever, chills, shortness of breath, chest pain, back pain, abdominal pain, nausea or vomiting, numbness or tingling, headaches or visual changes, or any other complaints. - Related Data Previous Rx's Medication Instructions Recorded levETIRAcetam [Keppra] 500 mg PO Q12HR #20 tab 03/23/18 Nitrofurantoin Monohyd/M-Cryst 100 mg PO Q12HR #14 cap 04/01/18 [Macrobid] levETIRAcetam [Keppra] 500 mg PO Q12HR #30 tab 04/01/18 Allergies Allergy/AdvReac Type Severity Reaction Status Date / Time morphine Allergy Rash/Hives Verified 04/01/18 09:15 Review of Systems ROS Statement: Those systems with pertinent positive or pertinent negative responses have been documented in the HPI. ROS Other: All systems not noted in ROS Statement are negative. Past Medical History Past Medical History: Cancer, Seizure Disorder Additional Past Medical History / Comment(s): brain anuerysm 2010-(had seizure related to), bicornuate uterus, dysfunctional uterine bleeding, hx migraines. recent bronchitis, IBS, gallstones, "pre cervical cancer age 15", insomnia History of Any Multi-Drug Resistant Organisms: None Reported Past Surgical History: Adenoidectomy, Breast Surgery, Section, Cholecystectomy, Orthopedic Surgery, Tonsillectomy Additional Past Surgical History / Comment(s): right knee surgery, brain surgery for aneurysm, ovarian cystectomy laparoscopically, D&C x 2, breast biopsy-left breast, Past Anesthesia/Blood Transfusion Reactions: No Reported Reaction Past Psychological History: Anxiety, Depression, PTSD Smoking Status: Current every day smoker Past Alcohol Use History: Abuse, Daily, Heavy Past Drug Use History: Prescription Drug Abuse - Past Family History Father Additional Family Medical History / Comment(s): ETOH Mother Family Medical History: No Reported History Additional Family Medical History / Comment(s): ETOH, history of uterine fibroids General Exam - General Exam Comments Initial Comments: General: The patient is awake and alert, in no distress, and does not appear acutely ill. Eye: Pupils are equal, round and reactive to light, extra-ocular movements are intact. No nystagmus. There is normal conjunctiva bilaterally. No signs of icterus. Ears, nose, mouth and throat: There are moist mucous membranes and no oral lesions. Neck: The neck is supple, there is no tenderness or JVD. Cardiovascular: There is a regular rate and rhythm. No murmur, rub or gallop is appreciated. Respiratory: Lungs are clear to auscultation, respirations are non-labored, breath sounds are equal. No wheezes, stridor, rales, or rhonchi. Musculoskeletal: Normal ROM, no tenderness. Strength 5/5. Sensation intact. Pulses equal bilaterally 2+. Neurological: A&O x 3. CN II-XII intact, There are no obvious motor or sensory deficits. Coordination appears grossly intact. Speech is normal. Skin: Skin is warm and dry and no rashes or lesions are noted. Psychiatric: Cooperative, appropriate mood & affect, normal judgment. Limitations: no limitations Course Vital Signs 04/01/18 09:14 Temperature 98.7 F Pulse Rate 99 Respiratory 20 Rate Blood Pressure 130/86 O2 Sat by Pulse 99 Oximetry Medical Decision Making - Medical Decision Making Patient reexamined at this time shows no signs of distress. Patient's urinalysis review does show positive nitrite will be started on antibiotics cover for infection. Chest x-ray negative. Remaining labs been reviewed. Patient is advised to follow-up family doctor. She states she is currently in between doctors at this time. She states she was not taking the Keppra as it was prescribed and part of the reason is that she was running low. Patient given a prescription to continue. Given a loading dose here in emergency room. Advised following up over the next 2 days return if any symptoms increase or worsen. - Lab Data Result diagrams: 04/01/18 10:09 04/01/18 10:09 Lab Results 04/01/18 04/01/18 04/01/18 Range/Units 10:09 10:09 10:09 WBC 2.6 L (3.8-10.6) k/uL RBC 3.81 (3.80-5.40) m/uL Hgb 12.0 (11.4-16.0) gm/dL Hct 36.1 (34.0-46.0) % MCV 94.7 (80.0-100.0) fL MCH 31.5 (25.0-35.0) pg MCHC 33.3 (31.0-37.0) g/dL RDW 14.0 (11.5-15.5) % Plt Count 85 L (150-450) k/uL Neutrophils % 50 % Lymphocytes % 34 % Monocytes % 10 % Eosinophils % 1 % Basophils % 1 % Neutrophils # 1.3 (1.3-7.7) k/uL Lymphocytes # 0.9 L (1.0-4.8) k/uL Monocytes # 0.3 (0-1.0) k/uL Eosinophils # 0.0 (0-0.7) k/uL Basophils # 0.0 (0-0.2) k/uL Manual Slide Review Performed RBC Morphology Normal Sodium 137 (137-145) mmol/L Potassium 3.9 (3.5-5.1) mmol/L Chloride 102 (98-107) mmol/L Carbon Dioxide 24 (22-30) mmol/L Anion Gap 11 mmol/L BUN <2 L (7-17) mg/dL Creatinine 0.40 L (0.52-1.04) mg/dL Est GFR (CKD-EPI)AfAm >90 (>60 ml/min/1.73 sqM) Est GFR (CKD-EPI)NonAf >90 (>60 ml/min/1.73 sqM) Glucose 93 (74-99) mg/dL Calcium 9.7 (8.4-10.2) mg/dL Total Bilirubin 1.6 H (0.2-1.3) mg/dL AST 140 H (14-36) U/L ALT 48 (9-52) U/L Alkaline Phosphatase 57 (38-126) U/L Total Protein 6.8 (6.3-8.2) g/dL Albumin 4.3 (3.5-5.0) g/dL Urine Color Urine Appearance (Clear) Urine pH (5.0-8.0) Ur Specific [place] (1.001-1.035) Urine Protein (Negative) Urine Glucose (UA) (Negative) Urine Ketones (Negative) Urine Blood (Negative) Urine Nitrite (Negative) Urine Bilirubin (Negative) Urine Urobilinogen (<2.0) mg/dL Ur Leukocyte Esterase (Negative) Urine WBC (0-5) /hpf Ur Squamous Epith Cells (0-4) /hpf Urine Bacteria (None) /hpf Urine HCG, Qual Not Detected (Not Detectd) 04/01/18 Range/Units 10:09 WBC (3.8-10.6) k/uL RBC (3.80-5.40) m/uL Hgb (11.4-16.0) gm/dL Hct (34.0-46.0) % MCV (80.0-100.0) fL MCH (25.0-35.0) pg MCHC (31.0-37.0) g/dL RDW (11.5-15.5) % Plt Count (150-450) k/uL Neutrophils % % Lymphocytes % % Monocytes % % Eosinophils % % Basophils % % Neutrophils # (1.3-7.7) k/uL Lymphocytes # (1.0-4.8) k/uL Monocytes # (0-1.0) k/uL Eosinophils # (0-0.7) k/uL Basophils # (0-0.2) k/uL Manual Slide Review RBC Morphology Sodium (137-145) mmol/L Potassium (3.5-5.1) mmol/L Chloride (98-107) mmol/L Carbon Dioxide (22-30) mmol/L Anion Gap mmol/L BUN (7-17) mg/dL Creatinine (0.52-1.04) mg/dL Est GFR (CKD-EPI)AfAm (>60 ml/min/1.73 sqM) Est GFR (CKD-EPI)NonAf (>60 ml/min/1.73 sqM) Glucose (74-99) mg/dL Calcium (8.4-10.2) mg/dL Total Bilirubin (0.2-1.3) mg/dL AST (14-36) U/L ALT (9-52) U/L Alkaline Phosphatase (38-126) U/L Total Protein (6.3-8.2) g/dL Albumin (3.5-5.0) g/dL Urine Color Light Yellow Urine Appearance Cloudy H (Clear) Urine pH 6.0 (5.0-8.0) Ur Specific [place] 1.003 (1.001-1.035) Urine Protein Negative (Negative) Urine Glucose (UA) Negative (Negative) Urine Ketones Negative (Negative) Urine Blood Negative (Negative) Urine Nitrite Positive H (Negative) Urine Bilirubin Negative (Negative) Urine Urobilinogen <2.0 (<2.0) mg/dL Ur Leukocyte Esterase Negative (Negative) Urine WBC 3 (0-5) /hpf Ur Squamous Epith Cells 1 (0-4) /hpf Urine Bacteria Many H (None) /hpf Urine HCG, Qual (Not Detectd) Disposition Clinical Impression: Seizure, UTI (urinary tract infection), Medication refill Disposition: HOME SELF-CARE Condition: Good Instructions: Recurrent Seizures in Adults (ED) Additional Instructions: Please use medication as discussed. Please follow-up with neurologist/family doctor in the next 2 days. Please return to emergency room if the symptoms increase or worsen or for any other concerns. Prescriptions: levETIRAcetam [Keppra] 500 mg PO Q12HR #30 tab Nitrofurantoin Monohyd/M-Cryst [Macrobid] 100 mg PO Q12HR #14 cap Is patient prescribed a controlled substance at d/c from ED?: No Referrals: None,Stated [Primary Care Provider] - 1-2 days Misty Quintero MD [STAFF PHYSICIAN] - 1-2 days Mehreen Tabor MD [STAFF PHYSICIAN] - 1-2 days Time of Disposition: 12:00
[2018-04-01 10:33] LABS: Basophils % (A) 1 %; Eosinophils % (A) 1 %; HCT 36.1 % (34.0-46.0); Lymphocytes # (A) 0.9 k/uL (1.0-4.8); Lymphocytes % (A) 34 %; MCH 31.5 pg (25.0-35.0); MCHC 33.3 g/dL (31.0-37.0); MCV 94.7 fL (80.0-100.0); Mean Platelet Volume 7.9; Monocytes # (A) 0.3 k/uL (0-1.0); Monocytes % (A) 10 %; Neutrophils # (A) 1.3 k/uL (1.3-7.7); Neutrophils % (A) 50 %; RBC 3.81 m/uL (3.80-5.40); WBC 2.6 k/uL (3.8-10.6)
[2018-04-01 10:41] LABS: ALT 48 U/L (9-52); AST 140 U/L (14-36); Albumin 4.3 g/dL (3.5-5.0); Alkaline Phosphatase 57 U/L (38-126); Anion Gap 11 mmol/L; Appearance,Urine Cloudy (Clear); Bacteria,Urine Many /hpf; Bilirubin,Urine Negative (Negative); Blood Urea Nitrogen <2 mg/dL (7-17); Blood,Urine Negative (Negative); Calcium 9.7 mg/dL (8.4-10.2); Carbon Dioxide 24 mmol/L (22-30); Chloride 102 mmol/L (98-107); Color,Urine Light Yellow; Glucose 93 mg/dL (74-99); Glucose,Urine (UA) Negative (Negative); Ketones,Urine Negative (Negative); Leukocyte Esterase,Urine Negative (Negative); Nitrite,Urine Positive (Negative); Potassium 3.9 mmol/L (3.5-5.1); Protein,Urine Negative (Negative); Sodium 137 mmol/L (137-145); Specific Gravity,Urine 1.003 (1.001-1.035); Squamous Epithelial Cell,Urine 1 /hpf (0-4); Total Bilirubin 1.6 mg/dL (0.2-1.3); Total Protein 6.8 g/dL (6.3-8.2); Urobilinogen,Urine <2.0 mg/dL (<2.0); WBC,Urine 3 /hpf (0-5)
[2018-04-01 10:50] LABS: Platelet Count 85 k/uL (150-450)
--- NOTE | 2018-04-01 11:27 | XR ---
EXAMINATION TYPE: XR chest 2V DATE OF EXAM: 04/01/2018 HISTORY: cough. REFERENCE: Previous study dated 01/02/2018. FINDINGS: There is a left right discrepancy on this study. The lungs are clear. Pleural spaces are clear. The heart is not enlarged. IMPRESSION: NO ACTIVE CARDIOTHORACIC ABNORMALITY.
[2018-04-01] MEDS ORDERED: levETIRAcetam 500 MG TAB PO STA (11:58)
[2018-04-01 12:46] VITALS: BP 115/67; PULSE 102; RESP 18; TEMP 98
== END 2018-04-01 12:46 | disposition home or self-care (01) ==
LOC: EC 09:13
DX: G40.909 Epilepsy, unspecified, not intractable, without status epilepticus (principal); N39.0 Urinary tract infection, site not specified; Z76.0 Encounter for issue of repeat prescription; F17.200 Nicotine dependence, unspecified, uncomplicated; Z85.41 Personal history of malignant neoplasm of cervix uteri; Z88.5 Allergy status to narcotic agent
CPT/HCPCS: 36415; 80053; 80177; 85025; 81001; 81025; 71046; 99284; 96374; 96375; 96361; J2060; J2405

== ENCOUNTER 2018-04-07 20:44 | Emergency (ER) | payer OTHER ==
[2018-04-07] MEDS ORDERED: SODIUM CHLORIDE 0.9% 1,000 ML IV STA (21:31)
--- NOTE | 2018-04-07 21:34 | ED ---
Seizure HPI - General Chief Complaint: Seizure Stated Complaint: Poss Seizure Time Seen by Provider: 04/07/18 21:19 Source: patient, family, RN notes reviewed Mode of arrival: wheelchair Limitations: no limitations - History of Present Illness Initial Comments: This is a 33-year-old female with history of seizures who presents to the emergency department with chief complaint of possible seizure. Patient is well- known to this emergency department. She has been taking Keppra that was prescribed to her here in the emergency department. She states that she does have an appointment scheduled with a neurologist on Tuesday. Patient states that today she had a small seizure in the morning. Approximately 30 minutes prior to arrival, her boyfriend states that he witnessed her convulsing for 15- 20 minutes. States that she did not lose consciousness. Patient reports nausea and shortness of breath. Denies fevers or chills, chest pain, abdominal pain, vomiting or diarrhea, dizziness or headache. Patient states that she has been taking her Keppra as prescribed. - Related Data Previous Rx's Medication Instructions Recorded levETIRAcetam [Keppra] 500 mg PO Q12HR #20 tab 03/23/18 Nitrofurantoin Monohyd/M-Cryst 100 mg PO Q12HR #14 cap 04/01/18 [Macrobid] levETIRAcetam [Keppra] 500 mg PO Q12HR #30 tab 04/01/18 Allergies Allergy/AdvReac Type Severity Reaction Status Date / Time morphine Allergy Rash/Hives Verified 04/07/18 21:08 Review of Systems ROS Statement: Those systems with pertinent positive or pertinent negative responses have been documented in the HPI. ROS Other: All systems not noted in ROS Statement are negative. Past Medical History Past Medical History: Cancer, Seizure Disorder Additional Past Medical History / Comment(s): brain anuerysm 2010-(had seizure related to), bicornuate uterus, dysfunctional uterine bleeding, hx migraines. recent bronchitis, IBS, gallstones, "pre cervical cancer age 15", insomnia History of Any Multi-Drug Resistant Organisms: None Reported Past Surgical History: Adenoidectomy, Breast Surgery, Section, Cholecystectomy, Orthopedic Surgery, Tonsillectomy Additional Past Surgical History / Comment(s): right knee surgery, brain surgery for aneurysm, ovarian cystectomy laparoscopically, D&C x 2, breast biopsy-left breast, Past Anesthesia/Blood Transfusion Reactions: No Reported Reaction Past Psychological History: Anxiety, Depression, PTSD Smoking Status: Current every day smoker Past Alcohol Use History: Abuse, Daily, Heavy Past Drug Use History: Prescription Drug Abuse - Past Family History Father Additional Family Medical History / Comment(s): ETOH Mother Family Medical History: No Reported History Additional Family Medical History / Comment(s): ETOH, history of uterine fibroids General Exam - General Exam Comments Initial Comments: General: Awake and alert, well-developed; in no apparent distress. HEENT: Head atraumatic, normocephalic. Pupils are equal, round and reactive to light. Extraocular movements intact. Ecchymosis inferior left eyelid. Oropharynx moist without erythema or exudate. Neck: Supple. Normal ROM. Cardiovascular: Regular rate and rhythm. No murmurs, rubs or gallops. Chest symmetrical. Respiratory: Lungs clear to auscultation bilaterally. No wheezes, rales or rhonchi. Normal respiratory effort with no use of accessory muscles. Abdomen: Soft, non-tender, non-distended. No rigidity, rebound or guarding. Normal bowel sounds in all 4 quadrants. Musculoskeletal: Normal ROM, no tenderness bilateral upper and lower extremities. Ambulating normally. Skin: [place], warm and dry without rashes or lesions. Neurological: Alert and oriented x3. CN II-XII grossly intact. Speech is fluent and answers are appropriate. No focal neuro deficits. Psychiatric: Normal mood and affect. No overt signs of depression or anxiety noted. Limitations: no limitations Course Vital Signs 04/07/18 21:02 Temperature 98 F Pulse Rate 81 Respiratory 20 Rate Blood Pressure 135/86 O2 Sat by Pulse 99 Oximetry Medical Decision Making - Medical Decision Making This is a 33-year-old female with history of seizures who presents to the emergency department with chief complaint possible seizure. Patient is well- known to the emergency department. She is on Keppra but has not yet followed up with a neurologist but states she has an appointment on Tuesday. She states that she had a 15-20 minute episode of convulsions prior to arrival. In the emergency department, patient complains of shortness of breath and vomiting. She was given Zofran. Vital signs are stable and she has been 99% on room air. Chest x-ray revealed no acute abnormalities. EKG showed normal sinus rhythm. She is at baseline with CBC and CMP. Keppra level ordered but is a send-out lab. She was provided with a dose of Keppra here in the emergency department. She is in no acute distress and will be discharged home at this time. She is in agreement and voices understanding. All questions were answered. - Lab Data Result diagrams: 04/07/18 21:55 04/07/18 21:55 Lab Results 04/07/18 04/07/18 04/07/18 Range/Units 21:55 21:55 21:55 WBC 3.1 L (3.8-10.6) k/uL RBC 3.99 (3.80-5.40) m/uL Hgb 12.8 (11.4-16.0) gm/dL Hct 37.6 (34.0-46.0) % MCV 94.3 (80.0-100.0) fL MCH 32.2 (25.0-35.0) pg MCHC 34.1 (31.0-37.0) g/dL RDW 13.7 (11.5-15.5) % Plt Count 152 D (150-450) k/uL Neutrophils % 43 % Lymphocytes % 41 % Monocytes % 9 % Eosinophils % 1 % Basophils % 1 % Neutrophils # 1.3 (1.3-7.7) k/uL Lymphocytes # 1.3 (1.0-4.8) k/uL Monocytes # 0.3 (0-1.0) k/uL Eosinophils # 0.0 (0-0.7) k/uL Basophils # 0.0 (0-0.2) k/uL Sodium 134 L (137-145) mmol/L Potassium 4.3 (3.5-5.1) mmol/L Chloride 95 L (98-107) mmol/L Carbon Dioxide 22 (22-30) mmol/L Anion Gap 17 mmol/L BUN <2 L (7-17) mg/dL Creatinine 0.40 L (0.52-1.04) mg/dL Est GFR (CKD-EPI)AfAm >90 (>60 ml/min/1.73 sqM) Est GFR (CKD-EPI)NonAf >90 (>60 ml/min/1.73 sqM) Glucose 100 H (74-99) mg/dL Calcium 9.9 (8.4-10.2) mg/dL Total Bilirubin 1.0 (0.2-1.3) mg/dL AST 133 H (14-36) U/L ALT 50 (9-52) U/L Alkaline Phosphatase 82 (38-126) U/L Total Protein 8.5 H (6.3-8.2) g/dL Albumin 5.2 H (3.5-5.0) g/dL Urine Color Urine Appearance (Clear) Urine pH (5.0-8.0) Ur Specific [place] (1.001-1.035) Urine Protein (Negative) Urine Glucose (UA) (Negative) Urine Ketones (Negative) Urine Blood (Negative) Urine Nitrite (Negative) Urine Bilirubin (Negative) Urine Urobilinogen (<2.0) mg/dL Ur Leukocyte Esterase (Negative) Urine RBC (0-5) /hpf Urine WBC (0-5) /hpf Ur Squamous Epith Cells (0-4) /hpf Urine Bacteria (None) /hpf Urine HCG, Qual Not Detected (Not Detectd) 04/07/18 Range/Units 21:55 WBC (3.8-10.6) k/uL RBC (3.80-5.40) m/uL Hgb (11.4-16.0) gm/dL Hct (34.0-46.0) % MCV (80.0-100.0) fL MCH (25.0-35.0) pg MCHC (31.0-37.0) g/dL RDW (11.5-15.5) % Plt Count (150-450) k/uL Neutrophils % % Lymphocytes % % Monocytes % % Eosinophils % % Basophils % % Neutrophils # (1.3-7.7) k/uL Lymphocytes # (1.0-4.8) k/uL Monocytes # (0-1.0) k/uL Eosinophils # (0-0.7) k/uL Basophils # (0-0.2) k/uL Sodium (137-145) mmol/L Potassium (3.5-5.1) mmol/L Chloride (98-107) mmol/L Carbon Dioxide (22-30) mmol/L Anion Gap mmol/L BUN (7-17) mg/dL Creatinine (0.52-1.04) mg/dL Est GFR (CKD-EPI)AfAm (>60 ml/min/1.73 sqM) Est GFR (CKD-EPI)NonAf (>60 ml/min/1.73 sqM) Glucose (74-99) mg/dL Calcium (8.4-10.2) mg/dL Total Bilirubin (0.2-1.3) mg/dL AST (14-36) U/L ALT (9-52) U/L Alkaline Phosphatase (38-126) U/L Total Protein (6.3-8.2) g/dL Albumin (3.5-5.0) g/dL Urine Color Light Yellow Urine Appearance Cloudy H (Clear) Urine pH 5.5 (5.0-8.0) Ur Specific [place] 1.002 (1.001-1.035) Urine Protein Negative (Negative) Urine Glucose (UA) Negative (Negative) Urine Ketones Negative (Negative) Urine Blood Large H (Negative) Urine Nitrite Negative (Negative) Urine Bilirubin Negative (Negative) Urine Urobilinogen <2.0 (<2.0) mg/dL Ur Leukocyte Esterase Negative (Negative) Urine RBC 1 (0-5) /hpf Urine WBC 3 (0-5) /hpf Ur Squamous Epith Cells 3 (0-4) /hpf Urine Bacteria Many H (None) /hpf Urine HCG, Qual (Not Detectd) - Radiology Data Radiology results: report reviewed Chest x-ray impression: Normal chest. No change. Disposition Clinical Impression: Seizure Disposition: HOME SELF-CARE Condition: Good Instructions: Recurrent Seizures in Adults (ED) Additional Instructions: Please follow-up with neurologist on Tuesday as scheduled. Please follow up with primary care provider within 1-2 days. Return to emergency department if symptoms should worsen or any concerns arise. Is patient prescribed a controlled substance at d/c from ED?: No Referrals: None,Stated [Primary Care Provider] - 1-2 days Time of Disposition: 22:59
[2018-04-07 22:15] LABS: Appearance,Urine Cloudy (Clear); Bacteria,Urine Many /hpf; Bilirubin,Urine Negative (Negative); Blood,Urine Large (Negative); Color,Urine Light Yellow; Glucose,Urine (UA) Negative (Negative); Ketones,Urine Negative (Negative); Leukocyte Esterase,Urine Negative (Negative); Nitrite,Urine Negative (Negative); PH, Urine 5.5 (5.0-8.0); Protein,Urine Negative (Negative); RBC,Urine 1 /hpf (0-5); Specific Gravity,Urine 1.002 (1.001-1.035); Squamous Epithelial Cell,Urine 3 /hpf (0-4); Urobilinogen,Urine <2.0 mg/dL (<2.0); WBC,Urine 3 /hpf (0-5)
[2018-04-07 22:18] LABS: Basophils % (A) 1 %; Eosinophils % (A) 1 %; HCT 37.6 % (34.0-46.0); HGB 12.8 gm/dL (11.4-16.0); Lymphocytes # (A) 1.3 k/uL (1.0-4.8); Lymphocytes % (A) 41 %; MCH 32.2 pg (25.0-35.0); MCHC 34.1 g/dL (31.0-37.0); MCV 94.3 fL (80.0-100.0); Mean Platelet Volume 7.5; Monocytes # (A) 0.3 k/uL (0-1.0); Monocytes % (A) 9 %; Neutrophils # (A) 1.3 k/uL (1.3-7.7); Neutrophils % (A) 43 %; RBC 3.99 m/uL (3.80-5.40); RDW 13.7 % (11.5-15.5); WBC 3.1 k/uL (3.8-10.6)
[2018-04-07 22:20] LABS: Platelet Count 152 k/uL (150-450)
[2018-04-07 22:21] LABS: ALT 50 U/L (9-52); AST 133 U/L (14-36); Albumin 5.2 g/dL (3.5-5.0); Alkaline Phosphatase 82 U/L (38-126); Anion Gap 17 mmol/L; Blood Urea Nitrogen <2 mg/dL (7-17); Calcium 9.9 mg/dL (8.4-10.2); Carbon Dioxide 22 mmol/L (22-30); Chloride 95 mmol/L (98-107); Glucose 100 mg/dL (74-99); Potassium 4.3 mmol/L (3.5-5.1); Sodium 134 mmol/L (137-145); Total Protein 8.5 g/dL (6.3-8.2)
[2018-04-07] MEDS ORDERED: ONDANSETRON 4 MG/2 ML VIAL IVP STA (22:25)
--- NOTE | 2018-04-07 22:35 | XR ---
EXAMINATION TYPE: XR chest 2V DATE OF EXAM: 04/07/2018 COMPARISON: 04/01/2018 HISTORY: Seizure disorder. Short of breath TECHNIQUE: Frontal and lateral views of the chest are obtained. FINDINGS: The heart and mediastinum are normal. Lungs are clear. Diaphragm is normal. Pulmonary vasc ularity is normal. IMPRESSION: Normal chest. No change.
[2018-04-07] MEDS ORDERED: levETIRAcetam 500 MG TAB PO STA (22:55)
[2018-04-07 23:26] VITALS: BP 128/69; PULSE 74; RESP 16; TEMP 98.1
== END 2018-04-07 23:33 | disposition home or self-care (01) ==
LOC: EC 20:44
DX: G40.909 Epilepsy, unspecified, not intractable, without status epilepticus (principal); R06.02 Shortness of breath; R11.0 Nausea; F17.200 Nicotine dependence, unspecified, uncomplicated; Z85.41 Personal history of malignant neoplasm of cervix uteri; Z88.5 Allergy status to narcotic agent
CPT/HCPCS: 36415; 93005; 80053; 80177; 85025; 81001; 81025; 71046; 99284; 96374; 96361; J2405

== ENCOUNTER 2018-05-13 09:27 | Emergency (ER) | payer OTHER ==
[2018-05-13 09:30] VITALS: PULSE 73
--- NOTE | 2018-05-13 09:55 | ED ---
General Adult HPI - General Chief complaint: Recheck/Abnormal Lab/Rx Stated complaint: seizure, alcohol detox Time Seen by Provider: 05/13/18 09:33 Source: patient, RN notes reviewed Mode of arrival: ambulatory Limitations: no limitations - History of Present Illness Initial comments: Patient 33-year-old female with a past medical history for alcoholism, seizures , presented to the emergency room today with a chief complaint of wanting detox from alcohol. Patient states she would like to stop drinking. She states she usually drinks 0.4 pack a day states last drink yesterday. He is here with a friend and friend. Patient admits to seizure history states she has been taking her Keppra. Does have an appointment with her family doctor in 2 days for a new prescription of her Keppra. Patient denies any other complaints or symptoms currently at this time. Patient denies any recent fever, chills, shortness of breath, chest pain, back pain, abdominal pain, nausea or vomiting, headaches or visual changes, or any other complaints. - Related Data Previous Rx's Medication Instructions Recorded levETIRAcetam [Keppra] 500 mg PO Q12HR #20 tab 03/23/18 Nitrofurantoin Monohyd/M-Cryst 100 mg PO Q12HR #14 cap 04/01/18 [Macrobid] levETIRAcetam [Keppra] 500 mg PO Q12HR #30 tab 04/01/18 Fluticasone Propionate [Flonase 1 - 2 spray EA NOSTRIL DAILY 5 05/13/18 Allergy Relief] Days ml Ondansetron Odt [Zofran ODT] 4 mg PO Q8HR PRN #20 tab 05/13/18 chlordiazePOXIDE HCl [Librium] 25 mg PO DIRECTED #22 capsule 05/13/18 cloNIDine HCL [Catapres] 0.1 mg PO BID #6 tab 05/13/18 Allergies Allergy/AdvReac Type Severity Reaction Status Date / Time morphine Allergy Rash/Hives Verified 05/13/18 09:30 Review of Systems ROS Statement: Those systems with pertinent positive or pertinent negative responses have been documented in the HPI. ROS Other: All systems not noted in ROS Statement are negative. Past Medical History Past Medical History: Cancer, Seizure Disorder Additional Past Medical History / Comment(s): brain anuerysm 2010-(had seizure related to), bicornuate uterus, dysfunctional uterine bleeding, hx migraines. recent bronchitis, IBS, gallstones, "pre cervical cancer age 15", insomnia History of Any Multi-Drug Resistant Organisms: None Reported Past Surgical History: Adenoidectomy, Breast Surgery, Section, Cholecystectomy, Orthopedic Surgery, Tonsillectomy Additional Past Surgical History / Comment(s): right knee surgery, brain surgery for aneurysm, ovarian cystectomy laparoscopically, D&C x 2, breast biopsy-left breast, Past Anesthesia/Blood Transfusion Reactions: No Reported Reaction Past Psychological History: Anxiety, Depression, PTSD Smoking Status: Current every day smoker Past Alcohol Use History: Abuse, Daily, Heavy Past Drug Use History: Prescription Drug Abuse - Past Family History Father Additional Family Medical History / Comment(s): ETOH Mother Family Medical History: No Reported History Additional Family Medical History / Comment(s): ETOH, history of uterine fibroids General Exam - General Exam Comments Initial Comments: General: The patient is awake and alert, in no distress, and does not appear acutely ill. Eye: Pupils are equal, round and reactive to light. Extra-ocular movements are intact. No nystagmus. There is normal conjunctiva bilaterally. No signs of icterus. Ears, nose, mouth and throat: There are moist mucous membranes and no oral lesions. Tender over the frontal sinuses. Neck: The neck is supple, there is no tenderness or JVD. Cardiovascular: There is a regular rate and rhythm. No murmur, rub or gallop is appreciated. Respiratory: Lungs are clear to auscultation, respirations are non-labored, breath sounds are equal. No wheezes, stridor, rales, or rhonchi. Musculoskeletal: Normal ROM, no tenderness. Sensation intact. Strength 5/5. Pulses equal bilaterally 2+. Neurological: A&O x 3. CN II-XII intact, There are no obvious motor or sensory deficits. Coordination appears grossly intact. Speech is normal. Skin: Skin is warm and dry and no rashes or lesions are noted. Psychiatric: Cooperative, appropriate mood & affect, normal judgment. Limitations: no limitations Course Vital Signs 05/13/18 09:29 Temperature 98 F Pulse Rate 73 Respiratory 20 Rate Blood Pressure 130/88 O2 Sat by Pulse 99 Oximetry Medical Decision Making - Medical Decision Making Patient has history of seizures. She does take Keppra. Does have a follow-up appointment with her family doctor in 2 days. Patient wanting detox from alcohol. Patient doing well at this time vital stable. No sign of distress. Will be given nausea medication Zofran, clonidine, and Librium. Disposition Clinical Impression: Alcoholism Disposition: HOME SELF-CARE Condition: Good Instructions: Alcohol Withdrawal (ED) Additional Instructions: Please use medication as discussed. Please follow-up with family doctor in the next 2 days of symptoms have not improved. Please return to emergency room if the symptoms increase or worsen or for any other concerns. Prescriptions: chlordiazePOXIDE HCl [Librium] 25 mg PO DIRECTED #22 capsule cloNIDine HCL [Catapres] 0.1 mg PO BID #6 tab Fluticasone Propionate [Flonase Allergy Relief] 1 - 2 spray EA NOSTRIL DAILY 5 Days ml Ondansetron Odt [Zofran ODT] 4 mg PO Q8HR PRN #20 tab PRN Reason: Nausea Is patient prescribed a controlled substance at d/c from ED?: No Referrals: None,Stated [Primary Care Provider] - 1-2 days Time of Disposition: 09:54
--- NOTE | 2018-05-13 10:29 | CT ---
EXAMINATION TYPE: CT brain wo con DATE OF EXAM: 05/13/2018 COMPARISON: Previous study dated 03/12/2018. HISTORY: Right sided head pain, prior surgical spot in 2010 CT DLP: 1011 mGycm Automated exposure control for dose reduction was used. FINDINGS: There is been a right frontoparietal craniotomy. Central structures are midline. There is no evidence of hydrocephalus. No acute focal lesion, mass ef fect or midline shift is seen. I do not see evidence of intracranial blood. Visualized portions of the paranasal sinuses and mastoids are clear. IMPRESSION: 1. NO ACUTE INTRACRANIAL ABNORMALITY. 2. POSTSURGICAL CHANGE.
[2018-05-13] MEDS ORDERED: ONDANSETRON 4 MG ODT STARTER PACK 2 TAB BTL PO STA (10:45)
[2018-05-13] MEDS ORDERED: LORazepam 1 MG TAB PO STA (10:45)
--- NOTE | 2018-05-13 10:47 | ED ---
Medical Decision Making - Medical Decision Making Prior to being discharged patient complained about a headache. She does admit that she had a fall 3 days ago hitting her head against the fridge. States has been suffering headaches last 3 days in the right side. Does have a history of brain aneurysm that was surgically removed. CT of the head was performed showing postsurgical changes with no acute abnormality. Results were discussed with the patient. Patient will continue her plan of detox program started on medications here in emergency room and advised follow-up with her family physician and neurologist. Disposition Clinical Impression: Alcoholism Disposition: HOME SELF-CARE Condition: Good Instructions: Alcohol Withdrawal (ED) Additional Instructions: Please use medication as discussed. Please follow-up with family doctor in the next 2 days of symptoms have not improved. Please return to emergency room if the symptoms increase or worsen or for any other concerns. Prescriptions: chlordiazePOXIDE HCl [Librium] 25 mg PO DIRECTED #22 capsule cloNIDine HCL [Catapres] 0.1 mg PO BID #6 tab Fluticasone Propionate [Flonase Allergy Relief] 1 - 2 spray EA NOSTRIL DAILY 5 Days ml Ondansetron Odt [Zofran ODT] 4 mg PO Q8HR PRN #20 tab PRN Reason: Nausea Is patient prescribed a controlled substance at d/c from ED?: No Referrals: None,Stated [Primary Care Provider] - 1-2 days Time of Disposition: 10:47
[2018-05-13 11:04] VITALS: RESP 18
[2018-05-13 11:06] VITALS: BP 98/62; TEMP 97.6
== END 2018-05-13 11:06 | disposition home or self-care (01) ==
LOC: EC 09:27
DX: F10.20 Alcohol dependence, uncomplicated (principal); G40.909 Epilepsy, unspecified, not intractable, without status epilepticus; F17.200 Nicotine dependence, unspecified, uncomplicated; Z88.5 Allergy status to narcotic agent; Z79.899 Other long term (current) drug therapy; Z81.1 Family history of alcohol abuse and dependence
CPT/HCPCS: 70450; 99284; S0119

== ENCOUNTER 2018-06-08 04:51 | Emergency (ER) | payer OTHER ==
[2018-06-08 05:09] VITALS: TEMP 98.2
[2018-06-08 06:19] LABS: Basophils # (A) 0.1 k/uL (0-0.2); Basophils % (A) 1 %; Eosinophils % (A) 0 %; HCT 35.9 % (34.0-46.0); HGB 11.6 gm/dL (11.4-16.0); Lymphocytes # (A) 1.5 k/uL (1.0-4.8); Lymphocytes % (A) 17 %; MCH 31.2 pg (25.0-35.0); MCHC 32.2 g/dL (31.0-37.0); MCV 96.8 fL (80.0-100.0); Mean Platelet Volume 6.7; Monocytes # (A) 0.7 k/uL (0-1.0); Monocytes % (A) 8 %; Neutrophils # (A) 6.2 k/uL (1.3-7.7); Neutrophils % (A) 72 %; Platelet Count 226 k/uL (150-450); RBC 3.71 m/uL (3.80-5.40); RDW 13.5 % (11.5-15.5); WBC 8.6 k/uL (3.8-10.6)
[2018-06-08 06:31] LABS: Appearance,Urine Clear (Clear); Bacteria,Urine Few /hpf; Bilirubin,Urine Negative (Negative); Blood,Urine Small (Negative); Color,Urine Light Yellow; Glucose,Urine (UA) Negative (Negative); Ketones,Urine Negative (Negative); Leukocyte Esterase,Urine Negative (Negative); Mucus,Urine Rare /hpf; Nitrite,Urine Negative (Negative); PH, Urine 5.5 (5.0-8.0); Protein,Urine Negative (Negative); Specific Gravity,Urine 1.004 (1.001-1.035); Squamous Epithelial Cell,Urine 4 /hpf (0-4); Urobilinogen,Urine <2.0 mg/dL (<2.0); WBC,Urine 1 /hpf (0-5)
--- NOTE | 2018-06-08 06:31 | ED ---
General Adult HPI - General Chief complaint: Dizziness Stated complaint: neck pain,dizziness Time Seen by Provider: 06/08/18 05:54 Source: patient Mode of arrival: ambulatory Limitations: no limitations - History of Present Illness Initial comments: This patient is a 33-year-old woman who presents to be evaluated for sore throat , mild headache, dizziness, and enlarged lymph nodes along the right side of her neck. The patient states that the symptoms have been coming on over the past few days to maybe a week. She has not noted fever or chills. She does not have any dyspnea. The pain is mildly worse with swallowing. No dysphonia -: days(s) Quality: burning Consistency: constant Improves with: none Worsens with: other (Swallowing) - Related Data Previous Rx's Medication Instructions Recorded levETIRAcetam [Keppra] 500 mg PO Q12HR #20 tab 03/23/18 Nitrofurantoin Monohyd/M-Cryst 100 mg PO Q12HR #14 cap 04/01/18 [Macrobid] levETIRAcetam [Keppra] 500 mg PO Q12HR #30 tab 04/01/18 Fluticasone Propionate [Flonase 1 - 2 spray EA NOSTRIL DAILY 5 05/13/18 Allergy Relief] Days ml Ondansetron Odt [Zofran ODT] 4 mg PO Q8HR PRN #20 tab 05/13/18 chlordiazePOXIDE HCl [Librium] 25 mg PO DIRECTED #22 capsule 05/13/18 cloNIDine HCL [Catapres] 0.1 mg PO BID #6 tab 05/13/18 Allergies Allergy/AdvReac Type Severity Reaction Status Date / Time morphine Allergy Rash/Hives Verified 05/13/18 09:30 Review of Systems ROS Statement: Those systems with pertinent positive or pertinent negative responses have been documented in the HPI. ROS Other: All systems not noted in ROS Statement are negative. Constitutional: Denies: fever, chills, weakness Eyes: Denies: vision change ENT: Reports: throat pain. Denies: ear pain, congestion Respiratory: Denies: cough, dyspnea Cardiovascular: Denies: chest pain, palpitations, edema, syncope Gastrointestinal: Denies: abdominal pain, nausea, vomiting Genitourinary: Denies: dysuria Musculoskeletal: Denies: back pain Skin: Denies: rash Neurological: Reports: headache. Denies: weakness, numbness, paresthesias, confusion Past Medical History Past Medical History: Cancer, Seizure Disorder Additional Past Medical History / Comment(s): brain anuerysm 2011-(had seizure related to), bicornuate uterus, dysfunctional uterine bleeding, hx migraines. recent bronchitis, IBS, gallstones, "pre cervical cancer age 15", insomnia History of Any Multi-Drug Resistant Organisms: None Reported Past Surgical History: Adenoidectomy, Breast Surgery, Section, Cholecystectomy, Orthopedic Surgery, Tonsillectomy Additional Past Surgical History / Comment(s): right knee surgery, brain surgery for aneurysm, ovarian cystectomy laparoscopically, D&C x 2, breast biopsy-left breast, Past Anesthesia/Blood Transfusion Reactions: No Reported Reaction Past Psychological History: Anxiety, Depression, PTSD Smoking Status: Current every day smoker Past Alcohol Use History: None Reported Past Drug Use History: None Reported - Past Family History Father Additional Family Medical History / Comment(s): ETOH Mother Family Medical History: No Reported History Additional Family Medical History / Comment(s): ETOH, history of uterine fibroids General Exam Limitations: no limitations General appearance: alert, in no apparent distress Head exam: Present: atraumatic, normocephalic Eye exam: Present: normal appearance. Absent: scleral icterus, conjunctival injection ENT exam: Present: TM's normal bilaterally, normal external ear exam, other ( There is mild injection and cobblestoning of the pharynx. Uvula is midline with no edema.) Neck exam: Present: normal inspection, full ROM, lymphadenopathy (There are right-sided posterior cervical nodes.). Absent: tenderness, meningismus Respiratory exam: Present: normal lung sounds bilaterally. Absent: respiratory distress, wheezes, rales, rhonchi, stridor Cardiovascular Exam: Present: regular rate, normal rhythm, normal heart sounds. Absent: systolic murmur, diastolic murmur, rubs, gallop GI/Abdominal exam: Present: soft. Absent: distended, tenderness, guarding, rebound, rigid, mass Extremities exam: Present: normal inspection, normal capillary refill. Absent: pedal edema, calf tenderness Back exam: Present: normal inspection. Absent: CVA tenderness (R), CVA tenderness (L) Neurological exam: Present: alert, normal gait Skin exam: Present: warm, dry, intact, normal color. Absent: rash Course Vital Signs 06/08/18 06/08/18 06/08/18 05:03 05:20 06:20 Temperature 98.2 F Pulse Rate 99 72 Respiratory 18 18 Rate Blood Pressure 101/77 101/77 106/73 O2 Sat by Pulse 100 100 Oximetry 06/08/18 06/08/18 06/08/18 06:30 06:50 07:10 Temperature Pulse Rate 80 72 79 Respiratory 20 25 H Rate Blood Pressure 106/73 99/68 O2 Sat by Pulse 100 100 Oximetry EKG Findings - EKG Results: EKG: interpreted by LEILA RIVERAL, sinus rhythm (With sinus arrhythmia, rate 74 bpm) , normal axis, normal QRS, normal ST/T, no acute changes - [place], Pacemaker, Normal: Normal tracing: normal tracing Medical Decision Making - Lab Data Result diagrams: 06/08/18 05:55 06/08/18 05:55 Lab Results 06/08/18 06/08/18 06/08/18 Range/Units 05:55 05:55 05:55 WBC 8.6 (3.8-10.6) k/uL RBC 3.71 L (3.80-5.40) m/uL Hgb 11.6 (11.4-16.0) gm/dL Hct 35.9 (34.0-46.0) % MCV 96.8 (80.0-100.0) fL MCH 31.2 (25.0-35.0) pg MCHC 32.2 (31.0-37.0) g/dL RDW 13.5 (11.5-15.5) % Plt Count 226 (150-450) k/uL Neutrophils % 72 % Lymphocytes % 17 % Monocytes % 8 % Eosinophils % 0 % Basophils % 1 % Neutrophils # 6.2 (1.3-7.7) k/uL Lymphocytes # 1.5 (1.0-4.8) k/uL Monocytes # 0.7 (0-1.0) k/uL Eosinophils # 0.0 (0-0.7) k/uL Basophils # 0.1 (0-0.2) k/uL Sodium (137-145) mmol/L Potassium (3.5-5.1) mmol/L Chloride (98-107) mmol/L Carbon Dioxide (22-30) mmol/L Anion Gap mmol/L BUN (7-17) mg/dL Creatinine (0.52-1.04) mg/dL Est GFR (CKD-EPI)AfAm (>60 ml/min/1.73 sqM) Est GFR (CKD-EPI)NonAf (>60 ml/min/1.73 sqM) Glucose (74-99) mg/dL Calcium (8.4-10.2) mg/dL Total Bilirubin (0.2-1.3) mg/dL AST (14-36) U/L ALT (9-52) U/L Alkaline Phosphatase (38-126) U/L Total Protein (6.3-8.2) g/dL Albumin (3.5-5.0) g/dL Urine Color Light Yellow Urine Appearance Clear (Clear) Urine pH 5.5 (5.0-8.0) Ur Specific [place] 1.004 (1.001-1.035) Urine Protein Negative (Negative) Urine Glucose (UA) Negative (Negative) Urine Ketones Negative (Negative) Urine Blood Small H (Negative) Urine Nitrite Negative (Negative) Urine Bilirubin Negative (Negative) Urine Urobilinogen <2.0 (<2.0) mg/dL Ur Leukocyte Esterase Negative (Negative) Urine WBC 1 (0-5) /hpf Ur Squamous Epith Cells 4 (0-4) /hpf Urine Bacteria Few H (None) /hpf Urine Mucus Rare H (None) /hpf Urine HCG, Qual Not Detected (Not Detectd) Heterophile Antibody (Negative) 06/08/18 06/08/18 Range/Units 05:55 05:55 WBC (3.8-10.6) k/uL RBC (3.80-5.40) m/uL Hgb (11.4-16.0) gm/dL Hct (34.0-46.0) % MCV (80.0-100.0) fL MCH (25.0-35.0) pg MCHC (31.0-37.0) g/dL RDW (11.5-15.5) % Plt Count (150-450) k/uL Neutrophils % % Lymphocytes % % Monocytes % % Eosinophils % % Basophils % % Neutrophils # (1.3-7.7) k/uL Lymphocytes # (1.0-4.8) k/uL Monocytes # (0-1.0) k/uL Eosinophils # (0-0.7) k/uL Basophils # (0-0.2) k/uL Sodium 143 (137-145) mmol/L Potassium 3.5 (3.5-5.1) mmol/L Chloride 108 H (98-107) mmol/L Carbon Dioxide 26 (22-30) mmol/L Anion Gap 9 mmol/L BUN 3 L (7-17) mg/dL Creatinine 0.56 (0.52-1.04) mg/dL Est GFR (CKD-EPI)AfAm >90 (>60 ml/min/1.73 sqM) Est GFR (CKD-EPI)NonAf >90 (>60 ml/min/1.73 sqM) Glucose 108 H (74-99) mg/dL Calcium 9.4 (8.4-10.2) mg/dL Total Bilirubin 0.5 (0.2-1.3) mg/dL AST 25 (14-36) U/L ALT 20 (9-52) U/L Alkaline Phosphatase 61 (38-126) U/L Total Protein 6.3 (6.3-8.2) g/dL Albumin 3.4 L (3.5-5.0) g/dL Urine Color Urine Appearance (Clear) Urine pH (5.0-8.0) Ur Specific [place] (1.001-1.035) Urine Protein (Negative) Urine Glucose (UA) (Negative) Urine Ketones (Negative) Urine Blood (Negative) Urine Nitrite (Negative) Urine Bilirubin (Negative) Urine Urobilinogen (<2.0) mg/dL Ur Leukocyte Esterase (Negative) Urine WBC (0-5) /hpf Ur Squamous Epith Cells (0-4) /hpf Urine Bacteria (None) /hpf Urine Mucus (None) /hpf Urine HCG, Qual (Not Detectd) Heterophile Antibody Negative (Negative) Disposition Clinical Impression: Viral syndrome Disposition: HOME SELF-CARE Condition: Good Instructions: Dizziness (ED), Viral Syndrome (ED) Is patient prescribed a controlled substance at d/c from ED?: No Referrals: None,Stated [Primary Care Provider] - 1-2 days Johann Ham MD [REFERRING] - 1-2 days
[2018-06-08 06:32] LABS: Anion Gap 9 mmol/L; Blood Urea Nitrogen 3 mg/dL (7-17); Carbon Dioxide 26 mmol/L (22-30); Chloride 108 mmol/L (98-107); Glucose 108 mg/dL (74-99); Potassium 3.5 mmol/L (3.5-5.1); Sodium 143 mmol/L (137-145)
[2018-06-08 06:33] LABS: ALT 20 U/L (9-52); AST 25 U/L (14-36); Albumin 3.4 g/dL (3.5-5.0); Alkaline Phosphatase 61 U/L (38-126); Calcium 9.4 mg/dL (8.4-10.2); Total Bilirubin 0.5 mg/dL (0.2-1.3); Total Protein 6.3 g/dL (6.3-8.2)
[2018-06-08 07:17] VITALS: BP 99/68
[2018-06-08 08:06] VITALS: PULSE 77; RESP 18
[2018-06-08 12:01] LABS: HIV 1 AB Non-Reactive (Non-Reactive); HIV AB P24 Non-Reactive (Non-Reactive); HIV P24 AG Non-Reactive (Non-Reactive)
== END 2018-06-08 08:20 | disposition home or self-care (01) ==
LOC: EC 04:51
DX: B34.9 Viral infection, unspecified (principal); M54.2 Cervicalgia; F17.200 Nicotine dependence, unspecified, uncomplicated; Z85.41 Personal history of malignant neoplasm of cervix uteri; Z90.89 Acquired absence of other organs; Z88.5 Allergy status to narcotic agent
CPT/HCPCS: 36415; 80053; 81001; 81025; 85025; 86308; 87390; 93005; 99284

== ENCOUNTER 2018-11-26 23:56 | Emergency (ER) | payer OTHER ==
[2018-11-27 00:02] VITALS: TEMP 98.5
[2018-11-27] MEDS ORDERED: diphenhydrAMINE 50 MG/ML 1 ML VIAL IM STA (00:27)
[2018-11-27] MEDS ORDERED: KETOROLAC 30 MG/ML 1 ML VIAL IM STA (00:27)
[2018-11-27] MEDS ORDERED: ONDANSETRON ODT 4 MG TAB PO STA (00:27)
--- NOTE | 2018-11-27 01:23 | XR ---
EXAM: XR Chest, 2 Views CLINICAL HISTORY: ITS.REASON XR Reason: Pain TECHNIQUE: Frontal and lateral views of the chest. COMPARISON: Chest x-ray 04/07/2018 FINDINGS: Lungs: Lungs are clear without focal infiltrates or consolidations. Pleural space: No evidence of pleural effusion or pneumothorax. Heart: Heart size is within normal limits. Mediastinum: Mediastinal structures are unremarkable. Bones/joints: Imaged bony thorax is unremarkable. IMPRESSION: No evidence of acute cardiopulmonary disease.
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
[2018-11-27 01:51] VITALS: BP 111/80; PULSE 90; RESP 17
== END 2018-11-27 02:01 | disposition home or self-care (01) ==
LOC: EC 23:56
DX: G43.909 Migraine, unspecified, not intractable, without status migrainosus (principal); J20.9 Acute bronchitis, unspecified; F17.200 Nicotine dependence, unspecified, uncomplicated; Z85.41 Personal history of malignant neoplasm of cervix uteri; Z88.5 Allergy status to narcotic agent
CPT/HCPCS: 71046; 99283; 96372 ×2; J1200; J1885

== ENCOUNTER 2019-03-08 03:04 | Emergency (ER) | payer OTHER ==
[2019-03-08] MEDS ORDERED: KETOROLAC 30 MG/ML 1 ML VIAL IM STA (05:23)
[2019-03-08] MEDS ORDERED: METOCLOPRAMIDE 5 MG/ML 2 ML VIAL IM STA (05:23)
[2019-03-08 05:55] VITALS: BP 94/64
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
--- NOTE | 2019-03-08 06:27 | CT ---
EXAM: CT Head Without Intravenous Contrast CLINICAL HISTORY: Its. reason CT Reason: Pain TECHNIQUE: Axial computed tomography images of the head/brain without intravenous contrast. CTDI is 49.1 mGy and DLP is 1074.4 mGy-cm. This CT exam was performed using one or more of the following dose reduction techniques: automated exposure control, adjustment of the mA and/or kV according to patient size, and/or use of iterative reconstruction technique. COMPARISON: 05/13/18 FINDINGS: Brain: Subtle asymmetric prominence of the CSF over the left frontal lobe, unchanged and likely clinically insignificant. No hemorrhage. No significant white matter disease. Ventricles: Unremarkable. No ventriculomegaly. Bones/joints: Prior right frontal craniotomy changes. No acute fracture. Soft tissues: Unremarkable. Sinuses: Mild mucosal thickening in the posterior ethmoid sinus and the left. Mastoid air cells: Unremarkable as visualized. No mastoid effusion. IMPRESSION: 1. No acute intracranial abnormality. 2. Stable exam.
[2019-03-08 07:00] VITALS: PULSE 63; RESP 19; TEMP 98
== END 2019-03-08 06:59 | disposition home or self-care (01) ==
LOC: EC 03:04
DX: R51 Headache (principal); R11.0 Nausea; H53.149 Visual discomfort, unspecified; F17.200 Nicotine dependence, unspecified, uncomplicated; Z87.820 Personal history of traumatic brain injury; Z86.69 Personal history of other diseases of the nervous system and sense organs; Z85.41 Personal history of malignant neoplasm of cervix uteri; Z90.49 Acquired absence of other specified parts of digestive tract; Z98.890 Other specified postprocedural states; Z88.5 Allergy status to narcotic agent
CPT/HCPCS: 70450; 99283; 96372 ×2; J2765; J1885

== ENCOUNTER 2019-03-12 08:05 | Emergency (ER) | payer OTHER ==
[2019-03-12 08:19] VITALS: BP 118/92; PULSE 83; RESP 18; TEMP 98
[2019-03-12] MEDS ORDERED: SODIUM CHLORIDE 0.9% 1,000 ML IV STA (08:26)
[2019-03-12] MEDS ORDERED: FAMOTIDINE 20 MG/2 ML VIAL IV STA (08:27)
[2019-03-12] MEDS ORDERED: ONDANSETRON 4 MG/2 ML VIAL IVP STA (08:27)
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
[2019-03-12 09:43] LABS: Anisocytosis Slight; Basophils % (A) 1 %; Eosinophils % (A) 1 %; HCT 38.6 % (34.0-46.0); Lymphocytes # (A) 1.3 k/uL (1.0-4.8); Lymphocytes % (A) 36 %; MCH 29.7 pg (25.0-35.0); MCHC 33.6 g/dL (31.0-37.0); MCV 88.3 fL (80.0-100.0); Mean Platelet Volume 7.2; Monocytes # (A) 0.3 k/uL (0-1.0); Monocytes % (A) 7 %; Neutrophils # (A) 1.9 k/uL (1.3-7.7); Neutrophils % (A) 52 %; Platelet Count 138 k/uL (150-450); RBC 4.37 m/uL (3.80-5.40); RDW 16.9 % (11.5-15.5); WBC 3.7 k/uL (3.8-10.6)
[2019-03-12 09:50] LABS: ALT 110 U/L (9-52); AST 224 U/L (14-36); African American GFR (CKD) >90 (>60 ml/min/1.73 sqM); Albumin 4.8 g/dL (3.5-5.0); Alkaline Phosphatase 63 U/L (38-126); Anion Gap 18 mmol/L; Blood Urea Nitrogen 2 mg/dL (7-17); Calcium 9.5 mg/dL (8.4-10.2); Carbon Dioxide 19 mmol/L (22-30); Chloride 99 mmol/L (98-107); Glucose 81 mg/dL (74-99); Potassium 3.9 mmol/L (3.5-5.1); Sodium 136 mmol/L (137-145); Total Protein 7.3 g/dL (6.3-8.2)
[2019-03-12 10:14] LABS: Alcohol 153 mg/dL
[2019-03-12] MEDS ORDERED: SODIUM CHLORIDE 0.9% 1,000 ML IV ONE (10:27)
== END 2019-03-12 11:16 | disposition home or self-care (01) ==
LOC: EC 08:05
DX: F10.229 Alcohol dependence with intoxication, unspecified (principal); R74.0 Nonspecific elevation of levels of transaminase and lactic acid dehydrogenase [LDH]; G40.909 Epilepsy, unspecified, not intractable, without status epilepticus; F17.200 Nicotine dependence, unspecified, uncomplicated; Z79.899 Other long term (current) drug therapy; Z88.5 Allergy status to narcotic agent; Z85.41 Personal history of malignant neoplasm of cervix uteri
CPT/HCPCS: 36415; 93005; 80053; 80177; 83735; 85025; 99284; 96374; 96375; 96361 ×2; G0480; J2405; 80320